=== PATIENT | female | born 1975 | race Caucasian/White ===

== ENCOUNTER 2020-01-15 08:08 | Outpatient (CLI) | payer BC, SELFPAY ==
--- NOTE | 2020-01-15 | US_ITS ---
WS: [id number] Gallbladder and right upper quadrant ultrasound, 01/15/2020 Clinical Data: ELEVATED LIVER ENZYMES Comparison: Gallbladder ultrasound, 08/10/2014. Findings: The gallbladder shows no sludge or stone. The wall measures 0.16 cm with no pericholecystic fluid. The common bile duct is 0.29 cm and there are no intrahepatic ductal abnormalities. Liver shows no cysts, masses or dilated intrahepatic ducts. The liver measures 17.1 cm in greatest AP diameter with fatty infiltration. The pancreas is not obscured by overlying bowel gas and no cyst, pseudocyst, or evidence of pancreati tis is noted. Right kidney measures 9.8 cm and no cyst, masses or hydronephrosis can be seen. The aorta and inferior vena cava show no vascular abnormalities. US/US liver [id number] Impression: 1. Negative gallbladder. 2. Hepatomegaly and fatty infiltration of the liver.
== END 2020-01-15 08:09 | disposition home or self-care (01) ==
LOC: RADOUTREAD 12:13
PROVIDERS: Family Provider Family Medicine; PCP Family Medicine; Visit Provider Family Medicine
DX: R94.5 Abnormal results of liver function studies (principal); R16.0 Hepatomegaly, not elsewhere classified; K76.0 Fatty (change of) liver, not elsewhere classified
CPT/HCPCS: 76705

== ENCOUNTER 2020-07-26 16:27 | Outpatient (CLI) | payer BC, SELFPAY ==
--- NOTE | 2020-07-26 | MR_ITS ---
WS: [id number] MRI RIGHT KNEE NONCONTRAST TECHNIQUE: Axial PD, coronal PD fat sat, coronal PD, sagittal PD, and sagittal PD fat-sat images obta ined. CLINICAL INFORMATION: RIGHT KNEE PAIN COMPARISON: None. FINDINGS: Distal quadriceps and patella tendons are intact. Normal anterior and posterior cruciate ligaments. H ypertrophic patella. Small suprapatellar effusion. Mild thinning of the medial and lateral meniscus. No acute appearing meniscal tears. Moderate to advanced chondromalacia patella. No subchondral edema. Normal medial and lateral patellar retinaculum. Normal medial and lateral collateral ligaments. Normal popliteal fossa. MR/MR knee RT wo con* [id number] IMPRESSION: 1. Normal anterior and posterior cruciate ligaments. 2. Mild chronic thinning of the medial and lateral meniscus. No acute appearin g meniscal tears. 3. Moderate to advanced chondromalacia patella. No subchondral edema. Normal m edial and lateral patellar retinaculum. 4. Hypertrophic patella. Small suprapatellar effusion. 5. Moderate chondromalacia medial and lateral joint compartments.
== END 2020-07-26 16:28 | disposition home or self-care (01) ==
LOC: RADSHAW 16:31
PROVIDERS: PCP Family Medicine; Visit Provider Family Medicine
DX: M22.41 Chondromalacia patellae, right knee (principal); M25.461 Effusion, right knee
CPT/HCPCS: 73721

== ENCOUNTER 2021-01-30 10:28 | Emergency (ER) | payer BC, SELFPAY ==
--- NOTE | 2021-01-30 10:32 | XRR_ITS ---
PROCEDURE INFORMATION: Exam: XR Left Foot Exam date and time: 01/30/2021 10:32 AM Age: 45 years old Clinical indication: Pain; Heel; Left; Additional info: Heel pain, 3 view including oblique TECHNIQUE: Imaging protocol: XR Left foot. Views: 3 or more views. COMPARISON: No relevant prior studies available. FINDINGS: Bones/joints: No acute fracture. Joint spaces are preserved. Tiny calcaneal spur. Small enthesophyte at the Achilles insertion. Soft tissues: Normal. XR/XR foot LT min 3V* [id number] IMPRESSION: No acute findings.
[2021-01-30 10:38] VITALS: BP 148/91; PULSE 85; RESP 18; TEMP 36.6; O2SAT 98; BMI 35.9
--- NOTE | 2021-01-30 10:44 | ED_ITS ---
HPI - General Adult General: Chief complaint: Extremity Problem,Nontraumatic Stated complaint: L HEEL PAIN/SWELLING Time Seen by Provider: 01/30/21 10:37 History of Present Illness: HPI narrative: Patient is a 45-year-old female who presents the emergency room with complaints of 1 week of left heel pain. Patient reports that every time she stands up or walk, she has heel pain that shoots up to her calf on the left side. Patient denies any fall, fever/chills, redness. Patient denies any trauma or fall recently. Patient presents for evaluation of pain despite [id number] medicine. Onset:5 days ago Duration:5 days Location:home Severity:mild Review of Systems Narrative: Constitutional: No fever, no chills. HEENT: No vision changes CV: No chest pain, no palpitations PULM: no cough, no dyspnea. GI: No abdominal pain, no N/V/D. : No dysuria MSKEL: No muscle pain, +L heel pain SKIN: No new rashes, no lesions. NEURO: No headache, no focal weakness. HEME: No visible bruises PSYCH: Normal mood [facility] ED Female Reproductive History: Date of last menstrual period: 08/26/20 Physical Exam Narrative: EXAM NARRATIVE: Head: Atraumatic Eyes: PERRL, conjunctiva without injection ENT: Mucous membrane moist NECK: Supple, ROM intact LUNGS: LCTAB, no crackles/rhonchi CV: RRR ABDOMEN: Soft, nontender in all quadrants EXTREMITY: Normal ROM, + mild tenderness palpation over the left heel, no palpable midfoot tenderness, no ankle tenderness to palpation, 2+ DP/PT pulses R foot, sensation, negative qiu sign, no focal calf tenderness to palpation SKIN: No rash or erythema, cap refill <3seconds L foot NEURO: Awake and alert, no focal motor deficits PSYCH: Normal mood and affect Course Vital Signs: Vital signs: Vital Signs Temperature 97.8 F 01/30/21 10:38 Pulse Rate 82 01/30/21 12:20 Respiratory Rate 18 01/30/21 12:20 Blood Pressure 125/86 01/30/21 12:20 Pulse Oximetry 98 01/30/21 12:20 MDM - General Adult MDM Narrative: Medical decision making narrative: Patient is a 45-year-old female who presents the emergency room for evaluation of left toe pain x5 days. On exam, patient has mild tenderness to palpation over the left heel. No signs of trauma or visible deformity. No ankle involvement or other foot involvement. XR showed left heel bone spur. She received Tylenol emergency room with symptom improvement. Rx heel foam, capsaicin, lidocaine cream, Tylenol as needed pain. Patient is given follow-up with podiatry. Position: Discharge. Patient is given strict return precautions for any worsening pain or any other issues. Patient has a follow-up with podiatry, sports medicine as well as PCP today. Instructed to follow-up with those pr ovider for further evaluation of her symptoms. Imaging Data^: Other Imaging: Radiologist's impression: [address] [address]ELio ReportSigned Patient: Julia Barrera #: [id number]: 1975Acct#:[id number]/Sex: 45 / FADM Date: 01/30/21Loc: ERRoom/Bed:Attending Dr: Ordering Provider/Ordering MD: Jl Todd MD Date of Service: 01/30/21 Procedure(s): XR foot LT min 3V* [id number] Accession Number(s): [id number] Report Number: [id number] PROCEDURE INFORMATION: Exam: XR Left Foot Exam date and time: 01/30/2021 10:32 AM Age: 45 years old Clinical indication: Pain; Heel; Left; Additional info: Heel pain, 3 view including oblique TECHNIQUE: Imaging protocol: XR Left foot. Views: 3 or more views. COMPARISON: No relevant prior studies available. FINDINGS: Bones/joints: No acute fracture. Joint spaces are preserved. Tiny calcaneal spur. Small enthesophyte at the Achilles insertion. Soft tissues: Normal. XR/XR foot LT min 3V* [id number] IMPRESSION: No acute findings. Dictated By:Jose Miller DOSigned By:Jose Miller DOSigned Date/Time: 01/30/21 1156DD/ 1154 Discharge Plan Discharge Patient Disposition: Home Clinical Impression: Heel pain, Bone spur Condition: Stable Prescriptions: New acetaminophen 500 mg capsule 500 mg PO TID PRN (Reason: pain) 7 Days RF: 0 lidocaine 3 % cream 1 applic topical BID PRN (Reason: pain) 7 Days Qty: 28.35 RF: 0 capsaicin 0.025 % cream 1 applic topical BID PRN (Reason: pain) 7 Days Qty: 25 RF: 0 (DME) foam heel dressing 4.7 X 7.5 bandage See Rx Instructions .ROUTE Qty: 10 RF: 0 Discharge Orders: Discharge ED (Routine); Ordered 01/30/21 Ordered By: Jl Todd Referrals: Chato Williamson MD [Primary Care Provider] - Discharge Diet: Advance as tolerated Discharge Activity: Resume usual activity Patient Instructions: Foot Care Activity Restrictions/Additional Instructions: Please follow up with our developmental education instructor and our sports medicine doctor for evaluation of your symptoms. Use medicine as needed for your pain. Coding Level of Care Code ED Coin Machine Servicer Repairer for Cole Patel
[2021-01-30 10:45] VITALS: BP 148/91; PULSE 89; RESP 18; O2SAT 98
[2021-01-30] MEDS: lidocaine 2% viscous 15 mL UDC TOPICAL (10:56)
[2021-01-30 12:20] VITALS: BP 125/86; PULSE 82; RESP 18; O2SAT 98
--- NOTE | 2021-01-31 10:10 | DCPLANNER ---
fire manager had message to schedule a follow up appointment for patient with ortho and physical therapy. fire manager called the ortho clinic, spoke with Violet, gave clinic patients information. fire manager was told that patients information would be printed and reviewed. Clinic will call patient with appointment information. fire manager also had message to refer patient to physical therapy, outpatient case manager was not left an out patient order for this. When outpatient case manager called ortho with referral, outpatient case manager asked if when patient was seen, if patient needed physical therapy that the ortho physician referred patient to physical therapy. fire manager called and explained this to patient, she was agreeable with the plan of seeing the ortho physician first.
--- NOTE | 2021-02-01 07:56 | DCPLANNER ---
Patient has a follow up appointment scheduled for Sunday, February 02, 2021 at 1:[address] Corbin at [facility]. Clinic will call patient with appointment information.
--- NOTE | 2021-02-25 09:15 | DCPLANNER ---
Patient had a follow up appointment scheduled for 02.02.21 with ortho - patient did attend appointment.
== END 2021-01-30 12:20 | disposition home or self-care (01) ==
PROVIDERS: Emergency Provider Emergency Medicine; PCP Family Medicine
DX: M77.32 Calcaneal spur, left foot (principal)
CPT/HCPCS: 73630; 99282

== ENCOUNTER 2021-12-10 11:38 | Emergency (ER) | payer BC, SELFPAY ==
[2021-12-10 11:45] VITALS: BP 129/86; PULSE 85; RESP 14; TEMP 36.2; O2SAT 98
--- NOTE | 2021-12-10 12:32 | W.ED.GENADLT ---
HPI - General Adult General: Chief complaint: Extremity Problem,Nontraumatic Stated complaint: right foot pain Time Seen by Provider: 12/10/21 12:29 History of Present Illness: Patient is a 46-year-old female with history of hypertension presenting to the emergency room for concerns of right foot pain. Patient tells me that since December 06, she has had right foot pain worse with walking. Patient says that the pain has not improved and decided come to the emergency for evaluation. Patient has any other injuries. Patient denies any recent fall or any trauma. No other complaints at this time Onset:12/06/2021 Duration:4 days Location:home Severity:mild/moderate Associated symptoms: Deny chest pain, dyspnea, nausea, rash, palpitations or vomiting Review of Systems Const: Denies: fever(s) or chills Eyes: Denies: change in vision ENMT: Denies: mouth pain Card: Denies: chest pain or palpitations Resp: Denies: dyspnea GI: Denies: nausea or vomiting : Denies: dysuria Musc: Reports: extremity pain (+R foot pain) Skin/Breast: Denies: rash Neuro: Denies: weakness in extremities Psych: Reports: other (Normal mood) Juan/Lymph: Denies: easy bruising PFSH ED PFSH: Medical History Hypertension Social History Smoking and tobacco status: current every day smoker (7 ciggerettes a day ) Alcohol intake: never Substance/Drug Use: never Female Reproductive History: Date of last menstrual period: 08/26/20 Physical Exam Const: COMMON NORMALS: alert HENMT: COMMON NORMALS: atraumatic HEAD & SCALP: atraumatic MOUTH: moist mucous membranes not abnormal Eye: COMMON NORMALS: EOMs intact bilaterally and conjunctivae normal CONJUNCTIVA: Yes conjunctivae normal Neck/C-Spine: COMMON NORMALS: full ROM and supple Resp: COMMON NORMALS: normal respiratory effort and clear to auscultation bilaterally AUSCULTATION: clear to auscultation bilaterally Cardio: COMMON NORMALS: regular rate RATE: regular rate GI: COMMON NORMALS: Soft to palpation and non-tender PALPATION: Yes Soft to palpation Extremity: COMMON NORMALS: full ROM Neuro: SENSORIUM/ORIENTATION: Yes alert MOTOR EXAM: No Abnormal motor strength present and Other motor observations present (no focal motor deficits) OTHER: + Cap refill in the right digits less than 3 seconds, mild right anterior foot tenderness to palpation at the base of the third digit, no midfoot tenderness to palpation, no Lisfranc area tenderness palpation, 2+ DP/PT pulses on the right foot Psych: COMMON NORMALS: speech normal SPEECH: Yes normal speech MOOD & AFFECT: Yes euthymic mood Course Vital Signs: Vital signs: Vital Signs Temperature 97.2 F L 12/10/21 11:45 Pulse Rate 85 12/10/21 11:45 Respiratory Rate 14 12/10/21 11:45 Blood Pressure 129/86 12/10/21 11:45 Pulse Oximetry 98 12/10/21 11:45 MDM - General Adult Medical Decision Making Patient is a 46-year-old female with history hypertension who presents emergency room with complaints of right foot pain. Patient has mild tenderness palpation over the right anterior foot at the base of the third digit. Neurovascular exam intact on the right foot. Do not suspect acute arterial occlusion. X-ray did not show any signs of acute fractures. Rx: Tylenol, lidocaine patch, and menthol PRN pain Disposition: Discharge. Patient counseled regarding diagnostic impression, treatment plan. Patient given ED strict return precautions to return for continuation, worsening, or development of new symptoms. Instructed to f/u w/ PCP regarding symptoms today. Patient verbalized understanding. Lab Data Radiology Impressions Foot X-Ray 12/10/21 12:30 IMPRESSION: 1. No acute findings. 2. Bone spur inferior calcaneus Imaging Data Other Imaging: Radiologist's impression: [address] [address] XRay Report Signed Patient: Julia Barrera Unit #: [id number] : 1975 Age/Sex: 46 / F ADM Date: 12/10/21 Loc: ER Room/Bed: Attending Dr: Ordering Provider/Ordering MD: Jl Todd MD Date of Service: 12/10/21 Procedure(s): XR foot RT min 3V* [id number] Accession Number(s): [id number] Report Number: [id number] PROCEDURE INFORMATION: Exam: XR Right Foot Exam date and time: 12/10/2021 12:47 PM Age: 46 years old Clinical indication: Pain; Foot; Right; Additional info: Foot pain TECHNIQUE: Imaging protocol: Radiologic exam of the Right foot. Views: 3 or more views. COMPARISON: No relevant prior studies available. FINDINGS: Bones/joints: Negative for acute bony abnormality. Bone spur inferior calcaneus Soft tissues: Normal. XR/XR foot RT min 3V* [id number] IMPRESSION: 1. No acute findings. 2. Bone spur inferior calcaneus ? Dictated By: Matt Pepe Signed By: Matt Pepe Signed Date/Time: 12/10/21 1343 DD/ 1247 Discharge Plan Discharge Patient Disposition: Home Clinical Impression: Foot pain Condition: Stable Prescriptions: New acetaminophen 500 mg tablet 500 mg PO Q6H PRN (Reason: pain) 5 Days Qty: 20 0RF lidocaine 5 % adhesive patch,medicated 1 patch topical DAILY PRN (Reason: pain) 30 Days Qty: 30 0RF Rx Instructions: leave on most painful area for up to 12 hrs Biofreeze (menthol) 5 % gel 1 ea topical BID PRN (Reason: pain) 10 Days Qty: 1 0RF No Action naproxen 500 mg tablet 500 mg PO BID Qty: 60 0RF prednisone 10 mg tablet 10 mg PO DAILY Qty: 42 0RF Rx Instructions: Instructions given in clinic (DME) foam heel dressing 4.7 X 7.5 bandage See Rx Instructions .Route Qty: 10 0RF Rx Instructions: As directed Discharge Orders: Discharge ED (Routine); Ordered 12/10/21 Ordered By: Jl Todd Referrals: Chato Williamson MD [Primary Care Provider] - Discharge Diet: Advance as tolerated Discharge Activity: Increase activity as tolerated Patient Instructions: Arthralgia (ED) Activity Restrictions/Additional Instructions: Come back if you have any new or concerning issues. Coding Level of Care Code ED Regulation Supervisor for Chg Fwd Exam Comprehensive
== END 2021-12-10 14:48 | disposition home or self-care (01) ==
PROVIDERS: Emergency Provider Emergency Medicine; PCP Family Medicine
DX: M79.671 Pain in right foot (principal); M77.31 Calcaneal spur, right foot
CPT/HCPCS: 73630; 99283

== ENCOUNTER → 2022-01-18 08:11 | Outpatient (BNVA) | payer BC, SELFPAY | PROVIDERS: PCP Family Medicine; Referring Provider Family Medicine; Visit Provider Podiatrist Foot & Ankle Surgery | DX: M79.671 Pain in right foot (principal) | CPT/HCPCS: 73630 ==

== ENCOUNTER 2023-10-19 07:41 | Emergency (ER) | payer OTHER, MEDICAID, SELFPAY ==
[2023-10-19 07:48] VITALS: BP 121/84; PULSE 79; RESP 18; TEMP 36.8; O2SAT 100; BMI 29.2
--- NOTE | 2023-10-19 07:59 | XR_ITS ---
WS: [id number] Right shoulder, 3 views, 10/19/2023 Clinical Data: pain Comparison: None. Findings: No fractures or dislocations are seen. The AC joint is normal. The adjacent right clavicle, right sca pula and ribs are normal. The soft tissues are unremarkable. XR/XR shoulder RT min 2V* [id number] Impression: Negative right shoulder.
--- NOTE | 2023-10-19 08:00 | W.ED.EXTPRO ---
HPI - Extremity Problem General: Chief complaint: Extremity Problem,Nontraumatic Stated complaint: right arm pain Time Seen by Provider: 10/19/23 07:44 Source: patient Mode of arrival: ambulatory History of Present Illness: 48-year-old female presents emergency room with complaint of shoulder pain has been going on for the last 2 weeks. She denies any specific trauma or precipitating incident. 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 She is right-hand dominant. No pain in the wrist or elbow she has pain in the shoulders difficult time moving the shoulder and almost any plane other than keeping it central in a new position neutral position at her side. Pain will radiate down to in the arm at times no pain in the neck. No previous surgery to the shoulder or known previous injuries. She had seen her primary care doctor and was briefly on a course of oral steroids which seem to help but when the steroid stopped the pain returned MD Complaint: joint pain Onset (ago): week(s) (2) Pain Consistency: constant Location: right (Shoulder) Quality: sharp Radiation: distal Relieving factors: immobilization Exacerbating factors: range of motion Associated symptoms: Deny chest pain, fever(s), myalgias, rash or short of breath Review of Systems Const: Denies: fever(s) Card: Denies: chest pain Skin/Breast: Denies: rash [facility] ED PFSH: Medical History Hypertension Social History Smoking and tobacco/nicotine status: current every day tobacco/nicotine user (7 ciggerettes a day ) Alcohol intake: never Substance/Drug Use: never Physical Exam Narrative: EXAM NARRATIVE: Neurovascularly right arm is completely intact no pain with range of motion at the wrist or the elbow no pain with pronation supination flexion extension at the elbow. Significant pain at the shoulder joint with attempts to AB duct or flex. Difficult to fully examine due to discomfort patient experiences with attempted ranges of motion. Course Vital Signs: Vital signs: Vital Signs Temperature 98.2 F 10/19/23 07:48 Pulse Rate 78 10/19/23 08:32 Respiratory Rate 18 10/19/23 07:48 Blood Pressure 132/89 10/19/23 08:32 Pulse Oximetry 98 10/19/23 08:32 Oxygen Delivery Me thod Room Air 10/19/23 07:48 MDM - Extremity (Nontraumatic) Medical Decision Making Patient has poor range of motion of the shoulder. 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 She has a hard time moving the shoulders difficulty into exam because the degree discomfort. We initially had placed her on diclofenac after she left her creatinine came back at 1.8 we will contact her and have her hold the diclofenac and instead use tramadol for now. I do not have a previous creatinine to compare to. She should follow-up with her primary care doctor regarding the elevated creatinine. Medical Records I reviewed the patient's medical records. Lab Data I reviewed the patient's lab results. 10/19/23 08:16 10/19/23 08:16 Radiology Impressions Shoulder X-Ray 10/19/23 07:59 Impression: Negative right shoulder. Laboratory Results WBC 10.04 10^3/uL (3.29-11.43) 10/19/23 08:16 RBC 3.92 10^6/uL (3.85-5.65) 10/19/23 08:16 Hgb 12.70 g/dL (11.27-16.99) 10/19/23 08:16 Hct 37.3 % (36-47) 10/19/23 08:16 MCV 95.2 fl (85-98) 10/19/23 08:16 MCH 32.4 pg (27-33) 10/19/23 08:16 MCHC 34.0 g/dL (30-55) 10/19/23 08:16 RDW 12.6 % (12.1-15.1) 10/19/23 08:16 Plt Count 253 10^3/cmm (157-399) 10/19/23 08:16 MPV 10.9 fL (7.4-10.4) H 10/19/23 08:16 Neut % (Auto) 61.5 % 10/19/23 08:16 Lymph % (Auto) 26.5 % 10/19/23 08:16 [place] % (Auto) 9.1 % 10/19/23 08:16 Eos % (Auto) 2.2 % 10/19/23 08:16 Baso % (Auto) 0.4 % 10/19/23 08:16 Neut # (Auto) 6.18 10^3/uL (1.8-7.7) 10/19/23 08:16 Lymph # (Auto) 2.7 10^3/uL (0.8-4.8) 10/19/23 08:16 [place] # (Auto) 0.9 10^3/uL (0.2-0.9) 10/19/23 08:16 Eos # (Auto) 0.2 10^3/uL (0.0-0.8) 10/19/23 08:16 Baso # (Auto) 0.0 10^3/uL (0.0-0.1) 10/19/23 08:16 Nucleated RBC % (auto) 0 % 10/19/23 08:16 Nucleated RBCs # 0.0 /100WBC 10/19/23 08:16 Sodium 139 mmol/L (136-145) 10/19/23 08:16 Potassium 4.6 mmol/L (3.5-5.1) 10/19/23 08:16 Chloride 106 mmol/L (98-107) 10/19/23 08:16 Carbon Dioxide 19 mmol/L (22-29) L 10/19/23 08:16 Anion Gap 18.6 (5-19) 10/19/23 08:16 BUN 43 mg/dL (6-20) H 10/19/23 08:16 Creatinine 1.8 mg/dL (0.5-0.9) H 10/19/23 08:16 GFR Calculation 30.0 mL/min (90-130) L 10/19/23 08:16 Glucose 110 mg/dL (65-115) 10/19/23 08:16 Calculated Osmolality 299 mOsm/kg (285-295) H 10/19/23 08:16 Calcium 9.9 mg/dL (8.5-10.5) 10/19/23 08:16 Total Bilirubin 0.4 mg/dL (0.15-1.2) 10/19/23 08:16 AST 13 U/L (0-32) 10/19/23 08:16 ALT 15 U/L (0-33) 10/19/23 08:16 Alkaline Phosphatase 80 U/L (35-105) 10/19/23 08:16 Total Protein 8.0 g/dL (6.6-8.7) 10/19/23 08:16 Albumin 4.2 g/dL (3.5-5.2) 10/19/23 08:16 Globulin 3.8 g/dL (1.3-4.6) 10/19/23 08:16 All radiology interpretation(s) finalized by discharge Discharge Plan Discharge Patient Disposition: Home Clinical Impression: Rotator cuff arthropathy of right shoulder Condition: Stable Prescriptions: New tramadol 50 mg tablet 50 mg PO Q6H PRN (Reason: pain) Qty: 10 0RF Discontinued ibuprofen 200 mg Tablet 800 mg PO Q6H PRN (Reason: Pain) No Action cetirizine 10 mg tablet 10 mg PO DAILY metoprolol succinate 50 mg tablet extended release 24 hr 50 mg PO DAILY losartan-hydrochlorothiazide 100-12.5 mg tablet 1 tab PO DAILY Discharge Orders: Discharge ED (Routine); Ordered 10/19/23 Ordered By: Dudley Loya Referrals: Chato Williamson MD [Primary Care Provider] - Patient Instructions: Opioid Safety, Pain Management Activity Restrictions/Additional Instructions: Thank you for choosing [facility] for your healthcare needs today. Please realize this is an emergency room and that we are providing you with a medical screening exam and this may not be complete and all inclusive of all the testing and or work up that you may need to determine your ailment or severity of your illness. It is very important that you follow up as instructed or that you return to the Emergency Department should you have concerns or if your condition changes or worsens in any way. You are seen today for right shoulder pain x-ray did not show any acute fractures. Will have you use diclofenac as needed. Case management will make arrangements for you to follow-up with an orthopedist. Coding Level of Care Code ED Gre Tutor for Cole Patel
[2023-10-19 08:32] VITALS: BP 132/89; PULSE 78; O2SAT 98
[2023-10-19 08:36] LABS: Basophils % 0.4 %; Eosinophils # 0.2 10^3/uL (0.0-0.8); Eosinophils % 2.2 %; Hematocrit 37.3 % (36-47); Lymphocytes # 2.7 10^3/uL (0.8-4.8); Lymphocytes % 26.5 %; Mean Corpuscular Hemoglobin 32.4 pg (27-33); Mean Corpuscular Volume 95.2 fl (85-98); Mean Platelet Volume 10.9 fL (7.4-10.4); Monocytes # 0.9 10^3/uL (0.2-0.9); Monocytes % 9.1 %; Neutrophils # 6.18 10^3/uL (1.8-7.7); Neutrophils % 61.5 %; Nucleated Red Blood Cells % 0 %; Platelet Count 253 10^3/cmm (157-399); Red Blood Count 3.92 10^6/uL (3.85-5.65); Red Cell Distribution Width 12.6 % (12.1-15.1); White Blood Count 10.04 10^3/uL (3.29-11.43)
[2023-10-19 09:03] LABS: Alanine Aminotransferase 15 U/L (0-33); Albumin Level 4.2 g/dL (3.5-5.2); Alkaline Phosphatase 80 U/L (35-105); Anion Gap 18.6 (5-19); Aspartate Amino Transferase 13 U/L (0-32); Blood Urea Nitrogen 43 mg/dL (6-20); Calcium 9.9 mg/dL (8.5-10.5); Carbon Dioxide 19 mmol/L (22-29); Chloride 106 mmol/L (98-107); Creatinine Clr Calc Pharmacy 32.8944; Globulin 3.8 g/dL (1.3-4.6); Glucose 110 mg/dL (65-115); Osmolality Calculated 299 mOsm/kg (285-295); Potassium 4.6 mmol/L (3.5-5.1); Sodium 139 mmol/L (136-145); Total Bilirubin 0.4 mg/dL (0.15-1.2)
--- NOTE | 2023-10-19 10:31 | PC.NURSE ---
called pt and informed her to discontinue ibuprofen and diclofinac and that tramadol had been resent to pharmacy. informed pt her creatnine level was elevated and she needed to follow up with PCP within 7 dyas for recheck or return to the ER with new or worsening symptoms, per DR. Loya. PT verbalized understanding of instructions
--- NOTE | 2023-10-22 05:59 | DCPLANNER ---
Message sent to ortho for follow up.
== END 2023-10-19 08:30 | disposition home or self-care (01) ==
PROVIDERS: Emergency Provider Family Medicine; PCP Family Medicine
DX: M12.811 Other specific arthropathies, not elsewhere classified, right shoulder (principal); I10 Essential (primary) hypertension; F17.210 Nicotine dependence, cigarettes, uncomplicated
CPT/HCPCS: 73030; 80053; 85025; 99284

== ENCOUNTER 2023-11-19 08:34 | Outpatient (CLI) | payer OTHER, MEDICAID, SELFPAY ==
--- NOTE | 2023-11-19 08:41 | MR_ITS ---
WS: [id number] MRI RIGHT SHOULDER NONCONTRAST TECHNIQUE: Sagittal T2, coronal T1, T2 and proton density imaging. Axial gradient PDE imaging. CLINICAL INFORMATION: R SHOULDER PAIN COMPARISON: None. FINDINGS: Advanced arthritis AC joint with edema. Subacromial and subdeltoid fluid. Slight impingement distal s upraspinatus. Chronic thinning of the supraspinatus with tendinopathy. Tiny intrasubstance tear dista l infraspinatus. Tendinopathy infraspinatus. Normal teres minor. Normal subscapularis. Normal biceps tendon in the bicipital groove. Normal bone marrow signal in the bony glenoid. Glenoid labrum appears grossly intact. Intra-articular biceps tendon appears intact. Normal biceps labral anchor. Normal bone marrow signal in the humeral head. MR/MR shoulder RT wo con* [id number] IMPRESSION: 1. Advanced degenerative arthritis AC joint with fluid and edema. 2. Slight impingement distal supraspinatus with tendinopathy and mild chronic thinning. 3. Tiny intrasubstance tear distal infraspinatus which appears intact. 4. Rotator cuff is otherwise intact. 5. Biceps tendon appears intact within the bicipital groove. 6. Intra-articular biceps tendon appears intact. 7. No other acute findings.
== END 2023-11-19 08:35 | disposition home or self-care (01) ==
PROVIDERS: PCP Family Medicine; Visit Provider Family Medicine
DX: M13.811 Other specified arthritis, right shoulder (principal); M75.41 Impingement syndrome of right shoulder; M75.81 Other shoulder lesions, right shoulder
CPT/HCPCS: 73221

== ENCOUNTER → 2023-11-26 16:13 | Outpatient (BNVA) | payer OTHER, MEDICAID, SELFPAY | PROVIDERS: PCP Family Medicine; Referring Provider Family Medicine; Visit Provider Nurse Practitioner | DX: M25.519 Pain in unspecified shoulder (principal) | CPT/HCPCS: 36415; 85025 ==

== ENCOUNTER 2023-11-29 05:32 | Day surgery (SDC) | payer OTHER, MEDICAID, SELFPAY ==
[2023-11-29] VITALS (11 sets, daily range): BP systolic 98–129; BP diastolic 66–92; PULSE 63–80; RESP 12–20; TEMP 36.2–36.6; O2SAT 97–100; BMI 29.2
[2023-11-29] MEDS: CELEcoxib 200 mg Capsule 400 MG PO (06:30)
[2023-11-29] MEDS: acetaminophen 1,000 MG/100 ML PIGGYBACK 400 MG IV (06:30)
[2023-11-29] MEDS: gabapentin 300 mg Capsule PO (06:30)
--- NOTE | 2023-11-29 06:56 | P.ANESASSM_ITS ---
Pre-Anesthetic Assessment Height/Weight: Height 1.52 m Weight 68.039 kg Temp Pulse Resp BP Pulse Ox O2 Del Method 97.2 F L 76 18 127/92 97 Room Air 11/29/23 06:06 11/29/23 06:06 11/29/23 06:06 11/29/23 06:06 11/29/23 06:06 11/29/23 06:06 Operation Date: 11/29/23 07:00 Proposed Procedures p open Distal Clavicle Resection(Right) - Whit Neely MD s Acromioplasty(Right) - Whit Neely MD s Debridement Upper Extremity shoulder(Right) - Whit Neely MD s Rotator Cuff Repair - Open(Right) - Whit Neely MD Familial anesthetic complications: None Was Beta Arun taken within 24 hours: N/A Was Clonidine taken within 24 hours: N/A Last intake: Intake Last Liquid Date 11/28/23 Last Liquid Time 21:00 Last Solid Date 11/28/23 Last Solid Time 21:00 Social Tobacco and No alcohol Exam alert, oriented x 3, clear to auscultation bilaterally and regular rate & rhythm Airway Mallampati: Class II Dentition: full CV/HEM Hypertension Anesthetic Plan ASA status: 2 Anesthesia: General and Regional (specify below) Risk of > 500 ml blood loss (7ml/kg in children): No Medications/Allergies Home Medications Medication Instructions Recorded Confirmed Last Taken Type cetirizine 10 mg tablet 10 mg PO DAILY 10/19/23 11/28/23 11/28/23 History losartan 100 1 tab PO DAILY 10/19/23 11/28/23 11/28/23 History mg-hydrochlorothiazide 12.5 mg tablet metoprolol succinate 50 mg 50 mg PO DAILY 10/19/23 11/29/23 11/29/23 History tablet,extended release 24 hr tramadol 50 mg tablet 50 mg PO Q6H PRN pain #10 tabs 10/19/23 11/28/23 11/28/23 Rx cyclobenzaprine 10 mg tablet 10 mg PO TID PRN muscle spasm #42 11/26/23 11/28/23 11/28/23 Rx tabs diclofenac potassium 50 mg tablet 50 mg PO TID PRN pain #60 tabs 11/26/23 11/28/23 Unknown Rx Allergies Allergy/AdvReac Type Severity Reaction Status Date / Time No Known Allergies Allergy Verified 11/26/23 15:25 [facility] Anesthesia Medical History Acromioclavicular joint arthritis Rotator cuff tear arthropathy of right shoulder Impingement syndrome of right shoulder Hypertension Social History Smoking and tobacco/nicotine status: current every day tobacco/nicotine user (7 ciggerettes a day ) Alcohol intake: never Substance/Drug Use: never Data Anesthesia Cardiac Studies: No Data to Display
--- NOTE | 2023-11-29 06:57 | ANES.PROC ---
Anesthesia Procedures Procedure/Date: 11/29/23 Nerve Block ^: Nerve Block 1: Main Anesthesia: general anesthesia Time Out Performed: Yes Consent: requested by attending/covering physician, from patient, from other, risks and benefits reviewed and patient agrees to proceed Nerve block location: interscalene (R) Anesthesia monitors applied: pulse oximetry, EKG and BP cuff Nerve block position: semi sitting Anesthetic Used: ropivicaine 0.5% (20 ml) and with decadron (4 mg) Ultrasound used to: recognize landmarks, visualize and ID brachial plexus, in supraclavicular region and visualize and ID interscalene groove Nerve Stimulator Used?: No Interscalene/Femoral BLK: 2 stimuplex 22 g needle used for position and inplane approach, visualize local anesthetic spread and no vascular puncture identified Injection: neg aspiration of heme Patient Tolerated Procedure: well Complications: none
--- NOTE | 2023-11-29 06:59 | P.HPUD_ITS ---
Surgery/Procedure H&P Update DATE OF PROCEDURE: November 29, 2023 DATE H&P PERFORMED: 11/26/23 H&P UPDATE INFORMATION: I have reviewed H&P completed within last 30 days, I have examined patient prior to procedure, No changes to prior documentation and H&P is in [facility] EMR on date indicated CHANGES TO PREVIOUS DOCUMENTATION: MRI IMPRESSION (11/19/23): 1. Advanced degenerative arthritis AC joint with fluid and edema. 2. Slight impingement distal supraspinatus with tendinopathy and mild chronic thinning. 3. Tiny intrasubstance tear distal infraspinatus which appears intact. 4. Rotator cuff is otherwise intact. 5. Biceps tendon appears intact within the bicipital groove. 6. Intra-articular biceps tendon appears intact. 7. No other acute findings. PLANNED PROCEDURE: Operation Date: 11/29/23 07:00 Proposed Procedures p open Distal Clavicle Resection(Right) - Whit Neely MD s Acromioplasty(Right) - MD asha Stevenson Debridement Upper Extremity shoulder(Right) - MD asha Stevenson Rotator Cuff Repair - Open(Right) - Whit Neely MD Related Problem List Diagnoses (1) Impingement syndrome of right shoulder: (2) Acromioclavicular joint arthritis: Qualifiers: Laterality: right Qualified Code(s): M19.011 - Primary osteoarthritis, right shoulder (3) Rotator cuff tear arthropathy of right shoulder:
[2023-11-29] MEDS: midazolam 1 mg/mL INJ 2 mL 2 MG IVP (07:03)
[2023-11-29] MEDS: ceFAZolin 2,000 MG in sodium chloride 0.9% (plus) 50 ML 100 MG IV (07:03)
[2023-11-29] MEDS: sodium chloride 0.9% 1,000 ML 30 ML IV (07:05)
[2023-11-29] MEDS: ceFAZolin 1,000 mg SDV 1000 MG IRRIGATION (07:47)
--- NOTE | 2023-11-29 08:26 | PM.OP ---
Operative Report Date of procedure: November 29, 2023 Pre-op diagnosis: Left shoulder impingement and acromioclavicular joint degenerative osteoarthritis with possible rotator cuff tear Post-op diagnosis: Left shoulder impingement and acromioclavicular joint degenerative osteoarthritis with bursitis Post-op findings: Thickened bursa with hematoma over the rotator cuff, but no carie tear. Significant degenerative osteoarthritis of the acromioclavicular joint and severe impingement. Procedure done: Left shoulder acromioplasty with bursectomy and distal clavicle resection. Debridement of rotator cuff hematoma Implants: None Pathology: None Surgeon: Whit Neely MD Fire Alarm Inspector: Soumya Barriga, nurse practitioner, who services were required for retraction, exposure, and completion of the surgical procedure. Anesthesia: General (Intubated, ASA 2) Estimated blood loss (mL): 10 IV fluids (mL): 800 Complications: None Findings: Significant aggravation of the rotator cuff with small hematoma over the most significant area of impingement. Very tight subacromial space and acromioclavicular joint. Condition: stable Disposition: PACU (Then return to same-day surgery for discharge to home) Brief History: This is a 48-year-old, female patient, who presents to surgery today for open acromioplasty, distal clavicle resection, and evaluation of the rotator cuff for possible rotator cuff tear. The patient notes that she has had significant right shoulder pain with worsening over the 2 months prior to this visit. Patient declines any known injury as to cause her pain. 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 Patient states that she has never had any surgeries on the shoulder in the past. Patient endorses symptoms of pain, weakness, instability, crepitation and stiffness. MRI and x-rays were obtained prior to the plans for surgical intervention. The studies demonstrated advanced degenerative change throughout the acromioclavicular joint with impingement over the distal supraspinatus and infraspinatus tendons. There was felt to possibly be intrasubstance tears of the distal infraspinatus as well as rotator cuff tendinopathy. Prior to surgical procedure, risks and complications were discussed with the patient, consents were signed and questions were answered. Procedure: The patient was brought to the operating theater and underwent general intubated anesthesia, ASA 2. The patient was placed in a beachchair position and subsequently the left upper extremity was prepped and draped in the usual fashion utilizing DuraPrep. The arm was draped free. A surgical pause was performed prior to commencement of the surgical procedure. At the time of the surgical pause, we confirmed the site and side of surgery as well as administration of appropriate preoperative antibiotics Ancef 2 g. MRI was also reviewed at that time. Following the surgical pause, an incision was made at approximately the level of the acromioclavicular joint extending across the anterolateral corner of the acromion and distally as necessary. Care was taken to avoid injury to the axillary nerve by limiting the distal extent of the incision. Dissection continued through skin and soft tissues using a scalpel. Hemostasis was obtained using electrocautery. Soft tissues were elevated off the acromion. An acromioplasty was then accomplished using a combination of a saw and a power rasp. With this, we were able to remove the significant compression caused by the acromion. The rotator cuff was then evaluated to look for tears. Although there was hematoma over the area of impingement, there did not appear to be a rotator cuff tear either by visual assessment or by palpation. The shoulder was placed through further range of motion to assure there was no further evidence of rotator cuff tear. The acromioclavicular joint was exposed. A saw was then used to resect the distal clavicle without difficulty. The undersurface of the clavicle was palpated and was slightly further debrided. A power rasp was used to further smooth the area. When this was felt to be adequately resected, the wound was irrigated. Attention was then directed to closure. The wound was irrigated and closure was accomplished with 0 Vicryl in the capsular tissues overlying the acromioclavicular joint area as well as over the acromion and down into the deltoid muscle. 3-0 Monocryl was used to close the subcutaneous tissues followed by 4-0 Monocryl subcuticular closure. This was followed by Dermabond, Steri-Strips, and OpSite. The patient was placed in a sling and was returned to the recovery room in satisfactory condition. The patient will be discharged to home to follow-up with me in the office. There were no complications and no specimens. Related Problem List Diagnoses (1) Acromioclavicular joint arthritis: (2) Impingement syndrome of right shoulder: (3) Rotator cuff tear arthropathy of right shoulder:
[2023-11-29] MEDS: HYDROcodone-acetaminophen 5-325 mg Tablet 1 TAB PO (09:23)
--- NOTE | 2023-11-29 09:50 | ANE.PACU2 ---
Inpatient post-anesthesia follow up: Airway intact: Yes Vital signs: Temperature 97.8 F Pulse Rate 63 Respiratory Rate 17 Blood Pressure 127/73 Pulse Oximetry 100 Oxygen Delivery Me thod Room Air Oxygen Flow Rate 6 Fraction of Inspir ed Oxygen Hydration adequate: Yes Nausea and vomiting: No Pain level: 1 Mental status: Baseline
== END 2023-11-29 09:50 | disposition home or self-care (01) ==
PROVIDERS: PCP Family Medicine; Visit Provider Specialist
PROC: (CPT 23120; principal; 2023-11-29 07:00)
PROC: (CPT 23130; 2023-11-29 07:00)
PROC: (CPT 29824; 2023-11-29 07:00)
DX: M19.012 Primary osteoarthritis, left shoulder (principal); M25.812 Other specified joint disorders, left shoulder; M75.52 Bursitis of left shoulder; I10 Essential (primary) hypertension; F17.210 Nicotine dependence, cigarettes, uncomplicated
CPT/HCPCS: 29824; 29826; J0131; J0690; J1100; J2250; J2405; J2704; J2710; J2795; J3010; J3490; J7030

== ENCOUNTER 2023-12-12 14:22 | Inpatient (IN) | payer OTHER, MEDICAID, SELFPAY ==
[2023-12-12] VITALS (14 sets, daily range): BP systolic 88–128; BP diastolic 67–85; PULSE 107–122; RESP 14–25; TEMP 36.4–37.1; O2SAT 94–100; BMI 29.2
[2023-12-12 15:06] LABS: Basophils # 0.1 10^3/uL (0.0-0.1); Basophils % 0.5 %; Eosinophils % 0.1 %; Hematocrit 39.4 % (36-47); Lymphocytes # 0.5 10^3/uL (0.8-4.8); Lymphocytes % 2.8 %; Mean Corpuscular HGB Conc 34.5 g/dL (30-55); Mean Corpuscular Hemoglobin 31.8 pg (27-33); Mean Corpuscular Volume 92.1 fl (85-98); Mean Platelet Volume 11.1 fL (7.4-10.4); Monocytes # 0.6 10^3/uL (0.2-0.9); Monocytes % 3.6 %; Neutrophils # 15.29 10^3/uL (1.8-7.7); Neutrophils % 90.7 %; Nucleated Red Blood Cells % 0 %; Platelet Count 159 10^3/cmm (157-399); Red Blood Count 4.28 10^6/uL (3.85-5.65); Red Cell Distribution Width 12.4 % (12.1-15.1); White Blood Count 16.86 10^3/uL (3.29-11.43)
[2023-12-12] MEDS: sodium chloride 0.9% 1,000 ML 999 ML IV ×2 (15:09→16:27)
--- NOTE | 2023-12-12 15:18 | W.ED.ABDPA2 ---
HPI - Abdominal Pain General: Chief Complaint: Abdominal Pain Stated Complaint: chills, right side pain, back pain, vomitting Time Seen by Provider: 12/12/23 14:48 Source: patient Mode of arrival: ambulatory History of Present Illness: 48-year-old female presents emergency room complaining of left flank pain and just generally not feeling well she recently had shoulder surgery she has been on diclofenac additionally she is on losartan hydrochlorothiazide. She has some mild dysuria. Nauseous. Denies any medic easy melena hematemesis calf cramps denies any shortness of breath or cough. MD elicited complaint: abdominal pain Associated Symptoms: Denies chills, dysuria and fever(s) Review of Systems Const: Denies: fever(s) or chills Card: Denies: chest pain Resp: Denies: dyspnea GI: Denies: abdominal pain : Denies: dysuria, urinary frequency or urinary urgency Musc: Denies: neck pain or back pain Skin/Breast: Denies: rash PFSH ED PFSH: Medical History (Updated 12/13/23 @ 07:04 by Dudley Loya DO) Acromioclavicular joint arthritis Rotator cuff tear arthropathy of right shoulder Impingement syndrome of right shoulder Hypertension Social History Smoking and tobacco/nicotine status: current every day tobacco/nicotine user (7 ciggerettes a day ) Alcohol intake: never Substance/Drug Use: never Physical Exam Const: COMMON NORMALS: no acute distress GENERAL APPEARANCE: cooperative and comfortable ORIENTATION/CONSCIOUSNESS: Yes awake, Yes oriented to person, Yes oriented to place and Yes oriented to time HENMT: COMMON NORMALS: normocephalic, atraumatic and hearing grossly normal bilaterally HEAD & SCALP: normocephalic and atraumatic Resp: COMMON NORMALS: normal respiratory effort, No retractions, No use of accessory muscles and clear to auscultation bilaterally AUSCULTATION: clear to auscultation bilaterally Cardio: COMMON NORMALS: regular rate, regular rhythm and No murmurs present (Cardio) RATE: regular rate RHYTHM: regular rhythm GI: COMMON NORMALS: Soft to palpation and No hepatosplenomegaly present AUSCULTATION: Yes normoactive bowel sounds PALPATION: Yes Soft to palpation, No Tenderness to palpation present (GI), No Guarding due to palpation present (GI) and Yes No hepatosplenomegaly present Extremity: COMMON NORMALS: normal to inspection, capillary refill normal, no clubbing, cyanosis or edema, no calf tenderness and no pedal edema Neuro: SENSORIUM/ORIENTATION: Yes oriented to person, Yes oriented to place and Yes oriented to time Skin: COMMON NORMALS: no rashes or lesions noted GENERAL SKIN EXAM: no rashes or lesions noted Course Vital Signs: Vital signs: Vital Signs Temperature 98.6 F 12/13/23 00:17 Pulse Rate 118 H 12/13/23 04:51 Respiratory Rate 16 12/13/23 04:51 Blood Pressure 109/75 12/13/23 04:51 Pulse Oximetry 93 12/13/23 04:51 Oxygen Delivery Me thod Room Air 12/13/23 00:17 MDM - Abdominal Pain Medical Decision Making Acute pyelonephritis with acute kidney injury. Blood cultures done antibiotics started. CT shows changes consistent with pyelonephritis no evidence of nephrolithiasis or obstruction at this time. Patient on diclofenac as well as losartan hydrochlorothiazide which I believe contributed to her acute kidney injury. Patient has metabolic acidosis and elevated anion gap as well. Discussed with hospitalist initial fluids ordered further fluids pending CT results. Do not want to fluid overload the patient eventually had a stone which increased pain. She did respond to the initial modified fluid bolus. Medical Records I reviewed the patient's medical records. Lab Data I reviewed the patient's lab results. 12/13/23 05:35 12/13/23 05:35 Labs/Radiology: Radiology Impressions Chest X-Ray 12/12/23 15:41 IMPRESSION: No acute findings. Abdomen/Pelvis CT 12/12/23 16:22 IMPRESSION: 1. Asymmetric enlargement of the right kidney with asymmetric increased perinephric and periureteral fat infiltration without calculus or obstruction ; differential diagnosis led by urinary tract infection with other pathology including recently passed calculus not excluded. 2. Hepatic steatosis. 3. Prior gastric sleeve resection with small hiatal hernia. Laboratory Results WBC 16.86 10^3/uL (3.29-11.43) H 12/12/23 14:58 RBC 4.28 10^6/uL (3.85-5.65) 12/12/23 14:58 Hgb 13.60 g/dL (11.27-16.99) 12/12/23 14:58 Hct 39.4 % (36-47) 12/12/23 14:58 MCV 92.1 fl (85-98) 12/12/23 14:58 MCH 31.8 pg (27-33) 12/12/23 14:58 MCHC 34.5 g/dL (30-55) 12/12/23 14:58 RDW 12.4 % (12.1-15.1) 12/12/23 14:58 Plt Count 159 10^3/cmm (157-399) 12/12/23 14:58 MPV 11.1 fL (7.4-10.4) H 12/12/23 14:58 Neut % (Auto) 90.7 % 12/12/23 14:58 Lymph % (Auto) 2.8 % 12/12/23 14:58 [place] % (Auto) 3.6 % 12/12/23 14:58 Eos % (Auto) 0.1 % 12/12/23 14:58 Baso % (Auto) 0.5 % 12/12/23 14:58 Neut # (Auto) 15.29 10^3/uL (1.8-7.7) H 12/12/23 14:58 Lymph # (Auto) 0.5 10^3/uL (0.8-4.8) L 12/12/23 14:58 [place] # (Auto) 0.6 10^3/uL (0.2-0.9) 12/12/23 14:58 Eos # (Auto) 0.0 10^3/uL (0.0-0.8) 12/12/23 14:58 Baso # (Auto) 0.1 10^3/uL (0.0-0.1) 12/12/23 14:58 Nucleated RBC % (auto) 0 % 12/12/23 14:58 Nucleated RBCs # 0.0 /100WBC 12/12/23 14:58 Sodium 134 mmol/L (136-145) L 12/12/23 14:58 Potassium 4.5 mmol/L (3.5-5.1) 12/12/23 14:58 Chloride 96 mmol/L (98-107) L 12/12/23 14:58 Carbon Dioxide 17 mmol/L (22-29) L 12/12/23 14:58 Anion Gap 25.5 (5-19) H 12/12/23 14:58 BUN 53 mg/dL (6-20) H 12/12/23 14:58 Creatinine 4.2 mg/dL (0.5-0.9) H 12/12/23 14:58 GFR Calculation 11.3 mL/min (90-130) L 12/12/23 14:58 Glucose 170 mg/dL (65-115) H 12/12/23 14:58 Calculated Osmolality 296 mOsm/kg (285-295) H 12/12/23 14:58 Lactic Acid 2.1 mmol/L (0.5-2.2) 12/12/23 15:58 Calcium 9.2 mg/dL (8.5-10.5) 12/12/23 14:58 Iron 12 ug/dL (37-145) L 12/12/23 14:58 TIBC 222 mcg/dl 12/12/23 14:58 % Saturation 5.4 % (20-50) L 12/12/23 14:58 Unsat Iron Binding 210 ug/dL (112-347) 12/12/23 14:58 Total Bilirubin 0.8 mg/dL (0.15-1.2) 12/12/23 14:58 AST 11 U/L (0-32) 12/12/23 14:58 ALT 11 U/L (0-33) 12/12/23 14:58 Alkaline Phosphatase 123 U/L (35-105) H 12/12/23 14:58 Total Protein 7.9 g/dL (6.6-8.7) 12/12/23 14:58 Albumin 3.9 g/dL (3.5-5.2) 12/12/23 14:58 Globulin 4.0 g/dL (1.3-4.6) 12/12/23 14:58 Lipase 14 U/L (13-60) 12/12/23 14:58 Vitamin B12 661 pg/mL (232-1245) 12/12/23 14:58 Procalcitonin 9.05 ng/mL (0-0.5) H 12/12/23 14:58 TSH 4.08 uIU/mL (0.27-4.20) 12/12/23 14:58 Urine Color Yellow (Yellow) 12/12/23 15:34 Urine Appearance Clear (CLEAR) 12/12/23 15:34 Urine pH 5 (5-7) 12/12/23 15:34 Ur Specific [place] 1.015 (1.005-1.030) 12/12/23 15:34 Urine Protein 3+ (Negative) H 12/12/23 15:34 Urine Glucose (UA) Norm (Normal) 12/12/23 15:34 Urine Ketones Negative (Negative) 12/12/23 15:34 Urine Blood 2+ (Negative) H 12/12/23 15:34 Urine Nitrate Negative (Negative) 12/12/23 15:34 Urine Bilirubin 1+ (Negative) H 12/12/23 15:34 Urine Urobilinogen 1 mg/dL (Negative) H 12/12/23 15:34 Ur Leukocyte Esterase Trace (Negative) H 12/12/23 15:34 Urine RBC 0-4 /hpf (0-2) H 12/12/23 15:34 Urine WBC 25-40 /hpf (0-5) H 12/12/23 15:34 Ur Eosinophil Smear 0 (0-0) 12/12/23 15:34 Ur Squamous Epith Cells 5-10 /hpf (0-5) H 12/12/23 15:34 Amorphous Sediment Not Reportable 12/12/23 15:34 Urine Bacteria 1+ /hpf (NONE) H 12/12/23 15:34 Urine Eosinophils No eosinophils seen 12/12/23 15:34 Ur Random Sodium 44 mmol/L 12/12/23 15:34 Ur Random Potassium 77 mmol/L 12/12/23 15:34 Ur Random Chloride 29 mmol/L 12/12/23 15:34 Urine Creatinine 145 mg/dL (28-217) 12/12/23 15:34 Urine Opiates Screen Positive ng/mL (Negative) H 12/12/23 15:34 Ur Barbiturates Screen Negative ng/mL (Negative) 12/12/23 15:34 Ur Phencyclidine Scrn Negative ng/mL (Negative) 12/12/23 15:34 Ur Amphetamines Screen Negative ng/mL (Negative) 12/12/23 15:34 U Benzodiazepines Scrn Negative ng/mL (Negative) 12/12/23 15:34 Urine Cocaine Screen Negative ng/mL (Negative) 12/12/23 15:34 U Marijuana (THC) Screen Negative ng/mL (Negative) 12/12/23 15:34 All radiology interpretation(s) finalized by discharge Discharge Plan Discharge Patient Disposition: Admitted As Inpatient Admit Provider: Ulysses Field Clinical Impression: Pyelonephritis, Metabolic acidosis, ZENY (acute kidney injury) Condition: Stable Coding Level of Care Code ED 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
[2023-12-12 15:30] LABS: Alanine Aminotransferase 11 U/L (0-33); Albumin Level 3.9 g/dL (3.5-5.2); Alkaline Phosphatase 123 U/L (35-105); Anion Gap 25.5 (5-19); Aspartate Amino Transferase 11 U/L (0-32); Blood Urea Nitrogen 53 mg/dL (6-20); Calcium 9.2 mg/dL (8.5-10.5); Carbon Dioxide 17 mmol/L (22-29); Chloride 96 mmol/L (98-107); Creatinine Clr Calc Pharmacy 14.0976; Glomerular Filtration Rate 11.3 mL/min (90-130); Glucose 170 mg/dL (65-115); Lipase 14 U/L (13-60); Osmolality Calculated 296 mOsm/kg (285-295); Potassium 4.5 mmol/L (3.5-5.1); Sodium 134 mmol/L (136-145); Total Bilirubin 0.8 mg/dL (0.15-1.2); Total Protein 7.9 g/dL (6.6-8.7)
--- NOTE | 2023-12-12 15:41 | ECG_ITS ---
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 Measurements Intervals [place] Rate: 106 P: 37 NM: 199 QRS: -17 QRSD: 74 T: 14 QT: 321 QTc: 427 Interpretive Statements SINUS TACHYCARDIA LOW QRS VOLTAGE IN PRECORDIAL LEADS [QRS DEFLECTION < 1.0 mV IN CHEST LEADS] POSSIBLE ANTERIOR MYOCARDIAL INFARCTION , PROBABLY OLD [30 ms Q WAVE IN V3/V4, OR R < 0.2 mV IN V4] Compared to ECG 08/10/2014 09:38:32 Low QRS voltage now present Myocardial infarct finding now present Electronically Signed On 12-12-2023 17:10:50 CDT by Bradly Pat M.D. [email or web address]
--- NOTE | 2023-12-12 15:41 | XRR_ITS ---
PROCEDURE INFORMATION: Exam: XR Chest Exam date and time: 12/12/2023 4:00 PM Age: 48 years old Clinical indication: Cough and dyspnea; Additional info: Dyspnea/cough TECHNIQUE: Imaging protocol: Radiologic exam of the chest. Views: 1 view. COMPARISON: No relevant prior studies available. FINDINGS: Lungs: Unremarkable. No consolidation. Pleural spaces: Unremarkable. No pleural effusion. No pneumothorax. Heart/Mediastinum: Unremarkable. No cardiomegaly. Diaphragm: There is mild elevation of the right hemidiaphragm. Bones/joints: Unremarkable. XR/XR chest 1V portable [id number] IMPRESSION: No acute findings.
[2023-12-12 15:47] LABS: Slide Review Slide Review Perform
[2023-12-12 16:12] LABS: Add Urine Microscopic? YES; Bilirubin Urine 1+ (Negative); Blood Urine 2+ (Negative); Glucose Urine UA Norm (Normal); Ketones Urine Negative (Negative); Leukocyte Esterase Urine Trace (Negative); Nitrate Urine Negative (Negative); Protein Urine 3+ (Negative); Specific Gravity, Urine 1.015 (1.005-1.030); Urine Appearance Clear (CLEAR); Urine Color Yellow (Yellow); Urobilinogen Urine 1 mg/dL (Negative); pH Urine 5 (5-7)
[2023-12-12 16:13] LABS: Bacteria Urine 1+ /hpf; RBC Urine 0-4 /hpf (0-2); WBC Urine 25-40 /hpf (0-5)
--- NOTE | 2023-12-12 16:22 | CTR_ITS ---
PROCEDURE INFORMATION: Exam: CT Abdomen And Pelvis Without Contrast Exam date and time: 12/12/2023 5:13 PM Age: 48 years old Clinical indication: Abdominal pain; Flank; Right; Additional info: Flank pain TECHNIQUE: Imaging protocol: Computed tomography of the abdomen and pelvis without contrast. Radiation optimization: All CT scans at this facility use at least one of these dose optimization techniques: automated exposure control; mA and/or kV adjustment per patient size (includes targeted exams where dose is matched to clinical indication); or iterative reconstruction. COMPARISON: [place] liver [id number] 01/15/2020 8:08 AM RADIATION DOSE METRICS: Total DLP (mGy-cm): 723 FINDINGS: Lungs: Mild basilar scar versus atelectasis. Pleural spaces: Minimal right pleural reaction. Coronary arteries: Coronary artery calcifications. Diaphragm: Small hiatal hernia. Liver: Hepatic steatosis. Gallbladder and biliary ducts: No significant gallbladder pathology. No biliary dilatation. Pancreas: No significant pancreatic pathology. Spleen: No significant pathology. Adrenal glands: No significant adrenal pathology. Kidneys and ureters: There is perinephric stranding, asymmetrically greater on the right. There is also asymmetric fat infiltration extending along the right ureter. No evidence of urinary obstruction. No calculus is seen. There is mild asymmetry of the kidneys, right larger than left. Stomach and bowel: Prior gastric sleeve resection. Appendix: Appendix within normal limits. Intraperitoneal space: No ascites. Vasculature: No abdominal aortic aneurysm. Lymph nodes: No evidence of lymphadenopathy. Urinary bladder: Urinary bladder is nondistended limiting assessment of the wall. Reproductive: Prior hysterectomy. No significant adnexal pathology. Bones/joints: Degenerative disc disease is present in the lumbar spine greatest at L4-L5. Soft tissues: Tiny fat containing umbilical hernia. Findings consistent with pelvic floor laxity. Other findings: Evaluation limited by motion artifacts. CT/CT kidney stone [id number] IMPRESSION: 1. Asymmetric enlargement of the right kidney with asymmetric increased perinephric and periureteral fat infiltration without calculus or obstruction ; differential diagnosis led by urinary tract infection with other pathology including recently passed calculus not excluded. 2. Hepatic steatosis. 3. Prior gastric sleeve resection with small hiatal hernia.
[2023-12-12 16:29] LABS: Lactic Sepsis W/Reflex 2.1 mmol/L (0.5-2.2)
--- NOTE | 2023-12-12 16:39 | P.HP_ITS ---
Providers/Chief Complaint 2 Primary Care Provider: Chato Williamson MD Chief Complaint: chills, right side pain, back pain, vomitting History of Present Illness Julia Barrera is a 48 year old female with past medical history of hypertension on losartan, hydrochlorothiazide, recent rotator cuff surgery, possible recent CKD as per the history. As per the patient she has been chronically on oral diclofenac and ibuprofen but has not taken the medication over the last 1 month as her primary care provider told her that her GFR is down to 20. Patient presented to the ER today because of generalized weakness, nausea and vomiting along with chills, right flank pain over last 3 days and decreased urine output more than usual over the last 1 week. In the ER she was found to have white count of 16,000, hyponatremia, mild acidosis, ZENY with creatinine of 4.2, glucose of 296 with UA concerning for UTI Review of Systems 2 General: Reports: 10 or more systems reviewed and unremarkable except in HPI and below Const: Denies: fever(s), chills, body aches, change in appetite, change in weight, malaise, night sweats, diaphoresis, change in sleep pattern, daytime sleepiness or snoring Eyes: Denies: change in vision, blurry vision, photophobia, eye discomfort or eye discharge ENMT: Denies: throat pain, enlarged tonsils, hoarseness, mouth pain, oral sores, dry mouth, tinnitus, nasal congestion or post nasal drip Card: Denies: chest pain, palpitations, irregular heart rhythm, edema, swelling of feet/ankles, lightheadedness, syncope, pre-syncope, dyspnea on exertion, orthopnea, leg pain with exertion or acrocyanosis Resp: Denies: dyspnea, productive cough, non-productive cough, wheezing, stridor, pain on inspiration, change in phlegm color, hemoptysis or chest congestion GI: Denies: abdominal pain, nausea, vomiting, hematemesis, coffee ground emesis, dysphagia, heartburn, diarrhea, constipation, bloating, GI cramping, change in bowel habits, pain on defecation, hematochezia or melena : Denies: flank pain, dysuria, urinary frequency, urinary urgency, urinary hesitancy, nocturia or hematuria Musc: Denies: neck pain, back pain, extremity pain, joint pain, joint swelling, joint redness, joint stiffness or limited range of motion Neuro: Denies: headache(s), numbness in extremities, weakness in extremities, sensory changes, lack of coordination, difficulty walking, frequent falls, dizziness, vertigo, confusion, Slurred speech present, difficulty communicating thoughts or seizure-like activity Psych: Denies: anxiety, depression, mood swings, panic attacks, hopelessness or irritability Endo: Denies: polyuria, polydipsia, tired all the time, cold intolerance, excessive sweating, flushing or heat intolerance Juan/Lymph: Denies: easy bruising or easy bleeding All/Imm: Denies: tongue swelling, facial swelling or acute wheezing Medications/Allergies Home Medications Medication Instructions Recorded Confirmed Last Taken Type cetirizine 10 mg tablet 10 mg PO DAILY 10/19/23 11/28/23 11/28/23 History losartan 100 1 tab PO DAILY 10/19/23 11/28/23 11/28/23 History mg-hydrochlorothiazide 12.5 mg tablet metoprolol succinate 50 mg 50 mg PO DAILY 10/19/23 11/29/23 11/29/23 History tablet,extended release 24 hr tramadol 50 mg tablet 50 mg PO Q6H PRN pain #10 tabs 10/19/23 11/28/23 11/28/23 Rx cyclobenzaprine 10 mg tablet 10 mg PO TID PRN muscle spasm #42 11/26/23 11/28/23 11/28/23 Rx tabs diclofenac potassium 50 mg tablet 50 mg PO TID PRN pain #60 tabs 11/26/23 11/28/23 Unknown Rx Allergies Allergy/AdvReac Type Severity Reaction Status Date / Time No Known Allergies Allergy Verified 12/12/23 14:29 PFSH Acute 2 PFSH: Medical History (Updated 12/12/23 @ 16:44 by Ulysses Field MD) Acromioclavicular joint arthritis Rotator cuff tear arthropathy of right shoulder Impingement syndrome of right shoulder Hypertension Social History Smoking and tobacco/nicotine status: current every day tobacco/nicotine user (7 ciggerettes a day ) Alcohol intake: never Substance/Drug Use: never Vitals/I&O/Wt Last Vital Signs Temp 98.5 F 12/12/23 14:25 Pulse 107 H 12/12/23 16:05 Resp 14 12/12/23 14:25 BP 128/85 12/12/23 16:37 Pulse Ox 98 12/12/23 16:37 O2 Del Method Room Air 12/12/23 16:05 12/12/23 12/12/23 12/12/23 06:59 14:59 22:59 Intake Total 1000 / 1000 Balance 1000 / 1000 Weight last 48 hrs Weight 68.039 kg Physical Exam 2 Narrative: General: In mild distress because of right flank pain, AO x 3, sick appearing HEENT: PERRLA, pupils bilaterally equal and reactive Chest: Normal vesicular breath sounds, no added sounds, equal good air entry bilaterally CVS: S1-S2 regular, no murmurs, no tachycardia, no gallops, no rubs Abdomen: Soft, nontender, no organomegaly, bowel sounds present, right renal angle tenderness present Neuro: No focal deficits, no facial deformity, AO x3, power 5/5 in all limbs Quick SOFA Score: Respiratory Rate: 14 Blood Pressure: 128/85 [place] Coma Scale: 15 qSOFA Score: 0 If qSOFA score 2 or greater, continue: PaO2/FiO2 Ratio (mmHg): 400 Blood Pressure Mean: 99 Bilirubin (mg/dl): 0.8 Platelets (x10?/ml): 159 C reatinine (mg/dl): 4.2 SOFA Score: 4 Evaluation: Current stage of sepsis: sepsis Sepsis stage criteria used: [facility] Sep-1 and Sepsis-3 Crystalloid fluids: less than 30 mL/kg crystalloid fluids ordered Blood cultures ordered: Yes Possible source: genitourinary Focused Exam: Vital signs: Temp Pulse Resp BP Pulse Ox O2 Del Method 12/12/23 16:37 128/85 98 12/12/23 16:05 107 H 108/85 100 Room Air 12/12/23 15:18 94/67 12/12/23 14:32 93/72 12/12/23 14:25 98.5 F 122 H 14 88/67 98 Room Air Date exam was performed: 12/12/23 Time exam was performed: 16:58 2 Sepsis Screen No Definite Risk 12/12/23 16:37 Respiratory Rate 14 breaths/min (12 - 18) 12/12/23 14:25 Blood Pressure 128/85 mmHg 12/12/23 16:37 Quick SOFA Score 0 12/12/23 16:49 SOFA Score: 2 Blood Pressure Mean 99 mmHg 12/12/23 16:37 Total Bilirubin 0.8 mg/dL (0.15-1.2) 12/12/23 14:58 Platelet Count 159 10^3/cmm (157-399) 12/12/23 14:58 Creatinine 4.2 mg/dL (0.5-0.9) H 12/12/23 14:58 SOFA Score 4 12/12/23 16:49 Data 12/12/23 14:58 12/12/23 14:58 Micro: Microbiology 12/12/23 15:49 Blood Culture - Preliminary Blood SPECIMEN COLLECTED A&P Assessment and plan (1) Sepsis: SIRS: Tachycardic, Leukocytosis Source: UTI/possible pyelonephritis End organ damage: Acute kidney injury Lactic acid within normal limits Patient did not receive full 30 mL/kg BW due to acute renal failure Start on normal saline at 75 cc/h. Monitor blood pressures. Keep mean artery pressure 65 mmHg. Blood culture, urine culture, MRSA swab, procalcitonin, urine Legionella, bacterial antigen. For now start patient on IV ceftriaxone 1 g daily (2) ZENY (acute kidney injury): Along with hyponatremia and high anion gap metabolic acidosis. Most likely in setting of home use of losartan, hydrochlorothiazide, remote use within the last 1 month of ibuprofen and diclofenac. Would be important to rule out obstructive nephropathy. Will request CT abdomen pelvis. Medical reconstruction done for nephrotoxic drugs. Hold off on losartan, hydrochlorothiazide. Check urine lites, urine creatinine, urine eosinophils. Stephenson catheter. Strict input and output charting. Normal saline at 75 cc/h. Monitor BMP daily. (3) Hyponatremia: (4) Metabolic acidosis: Most likely in setting of ZENY. Check ketones. Patient's blood sugar is mildly elevated though DKA is unlikely. (5) UTI (urinary tract infection): (6) Hypertension: Goal blood pressure less than 140/90 mmHg. Hold off on home dose of losartan hydrochlorothiazide. Switch to metoprolol tartrate 25 mg twice daily. Plan Renal nondialysis diet Full code Protonix for PUD prophylaxis Heparin 5000 every 12 hourly for DVT prophylaxis Attestations 2 Medical Necessity Statement*: Admission for more than 2 midnights on [facility] floor for management of acute renal failure, sepsis in setting of UTI with high concerns of pyelonephritis Diagnoses Sepsis A41.9 ZENY (acute kidney injury) N17.9 Hyponatremia E87.1 Metabolic acidosis E87.20 UTI (urinary tract infection) N39.0 Hypertension I10
--- NOTE | 2023-12-12 16:49 | PC.NURSE ---
Rocephin delayed d/t needing blood cultures drawn.
[2023-12-12] MEDS: ondansetron 2 mg/ML SDV 2 mL 4 MG IVP ×2 (17:02→23:58)
[2023-12-12] MEDS: morphine 4 mg/mL SDV 1 mL IVP (17:02)
[2023-12-12 17:17] LABS: Potassium, Radom Urine 77 mmol/L; Urine Creatinine 145 mg/dL (28-217); Urine Random Chloride 29 mmol/L; Urine Random Sodium 44 mmol/L
--- NOTE | 2023-12-12 17:28 | PC.NURSE ---
Gloria delayed d/t not having blood cultures, called lab, lab in room attempting at this time.
[2023-12-12] MEDS: cefTRIAXone 1,000 mg SDV 1000 MG IVP (17:42)
[2023-12-12 17:51] LABS: Reflex Lactate Order REFLEX LACTIC ORDERD
[2023-12-12] MEDS: sodium chloride 0.9% 1,000 ML 75 ML IV (18:24)
[2023-12-12] MEDS: heparin 5,000 unit/mL INJ 1 mL 5000 UNIT SUBCUT (18:24)
[2023-12-12 18:38] LABS: Procalcitonin 9.05 ng/mL (0-0.5)
[2023-12-12 19:00] LABS: Amphetamines Screen Urine Negative (Negative); Barbiturates Screen Urine Negative (Negative); Benzodiazepines Screen Urine Negative (Negative); Cocaine Screen Urine Negative (Negative); Opiate Screen Urine Positive (Negative); PCP Screen Urine Negative (Negative); THC Screen Urine Negative (Negative)
[2023-12-12 19:04] LABS: Add Urine Culture? Yes
[2023-12-12 19:33] LABS: Specific Gravity, Urine 1.015 (1.005-1.030); Urine Appearance Slightly Cloudy (CLEAR); Urine Color Yellow (Yellow); pH Urine 5 (5-7)
[2023-12-12 19:34] LABS: Add Urine Microscopic? YES; Bilirubin Urine Neg (Negative); Blood Urine 2+ (Negative); Glucose Urine UA Norm (Normal); Ketones Urine Negative (Negative); Leukocyte Esterase Urine Negative (Negative); Nitrate Urine Negative (Negative); Protein Urine 3+ (Negative); Urobilinogen Urine Norm (Negative)
[2023-12-12 19:43] LABS: Iron 12 ug/dL (37-145); Percent Saturation 5.4 % (20-50); Thyroid Stimulating Hormone 4.08 uIU/mL (0.27-4.20); Total Iron Binding Capacity 222 mcg/dl; Unsaturated Iron Binding 210 ug/dL (112-347); Vitamin B12 661 pg/mL (232-1245)
[2023-12-12 19:43] LABS: WBC Urine 40-55 /hpf (0-5)
[2023-12-12 19:44] LABS: Add Urine Culture? Yes; Bacteria Urine TRACE /hpf; Mucus Urine TRACE /hpf; Squamous Epithelial Cell Urine 0-4 /hpf (0-5); Transitional Epi Cells Urine 0-4 /hpf
[2023-12-12] MEDS: morphine 4 mg/mL SDV 1 mL 2 MG IVP (19:54)
[2023-12-12 20:58] LABS: Eosinophil Urine No Eosinophils Seen; Urine Eosinophil Count 0 (0-0)
[2023-12-12] MEDS: sodium bicarbonate 650 mg Tablet PO (21:04)
[2023-12-12] MEDS: metoprolol tartrate 25 mg Tablet PO (21:04)
[2023-12-12] MEDS: acetaminophen 325 mg Tablet 650 MG PO (21:09)
[2023-12-12 21:26] LABS: Lactic Acid level (Lactate) 2.1 mmol/L (0.5-2.2)
[2023-12-13] VITALS (13 sets, daily range): BP systolic 103–115; BP diastolic 70–78; PULSE 81–118; RESP 16–22; TEMP 36.7–39.1; O2SAT 92–99; BMI 31.2
[2023-12-13] MEDS: morphine 4 mg/mL SDV 1 mL 2 MG IVP ×4 (00:02→20:34)
[2023-12-13 05:53] LABS: Basophils % 0.3 %; Eosinophils % 0.2 %; Hematocrit 32.6 % (36-47); Lymphocytes # 0.5 10^3/uL (0.8-4.8); Lymphocytes % 5.3 %; Mean Corpuscular HGB Conc 33.7 g/dL (30-55); Mean Corpuscular Hemoglobin 31.9 pg (27-33); Mean Corpuscular Volume 94.5 fl (85-98); Monocytes # 0.9 10^3/uL (0.2-0.9); Monocytes % 9.1 %; Neutrophils # 7.78 10^3/uL (1.8-7.7); Neutrophils % 82.6 %; Nucleated Red Blood Cells % 0 %; Platelet Count 102 10^3/cmm (157-399); Red Blood Count 3.45 10^6/uL (3.85-5.65); Red Cell Distribution Width 12.8 % (12.1-15.1); White Blood Count 9.43 10^3/uL (3.29-11.43)
[2023-12-13] MEDS: sodium chloride 0.9% 1,000 ML 75 ML IV ×2 (05:55→17:30)
[2023-12-13] MEDS: ondansetron 2 mg/ML SDV 2 mL 4 MG IVP (05:55)
[2023-12-13] MEDS: heparin 5,000 unit/mL INJ 1 mL 5000 UNIT SUBCUT ×2 (05:56→17:29)
[2023-12-13 06:08] LABS: Estmated Average Glucose 108; Hemoglobin A1C 5.4 % (4.0-6.0)
[2023-12-13 06:09] LABS: Chol HDL Ratio 5.91 mg/dL (0.0-4.40); Cholesterol 130 mg/dL (0-200); HDL Cholesterol 22 mg/dL (60-100); LDL Cholesterol Calculated 62 mg/dL (50-129); LDL HDL Ratio 2.82 RATIO (0.00-3.22); Triglycerides 231 mg/dL (0-150)
[2023-12-13 06:10] LABS: Alanine Aminotransferase 9 U/L (0-33); Albumin Level 2.9 g/dL (3.5-5.2); Alkaline Phosphatase 89 U/L (35-105); Anion Gap 19.1 (5-19); Aspartate Amino Transferase 11 U/L (0-32); Blood Urea Nitrogen 50 mg/dL (6-20); Calcium 7.8 mg/dL (8.5-10.5); Carbon Dioxide 17 mmol/L (22-29); Chloride 104 mmol/L (98-107); Creatinine Clr Calc Pharmacy 16.5353; Globulin 3.5 g/dL (1.3-4.6); Glomerular Filtration Rate 13.1 mL/min (90-130); Glucose 135 mg/dL (65-115); Magnesium 1.1 mg/dL (1.7-2.3); Osmolality Calculated 297 mOsm/kg (285-295); Phosphorus 3.2 mg/dL (2.5-4.5); Potassium 4.1 mmol/L (3.5-5.1); Sodium 136 mmol/L (136-145); Total Bilirubin 0.6 mg/dL (0.15-1.2); Total Protein 6.4 g/dL (6.6-8.7)
[2023-12-13 06:16] LABS: Procalcitonin 8.72 ng/mL (0-0.5)
[2023-12-13 06:31] LABS: Slide Review Slide Review Perform
[2023-12-13] MEDS: metoprolol tartrate 25 mg Tablet PO ×2 (08:27→20:34)
[2023-12-13] MEDS: pantoprazole DR 40 mg Tablet PO (08:27)
[2023-12-13] MEDS: sodium bicarbonate 650 mg Tablet PO ×3 (08:27→20:33)
[2023-12-13] MEDS: acetaminophen 325 mg Tablet 650 MG PO ×2 (08:27→19:53)
[2023-12-13] MEDS: magnesium sulfate premix 2 GM/50 ML PIGGYBACK IV (08:28)
--- NOTE | 2023-12-13 09:03 | PC.CHAP ---
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 visit [] Patient/Family/Request visit [] Outpatient visit [] Follow-up visit [] Physician referral [] Code/Alert [x] Routine visit [] Staff referral [] Actively dying [] Patient sleeping [x] Family support [] [] Out of room [] Palliative care [] [] Receiving care in room [] Pre-surgical visit [] Trauma [] Long length of stay [] ICU visit [] Other: Relational/Emotional Strength [x] Patient feels connected with others/family/visitors/staff [] Distress [] Loneliness/isolation [] Abandonment Spirituality of Patient [x] Person of Gi [] Attends Religious of their Gi [x] Believes in Prayer [] Reads Bible or Lutheran materials [] There are Spiritual issues to be addressed Industrial Technology Teacher Interventions [x] Prayer [x] Active listening [] Non-anxious presence [x] Spiritual/emotional support [] Crisis/trauma care [] Spiritual counseling [] Bereavement support [] Provided bereavement packet [] Provided Bible/devotional materials [] Provided toy/stuffed animal, coloring book to patient or family member [] Provided Communion [] Anointing/[place] [] Salvation [x] Completed spiritual assessment [] Other: Impact on Illness or Injury [] Angry [] Fearful [] Anxious [] Often cries [] Exhaustion [] Unable to work [] Unable to attend jew [] Unable to walk/stand [] Unable to read [] Unable to drive [] Unable to eat/drink [] Unable to sleep [] Unable to be with family [] Patient intubated [] Other: Summary Time spent with patient 5 min
[2023-12-13] MEDS: meropenem 500 mg SDV IVP ×2 (09:46→20:37)
[2023-12-13] MEDS: water for injection-sterile 10 ML ×2 (09:47→20:37)
--- NOTE | 2023-12-13 11:41 | P.PN_ITS ---
Subjective 2 Subjective: No acute events overnight. Seen with at bedside. Patient states she is feeling slightly better but continues to have occasional pain in right flank. Tmax since admission 102.4 Fahrenheit earlier today morning. Blood pressure stable. Remains on room air. Vitals/I&O/Wt Last Vital Signs Temp 102.4 F H 12/13/23 07:57 Pulse 118 H 12/13/23 07:57 Resp 18 12/13/23 08:34 BP 115/78 12/13/23 07:57 Pulse Ox 94 12/13/23 07:57 O2 Del Method Room Air 12/13/23 00:17 12/12/23 12/13/23 12/13/23 22:59 06:59 14:59 Intake Total 2240 / 2240 1103.75 / 3343.75 300 / 300 Output Total 600 / 600 Balance 2240 / 2240 503.75 / 2743.75 300 / 300 Weight last 48 hrs Weight 72.575 kg Weight 72.575 kg Weight 68.039 kg Weight 68.039 kg Physical Exam 2 Narrative: General: In mild distress because of right flank pain, AO x 3, sick appearing HEENT: PERRLA, pupils bilaterally equal and reactive Chest: Normal vesicular breath sounds, no added sounds, equal good air entry bilaterally CVS: S1-S2 regular, no murmurs, no tachycardia, no gallops, no rubs Abdomen: Soft, nontender, no organomegaly, bowel sounds present, right renal angle tenderness present Neuro: No focal deficits, no facial deformity, AO x3, power 5/5 in all limbs Urinary Catheter Management: Stephenson: Cath Placed During This Visit: yes Reason for Continuing Indwelling Catheter: Acute Urinary Retention or Obstruction Urinary Catheter Date of Insertion: 12/12/23 Urinary Catheter Time of Insertion: 18:40 Quick SOFA Score: Respiratory Rate: 16 Blood Pressure: 106/75 [place] Coma Scale: 15 qSOFA Score: 0 If qSOFA score 2 or greater, continue: Blood Pressure Mean: 85 Bilirubin (mg/dl): 0.6 Platelets (x10?/ml): 102 Creatinine (mg/dl): 3.7 Evaluation: Current stage of sepsis: sepsis Sepsis stage criteria used: [facility] Sep-1 and Sepsis-3 Crystalloid fluids: less than 30 mL/kg crystalloid fluids ordered Blood cultures ordered: Yes Possible source: genitourinary Focused Exam: Vital signs: Temp Pulse Resp BP Pulse Ox O2 Del Method 12/13/23 08:34 18 12/13/23 07:57 102.4 F H 118 H 16 115/78 94 12/13/23 06:00 116 H 12/13/23 04:51 118 H 16 109/75 93 12/13/23 04:27 22 H 12/13/23 00:17 98.6 F 105 H 18 103/70 94 Room Air 12/13/23 00:02 20 H Date exam was performed: 12/13/23 Time exam was performed: 12:35 2 Sepsis Screen No Definite Risk 12/12/23 17:43 Respiratory Rate 16 breaths/min (12 - 18) 12/13/23 11:54 Blood Pressure 106/75 mmHg 12/13/23 11:54 [place] Coma Scale Score 15 12/12/23 23:28 Quick SOFA Score 0 12/13/23 11:45 SOFA Score: 2 [place] Coma Scale Score 15 12/12/23 23:28 Blood Pressure Mean 85 mmHg 12/13/23 11:54 Total Bilirubin 0.6 mg/dL (0.15-1.2) 12/13/23 05:35 Platelet Count 102 10^3/cmm (157-399) L 12/13/23 05:35 Creatinine 3.7 mg/dL (0.5-0.9) H 12/13/23 05:35 SOFA Score 5 12/13/23 11:45 Data 12/13/23 05:35 12/13/23 05:35 Micro: Microbiology 12/12/23 15:49 Blood Culture - Preliminary Blood Escherichia coli 12/12/23 17:33 Blood Culture - Preliminary Blood SPECIMEN COLLECTED A&P Assessment and plan (1) Sepsis: SIRS: Tachycardic, Leukocytosis Source: UTI/possible pyelonephritis End organ damage: Acute kidney injury Lactic acid within normal limits Patient did not receive full 30 mL/kg BW due to acute renal failure Continue with normal saline at 75 cc/h. Monitor blood pressures. Keep mean artery pressure 65 mmHg. Follow-up blood culture, urine culture. Appreciate procalcitonin. Check MRSA swab. Given the toxic appearance for now switch over to IV meropenem as per creatinine clearance. Will de-escalate as per culture sensitivities. (2) Bacteremia due to Escherichia coli: Blood culture from admission positive for E. coli. Repeat blood culture in AM. If patient remains persistently bacteremic we will have to possibly transfer patient for urological procedure including cystoscopy given CT changes of asymmetrical right renal enlargement with asymmetric perinephric and periureteral fat infiltration. (3) Pyelonephritis: (4) ZENY (acute kidney injury): Improvement in hyponatremia and high anion gap metabolic acidosis. Most likely in setting of home use of losartan, hydrochlorothiazide, remote use within the last 1 month of ibuprofen and diclofenac. CT negative for obstructive nephropathy but does show asymmetric enlargement of right kidney with asymmetric increased perinephric and periureteral fat infiltration. No calculus. Medical reconciliation done for nephrotoxic drugs. Hold off on losartan, hydrochlorothiazide. Appreciate urine lites, urine creatinine, urine eosinophils. Stephenson catheter. Strict input and output charting. Normal saline at 75 cc/h. Monitor BMP daily. (5) Metabolic acidosis: Plan Hypertension: Goal blood pressure less than 140/90 MAG with mean over 65. Holding off on losartan hydrochlorothiazide as above. Continue with metoprolol 25 mg twice daily. Renal nondialysis diet Full code Protonix for PUD prophylaxis Heparin 5000 every 12 hourly for DVT prophylaxis Attestations 2 Medical Necessity Statement*: Requires further hospitalization for management of E. coli bacteremia in setting of right-sided pyelonephritis, acute kidney injury Diagnoses Sepsis A41.9 Bacteremia due to Escherichia coli R78.81; B96.20 Pyelonephritis N12 ZENY (acute kidney injury) N17.9 Metabolic acidosis E87.20
[2023-12-13] MEDS: HYDROcodone-acetaminophen 5-325 mg Tablet 1 TAB PO (14:43)
[2023-12-14] VITALS (11 sets, daily range): BP systolic 98–128; BP diastolic 61–81; PULSE 83–123; RESP 16–20; TEMP 36.6–37.7; O2SAT 92–96
[2023-12-14] MEDS: HYDROcodone-acetaminophen 5-325 mg Tablet 1 TAB PO ×3 (02:19→17:05)
[2023-12-14 05:22] LABS: Basophils % 0.6 %; Eosinophils # 0.1 10^3/uL (0.0-0.8); Eosinophils % 1.5 %; Hematocrit 31.2 % (36-47); Lymphocytes # 0.5 10^3/uL (0.8-4.8); Lymphocytes % 8.1 %; Mean Corpuscular Hemoglobin 31.9 pg (27-33); Mean Platelet Volume 12.5 fL (7.4-10.4); Monocytes # 0.9 10^3/uL (0.2-0.9); Monocytes % 13.9 %; Neutrophils # 4.98 10^3/uL (1.8-7.7); Neutrophils % 75.1 %; Nucleated Red Blood Cells % 0 %; Platelet Count 106 10^3/cmm (157-399); Red Blood Count 3.32 10^6/uL (3.85-5.65); Red Cell Distribution Width 13.2 % (12.1-15.1); White Blood Count 6.63 10^3/uL (3.29-11.43)
[2023-12-14 05:42] LABS: Alanine Aminotransferase 10 U/L (0-33); Albumin Level 2.8 g/dL (3.5-5.2); Alkaline Phosphatase 118 U/L (35-105); Aspartate Amino Transferase 14 U/L (0-32); Blood Urea Nitrogen 45 mg/dL (6-20); Calcium 7.9 mg/dL (8.5-10.5); Carbon Dioxide 18 mmol/L (22-29); Chloride 103 mmol/L (98-107); Creatinine Clr Calc Pharmacy 19.5561; Globulin 3.3 g/dL (1.3-4.6); Glomerular Filtration Rate 15.5 mL/min (90-130); Glucose 114 mg/dL (65-115); Osmolality Calculated 292 mOsm/kg (285-295); Sodium 135 mmol/L (136-145); Total Bilirubin 0.8 mg/dL (0.15-1.2); Total Protein 6.1 g/dL (6.6-8.7)
[2023-12-14 05:54] LABS: Slide Review Slide Review Perform
[2023-12-14] MEDS: sodium bicarbonate 650 mg Tablet PO ×3 (08:41→20:25)
[2023-12-14] MEDS: metoprolol tartrate 25 mg Tablet PO (08:41)
[2023-12-14] MEDS: pantoprazole DR 40 mg Tablet PO (08:41)
[2023-12-14] MEDS: sodium chloride 0.9% 1,000 ML 75 ML IV ×2 (08:42→21:56)
[2023-12-14] MEDS: meropenem 500 mg SDV IVP ×2 (08:42→21:56)
[2023-12-14] MEDS: acetaminophen 325 mg Tablet 650 MG PO ×2 (08:51→20:25)
--- NOTE | 2023-12-14 10:36 | ECG_ITS ---
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 [id number]
[2023-12-14] MEDS: heparin 5,000 unit/mL INJ 1 mL 5000 UNIT SUBCUT ×2 (11:12→20:25)
--- NOTE | 2023-12-14 12:36 | P.PN_ITS ---
Subjective 2 Subjective: No concerns overnight. Patient states she is feeling better. Complaining of headache. Seen with family members at bedside. Remains on room air. Fever curve improving. Tmax in last 24 hours 99.8 Fahrenheit. Vitals/I&O/Wt Last Vital Signs Temp 97.9 F 12/14/23 12:00 Pulse 96 12/14/23 12:00 Resp 16 12/14/23 12:00 BP 128/81 12/14/23 12:00 Pulse Ox 96 12/14/23 12:00 O2 Del Method Room Air 12/14/23 00:00 12/13/23 12/14/23 12/14/23 22:59 06:59 14:59 Intake Total 1238.75 / 1778.75 1150 / 2928.75 360 / 360 Output Total 1500 / 1500 500 / 2000 Balance -261.25 / 278.75 650 / 928.75 360 / 360 Weight last 48 hrs Weight 75.795 kg Weight 72.575 kg Weight 72.575 kg Weight 68.039 kg Weight 68.039 kg Physical Exam 2 Narrative: General: In mild distress because of right flank pain, AO x 3, sick appearing HEENT: PERRLA, pupils bilaterally equal and reactive Chest: Normal vesicular breath sounds, no added sounds, equal good air entry bilaterally CVS: S1-S2 regular, no murmurs, no tachycardia, no gallops, no rubs Abdomen: Soft, nontender, no organomegaly, bowel sounds present, right renal angle tenderness present Neuro: No focal deficits, no facial deformity, AO x3, power 5/5 in all limbs Urinary Catheter Management: Stephenson: Cath Placed During This Visit: yes Reason for Continuing Indwelling Catheter: Acute Urinary Retention or Obstruction Urinary Catheter Date of Insertion: 12/12/23 Urinary Catheter Time of Insertion: 18:40 Data 12/14/23 04:27 12/14/23 04:27 Micro: Microbiology 12/12/23 18:20 Urine Culture - Preliminary Urine,Clean Catch 12/12/23 15:34 Urine Culture - Preliminary Urine,Clean Catch Gram Negative Rods 12/14/23 04:31 Blood Culture - Preliminary Blood SPECIMEN COLLECTED 12/14/23 04:27 Blood Culture - Preliminary Blood SPECIMEN COLLECTED 12/12/23 17:33 Blood Culture - Preliminary Blood NEGATIVE TO DATE 12/12/23 15:49 Blood Culture - Preliminary Blood Escherichia coli A&P Assessment and plan (1) Sepsis: SIRS: Tachycardic, Leukocytosis Source: UTI/possible pyelonephritis End organ damage: Acute kidney injury Lactic acid within normal limits Patient did not receive full 30 mL/kg BW due to acute renal failure Continue with normal saline at 75 cc/h. Monitor blood pressures. Keep mean artery pressure 65 mmHg. Follow-up blood culture, urine culture. Appreciate procalcitonin. Check MRSA swab. Given the toxic appearance for now switch over to IV meropenem as per creatinine clearance. Will de-escalate as per culture sensitivities. (2) Bacteremia due to Escherichia coli: Blood culture from admission positive for E. coli. Repeat blood culture in AM. If patient remains persistently bacteremic we will have to possibly transfer patient for urological procedure including cystoscopy given CT changes of asymmetrical right renal enlargement with asymmetric perinephric and periureteral fat infiltration. (3) Pyelonephritis: (4) ZENY (acute kidney injury): Improvement in hyponatremia and high anion gap metabolic acidosis. Most likely in setting of home use of losartan, hydrochlorothiazide, remote use within the last 1 month of ibuprofen and diclofenac. CT negative for obstructive nephropathy but does show asymmetric enlargement of right kidney with asymmetric increased perinephric and periureteral fat infiltration. No calculus. Medical reconciliation done for nephrotoxic drugs. Hold off on losartan, hydrochlorothiazide. Appreciate urine lites, urine creatinine, urine eosinophils. Stephenson catheter. Strict input and output charting. Normal saline at 75 cc/h. Monitor BMP daily. (5) Metabolic acidosis: Plan Hypertension: Goal blood pressure less than 140/90 MAG with mean over 65. Holding off on losartan hydrochlorothiazide as above. Continue with metoprolol 25 mg twice daily. Plan for the day: Fever curve improving. Follow-up blood culture for sensitivity. Repeat blood culture sent today. For now continue with IV meropenem. Will de-escalate antibiotics as per culture sensitivities. Patient would need antibiotics for at least 2 weeks after first negative blood cultures. Renal function stable. Good urine output up to 2 L in last 24 hours. Plan for renal ultrasound in AM. Continue with normal saline at current rate. Blood pressure stable. Heart rate elevated today today morning. Increase metoprolol dose to match home dose at 50 mg twice daily. Renal nondialysis diet Full code Protonix for PUD prophylaxis Heparin 5000 every 12 hourly for DVT prophylaxis Attestations 2 Medical Necessity Statement*: Requires further hospitalization for management of E. coli bacteremia in setting of pyelonephritis, ZENY on CKD Diagnoses Sepsis A41.9 Bacteremia due to Escherichia coli R78.81; B96.20 Pyelonephritis N12 ZENY (acute kidney injury) N17.9 Metabolic acidosis E87.20
[2023-12-14] MEDS: metoprolol tartrate 25 mg Tablet 50 MG PO (20:25)
[2023-12-14] MEDS: morphine 4 mg/mL SDV 1 mL 2 MG IVP (20:26)
[2023-12-14] MEDS: water for injection-sterile 10 ML (21:57)
[2023-12-15] VITALS (10 sets, daily range): BP systolic 102–134; BP diastolic 67–83; PULSE 78–111; RESP 16–20; TEMP 36.6–38.1; O2SAT 91–95
[2023-12-15] MEDS: HYDROcodone-acetaminophen 5-325 mg Tablet 1 TAB PO ×3 (01:34→19:56)
[2023-12-15] MEDS: acetaminophen 325 mg Tablet 650 MG PO ×3 (08:14→23:49)
[2023-12-15] MEDS: metoprolol tartrate 25 mg Tablet 50 MG PO ×2 (08:14→19:55)
[2023-12-15] MEDS: sodium bicarbonate 650 mg Tablet PO ×3 (08:15→19:56)
[2023-12-15] MEDS: heparin 5,000 unit/mL INJ 1 mL 5000 UNIT SUBCUT ×2 (08:15→19:55)
[2023-12-15] MEDS: pantoprazole DR 40 mg Tablet PO (08:15)
[2023-12-15] MEDS: morphine 4 mg/mL SDV 1 mL 2 MG IVP ×3 (08:16→23:48)
[2023-12-15 08:43] LABS: Basophils # 0.1 10^3/uL (0.0-0.1); Basophils % 0.6 %; Eosinophils # 0.1 10^3/uL (0.0-0.8); Eosinophils % 1.3 %; Hematocrit 30.1 % (36-47); Lymphocytes # 0.9 10^3/uL (0.8-4.8); Lymphocytes % 10.3 %; Mean Corpuscular HGB Conc 33.6 g/dL (30-55); Mean Corpuscular Hemoglobin 31.4 pg (27-33); Mean Corpuscular Volume 93.5 fl (85-98); Mean Platelet Volume 12.3 fL (7.4-10.4); Monocytes # 1.3 10^3/uL (0.2-0.9); Monocytes % 15.4 %; Neutrophils # 6.13 10^3/uL (1.8-7.7); Neutrophils % 71.8 %; Nucleated Red Blood Cells % 0 %; Platelet Count 124 10^3/cmm (157-399); Red Blood Count 3.22 10^6/uL (3.85-5.65); Red Cell Distribution Width 13.3 % (12.1-15.1); White Blood Count 8.53 10^3/uL (3.29-11.43)
[2023-12-15 08:55] LABS: Alanine Aminotransferase 13 U/L (0-33); Albumin Level 2.8 g/dL (3.5-5.2); Alkaline Phosphatase 172 U/L (35-105); Anion Gap 16.6 (5-19); Aspartate Amino Transferase 18 U/L (0-32); Blood Urea Nitrogen 38 mg/dL (6-20); Calcium 7.9 mg/dL (8.5-10.5); Carbon Dioxide 19 mmol/L (22-29); Chloride 102 mmol/L (98-107); Globulin 3.2 g/dL (1.3-4.6); Glomerular Filtration Rate 21.5 mL/min (90-130); Glucose 149 mg/dL (65-115); Osmolality Calculated 290 mOsm/kg (285-295); Potassium 3.6 mmol/L (3.5-5.1); Sodium 134 mmol/L (136-145); Total Bilirubin 1.1 mg/dL (0.15-1.2)
[2023-12-15 09:14] LABS: Creatinine Clr Calc Pharmacy 26.2884
[2023-12-15] MEDS: sodium chloride 0.9% 1,000 ML 75 ML IV (12:15)
--- NOTE | 2023-12-15 14:44 | P.PN_ITS ---
Subjective 2 Subjective: No acute events overnight. Has remained hemodynamically stable. States feeling better. Flank pain is improving. Seen with multiple family members at bedside. Document urine output of 2 L in last 24 hours. Tmax 100.6 Fahrenheit in last 24 hours earlier today morning. Vitals/I&O/Wt Last Vital Signs Temp 98 F 12/15/23 12:00 Pulse 111 H 12/15/23 12:00 Resp 16 12/15/23 12:00 BP 109/80 12/15/23 12:00 Pulse Ox 94 12/15/23 12:00 O2 Del Method Room Air 12/15/23 03:56 12/14/23 12/15/23 12/15/23 22:59 06:59 14:59 Intake Total 1232.5 / 1592.5 10 / 1602.5 1240 / 1240 Output Total 1300 / 1300 700 / 2000 Balance -67.5 / 292.5 -690 / -397.5 1240 / 1240 Weight last 48 hrs Weight 76.975 kg Weight 75.795 kg Physical Exam 2 Narrative: General: In mild distress because of right flank pain, AO x 3, sick appearing HEENT: PERRLA, pupils bilaterally equal and reactive Chest: Normal vesicular breath sounds, no added sounds, equal good air entry bilaterally CVS: S1-S2 regular, no murmurs, no tachycardia, no gallops, no rubs Abdomen: Soft, nontender, no organomegaly, bowel sounds present, right renal angle tenderness present Neuro: No focal deficits, no facial deformity, AO x3, power 5/5 in all limbs Urinary Catheter Management: Stephenson: Cath Placed During This Visit: yes Reason for Continuing Indwelling Catheter: Other Urinary Catheter Date of Insertion: 12/12/23 Urinary Catheter Time of Insertion: 18:40 Data 12/15/23 08:31 12/15/23 08:31 Micro: Microbiology 12/12/23 15:49 Blood Culture - Preliminary Blood Escherichia coli 12/12/23 18:20 Urine Culture - Final Urine,Clean Catch 12/12/23 15:34 Urine Culture - Final Urine,Clean Catch Escherichia coli 12/14/23 04:31 Blood Culture - Preliminary Blood NEGATIVE TO DATE 12/14/23 04:27 Blood Culture - Preliminary Blood NEGATIVE TO DATE A&P Assessment and plan (1) Sepsis: SIRS: Tachycardic, Leukocytosis Source: UTI/possible pyelonephritis End organ damage: Acute kidney injury Lactic acid within normal limits Patient did not receive full 30 mL/kg BW due to acute renal failure Continue with normal saline at 75 cc/h. Monitor blood pressures. Keep mean artery pressure 65 mmHg. Follow-up blood culture, urine culture. Appreciate procalcitonin. Check MRSA swab. Given the toxic appearance for now switch over to IV meropenem as per creatinine clearance. Will de-escalate as per culture sensitivities. (2) Bacteremia due to Escherichia coli: Blood culture from admission positive for E. coli. Repeat blood culture in AM. If patient remains persistently bacteremic we will have to possibly transfer patient for urological procedure including cystoscopy given CT changes of asymmetrical right renal enlargement with asymmetric perinephric and periureteral fat infiltration. (3) Pyelonephritis: (4) ZENY (acute kidney injury): Improvement in hyponatremia and high anion gap metabolic acidosis. Most likely in setting of home use of losartan, hydrochlorothiazide, remote use within the last 1 month of ibuprofen and diclofenac. CT negative for obstructive nephropathy but does show asymmetric enlargement of right kidney with asymmetric increased perinephric and periureteral fat infiltration. No calculus. Medical reconciliation done for nephrotoxic drugs. Hold off on losartan, hydrochlorothiazide. Appreciate urine lites, urine creatinine, urine eosinophils. Stephenson catheter. Strict input and output charting. Normal saline at 75 cc/h. Monitor BMP daily. (5) Metabolic acidosis: Plan Hypertension: Goal blood pressure less than 140/90 MAG with mean over 65. Holding off on losartan hydrochlorothiazide as above. Continue with metoprolol 25 mg twice daily. Plan for the day: Blood culture and urine culture growing E. coli. Sensitivities appreciated. Switch to IV ceftriaxone. Blood culture from 12/06 so far negative. Most likely patient can be transition over to oral Levaquin on discharge to finish an antibiotic course for overall 2 weeks from first negative blood culture. Will plan for renal ultrasound in a.m. tomorrow for further monitoring of right- sided asymmetric renal swelling. Renal functions improving. Creatinine down to 2.4. Continue with current IV hydration. Blood pressure stable. Discharge planning: Plan to discharge back home if repeat blood cultures remain negative and if patient remains fever free for at least 24 hours on oral antibiotics Renal nondialysis diet Full code Protonix for PUD prophylaxis Heparin 5000 every 12 hourly for DVT prophylaxis Attestations 2 Medical Necessity Statement*: Requires further hospitalization for management of E. coli bacteremia in setting of right-sided pyelonephritis, ZENY on CKD Diagnoses Sepsis A41.9 Bacteremia due to Escherichia coli R78.81; B96.20 Pyelonephritis N12 ZENY (acute kidney injury) N17.9 Metabolic acidosis E87.20
[2023-12-15] MEDS: cefTRIAXone 1,000 mg SDV 1000 MG IVP (15:11)
[2023-12-16] VITALS (10 sets, daily range): BP systolic 107–132; BP diastolic 73–84; PULSE 73–101; RESP 16–19; TEMP 36.9–38.2; O2SAT 92–96
[2023-12-16] MEDS: sodium chloride 0.9% 1,000 ML 75 ML IV (01:10)
[2023-12-16 04:38] LABS: Basophils # 0.1 10^3/uL (0.0-0.1); Basophils % 0.6 %; Eosinophils # 0.2 10^3/uL (0.0-0.8); Eosinophils % 1.4 %; Hematocrit 31.4 % (36-47); Lymphocytes # 1.5 10^3/uL (0.8-4.8); Lymphocytes % 12.8 %; Mean Corpuscular HGB Conc 33.1 g/dL (30-55); Mean Corpuscular Volume 93.7 fl (85-98); Mean Platelet Volume 12.1 fL (7.4-10.4); Monocytes # 1.6 10^3/uL (0.2-0.9); Monocytes % 13.7 %; Neutrophils # 8.06 10^3/uL (1.8-7.7); Neutrophils % 70.5 %; Nucleated Red Blood Cells % 0 %; Platelet Count 173 10^3/cmm (157-399); Red Blood Count 3.35 10^6/uL (3.85-5.65); Red Cell Distribution Width 13.7 % (12.1-15.1); White Blood Count 11.45 10^3/uL (3.29-11.43)
[2023-12-16 04:41] LABS: Alanine Aminotransferase 16 U/L (0-33); Albumin Level 2.6 g/dL (3.5-5.2); Alkaline Phosphatase 228 U/L (35-105); Anion Gap 17.8 (5-19); Aspartate Amino Transferase 22 U/L (0-32); Blood Urea Nitrogen 34 mg/dL (6-20); Calcium 8.2 mg/dL (8.5-10.5); Carbon Dioxide 18 mmol/L (22-29); Chloride 105 mmol/L (98-107); Creatinine Clr Calc Pharmacy 30.0439; Globulin 3.4 g/dL (1.3-4.6); Glomerular Filtration Rate 25.1 mL/min (90-130); Glucose 109 mg/dL (65-115); Osmolality Calculated 292 mOsm/kg (285-295); Potassium 3.8 mmol/L (3.5-5.1); Sodium 137 mmol/L (136-145)
[2023-12-16] MEDS: metoprolol tartrate 25 mg Tablet 50 MG PO ×2 (08:57→20:00)
[2023-12-16] MEDS: sodium bicarbonate 650 mg Tablet PO ×3 (08:58→20:00)
[2023-12-16] MEDS: HYDROcodone-acetaminophen 5-325 mg Tablet 1 TAB PO ×2 (08:58→17:55)
[2023-12-16] MEDS: heparin 5,000 unit/mL INJ 1 mL 5000 UNIT SUBCUT ×2 (08:58→20:00)
[2023-12-16] MEDS: pantoprazole DR 40 mg Tablet PO (08:58)
[2023-12-16] MEDS: ondansetron 2 mg/ML SDV 2 mL 4 MG IVP (09:03)
--- NOTE | 2023-12-16 11:59 | CTR_ITS ---
PROCEDURE INFORMATION: Exam: CT Abdomen And Pelvis Without Contrast Exam date and time: 12/16/2023 12:53 PM Age: 48 years old Clinical indication: Other: Right pyelo TECHNIQUE: Imaging protocol: Computed tomography of the abdomen and pelvis without contrast. Radiation optimization: All CT scans at this facility use at least one of these dose optimization techniques: automated exposure control; mA and/or kV adjustment per patient size (includes targeted exams where dose is matched to clinical indication); or iterative reconstruction. COMPARISON: CT kidney stone [id number] 12/12/2023 5:13 PM RADIATION DOSE METRICS: Total DLP (mGy-cm): 1233.01 FINDINGS: Pleural spaces: Small right pleural effusion with prominent adjacent consolidation which consistent with pneumonia and or atelectasis. Liver: Normal. No mass. Gallbladder and biliary ducts: Normal. No calcified stones. No ductal dilation. Pancreas: Normal. No ductal dilation. Spleen: Normal. No splenomegaly. Adrenal glands: Normal. No mass. Kidneys and ureters: There is mild right perinephric stranding, improved when compared to the prior CT scan. Right kidney is mildly enlarged in relation the left similar to the prior study. There is mild chronic left perinephric stranding similar to the prior study. Stomach and bowel: There are gastric sleeve changes with a small hiatal hernia. There are air-fluid levels in the distal colon suggesting mild nonspecific colitis versus other diarrheal illness. Appendix: No evidence of appendicitis. Intraperitoneal space: Unremarkable. No free air. No significant fluid collection. Vasculature: Unremarkable. No abdominal aortic aneurysm. Lymph nodes: Unremarkable. No enlarged lymph nodes. Urinary bladder: There is a Stephenson catheter and air in the bladder. Reproductive: The uterus is not visualized, consistent with hysterectomy. Bones/joints: There are degenerative changes in the visualized spine. Lower lumbar broad-based disc osteophyte complexes. Soft tissues: There are foci of edema in the subcutaneous soft tissues of the ventral abdomen. Mild diffuse edema is present in the subcutaneous soft tissues surrounding the abdomen/pelvis. CT/CT abdomen pelvis wo con [id number] IMPRESSION: 1. Right kidney is mildly enlarged in relation to the left similar to the prior study and there is mild right perinephric stranding which has improved when compared to the prior CT scan. Acute pyelonephritis not well evaluated without IV contrast. 2. Small right pleural effusion with prominent adjacent consolidation which consistent with pneumonia and or atelectasis. 3. There are air-fluid levels in the distal colon suggesting mild nonspecific colitis versus other diarrheal illness.
[2023-12-16] MEDS: morphine 4 mg/mL SDV 1 mL 2 MG IVP ×2 (13:12→20:00)
[2023-12-16] MEDS: acetaminophen 325 mg Tablet 650 MG PO ×2 (13:12→19:59)
--- NOTE | 2023-12-16 16:48 | P.PN_ITS ---
Subjective 2 Subjective: No acute events overnight. Patient states he continues to feel better. Denies any further back pain. Did have 1 episode of nausea today morning but no vomiting. Tolerating diet otherwise well. Tmax 1 episode of 100.8 4 fever today morning. Vitals/I&O/Wt Last Vital Signs Temp 99.1 F 12/16/23 15:25 Pulse 83 12/16/23 15:25 Resp 16 12/16/23 15:25 BP 117/79 12/16/23 15:25 Pulse Ox 94 12/16/23 15:25 O2 Del Method Room Air 12/16/23 15:25 12/16/23 12/16/23 12/16/23 06:59 14:59 22:59 Intake Total 968.75 / 2808.75 1260 / 1260 Output Total 600 / 2000 850 / 850 Balance 368.75 / 808.75 410 / 410 Weight last 48 hrs Weight 75.931 kg Weight 75.886 kg Weight 76.975 kg Physical Exam 2 Narrative: General: In mild distress because of right flank pain, AO x 3, HEENT: PERRLA, pupils bilaterally equal and reactive Chest: Normal vesicular breath sounds, no added sounds, equal good air entry bilaterally CVS: S1-S2 regular, no murmurs, no tachycardia, no gallops, no rubs Abdomen: Soft, nontender, no organomegaly, bowel sounds present, right renal angle tenderness present Neuro: No focal deficits, no facial deformity, AO x3, power 5/5 in all limbs Urinary Catheter Management: Stephenson: Cath Placed During This Visit: yes Reason for Continuing Indwelling Catheter: Other Urinary Catheter Date of Insertion: 12/12/23 Urinary Catheter Time of Insertion: 18:40 Data 12/16/23 03:38 12/16/23 03:38 Micro: Microbiology 12/12/23 15:49 Blood Culture - Preliminary Blood Escherichia coli 12/12/23 18:20 Urine Culture - Final Urine,Clean Catch A&P Assessment and plan (1) Sepsis: SIRS: Tachycardic, Leukocytosis Source: UTI/possible pyelonephritis End organ damage: Acute kidney injury Lactic acid within normal limits Patient did not receive full 30 mL/kg BW due to acute renal failure Continue with normal saline at 75 cc/h. Monitor blood pressures. Keep mean artery pressure 65 mmHg. Follow-up blood culture, urine culture. Appreciate procalcitonin. Check MRSA swab. Given the toxic appearance for now switch over to IV meropenem as per creatinine clearance. Will de-escalate as per culture sensitivities. (2) Bacteremia due to Escherichia coli: Blood culture from admission positive for E. coli. Repeat blood culture in AM. If patient remains persistently bacteremic we will have to possibly transfer patient for urological procedure including cystoscopy given CT changes of asymmetrical right renal enlargement with asymmetric perinephric and periureteral fat infiltration. (3) Pyelonephritis: (4) ZENY (acute kidney injury): Improvement in hyponatremia and high anion gap metabolic acidosis. Most likely in setting of home use of losartan, hydrochlorothiazide, remote use within the last 1 month of ibuprofen and diclofenac. CT negative for obstructive nephropathy but does show asymmetric enlargement of right kidney with asymmetric increased perinephric and periureteral fat infiltration. No calculus. Medical reconciliation done for nephrotoxic drugs. Hold off on losartan, hydrochlorothiazide. Appreciate urine lites, urine creatinine, urine eosinophils. Stephenson catheter. Strict input and output charting. Normal saline at 75 cc/h. Monitor BMP daily. (5) Metabolic acidosis: Plan Hypertension: Goal blood pressure less than 140/90 MAG with mean over 65. Holding off on losartan hydrochlorothiazide as above. Continue with metoprolol 25 mg twice daily. Plan for the day: Because patient continues to have 1 spike of fever daily with stable to no leukocytosis with plan for repeat CT abdomen pelvis to monitor for right-sided hydronephrosis. Follow-up blood culture from 12/13. Blood culture from 12/11 showing E. coli. Sensitivities appreciated. Continue with IV ceftriaxone. Can likely transition to oral Levaquin as per sensitivities from first negative blood culture. Creatinine continues to trend down. Down to 2.1. Stop IV fluids. Discharge planning: Plan to discharge back home if repeat blood cultures remain negative and if patient remains fever free for at least 24 hours on oral antibiotics Renal nondialysis diet Full code Protonix for PUD prophylaxis Heparin 5000 every 12 hourly for DVT prophylaxis Attestations 2 Medical Necessity Statement*: Requires further hospitalization for management of right-sided hydronephrosis, pyelonephritis in setting of E. coli bacteremia Diagnoses Sepsis A41.9 Bacteremia due to Escherichia coli R78.81; B96.20 Pyelonephritis N12 ZENY (acute kidney injury) N17.9 Metabolic acidosis E87.20
[2023-12-16] MEDS: cefTRIAXone 1,000 mg SDV 1000 MG IVP (17:54)
[2023-12-17] VITALS (10 sets, daily range): BP systolic 122–144; BP diastolic 79–88; PULSE 77–109; RESP 16–18; TEMP 36.7–37.6; O2SAT 93–95
[2023-12-17] MEDS: HYDROcodone-acetaminophen 5-325 mg Tablet 1 TAB PO ×3 (00:03→20:05)
[2023-12-17] MEDS: acetaminophen 325 mg Tablet 650 MG PO ×2 (04:13→17:04)
[2023-12-17 06:13] LABS: Basophils % 0.2 %; Eosinophils # 0.2 10^3/uL (0.0-0.8); Eosinophils % 1.1 %; Hematocrit 28.5 % (36-47); Lymphocytes # 1.4 10^3/uL (0.8-4.8); Lymphocytes % 10.3 %; Mean Corpuscular HGB Conc 33.7 g/dL (30-55); Mean Corpuscular Hemoglobin 30.9 pg (27-33); Mean Corpuscular Volume 91.6 fl (85-98); Mean Platelet Volume 11.5 fL (7.4-10.4); Monocytes # 1.5 10^3/uL (0.2-0.9); Neutrophils # 10.23 10^3/uL (1.8-7.7); Neutrophils % 76.4 %; Nucleated Red Blood Cells % 0 %; Platelet Count 222 10^3/cmm (157-399); Red Blood Count 3.11 10^6/uL (3.85-5.65); Red Cell Distribution Width 13.6 % (12.1-15.1); White Blood Count 13.41 10^3/uL (3.29-11.43)
[2023-12-17 06:38] LABS: Alanine Aminotransferase 14 U/L (0-33); Albumin Level 2.6 g/dL (3.5-5.2); Alkaline Phosphatase 230 U/L (35-105); Anion Gap 16.8 (5-19); Aspartate Amino Transferase 15 U/L (0-32); Blood Urea Nitrogen 31 mg/dL (6-20); Calcium 8.1 mg/dL (8.5-10.5); Carbon Dioxide 20 mmol/L (22-29); Chloride 103 mmol/L (98-107); Creatinine Clr Calc Pharmacy 16.1836; Globulin 3.2 g/dL (1.3-4.6); Glomerular Filtration Rate 26.6 mL/min (90-130); Glucose 135 mg/dL (65-115); Osmolality Calculated 291 mOsm/kg (285-295); Potassium 3.8 mmol/L (3.5-5.1); Sodium 136 mmol/L (136-145); Total Bilirubin 0.8 mg/dL (0.15-1.2); Total Protein 5.8 g/dL (6.6-8.7)
[2023-12-17] MEDS: metoprolol tartrate 25 mg Tablet 50 MG PO ×2 (07:59→20:06)
[2023-12-17] MEDS: pantoprazole DR 40 mg Tablet PO (08:00)
[2023-12-17] MEDS: sodium bicarbonate 650 mg Tablet PO ×3 (08:00→20:06)
[2023-12-17] MEDS: heparin 5,000 unit/mL INJ 1 mL 5000 UNIT SUBCUT ×2 (08:00→20:07)
[2023-12-17] MEDS: ondansetron 2 mg/ML SDV 2 mL 4 MG IVP (14:29)
[2023-12-17] MEDS: cefTRIAXone 1,000 mg SDV 1000 MG IVP (16:39)
[2023-12-17] MEDS: morphine 4 mg/mL SDV 1 mL 2 MG IVP ×2 (16:57→21:52)
[2023-12-17] MEDS: prochlorperazine 25 mg Supp PR (17:44)
[2023-12-17] MEDS: linezolid premix 600 MG/300 ML PREMIX 300 MG IV (17:44)
--- NOTE | 2023-12-17 18:55 | USR_ITS ---
PROCEDURE INFORMATION: Exam: US Abdomen; Limited Exam date and time: 12/17/2023 8:23 PM Age: 48 years old Clinical indication: Abnormal findings; Abnormal lab test; Elevated wbc; Additional info: Ap elev, rll, R perinephric stranding, fever, rising wbc TECHNIQUE: Imaging protocol: Real time ultrasound of the abdomen with image documentation. Limited exam focused on the region of clinical interest. COMPARISON: CT abdomen pelvis con [id number] 12/16/2023 12:53 PM FINDINGS: Liver: Fatty infiltration in the mildly enlarged liver, with a length measurement of 18.5 cm. No focal hepatic mass. Gallbladder: Nondistended gallbladder. No cholelithiasis, wall edema, or pericholecystic fluid. Technologist reported negative sonographic Becerra sign. Biliary ducts: Normal caliber of the visualized common bile duct measuring 5 mm in diameter. Pancreas: No acute sonographic abnormality in the visualized pancreas, which is partially obscured by bowel gas. Right kidney: Normal right renal morphology. No hydronephrosis. Aorta: Normal caliber of the visualized abdominal aorta. Inferior vena cava: Unremarkable IVC is visualized. US/US gall bladder [id number] IMPRESSION: Fatty infiltration in the mildly enlarged liver.
[2023-12-17] MEDS: meropenem 500 mg SDV IVP (20:07)
[2023-12-17] MEDS: water for injection-sterile 10 ML 300 ML (20:08)
--- NOTE | 2023-12-17 21:45 | PM.TDS ---
Transfer Summary Providers Date of Admission: 12/12/23 17:48 Date of Discharge/Transfer: 12/17/23 Attending Provider at Admission: Ulysses Field MD Attending Provider at Transfer: Maverick Hidalgo Primary Care Provider: Chato Williamson MD Transfer Plans: Anticipated date of transfer: 12/17/23. Diagnoses at Discharge Discharge Diagnosis (1) Sepsis: Status: Acute (2) Bacteremia due to Escherichia coli: Status: Acute (3) Pyelonephritis: Status: Acute (4) ZENY (acute kidney injury): Status: Acute (5) Metabolic acidosis: Status: Acute Reason for Visit Reason for Visit chills, right side pain, back pain, vomitting Hospital Course Hospital Course Pleasant 48-year-old lady with history of HTN, CKD, has not been on any and since in the last 11 months, was admitted on the after presenting with right flank pain, malaise, dysuria, on presentation with leukocytosis, fever, tachycardia, sepsis, UA suggestive of UTI, CT abdomen pelvis with a symmetrical enlargement of the right kidney with surrounding perinephric and periarterial stranding, suspected pyelonephritis, without noted stone, was started on meropenem, urine cultures eventually pansensitive E. coli, also with bacteremia, blood cultures also growing the same organism. Repeat cultures were obtained and are so far negative from the . With obtaining culture results she was switched over to ceftriaxone. Acute kidney injury on presentation, creatinine up to 4.2, has been gradually improving, creatinine did decrease down to 2. Subsequently with worsening leukocytosis today up to 13.41, still recurrent fevers, today up to 102.4. Repeat CT abdomen pelvis obtained yesterday showed slight improvement of perinephric stranding but still persistent asymmetric enlargement without stone, pyelonephritis not adequately assessed without IV contrast, but also right lower lobe small effusion, consolidation, although has not had any respiratory symptoms to suggest pneumonia, saturating well on room air, no cough, shortness of breath. As per discussion with her unclear whether developing pneumonia or local inflammatory reaction to another process. Additionally with noted rising alk phos. Today up to 230. As per prior discussion arrangements are being undertaken for transfer to higher level care given lack of urology or infectious disease backup currently. Discussed with hospitalist team over at [facility] including additional noted findings today including lung findings, alk phos elevation, repeat blood cultures, and we broadened her antibiotic back to meropenem with addition of linezolid, as well as requested gallbladder ultrasound. She is tentatively accepted pending bed opening. Discussed with her. Physical Exam Const: COMMON NORMALS: patient oriented x3 and alert GENERAL APPEARANCE: cooperative ORIENTATION/CONSCIOUSNESS: Yes awake HENMT: COMMON NORMALS: oropharynx normal Neck/C-Spine: COMMON NORMALS: no JVD Resp: COMMON NORMALS: normal respiratory effort and clear to auscultation bilaterally AUSCULTATION: clear to auscultation bilaterally Cardio: COMMON NORMALS: no JVD, regular rhythm, S1 normal heart sound present, S2 normal heart sound present and No murmurs present (Cardio) RHYTHM: regular rhythm HEART SOUNDS: S1 normal heart sound present and S2 normal heart sound present GI: COMMON NORMALS: Normal to inspection, nondistended, normoactive bowel sounds present, Soft to palpation and non-tender PALPATION: Yes Soft to palpation Extremity: COMMON NORMALS: no joint enlargement and no pedal edema Neuro: COMMON NORMALS: patient oriented x3 and moves all extremities SENSORIUM/ORIENTATION: Yes alert Skin: COMMON NORMALS: no rashes or lesions noted GENERAL SKIN EXAM: no rashes or lesions noted Urinary Catheter Management: Stephenson: Cath Placed During This Visit: yes Reason for Continuing Indwelling Catheter: Acute Urinary Retention or Obstruction Urinary Catheter Date of Insertion: 12/12/23 Urinary Catheter Time of Insertion: 18:40 TS Data Studies Completed and Pending Pending at discharge Category Date Time Status Blood Culture AM LABS Lab 12/14/23 04:31 Results Blood Culture Stat Lab 12/17/23 19:36 Results Complete Blood Count w/Auto AM LABS Lab 12/18/23 04:00 Ordered Complete Blood Count w/Auto AM LABS Lab 12/19/23 04:00 Ordered Complete Blood Count w/Auto AM LABS Lab 12/20/23 04:00 Ordered Comprehensive Metabolic Panel AM LABS Lab 12/18/23 04:00 Ordered Comprehensive Metabolic Panel AM LABS Lab 12/19/23 04:00 Ordered Comprehensive Metabolic Panel AM LABS Lab 12/20/23 04:00 Ordered US gall bladder [id number] Routine Ultrasound 12/17/23 18:55 Taken Completed Studies During Hospitalization Category Date Time Status CT abdomen pelvis wo con [id number] Routine Cat Scan 12/16/23 11:[address] kidney stone [id number] Stat Cat Scan 12/12/23 16:22 Completed XR chest 1V portable [id number] Stat Exams 12/12/23 15:41 Completed Laboratory Last Values WBC 13.41 10^3/uL (3.29-11.43) H 12/17/23 05:58 RBC 3.11 10^6/uL (3.85-5.65) L 12/17/23 05:58 Hgb 9.60 g/dL (11.27-16.99) L 12/17/23 05:58 Hct 28.5 % (36-47) L 12/17/23 05:58 MCV 91.6 fl (85-98) 12/17/23 05:58 MCH 30.9 pg (27-33) 12/17/23 05:58 MCHC 33.7 g/dL (30-55) 12/17/23 05:58 RDW 13.6 % (12.1-15.1) 12/17/23 05:58 Plt Count 222 10^3/cmm (157-399) 12/17/23 05:58 MPV 11.5 fL (7.4-10.4) H 12/17/23 05:58 Neut % (Auto) 76.4 % 12/17/23 05:58 Lymph % (Auto) 10.3 % 12/17/23 05:58 Hockley % (Auto) 11.0 % 12/17/23 05:58 Eos % (Auto) 1.1 % 12/17/23 05:58 Baso % (Auto) 0.2 % 12/17/23 05:58 Neut # (Auto) 10.23 10^3/uL (1.8-7.7) H 12/17/23 05:58 Lymph # (Auto) 1.4 10^3/uL (0.8-4.8) 12/17/23 05:58 Hockley # (Auto) 1.5 10^3/uL (0.2-0.9) H 12/17/23 05:58 Eos # (Auto) 0.2 10^3/uL (0.0-0.8) 12/17/23 05:58 Baso # (Auto) 0.0 10^3/uL (0.0-0.1) 12/17/23 05:58 Nucleated RBC % (auto) 0 % 12/17/23 05:58 Nucleated RBCs # 0.0 /100WBC 12/17/23 05:58 Sodium 136 mmol/L (136-145) 12/17/23 05:58 Potassium 3.8 mmol/L (3.5-5.1) 12/17/23 05:58 Chloride 103 mmol/L (98-107) 12/17/23 05:58 Carbon Dioxide 20 mmol/L (22-29) L 12/17/23 05:58 Anion Gap 16.8 (5-19) 12/17/23 05:58 BUN 31 mg/dL (6-20) H 12/17/23 05:58 Creatinine 2.0 mg/dL (0.5-0.9) H 12/17/23 05:58 GFR Calculation 26.6 mL/min (90-130) L 12/17/23 05:58 Glucose 135 mg/dL (65-115) H 12/17/23 05:58 Estimat Average Glucose 108 12/13/23 05:35 Hemoglobin A1c 5.4 % (4.0-6.0) 12/13/23 05:35 Calculated Osmolality 291 mOsm/kg (285-295) 12/17/23 05:58 Lactic Acid 2.1 mmol/L (0.5-2.2) 12/12/23 15:58 Lactic Acid (Sepsis) 2.1 mmol/L (0.5-2.2) 12/12/23 20:16 Calcium 8.1 mg/dL (8.5-10.5) L 12/17/23 05:58 Phosphorus 3.2 mg/dL (2.5-4.5) 12/13/23 05:35 Magnesium 1.1 mg/dL (1.7-2.3) L 12/13/23 05:35 Iron 12 ug/dL (37-145) L 12/12/23 14:58 TIBC 222 mcg/dl 12/12/23 14:58 % Saturation 5.4 % (20-50) L 12/12/23 14:58 Unsat Iron Binding 210 ug/dL (112-347) 12/12/23 14:58 Total Bilirubin 0.8 mg/dL (0.15-1.2) 12/17/23 05:58 AST 15 U/L (0-32) 12/17/23 05:58 ALT 14 U/L (0-33) 12/17/23 05:58 Alkaline Phosphatase 230 U/L (35-105) H 12/17/23 05:58 Total Protein 5.8 g/dL (6.6-8.7) L 12/17/23 05:58 Albumin 2.6 g/dL (3.5-5.2) L 12/17/23 05:58 Globulin 3.2 g/dL (1.3-4.6) 12/17/23 05:58 Triglycerides 231 mg/dL (0-150) H 12/13/23 05:35 Cholesterol 130 mg/dL (0-200) 12/13/23 05:35 LDL Cholesterol, Calc 62 mg/dL (50-129) 12/13/23 05:35 HDL Cholesterol 22 mg/dL (60-100) L 12/13/23 05:35 LDL/HDL Ratio 2.82 RATIO (0.00-3.22) 12/13/23 05:35 Cholesterol/HDL Ratio 5.91 mg/dL (0.0-4.40) H 12/13/23 05:35 Lipase 14 U/L (13-60) 12/12/23 14:58 Vitamin B12 661 pg/mL (232-1245) 12/12/23 14:58 Folate 7.0 ng/mL (4.8-37.3) 12/13/23 05:35 Procalcitonin 8.72 ng/mL (0-0.5) H 12/13/23 05:35 TSH 4.08 uIU/mL (0.27-4.20) 12/12/23 14:58 Urine Color Yellow (Yellow) 12/12/23 18:20 Urine Appearance Slightly cloudy (CLEAR) 12/12/23 18:20 Urine pH 5 (5-7) 12/12/23 18:20 Ur Specific Venus 1.015 (1.005-1.030) 12/12/23 18:20 Urine Protein 3+ (Negative) H 12/12/23 18:20 Urine Glucose (UA) Norm (Normal) 12/12/23 18:20 Urine Ketones Negative (Negative) 12/12/23 18:20 Urine Blood 2+ (Negative) H 12/12/23 18:20 Urine Nitrate Negative (Negative) 12/12/23 18:20 Urine Bilirubin Neg (Negative) 12/12/23 18:20 Urine Urobilinogen Norm mg/dL (Negative) 12/12/23 18:20 Ur Leukocyte Esterase Negative (Negative) 12/12/23 18:20 Urine RBC 10-15 /hpf (0-2) H 12/12/23 18:20 Urine WBC 40-55 /hpf (0-5) H 12/12/23 18:20 Ur Eosinophil Smear 0 (0-0) 12/12/23 15:34 Ur Squamous Epith Cells 0-4 /hpf (0-5) H 12/12/23 18:20 Ur Transition Epith Cell 0-4 /hpf 12/12/23 18:20 Amorphous Sediment Not Reportable 12/12/23 18:20 Urine Bacteria Trace /hpf (NONE) 12/12/23 18:20 Urine Mucus Trace /hpf 12/12/23 18:20 Urine Eosinophils No eosinophils seen 12/12/23 15:34 Ur Random Sodium 44 mmol/L 12/12/23 15:34 Ur Random Potassium 77 mmol/L 12/12/23 15:34 Ur Random Chloride 29 mmol/L 12/12/23 15:34 Urine Creatinine 145 mg/dL (28-217) 12/12/23 15:34 Urine Opiates Screen Positive ng/mL (Negative) H 12/12/23 15:34 Ur Barbiturates Screen Negative ng/mL (Negative) 12/12/23 15:34 Ur Phencyclidine Scrn Negative ng/mL (Negative) 12/12/23 15:34 Ur Amphetamines Screen Negative ng/mL (Negative) 12/12/23 15:34 U Benzodiazepines Scrn Negative ng/mL (Negative) 12/12/23 15:34 Urine Cocaine Screen Negative ng/mL (Negative) 12/12/23 15:34 U Marijuana (THC) Screen Negative ng/mL (Negative) 12/12/23 15:34 Radiology Impressions Chest X-Ray 12/12/23 15:41 IMPRESSION: No acute findings. Abdomen/Pelvis CT 12/16/23 11:59 IMPRESSION: 1. Right kidney is mildly enlarged in relation to the left similar to the prior study and there is mild right perinephric stranding which has improved when compared to the prior CT scan. Acute pyelonephritis not well evaluated without IV contrast. 2. Small right pleural effusion with prominent adjacent consolidation which consistent with pneumonia and or atelectasis. 3. There are air-fluid levels in the distal colon suggesting mild nonspecific colitis versus other diarrheal illness. Recent Clincial Data Last Vital Signs Temp 98.5 F 12/17/23 19:44 Pulse 81 12/17/23 19:44 Resp 17 12/17/23 19:44 BP 122/82 12/17/23 19:44 Pulse Ox 95 12/17/23 19:44 O2 Del Method Room Air 12/17/23 18:30 O2 Flow Rate 93 12/17/23 04:00 Vital Signs Temp Pulse Resp BP Pulse Ox O2 Del Method 12/17/23 19:44 98.5 F 81 17 122/82 95 12/17/23 18:30 109 H 18 95 Room Air 12/17/23 16:57 18 12/17/23 16:00 98.1 F 77 16 135/88 95 12/17/23 14:00 91 12/17/23 12:00 98.1 F 77 16 135/88 95 Intake & Output/Weight 12/15/23 12/16/23 12/17/23 12/18/23 06:59 06:59 06:59 06:59 Intake Total 1602.5 / 1602.5 2808.75 / 2808.75 1380 / 1380 670 / 670 Output Total 1999 / 1999 1999 / 1999 2450 / 2450 700 / 700 Balance -397.5 / -397.5 808.75 / 808.75 -1070 / -1070 -30 / -30 Weight 76.975 kg 75.931 kg 29.801 kg Vitals Last Vital Signs Temp 98.5 F 12/17/23 19:44 Pulse 81 12/17/23 19:44 Resp 17 12/17/23 19:44 BP 122/82 12/17/23 19:44 Pulse Ox 95 12/17/23 19:44 O2 Del Method Room Air 12/17/23 18:30 O2 Flow Rate 93 12/17/23 04:00 TS Medications Medications Acetaminophen (Acetaminophen 325 Mg Tablet) 650 mg PO Q6H PRN PRN Reason: Mild/Mod Pain Or Temp >/= 101 Last Admin: 12/17/23 17:04 Dose: 650 mg Hydrocodone Bitart/Acetaminophen (Hydrocodone-Acetaminophen 5-325 Mg Tablet) 1 tab PO Q6H PRN PRN Reason: MODERATE PAIN Last Admin: 12/17/23 20:05 Dose: 1 tab Bisacodyl (Bisacodyl 5 Mg Tablet) 10 mg PO DAILY PRN; Protocol PRN Reason: Constipation (see protocol) Heparin Sodium (Porcine) (Heparin 5,000 Unit/Ml Inj 1 Ml) 5,000 unit SUBCUT Q12H [facility] Last Admin: 12/17/23 20:07 Dose: 5,000 unit Linezolid (Zyvox Premix) 600 mg in 300 mls @ 300 mls/hr IV Q12H [facility]; Protocol Last Infusion: 12/17/23 19:42 Dose: Infused Lactulose (Lactulose Oral Liq 20 Gm/30 Ml Udc) 10 gm PO DAILY PRN; Protocol PRN Reason: Constipation (see protocol) Magnesium Hydroxide (Magnesium Hydroxide 30 Ml Udc) 30 ml PO DAILY PRN; Protocol PRN Reason: Constipation (see protocol) Meropenem (Meropenem 500 Mg Sdv) 500 mg IVP Q12H [facility] Last Admin: 12/17/23 20:07 Dose: 500 mg Metoprolol Tartrate (Metoprolol Tartrate 25 Mg Tablet) 50 mg PO BID@0900,2100 [facility] Last Admin: 12/17/23 20:06 Dose: 50 mg Morphine Sulfate (Morphine 4 Mg/Ml Sdv 1 Ml) 2 mg IVP Q4H PRN PRN Reason: SEVERE PAIN Last Admin: 12/17/23 16:57 Dose: 2 mg Ondansetron HCl (Ondansetron 2 Mg/Ml Sdv 2 Ml) 4 mg IVP Q6H PRN PRN Reason: NAUSEA AND VOMITING Last Admin: 12/17/23 14:29 Dose: 4 mg Pantoprazole Sodium (Pantoprazole Dr 40 Mg Tablet) 40 mg PO DAILY [facility] Last Admin: 12/17/23 08:00 Dose: 40 mg Sodium Bicarbonate (Sodium Bicarbonate 650 Mg Tablet) 650 mg PO TID [facility] Last Admin: 12/17/23 20:06 Dose: 650 mg Discontinued Medications Ceftriaxone Sodium (Ceftriaxone 1,000 Mg Sdv) 1,000 mg IVP ONCE ONE; Protocol Stop: 12/12/23 16:20 Last Admin: 12/12/23 17:42 Dose: 1,000 mg Ceftriaxone Sodium (Ceftriaxone 1,000 Mg Sdv) 1,000 mg IVP Q24H [facility]; Protocol Last Admin: 12/17/23 16:39 Dose: 1,000 mg Heparin Sodium (Porcine) (Heparin 5,000 Unit/Ml Inj 1 Ml) 5,000 unit SUBCUT Q12H [facility] Last Admin: 12/14/23 09:48 Dose: Not Given Sodium Chloride (Sodium Chloride 0.9%) 1,000 mls @ 999 mls/hr IV .Q1H1M ONE Stop: 12/12/23 15:49 Last Infusion: 12/12/23 16:28 Dose: Infused Sodium Chloride (Sodium Chloride 0.9%) 1,000 mls @ 999 mls/hr IV .Q1H1M ONE Stop: 12/12/23 16:41 Last Infusion: 12/12/23 19:44 Dose: Infused Sodium Chloride (Sodium Chloride 0.9%) 1,000 mls @ 75 mls/hr IV .[id number] [facility] Last Infusion: 12/16/23 13:10 Dose: Infused Magnesium Sulfate (Magnesium Sulfate Premix) 2 gm in 50 mls @ 50 mls/hr IV ONCE ONE Stop: 12/13/23 08:32 Last Infusion: 12/13/23 09:35 Dose: Infused Sterile Water (Water) Confirm Administered Dose 10 mls @ as directed .ROUTE .STK-MED ONE Stop: 12/13/23 09:25 Last Infusion: 12/13/23 11:31 Dose: Infused Sterile Water (Water) Confirm Administered Dose 10 mls @ as directed .ROUTE .STK-MED ONE Stop: 12/13/23 20:33 Last Infusion: 12/13/23 21:38 Dose: Infused Sterile Water (Water) Confirm Administered Dose 10 mls @ as directed .ROUTE .STK-MED ONE Stop: 12/14/23 20:15 Last Infusion: 12/14/23 23:10 Dose: Infused Meropenem 500 mg/ Sodium (Chloride) 50 mls @ 100 mls/hr IV Q12H [facility]; Protocol Sterile Water (Water) Confirm Administered Dose 10 mls @ as directed .ROUTE .STK-MED ONE Stop: 12/17/23 19:53 Last Infusion: 12/17/23 20:21 Dose: Infused Meropenem (Meropenem 500 Mg Sdv) 500 mg IVP Q12H [facility]; Protocol Last Admin: 12/15/23 12:17 Dose: Not Given Metoprolol Tartrate (Metoprolol Tartrate 25 Mg Tablet) 25 mg PO BID@0900,2100 [facility] Last Admin: 12/14/23 08:41 Dose: 25 mg Morphine Sulfate (Morphine 4 Mg/Ml Sdv 1 Ml) 4 mg IVP ONCE ONE Stop: 12/12/23 16:40 Last Admin: 12/12/23 17:02 Dose: 4 mg Ondansetron HCl (Ondansetron 2 Mg/Ml Sdv 2 Ml) 4 mg IVP ONCE ONE Stop: 12/12/23 16:40 Last Admin: 12/12/23 17:02 Dose: 4 mg Prochlorperazine (Prochlorperazine 25 Mg Supp) 25 mg NM ONCE ONE Stop: 12/17/23 17:00 Last Admin: 12/17/23 17:44 Dose: 25 mg Allergies No Known Allergies Allergy (Verified 12/12/23 14:29) Home Medications cetirizine 10 mg tablet 10 mg PO DAILY 10/19/23 [History Confirmed 12/13/23] losartan 100 mg-hydrochlorothiazide 12.5 mg tablet 1 tab PO DAILY 10/19/23 [History Confirmed 12/13/23] metoprolol succinate 50 mg tablet,extended release 24 hr 50 mg PO DAILY 10/19/23 [History Confirmed 12/13/23] tramadol 50 mg tablet 50 mg PO Q6H PRN pain #10 tabs 10/19/23 [Rx Confirmed 12/13/23] cyclobenzaprine 10 mg tablet 10 mg PO TID PRN muscle spasm #42 tabs 11/26/23 [Rx Confirmed 12/13/23] hydrocodone 5 mg-acetaminophen 325 mg tablet 1 tab PO Q4H PRN Pain 12/13/23 [History Confirmed 12/13/23] Discharge Plan Discharge Patient Disposition: Xfer Short-Term Hosp Condition: Stable Prescriptions: No Action cyclobenzaprine 10 mg tablet 10 mg PO TID PRN (Reason: muscle spasm) Qty: 42 0RF cetirizine 10 mg tablet 10 mg PO DAILY metoprolol succinate 50 mg tablet extended release 24 hr 50 mg PO DAILY losartan-hydrochlorothiazide 100-12.5 mg tablet 1 tab PO DAILY tramadol 50 mg tablet 50 mg PO Q6H PRN (Reason: pain) Qty: 10 0RF hydrocodone-acetaminophen 5-325 mg tablet 1 tab PO Q4H PRN (Reason: Pain) Referrals: José Miguel Hamilton [Referring] - 1 week (Hydronephrosis) Chato Williamson MD [Primary Care Provider] - Patient Instructions: Opioid Safety Transfer Attestations Time Spent in Transfer Care: greater than 30 min Quality Metrics Clinical Quality Measures [ No reported AMI, CVA or VTE this stay] Coding Level of Care Code 90010 Total time (in minutes) for Discharge: 65 Diagnoses Sepsis A41.9 Bacteremia due to Escherichia coli R78.81; B96.20 Pyelonephritis N12 ZENY (acute kidney injury) N17.9 Metabolic acidosis E87.20
[2023-12-18 00:22] VITALS: BP 114/75; PULSE 83; RESP 16; TEMP 36.7; O2SAT 96
[2023-12-18 00:38] VITALS: BP 136/86; PULSE 104; RESP 20; TEMP 36.8; O2SAT 94
[2023-12-18 00:40] VITALS: BP 136/86; PULSE 104; RESP 20; TEMP 36.8; O2SAT 94
== END 2023-12-18 00:40 | disposition short-term general hospital (02) | DRG 872 ==
LOC: ER 15:19 → MEDSURG 17:48
PROVIDERS: Admitting Provider Student in an Organized Health Care Education/Training Program; Emergency Provider Family Medicine; PCP Family Medicine; Visit Provider Internal Medicine
DX: A41.51 Sepsis due to Escherichia coli [E. coli] (principal); N17.9 Acute kidney failure, unspecified; N10 Acute pyelonephritis; E87.20 Acidosis, unspecified; E87.1 Hypo-osmolality and hyponatremia; R65.20 Severe sepsis without septic shock; F17.210 Nicotine dependence, cigarettes, uncomplicated; I12.9 Hypertensive chronic kidney disease with stage 1 through stage 4 chronic kidney disease, or unspecified chronic kidney disease; N18.9 Chronic kidney disease, unspecified
CPT/HCPCS: 36415; 51702; 51798; 71045; 74176; 76705; 80053; 80061; 80306; 81001; 82436; 82570; 82607; 82746; 83036; 83540; 83550; 83605; 83690; 83735; 84100; 84133; 84145; 84300; 84443; 85025; 85999; 87040; 87077; 87086; 87150; 87186; 87205; 93005; 94664; 96361; 96372; 96374; 99285; J0696; J1644; J2020; J2185; J2270; J2405; J3475; J7030; J8498

== ENCOUNTER 2024-01-08 08:34 | Outpatient (RCR) | payer OTHER, MEDICAID, SELFPAY | END 2024-02-02 23:59 | disposition home or self-care (01) | LOC: SPT 08:34 | PROVIDERS: PCP Family Medicine; Visit Provider Nurse Practitioner | DX: M75.41 Impingement syndrome of right shoulder (principal) | CPT/HCPCS: 97110; 97140; 97161 ==

== ENCOUNTER → 2024-02-25 10:15 | Outpatient (BNVA) | payer MEDICAID, SELFPAY | PROVIDERS: PCP Family Medicine; Visit Provider Nurse Practitioner | DX: Z98.890 Other specified postprocedural states (principal); M75.41 Impingement syndrome of right shoulder; M75.101 Unspecified rotator cuff tear or rupture of right shoulder, not specified as traumatic; M19.011 Primary osteoarthritis, right shoulder | CPT/HCPCS: 99213 ==

== ENCOUNTER → 2024-03-12 09:08 | Outpatient (BNVA) | payer MEDICAID, SELFPAY | PROVIDERS: PCP Family Medicine; Visit Provider Nurse Practitioner | DX: M25.512 Pain in left shoulder (principal); R29.898 Other symptoms and signs involving the musculoskeletal system; M19.012 Primary osteoarthritis, left shoulder; S49.92XA Unspecified injury of left shoulder and upper arm, initial encounter; X58.XXXA Exposure to other specified factors, initial encounter | CPT/HCPCS: 73030; 99214 ==

== ENCOUNTER 2024-04-01 08:37 | Outpatient (CLI) | payer MEDICAID, SELFPAY ==
--- NOTE | 2024-04-01 08:45 | MR_ITS ---
WS: [id number] MRI LEFT SHOULDER NONCONTRAST TECHNIQUE: Sagittal T2, coronal T1, T2 and proton density imaging. Axial gradient PDE imaging. CLINICAL INFORMATION: left shoulder weakness and pain FINDINGS: Moderate to advanced degenerative arthritis AC joint. Fluid and edema at the AC joint with synovial t hickening. Subchondral subdeltoid fluid. Impingement on the underlying supraspinatus. Edema within th e distal clavicle and acromion likely reactive/degenerative. Recommend correlation for AC joint synov itis. No evidence of acute AC joint separation. Findings appear chronic and degenerative/inflammatory . Moderate degenerative narrowing of the glenohumeral articulation. Rotator cuff is intact. Chronic thi nning of the supraspinatus with mild tendinopathy. Infraspinatus appears intact. Tiny undersurface te ar distal supraspinatus. Slight tendinopathy infraspinatus. Normal teres minor. Subscapularis tendon appears intact. Normal biceps tendon the bicipital groove. Biceps labral anchor appears intact. Intra-articular biceps tendon appears intact. Tendinopathy intra -articular biceps tendon. Degenerative fraying of the glenoid labrum. Normal coracoid. MR/MR shoulder LT wo con* [id number] IMPRESSION: 1. Moderate to advanced arthritis at the AC joint with fluid and edema likely degenerative or inflammatory. Recommend correlation with AC joint synovitis. 2. Small amount of subacromial subdeltoid fluid. 3. Mild chronic thinning of the distal supraspinatus with a tiny undersurface tear distally. 4. Tendinopathy infraspinatus. 5. Normal biceps in the bicipital groove. 6. Intra-articular biceps tendon appears intact with tendinopathy. 7. Moderate to advanced degenerative narrowing of the glenohumeral articulatio n.
== END 2024-04-01 08:38 | disposition home or self-care (01) ==
LOC: RAD 08:37
PROVIDERS: PCP Family Medicine; Visit Provider Nurse Practitioner
DX: M19.012 Primary osteoarthritis, left shoulder (principal); R29.898 Other symptoms and signs involving the musculoskeletal system; M75.92 Shoulder lesion, unspecified, left shoulder; M75.22 Bicipital tendinitis, left shoulder
CPT/HCPCS: 73221

== ENCOUNTER → 2024-04-14 14:58 | Outpatient (BNVA) | payer MEDICAID, SELFPAY | PROVIDERS: PCP Family Medicine; Visit Provider Nurse Practitioner | DX: M19.012 Primary osteoarthritis, left shoulder (principal); R29.898 Other symptoms and signs involving the musculoskeletal system | CPT/HCPCS: 36415; 80053; 85025 ==

== ENCOUNTER 2024-04-29 09:41 | Outpatient (CLI) | payer MEDICAID, SELFPAY ==
--- NOTE | 2024-04-29 09:42 | CTR_ITS ---
PROCEDURE INFORMATION: Exam: CT Abdomen And Pelvis Without And With Contrast Exam date and time: 04/29/2024 9:53 AM Age: 49 years old Clinical indication: Pain; Other: Right flank; Prior surgery; Surgery date: 6+ months; Surgery type: Hyst; Patient HX: Recurrent uti's x 4 months, RT flank discomfort; Additional info: Recurrent uti/r flank discomfort TECHNIQUE: Imaging protocol: Computed tomography of the abdomen and pelvis without and with contrast. 3D rendering (Not supervised by radiologist): MIP and/or 3D reconstructed images were created by the technologist. Radiation optimization: All CT scans at this facility use at least one of these dose optimization techniques: automated exposure control; mA and/or kV adjustment per patient size (includes targeted exams where dose is matched to clinical indication); or iterative reconstruction. Contrast material: OMNI 350; Contrast volume: 100 ml; Contrast route: INTRAVENOUS (IV); COMPARISON: CT abdomen pelvis wo con [id number] 12/16/2023 12:53 PM RADIATION DOSE METRICS: Total DLP (mGy-cm): 1343.68 FINDINGS: Liver: Normal. No mass. Gallbladder and biliary ducts: Normal. No calcified stones. No ductal dilation. Pancreas: Normal. No ductal dilation. Spleen: Normal. No splenomegaly. Adrenal glands: Normal. No mass. Kidneys and ureters: Normal. No hydronephrosis. Stomach and bowel: Prior gastric surgery. Appendix: No evidence of appendicitis. Intraperitoneal space: Unremarkable. No free air. No significant fluid collection. Vasculature: Unremarkable. No abdominal aortic aneurysm. Lymph nodes: Unremarkable. No enlarged lymph nodes. Urinary bladder: Unremarkable as visualized. Reproductive: Hysterectomy. Bones/joints: Unremarkable. No acute fracture. Soft tissues: Unremarkable. CT/CT abdomen pelvis wo/w [id number] IMPRESSION: The findings are normal.
[2024-04-29] MEDS: iohexol 350 mg/mL 500 mL Btl (per mL) IV (10:01)
[2024-04-29 10:14] LABS: Anion Gap 15.7 (5-19); Blood Urea Nitrogen 26 mg/dL (6-20); Calcium 9.5 mg/dL (8.5-10.5); Carbon Dioxide 25 mmol/L (22-29); Chloride 99 mmol/L (98-107); Glomerular Filtration Rate 31.9 mL/min (90-130); Glucose 128 mg/dL (65-115); Osmolality Calculated 288 mOsm/kg (285-295); Potassium 3.7 mmol/L (3.5-5.1); Sodium 136 mmol/L (136-145)
== END 2024-04-29 09:42 | disposition home or self-care (01) ==
PROVIDERS: PCP Family Medicine; Visit Provider Nurse Practitioner Family
DX: N39.0 Urinary tract infection, site not specified (principal)
CPT/HCPCS: 36415; 74178; 80048

== ENCOUNTER 2024-05-13 07:50 | Day surgery (SDC) | payer MEDICAID, SELFPAY ==
[2024-05-13] VITALS (10 sets, daily range): BP systolic 105–122; BP diastolic 72–91; PULSE 69–81; RESP 15–21; TEMP 36.1–36.6; O2SAT 96–98; BMI 28.5
[2024-05-13] MEDS: sodium chloride 0.9% 1,000 ML 30 ML IV (08:14)
[2024-05-13] MEDS: acetaminophen 1,000 MG/100 ML PIGGYBACK 400 MG IV (08:15)
[2024-05-13] MEDS: CELEcoxib 200 mg Capsule 400 MG PO (08:17)
[2024-05-13] MEDS: gabapentin 300 mg Capsule PO (08:17)
--- NOTE | 2024-05-13 08:33 | ANES.PREANE2 ---
Pre-Anesthetic Assessment Height/Weight: Height 5 ft Weight 146 lb Temp Pulse Resp BP Pulse Ox O2 Del Method 97.9 F 81 17 122/91 97 Room Air 05/13/24 08:08 05/13/24 08:08 05/13/24 08:08 05/13/24 08:08 05/13/24 08:08 05/13/24 08:08 Preop Diagnosis: Tendinopathy of left rotator cuff Operation Date: 05/13/24 09:35 Proposed Procedures p Acromioplasty(Left) - Whit Neely MD s Distal Clavicle Resection(Left) - Whit Neely MD Was Beta Arun taken within 24 hours: N/A Was Clonidine taken within 24 hours: N/A Last intake: Intake Last Liquid Date 05/12/24 Last Liquid Time 22:30 Last Solid Date 05/12/24 Last Solid Time 22:30 Social Tobacco and No alcohol Exam alert, oriented x 3, clear to auscultation bilaterally and regular rate & rhythm Airway Submandibular: within normal limits Cervical ROM: within normal limits Mallampati: Class II Dentition: full Anesthetic Plan ASA status: 3 Anesthesia: General and Regional (specify below) Other: No prior issues with anesthesia, patient had the other shoulder done earlier this year under [facility] without issues NPO since yesterday Current smoker Hypertension on HCTZ and metoprolol. Preop BP 122/91 CKD, creatinine 1.7 EKG sinus rhythm METs greater than 4 Plan for general anesthesia with preop nerve block Medications/Allergies Home Medications Medication Instructions Recorded Confirmed Last Taken Type cetirizine 10 mg tablet 10 mg PO DAILY 10/19/23 05/12/24 05/12/24 History cyclobenzaprine 10 mg tablet 10 mg PO TID PRN muscle spasm #42 11/26/23 05/12/24 05/12/24 Rx tabs diclofenac sodium 1 % topical gel 2 g topical QID #100 grams 01/21/24 05/12/24 Unknown Rx meloxicam 7.5 mg tablet 7.5 mg PO DAILY #60 tabs 01/21/24 05/12/24 Unknown Rx hydrocodone 5 mg-acetaminophen 300 2 tab PO Q6H PRN Pain 03/12/24 05/12/24 05/12/24 History mg tablet metoprolol succinate 50 mg 50 mg PO DAILY 1005/13/24 05/13/24 History tablet,extended release 24 hr hydrochlorothiazide 25 mg tablet 25 mg PO DAILY 04/14/24 05/13/24 05/13/24 History Allergies Allergy/AdvReac Type Severity Reaction Status Date / Time No Known Allergies Allergy Verified 03/12/24 09:09 Current Medications Generic Name Dose Route Start Last Admin Trade Name Gregory PRN Reason Stop Dose Admin Sodium Chloride 1,000 mls @ 30 mls/hr 05/13/24 08:00 05/13/24 08:14 Sodium Chloride 0.9% IV 05/14/24 07:59 30 mls/hr .Q24H [facility] Administration PFSH Anesthesia Medical History (Updated 04/21/24 @ 17:36 by MARY Bui) Osteoarthritis of left shoulder Weakness of left shoulder Acromioclavicular joint arthritis Rotator cuff tear arthropathy of right shoulder Impingement syndrome of right shoulder Hypertension Surgical History (Updated 05/12/24 @ 11:52 by Brea Leon RN) S/P shoulder surgery Date of Surgery: 11/29/23 Surgery: Right shoulder acromioplasty with bursectomy and distal clavicle resection. Debridement of rotator cuff hematoma. Surgeon: Dr. Florinda MD Social History Smoking and tobacco/nicotine status: current every day tobacco/nicotine user Alcohol intake: never Substance/Drug Use: never Data Anesthesia Cardiac Studies: No Data to Display
--- NOTE | 2024-05-13 08:46 | P.HPUD_ITS ---
Surgery/Procedure H&P Update DATE OF PROCEDURE: May 13, 2024 DATE H&P PERFORMED: 04/14/24 H&P UPDATE INFORMATION: I have reviewed H&P completed within last 30 days, I have examined patient prior to procedure, No changes to prior documentation and H&P is in [facility] on date indicated PREOP DIAGNOSIS: Impingement left shoulder PLANNED PROCEDURE: Operation Date: 05/13/24 09:35 Proposed Procedures p Acromioplasty(Left) - Whit Neely MD s Distal Clavicle Resection(Left) - Whit Neely MD Related Problem List Diagnoses (1) Impingement of left shoulder: (2) Arthritis of left acromioclavicular joint: (3) Tendinopathy of left rotator cuff: (4) Osteoarthritis of left shoulder: Qualifiers: Osteoarthritis type: primary Qualified Code(s): M19.012 - Primary osteoarthritis, left shoulder
[2024-05-13] MEDS: ceFAZolin 2,000 mg SDV 2000 MG IVP (08:57)
--- NOTE | 2024-05-13 08:58 | ANES.PROC ---
Anesthesia Procedures Procedure/Date: 05/13/24 Nerve Block ^: Nerve Block 1: Main Anesthesia: other (100mcg fentanyl, 2mg versed) Time Out Performed: Yes Consent: requested by attending/covering physician Nerve block location: interscalene Anesthesia monitors applied: pulse oximetry, EKG, BP cuff and oxygen Nerve block position: supine Anesthetic Used: ropivicaine 0.5% Amount of anesthesia used (mL): 30 Ultrasound used to: recognize landmarks Nerve Stimulator Used?: Yes Interscalene/Femoral BLK: other needle (pjunk 4inch) Injection: neg aspiration of heme Patient Tolerated Procedure: well Complications: none Additional Comments: decadron 4mg added to block
[2024-05-13] MEDS: ceFAZolin 1,000 mg SDV 1000 MG IRRIGATION (09:49)
--- NOTE | 2024-05-13 11:15 | PM.OP ---
Operative Report Date of procedure: May 13, 2024 Pre-op diagnosis: Left shoulder impingement and acromioclavicular and glenohumeral joint degenerative osteoarthritis with possible rotator cuff tear Post-op diagnosis: Left shoulder impingement with acromioclavicular and glenohumeral joint degenerative osteoarthritis Procedure done: Significant degenerative osteoarthritis of the left acromioclavicular joint and severe impingement. Implants: None Specimens removed/disposition: None Pathology: None Surgeon: Whit Neely MD Shredded Filler Machine Wrapper Layer: Soumya Barriga, nurse practitioner, who services were required for retraction, exposure, and completion of the surgical procedure Anesthesia: General (ET tube, ASA 3 with regional block) Estimated blood loss (mL): 10 IV fluids (mL): 600 Urine output (mL): 0 (No Stephenson) Complications: None Findings: Severe degenerative osteoarthritis of the acromioclavicular joint and significant impingement Condition: stable Disposition: PACU (Then return to same-day surgery for discharge to home) Brief History: This is a 48-year-old, female patient, who presents to surgery today for open acromioplasty, distal clavicle resection, and evaluation of the rotator cuff for possible rotator cuff tear. Previously, on November 29, 2023, she underwent a similar surgery to the right shoulder. She has recovered nicely from this and is very pleased. MRI and x-rays were obtained prior to surgical intervention. She wishes to proceed similarly with left shoulder surgery. Risks and complications are discussed with her. Consents are signed and questions were answered in the office. Procedure: The patient was brought to the operating theater and underwent general intubated anesthesia, ASA 3. The patient was placed in a beachchair position and subsequently the right upper extremity was prepped and draped in the usual fashion utilizing DuraPrep. The arm was draped free. A surgical pause was performed prior to commencement of the surgical procedure. At the time of the surgical pause, we confirmed the site and side of surgery as well as administration of appropriate preoperative antibiotics Ancef 2 g. MRI was also reviewed at that time. Following the surgical pause, an incision was made at approximately the level of the acromioclavicular joint extending across the anterolateral corner of the acromion and distally as necessary. Care was taken to avoid injury to the axillary nerve by limiting the distal extent of the incision. Dissection continued through skin and soft tissues using a scalpel. Hemostasis was obtained using electrocautery. Soft tissues were elevated off the acromion. An acromioplasty was then accomplished using a combination of a saw and a power rasp. With this, we were able to remove the significant compression caused by the acromion. The rotator cuff was then evaluated to look for tears. The shoulder was placed through further range of motion to assure there was no evidence of rotator cuff tear. The acromioclavicular joint was exposed. A saw was then used to resect the distal clavicle without difficulty. The undersurface of the clavicle was palpated and was slightly further debrided. A power rasp was used to further smooth the area. When this was felt to be adequately resected, the wound was irrigated. Attention was then directed to closure. The wound was irrigated and closure was accomplished with 0 Vicryl in the capsular tissues overlying the acromioclavicular joint area as well as over the acromion and down into the deltoid muscle. 3-0 Monocryl was used to close the subcutaneous tissues followed by 4-0 Monocryl subcuticular closure. This was followed by Dermabond, Steri-Strips, and OpSite. The patient was placed in a sling and was returned to the recovery room in satisfactory condition. The patient will be discharged to home to follow-up with me in the office. There were no complications and no specimens. Related Problem List Diagnoses (1) Impingement of left shoulder: (2) Arthritis of left acromioclavicular joint: (3) Tendinopathy of left rotator cuff: (4) Osteoarthritis of left shoulder:
--- NOTE | 2024-05-13 12:00 | ANE.PACU2 ---
Inpatient post-anesthesia follow up: Airway intact: Yes Vital signs: Temperature 97.4 F Pulse Rate 69 Respiratory Rate 18 Blood Pressure 122/72 Pulse Oximetry 96 Oxygen Delivery Me thod Room Air Oxygen Flow Rate Fraction of Inspir ed Oxygen Hydration adequate: Yes Nausea and vomiting: No Pain level: 1 Mental status: Baseline
== END 2024-05-13 12:00 | disposition home or self-care (01) ==
PROVIDERS: PCP Family Medicine; Visit Provider Specialist
PROC: (CPT 23130; principal; 2024-05-13 09:25)
PROC: (CPT 23120; 2024-05-13 09:25)
DX: M19.012 Primary osteoarthritis, left shoulder (principal); M25.812 Other specified joint disorders, left shoulder; I12.9 Hypertensive chronic kidney disease with stage 1 through stage 4 chronic kidney disease, or unspecified chronic kidney disease; N18.9 Chronic kidney disease, unspecified; F17.200 Nicotine dependence, unspecified, uncomplicated
CPT/HCPCS: 23120; 23130; J0131; J0690; J1100; J2250; J2371; J2405; J2704; J3010; J3490; J3535; J7030

== ENCOUNTER → 2024-05-26 08:48 | Outpatient (BNVA) | payer MEDICAID, SELFPAY | PROVIDERS: PCP Family Medicine; Visit Provider Nurse Practitioner | DX: Z98.890 Other specified postprocedural states (principal) | CPT/HCPCS: 99024 ==

== ENCOUNTER → 2024-06-18 13:46 | Outpatient (BNVA) | payer BC, MEDICAID, SELFPAY | PROVIDERS: PCP Family Medicine; Visit Provider Nurse Practitioner | DX: M25.512 Pain in left shoulder (principal); Z98.890 Other specified postprocedural states; T81.31XA Disruption of external operation (surgical) wound, not elsewhere classified, initial encounter; X58.XXXA Exposure to other specified factors, initial encounter | CPT/HCPCS: 73030 ==

== ENCOUNTER 2024-09-15 10:57 | Emergency (ER) | payer BC, MEDICAID, SELFPAY ==
[2024-09-15 11:06] VITALS: BP 120/90; PULSE 108; TEMP 36.9; O2SAT 99; BMI 29.2
--- NOTE | 2024-09-15 11:54 | ED_ITS ---
HPI - Extremity Problem 2 General: Chief complaint: Extremity Problem,Nontraumatic Stated complaint: L leg and foot pain, swelling, redness Time Seen by Provider: 09/15/24 11:21 Source: patient Mode of arrival: wheelchair Limitations: no limitations History of Present Illness: Patient is a 49-year-old female who presents today with complaint of pain to her left lower extremity. Patient tells me yesterday she began noticing pain in the left leg and began noticing some redness and swelling to the lateral aspect of the left ankle joint. No known injury or trauma. Patient states she was walking on the extremity normally yesterday. She states she has some minor discomforts to the left side of her back but chronically has some issues with her sciatica. She has had multiple back surgeries in the past due to herniated discs. She has not noticed any swelling to the extremity apart from the lateral aspect of her left ankle. She has not noticed any color changes to the extremity, again apart from some redness to the lateral ankle. She denies numbness, tingling, loss of sensation. She does feel like symptoms came on fairly abruptly. No fevers. No recent surgeries. Patient states she cannot bear weight due to the pain in her ankle. MD Complaint: extremity pain Onset (ago): day(s) Pain Consistency: constant Location: left and lower extremity Quality: aching Relieving factors: nothing Exacerbating factors: weight bearing Associated symptoms: Reports myalgias; Deny chest pain, fever(s) or rash Related Data Home Medications ?Medication ?Instructions ?Recorded ?Confirmed cetirizine 10 mg tablet 10 mg PO DAILY 10/19/2309/02 hydrochlorothiazide 25 mg tablet 25 mg PO DAILY 09/15/24 acetaminophen 325 mg tablet 650 mg PO QID PRN Fever Or Pain 09/15/24 09/15/24 (Tylenol) estradiol 0.01% (0.1 mg/gram) See Rx Instructions .Rou te .COMPLEX 09/15/24 09/15/24 vaginal cream metoprolol succinate 100 mg 100 mg PO DAILY 09/15/24 0 09/15/24 tablet,extended release 24 hr Previous Rx's ?Medication ?Instructions ?Recorded cyclobenzaprine 10 mg tablet 10 mg PO TID PRN muscle s pasm #42 11/26/23 tabs hydrocodone 5 mg-acetaminophen 325 1 tab PO Q6H PRN pa in #14 tabs 09/15/24 mg tablet indomethacin 50 mg capsule 50 mg PO TID #20 caps 09/15 prednisone 10 mg tablet 10 mg PO DAILY 7 days #27 ta bs 09/15/24 Allergies Allergy/AdvReac Type Severity Reaction Status Date / Time No Known Allergies Allergy Verified 09/15/24 11:11 Review of Systems 2 Const: Denies: fever(s), chills or body aches Card: Denies: chest pain, palpitations, irregular heart rhythm, edema, swelling of feet/ankles, lightheadedness, syncope or pre-syncope Resp: Denies: dyspnea GI: Denies: abdominal pain, nausea, vomiting, fecal incontinence or change in bowel habits : Reports: pelvic pain; Denies: flank pain, difficulty voiding or urinary incontinence Musc: Reports: joint pain (L ankle), joint swelling (L ankle), joint redness (lateral L ankle), joint warmth (L ankle) and limited range of motion (L ankle); Denies: neck pain, back pain (Low back/left buttock), extremity pain (Left lower extremity) or extremity swelling Skin/Breast: Denies: rash Neuro: Reports: difficulty walking (due to L ankle pain); Denies: headache(s), numbness in extremities or weakness in extremities (Left lower extremity) PFSH ED 2 PFSH: Medical History Osteoarthritis of left shoulder Weakness of left shoulder Acromioclavicular joint arthritis Rotator cuff tear arthropathy of right shoulder Impingement syndrome of right shoulder Hypertension Surgical History S/P shoulder surgery Date of procedure: May 13, 2024 Pre-op diagnosis: Left shoulder impingement and acromioclavicular and glenohumeral joint degenerative osteoarthritis with possible rotator cuff tear Procedure done: Left shoulder acromioplasty with bursectomy and distal clavicle resection. Surgeon: Whit Neely MD S/P shoulder surgery Date of Surgery: 11/29/23 Surgery: Right shoulder acromioplasty with bursectomy and distal clavicle resection. Debridement of rotator cuff hematoma. Surgeon: Dr. Florinda MD Social History Smoking and tobacco/nicotine status: current every day tobacco/nicotine user Alcohol intake: never Substance/Drug Use: never Physical Exam 2 Const: COMMON NORMALS: no acute distress, average body habitus, patient oriented x3, no limitations, healthy appearing, alert and well nourished G ENERAL APPEARANCE: cooperative ORIENTATION/CONSCIOUSNESS: Yes awake, Yes oriented to person, Yes oriented to place and Yes oriented to time HENMT: COMMON NORMALS: normocephalic and atraumatic HEAD & SCALP: normal to inspection, normocephalic and atraumatic FACE & SINUS: normal facial exam and face symmetric Eye: COMMON NORMALS: no scleral icterus GENERAL EYE: appearance normal, both eyes and all related structures Neck/C-Spine: COMMON NORMALS: no lymphadenopathy GENERAL: Yes normal visual inspection Chest: COMMONS NORMALS: normal inspection of the chest CHEST: Yes Symmetrical chest wall rise Resp: COMMON NORMALS: normal respiratory effort, No retractions, No use of accessory muscles and clear to auscultation bilaterally EFFORT & INSPECTION: Yes able to speak in complete sentences AUSCULTATION: clear to auscultation bilaterally Cardio: COMMON NORMALS: regular rhythm and Peripheral pulses 2+ throughout RATE: tachycardic RHYTHM: regular rhythm PERIPHERAL PULSES: Peripheral pulses 2+ throughout, posterior tibial pulses present and dorsalis pedis present GI: COMMON NORMALS: Normal to inspection, nondistended, normoactive bowel sounds present, Soft to palpation and no masses PALPATION: Yes Soft to palpation Back/Pelvis: COMMON NORMALS: thoracic and lumbar spine normal to inspection, no thoracic nor lumbar tenderness and thoraco-lumbar ROM normal SACROILIAC JOINTS: Yes SI joint(s) abnormal (mild tenderness L) SACRUM: no tenderness COCCYX: no tenderness Extremity: COMMON NORMALS: capillary refill normal, no clubbing, cyanosis or edema, no calf tenderness and no pedal edema GENERAL: Yes normal exam except as noted LEFT LOWER EXTREMITY: Yes ankle joint (pt exquisitely tender to ankle joint; reproducible by palpation/ROM) Left ankle: Yes inspection (edema/erythema involving lateral L ankle), Yes ROM (limited due to pain) and Yes neurovascular exam (normal) Neuro: COMMON NORMALS: patient oriented x3, moves all extremities, no focal motor deficits and no sensory deficits noted SENSORIUM/ORIENTATION: Yes alert, Yes oriented to person, Yes oriented to place and Yes oriented to time Course 2 Vital Signs: Vital signs: Vital Signs Temperature 98.5 F 09/15/24 11:06 Pulse Rate 108 H 09/15/24 11:06 Blood Pressure 120/90 09/15/24 11:06 Pulse Oximetry 99 09/15/24 11:06 Oxygen Delivery Me thod Room Air 09/15/24 11:06 MDM - Extremity (Nontraumatic) Medical Decision Making Patient here with mainly findings involving her left ankle. Symptoms came on fairly abruptly. Blood work today showing a white count of 14.5. She does have a significantly elevated CRP at 92.9. Uric acid it was elevated at 11.9. I suspect this most likely is a gout flare. Less likely septic arthritis involving the left ankle joint as symptoms came on rapidly and she has no risk factors for septic arthritis. It does look like she has some baseline kidney disease. Will hold off on colchicine. Will place her on indomethacin and a steroid taper. Recommend she follow-up with primary care later this week. Return ED precautions discussed. XR of the left ankle is unremarkable. US of the left lower extremity normal. Differential Diagnosis Likely gout Medical Records I reviewed the patient's medical records. Lab Data I reviewed the patient's lab results. 09/15/24 12:55 09/15/24 12:55 Radiology Impressions Ankle X-Ray 09/15/24 12:43 IMPRESSION: No acute findings. Laboratory Results WBC 14.50 10^3/uL (3.29-11.43) H 09/15/24 12:55 RBC 4.11 10^6/uL (3.85-5.65) 09/15/24 12:55 Hgb 13.50 g/dL (11.27-16.99) 09/15/24 12:55 Hct 39.6 % (36-47) 09/15/24 12:55 MCV 96.4 fl (85-98) 09/15/24 12:55 MCH 32.8 pg (27-33) 09/15/24 12:55 MCHC 34.1 g/dL (30-55) 09/15/24 12:55 RDW 13.7 % (12.1-15.1) 09/15/24 12:55 Plt Count 235 10^3/cmm (157-399) 09/15/24 12:55 MPV 11.4 fL (7.4-10.4) H 09/15/24 12:55 Neut % (Auto) 70.0 % 09/15/24 12:55 Lymph % (Auto) 19.0 % 09/15/24 12:55 Duval % (Auto) 9.3 % 09/15/24 12:55 Eos % (Auto) 0.6 % 09/15/24 12:55 Baso % (Auto) 0.4 % 09/15/24 12:55 Neut # (Auto) 10.15 10^3/uL (1.8-7.7) H 09/15/24 12:55 Lymph # (Auto) 2.8 10^3/uL (0.8-4.8) 09/15/24 12:55 Duval # (Auto) 1.4 10^3/uL (0.2-0.9) H 09/15/24 12:55 Eos # (Auto) 0.1 10^3/uL (0.0-0.8) 09/15/24 12:55 Baso # (Auto) 0.1 10^3/uL (0.0-0.1) 09/15/24 12:55 Nucleated RBC % (auto) 0 % 09/15/24 12:55 Nucleated RBCs # 0.0 /100WBC 09/15/24 12:55 Sodium 140 mmol/L (136-145) 09/15/24 12:55 Potassium 3.5 mmol/L (3.5-5.1) 09/15/24 12:55 Chloride 99 mmol/L (98-107) 09/15/24 12:55 Carbon Dioxide 22 mmol/L (22-29) 09/15/24 12:55 Anion Gap 22.5 (5-19) H 09/15/24 12:55 BUN 14 mg/dL (6-20) 09/15/24 12:55 Creatinine 1.3 mg/dL (0.5-0.9) H 09/15/24 12:55 GFR Calculation 43.5 mL/min (90-130) L 09/15/24 12:55 Glucose 111 mg/dL (65-115) 09/15/24 12:55 Calculated Osmolality 291 mOsm/kg (285-295) 09/15/24 12:55 Uric Acid 11.9 mg/dL (2.4-5.7) H 09/15/24 12:55 Calcium 8.5 mg/dL (8.5-10.5) 09/15/24 12:55 Total Bilirubin 1.2 mg/dL (0.15-1.2) 09/15/24 12:55 AST 13 U/L (0-32) 09/15/24 12:55 ALT 14 U/L (0-33) 09/15/24 12:55 Alkaline Phosphatase 104 U/L (35-105) 09/15/24 12:55 C-Reactive Protein 92.9 mg/L (0.0-4.9) H 09/15/24 12:55 Total Protein 7.5 g/dL (6.6-8.7) 09/15/24 12:55 Albumin 4.2 g/dL (3.5-5.2) 09/15/24 12:55 Globulin 3.3 g/dL (1.3-4.6) 09/15/24 12:55 All radiology interpretation(s) finalized by discharge Discharge Plan Discharge Patient Disposition: Home Clinical Impression: Acute gout of left ankle Qualifiers: Encounter type: initial encounter Condition: Stable Prescriptions: New indomethacin 50 mg capsule 50 mg PO TID Qty: 20 0RF Rx Instructions: administer with food or milk prednisone 10 mg tablet 10 mg PO DAILY 7 Days Qty: 27 0RF Rx Instructions: 6 tabs on days 1-2, 5 tabs on days 3, 4 tabs on day 4, 3 tabs on day 5, 2 tabs on day 6, 1 tab on day 7 hydrocodone-acetaminophen 5-325 mg tablet 1 tab PO Q6H PRN (Reason: pain) Qty: 14 0RF No Action cyclobenzaprine 10 mg tablet 10 mg PO TID PRN (Reason: muscle spasm) Qty: 42 0RF hydrochlorothiazide 25 mg tablet 25 mg PO DAILY cetirizine 10 mg tablet 10 mg PO DAILY estradiol 0.01 % (0.1 mg/gram) cream See Rx Instructions .ROUTE .COMPLEX Rx Instructions: INSERT 1 GRAM VAGINALLY TWICE A WEEK FOR RECURRENT UTI acetaminophen [Tylenol] 325 mg Tablet 650 mg PO QID PRN (Reason: Fever Or Pain) metoprolol succinate 100 mg tablet extended release 24 hr 100 mg PO DAILY Discharge Orders: Discharge ED (Routine); Ordered 09/15/24 Ordered By: Mayela Del Rio Referrals: Chato Williamson MD [Primary Care Provider] - Patient Instructions: Low Purine Diet (ED), Gout (ED) Activity Restrictions/Additional Instructions: As we discussed, please follow-up with your primary care provider later this week for reevaluation. You need to return the emergency department for worsening pain, redness, fevers, worsening joint pain, or any other concerns you may have. Print Language: Salvadorean Coding Level of Care Code ED Puzzle Assembler for Cole Patel
--- NOTE | 2024-09-15 12:43 | XRR_ITS ---
PROCEDURE INFORMATION: Exam: XR Left Ankle Exam date and time: 09/15/2024 12:45 PM Age: 49 years old Clinical indication: Pain; Swelling or effusion of joint; Left; Lt ankle swelling no trauma; Additional info: Lateral ankle pain TECHNIQUE: Imaging protocol: Radiologic exam of the left ankle. Views: 3 or more views. COMPARISON: CR XR foot LT min 3V* [id number] 01/30/2021 11:10 AM FINDINGS: Bones/joints: Normal. No fracture or dislocation. Soft tissues: Normal. XR/XR ankle LT min 3V* [id number] IMPRESSION: No acute findings.
--- NOTE | 2024-09-15 12:43 | USCV_ITS ---
Julia Barrera Age: 49 Gender: F : 1975 Exam Date: 09/15/2024 13:42 Ordering Phys: Mayela Del Rio Technologist: MADDIE Exam Location: [facility] [place] Indication: Ankle pain HISTORY: Ankle pain PROCEDURES: Venous duplex imaging was performed in only the left lower extremity. The following venous structures were evaluated: common femoral vein, profunda vein, proximal portion of the greater saphenous vein, superficial femoral vein, and the popliteal vein. In addition, the posterior tibial and peroneal trunk were evaluated. Serial compression, augmentation maneuvers, and spectral Doppler flow evaluation were performed. FINDINGS: Normal 2-D Doppler and augmentation and compressibility throughout the lower extremity venous structures. Additional imaging through the proximal calf veins also reveals no thrombus. Limited evaluation of the greater saphenous vein is patent with no thrombus. CONCLUSIONS No DVT left lower extremity. Dr. Lora Nugent DO (Electronically Signed) Final Date: 15 September 2024 15:36 S
[2024-09-15 13:10] LABS: Basophils # 0.1 10^3/uL (0.0-0.1); Basophils % 0.4 %; Eosinophils # 0.1 10^3/uL (0.0-0.8); Eosinophils % 0.6 %; Hematocrit 39.6 % (36-47); Lymphocytes # 2.8 10^3/uL (0.8-4.8); Mean Corpuscular HGB Conc 34.1 g/dL (30-55); Mean Corpuscular Hemoglobin 32.8 pg (27-33); Mean Corpuscular Volume 96.4 fl (85-98); Mean Platelet Volume 11.4 fL (7.4-10.4); Monocytes # 1.4 10^3/uL (0.2-0.9); Monocytes % 9.3 %; Neutrophils # 10.15 10^3/uL (1.8-7.7); Nucleated Red Blood Cells % 0 %; Platelet Count 235 10^3/cmm (157-399); Red Blood Count 4.11 10^6/uL (3.85-5.65); Red Cell Distribution Width 13.7 % (12.1-15.1)
[2024-09-15 13:29] LABS: Alanine Aminotransferase 14 U/L (0-33); Albumin Level 4.2 g/dL (3.5-5.2); Alkaline Phosphatase 104 U/L (35-105); Anion Gap 22.5 (5-19); Aspartate Amino Transferase 13 U/L (0-32); Blood Urea Nitrogen 14 mg/dL (6-20); C Reactive Protein 92.9 mg/L (0.0-4.9); Calcium 8.5 mg/dL (8.5-10.5); Carbon Dioxide 22 mmol/L (22-29); Chloride 99 mmol/L (98-107); Creatinine Clr Calc Pharmacy 46.9412; Globulin 3.3 g/dL (1.3-4.6); Glomerular Filtration Rate 43.5 mL/min (90-130); Glucose 111 mg/dL (65-115); Osmolality Calculated 291 mOsm/kg (285-295); Potassium 3.5 mmol/L (3.5-5.1); Sodium 140 mmol/L (136-145); Total Bilirubin 1.2 mg/dL (0.15-1.2); Total Protein 7.5 g/dL (6.6-8.7); Uric Acid 11.9 mg/dL (2.4-5.7)
[2024-09-15] MEDS: dexamethasone 10 mg/mL INJ 8 MG IM (14:05)
[2024-09-15] MEDS: ketorolac 30 mg/mL INJ IM (14:05)
[2024-09-15 14:23] VITALS: BP 132/101; PULSE 103; RESP 16; O2SAT 98
== END 2024-09-15 14:18 | disposition home or self-care (01) ==
PROVIDERS: Emergency Provider Physician Assistant; PCP Family Medicine
DX: M10.9 Gout, unspecified (principal); Z72.0 Tobacco use; I10 Essential (primary) hypertension; M79.605 Pain in left leg
CPT/HCPCS: 36415; 73610; 80053; 84550; 85025; 86140; 93971; 96372; 99284; J1100; J1885

== ENCOUNTER 2025-01-14 12:58 | Emergency (ER) | payer BC, MEDICAID, SELFPAY ==
--- OUTSIDE RECORDS SUMMARY | 2024-05-26 04:10 | XMS_ITS ---
Author Organization [facility], [employer] [employer] Address [address] [place] [address] Care Team Providers Care Restaurant Delivery Driver Name Role Phone Chato Williamson Primary Care Provider ROSALEE Hernandez [phone] REASON FOR VISIT w/ ua Encounters Encounter Location Date Provider Diagnosis [facility] [address] [place] [address] 05/26/2024 ROSALEE YUSUF Recurrent UTI N39.0 ; [...] Information Progress Notes * Julia MORALES BDOB:1975 (49 yo F)Acc No.[id number]:05/26/2024 Patient: Julia REYES Provider: Carina YUSUF MD :1975 A ge:49 Y S ex:Female Date:05/26/2024 Address:[address] [place], [place] [phone] Pcp:Chato Williamson Subjective: * Chief Complaints: * 1 . W/ ua. * HPI: M igrated HPI: Ms. Morales is a 49 year old female patient referred by her PCP, Dr. Davis, for recurrent UTI and history of pyelonephritits. She was admitted to [facility] on 12/12/23-12/17/23 for right pyelonephritis, E Coli bacteremia, and acute renal failure with creatinine of 4.2 at admission. She was transferred to [facility] from 12/18/23-12/20/23. She ID consult. Was DC [facility]vic [...] signature of AUST IN MD MADELIN on 01/14/2025 at 09:27 PM CDT Sign off status: Pending * Provider: Carina YUSUF MD Date: 1 07/27/2023 Generated for Molly serrano/Renae/Aricitting on: 0 01/14/2025 09:27 PM CDT
--- OUTSIDE RECORDS SUMMARY | 2024-06-10 04:00 | XMS_ITS ---
Author Organization [facility] Address [address] [place] [address], [place] [address] Care Team Providers Care Menswear Salesperson Name Role Phone Chato Williamson Primary Care Provider Riri Canales Unavailable [phone] Shavon Webb Unavailable [phone] REASON FOR VISIT elevated creatinine/decreased GFR Encounters Encounter Location Date Provider Diagnosis [facility] [address] [place] [address] Dr [address] [place] [address] 06/10/2024 Riri Mix Plan Of Treatment No Information Progress Notes * COLETTE MORALES BDOB:1975 (49 yo F)Acc No.[id number]:06/10/2024 Progress Notes Patient: COLETTE REYES Provider: Joycelyn Mix CNP :1975 A ge:49 Y S ex:Female Date:06/10/2024 Address:[address] [place], [place] [phone] Pcp:Chato Williamson Subjective: * Chief Complaints: * e levated creatinine/decreased GFR Billing Information: * Procedure Codes: * Electronic signature of Carmenza Mix CNP on 01/14/2025 at 09:27 PM CDT Sign off status: Pending * Provider: Joycelyn Mix CNP Date: 0 06/10/2024 Generated for Sharmilai ng/Faxing/eTransmitting on: 0 01/14/2025 09:27 PM CDT
--- OUTSIDE RECORDS SUMMARY | 2024-07-03 04:20 | XMS_ITS ---
Author Organization [facility] Address [address] [place] [address] Care Team Providers Care Loom Fixer Name Role Phone Chato Williamson Primary Care Provider Riri Canales Unavailable [phone] Shavon Webb Unavailable [phone] REASON FOR VISIT Elevated Creatinine/Decreased Medications Medication SIG (Take, Route, Frequency, Duration) Notes Start Date End Date Status HYDROcodone-Acetaminophen 5-325 MG Tablet 1 tablet as needed Orally every 6 hrs 06/10/2024 Active Metoprolol Succinate 100 MG Capsule ER 24 Hour Sprinkle 1 capsule Orally Once a day; Duration: 30 days 06/10/2024 Active Encounters Encounter Location Date Provider Diagnosis [facility] [address] [place] [address] Dr Ochoa [address] [place] [address] 07/03/2024 Riri Mix Plan Of Treatment No [...] negative Progress Notes * COLETTE MORALES BDOB:1975 (49 yo F)Acc No.[id number]:07/03/2024 Progress Notes Patient: COLETTE REYES Provider: Jyocelyn Mix CNP :1975 A ge:49 Y S ex:Female Date:07/03/2024 Address:[address] [place], [place] [phone] Pcp:Chato Williamson Subjective: * Chief Complaints: * [...] of Carmenza Mix CNP on 01/14/2025 at 09:26 PM CDT Sign off status: Pending * Provider: Joycelyn Mix CNP Date: 0 07/03/2024 Generated for Molly serrano/Renae/eTransmitting on: 0 01/14/2025 09:26 PM CDT
[2025-01-14 13:00] VITALS: BP 128/92; PULSE 121; TEMP 36.8; O2SAT 98
--- NOTE | 2025-01-14 13:43 | ED_ITS ---
HPI - Female Genitourinary 2 General: Chief complaint: Urogenital-Female Stated complaint: Lower L ABD pain into back N/Dizzy SOB Time Seen by Provider: 01/14/25 13:09 Related Data Home Medications ?Medication ?Instructions ?Recorded ?Confirmed cetirizine 10 mg tablet 10 mg PO DAILY 10/19/2310/02 hydrochlorothiazide 25 mg tablet 25 mg PO DAILY 10/17/24 acetaminophen 325 mg tablet 650 mg PO QID PRN Fever Or Pain 09/15/24 10/17/24 (Tylenol) estradiol 0.01% (0.1 mg/gram) See Rx Instructions .Rou te .COMPLEX 09/15/24 10/17/24 vaginal cream metoprolol succinate 100 mg 100 mg PO DAILY 09/15/24 0 10/17/24 tablet,extended release 24 hr Previous Rx's ?Medication ?Instructions ?Recorded cyclobenzaprine 10 mg tablet 10 mg PO TID PRN muscle s pasm #42 11/26/23 tabs hydrocodone 5 mg-acetaminophen 325 1 tab PO Q6H PRN pa in #14 tabs 09/15/24 mg tablet indomethacin 50 mg capsule 50 mg PO TID #20 caps 09/15 Allergies Allergy/AdvReac Type Severity Reaction Status Date / Time No Known Allergies Allergy Verified 01/14/25 13:06 PFS ED 2 PFSH: Medical History Osteoarthritis of left shoulder Weakness of left shoulder Acromioclavicular joint arthritis Rotator cuff tear arthropathy of right shoulder Impingement syndrome of right shoulder Hypertension Surgical History S/P shoulder surgery Date of procedure: May 13, 2024 Pre-op diagnosis: Left shoulder impingement and acromioclavicular and glenohumeral joint degenerative osteoarthritis with possible rotator cuff tear Procedure done: Left shoulder acromioplasty with bursectomy and distal clavicle resection. Surgeon: Whit Neely MD S/P shoulder surgery Date of Surgery: 11/29/23 Surgery: Right shoulder acromioplasty with bursectomy and distal clavicle resection. Debridement of rotator cuff hematoma. Surgeon: Dr. Florinda MD Social History Smoking and tobacco/nicotine status: current every day tobacco/nicotine user Alcohol intake: never Substance/Drug Use: never Course 2 Vital Signs: Vital signs: Vital Signs Temperature 98.2 F 01/14/25 13:00 Pulse Rate 121 H 01/14/25 13:00 Blood Pressure 128/92 01/14/25 13:00 Pulse Oximetry 98 01/14/25 13:00 Oxygen Delivery Me thod Room Air 01/14/25 13:00 MDM - Female Lab Data 01/14/25 13:37 01/14/25 13:37 Discharge Plan Discharge Condition: Stable Prescriptions: No Action cyclobenzaprine 10 mg tablet 10 mg PO TID PRN (Reason: muscle spasm) Qty: 42 0RF hydrochlorothiazide 25 mg tablet 25 mg PO DAILY cetirizine 10 mg tablet 10 mg PO DAILY estradiol 0.01 % (0.1 mg/gram) cream See Rx Instructions .ROUTE .COMPLEX Rx Instructions: INSERT 1 GRAM VAGINALLY TWICE A WEEK FOR RECURRENT UTI acetaminophen [Tylenol] 325 mg Tablet 650 mg PO QID PRN (Reason: Fever Or Pain) metoprolol succinate 100 mg tablet extended release 24 hr 100 mg PO DAILY indomethacin 50 mg capsule 50 mg PO TID Qty: 20 0RF Rx Instructions: administer with food or milk hydrocodone-acetaminophen 5-325 mg tablet 1 tab PO Q6H PRN (Reason: pain) Qty: 14 0RF Referrals: Chato Williamson MD [Primary Care Provider, Family Practice] Print Language: Georgian Coding Level of Care Code ED Beam Racker for Chg Jorge
--- NOTE | 2025-01-14 13:46 | ED_ITS ---
HPI - Abdominal Pain 2 General: Chief Complaint: Urogenital-Female Stated Complaint: Lower L ABD pain into back N/Dizzy SOB Time Seen by Provider: 01/14/25 13:09 Source: patient Mode of arrival: ambulatory Limitations: no limitations History of Present Illness: Patient is a 49-year-old female who presents to the ED today with complaint of feeling ill over the past. She states she initially nauseous about a week ago. She states she then later progressed to developing some lower abdominal pain and lower back pain. Has some muscle weakness/cramps. She feels like her urine is dark in color and she is not going as much as normal. She states she has had a decreased appetite due to the nausea. She has not noted any changes to her bowel movements. She is not complaining of dysuria. She does have a history of pyelo/bacteremia and was transferred from [facility] last year due to this. Denies reported fevers but has had some sweats and chills. Patient reports a hysterectomy/oophorectomy at the age of 23. MD elicited complaint: abdominal pain Onset (ago): day(s) Pain Consistency: constant Location: Suprapubic and Pelvis Severity: mild Radiation: none Migration to: no migration Exacerbating factors: nothing Relieving factors: nothing Associated Symptoms: Reports chills, nausea and vomiting; Denies change in bowel habits, constipation, diarrhea, dysuria, fever(s), hematuria and hematemesis Related Data Home Medications ?Medication ?Instructions ?Recorded ?Confirmed cetirizine 10 mg tablet 10 mg PO DAILY 10/19/2301/02 hydrochlorothiazide 25 mg tablet 25 mg PO DAILY 01/14/25 acetaminophen 325 mg tablet 650 mg PO QID PRN Fever Or Pain 09/15/24 01/14/25 (Tylenol) estradiol 0.01% (0.1 mg/gram) See Rx Instructions .Rou te .COMPLEX 09/15/24 01/14/25 vaginal cream metoprolol succinate 100 mg 100 mg PO DAILY 09/15/24 0 01/14/25 tablet,extended release 24 hr nystatin 100,000 unit/mL oral 5 ml PO QID 01/14/25 suspension sertraline 50 mg tablet 50 mg PO DAILY 01/14/2501/02 Allergies Allergy/AdvReac Type Severity Reaction Status Date / Time No Known Allergies Allergy Verified 01/14/25 13:06 Review of Systems 2 Const: Reports: chills, change in appetite (due to nausea) and malaise; Denies: fever(s), body aches or fatigue Card: Denies: chest pain Resp: Denies: dyspnea GI: Reports: abdominal pain, nausea and vomiting; Denies: hematemesis, diarrhea, constipation or change in bowel habits : Reports: other (dark urine, feels like she is going less often); Denies: flank pain, difficulty voiding, dysuria or hematuria Musc: Reports: back pain, muscle cramps and muscle weakness; Denies: neck pain, extremity pain, extremity swelling, joint pain, joint swelling, joint redness, joint warmth, joint stiffness or limited range of motion Skin/Breast: Denies: rash Neuro: Denies: headache(s), numbness in extremities, weakness in extremities, sensory changes, difficulty walking or dizziness PFSH ED 2 PFSH: Medical History Osteoarthritis of left shoulder Weakness of left shoulder Acromioclavicular joint arthritis Rotator cuff tear arthropathy of right shoulder Impingement syndrome of right shoulder Hypertension Surgical History S/P shoulder surgery Date of procedure: May 13, 2024 Pre-op diagnosis: Left shoulder impingement and acromioclavicular and glenohumeral joint degenerative osteoarthritis with possible rotator cuff tear Procedure done: Left shoulder acromioplasty with bursectomy and distal clavicle resection. Surgeon: Whit Neely MD S/P shoulder surgery Date of Surgery: 11/29/23 Surgery: Right shoulder acromioplasty with bursectomy and distal clavicle resection. Debridement of rotator cuff hematoma. Surgeon: Dr. Florinda MD Social History Smoking and tobacco/nicotine status: current every day tobacco/nicotine user Alcohol intake: never Substance/Drug Use: never Physical Exam 2 Const: COMMON NORMALS: no acute distress, patient oriented x3, no limitations, healthy appearing, alert and well nourished GENERAL APPEARANCE: cooperative Eye: COMMON NORMALS: no scleral icterus Resp: COMMON NORMALS: normal respiratory effort and clear to auscultation bilaterally AUSCULTATION: clear to auscultation bilaterally Cardio: COMMON NORMALS: regular rate and regular rhythm RATE: regular rate RHYTHM: regular rhythm GI: COMMON NORMALS: Normal to inspection, nondistended, normoactive bowel sounds present, Soft to palpation, No hepatosplenomegaly present and no masses INSPECTION: Yes normal to inspection PALPATION: Yes Soft to palpation, Yes Tenderness to palpation present (GI) (mild pain across lower abdomen), No Guarding due to palpation present (GI), No Rigid due to palpation and Yes No hepatosplenomegaly present : BLADDER/KIDNEY EXAM: Yes CVA tenderness on the right Back/Pelvis: COMMON NORMALS: thoracic and lumbar spine normal to inspection, thoraco-lumbar ROM normal and straight leg raise negative bilaterally GENERAL BACK: Yes CVA tenderness LUMBAR SPINE/LOWER BACK: Yes lumbar ROM normal, No lumbar spinal tenderness, Yes paraspinal muscle tenderness (across lower back) and No paraspinal muscle spasm PELVIS: Yes buttocks normal and No sciatic notch tenderness SACRUM: no tenderness COCCYX: no tenderness Extremity: GENERAL: Yes normal exam except as noted Neuro: COMMON NORMALS: patient oriented x3, moves all extremities, no focal motor deficits, no sensory deficits noted and gait normal S ENSORIUM/ORIENTATION: Yes alert Skin: COMMON NORMALS: no rashes or lesions noted GENERAL SKIN EXAM: no rashes or lesions noted Course 2 Vital Signs: Vital signs: Vital Signs Temperature 98.2 F 01/14/25 13:00 Pulse Rate 97 01/14/25 18:25 Blood Pressure 140/90 01/14/25 15:21 Pulse Oximetry 99 01/14/25 18:25 Oxygen Delivery Me thod Room Air 01/14/25 15:05 MDM - Abdominal Pain Medical Decision Making Patient clinically appears in no acute distress. Vital signs are stable. CBC, CMP, UA, CPK ordered based on history. CPK significantly elevated at roughly 2100. She has not had any recent trauma. States she is out in the heat often and doesn't drink much water. BUN/Cr at baseline. LFTs mildly elevated-suspected these will be transient elevations in the setting of rhabdomyolysis. Of note, patient did have a test ordered prior to her giving me a history of a previous hysterectomy. This ended up coming back positive. Serum quant ordered which was 14. This is most likely normal with a postmenopausal female. I do not suspect any type of tumor. Her initial UA was grossly contaminated with 25- 40 squamous cells. This was repeated with a clean-catch and is clear. CT abdomen/pelvis ordered and unremarkable. She was given 2 L of fluids for treatment of rhabdomyolysis. Repeat CPK trending down. Case discussed with Dr. Gill who agrees with care plan here in the emergency department feel she can be safely discharged. Discussed treatment over the several days with increased fluid intake. Return to ED precautions discussed. Otherwise I would like her to follow-up with primary care later this week/early next week for reevaluation. Medical Records I reviewed the patient's medical records. Lab Data I reviewed the patient's lab results. 01/14/25 13:37 01/14/25 13:37 Labs/Radiology: Radiology Impressions Chest X-Ray 01/14/25 14:04 Impression: Negative chest. Abdomen/Pelvis CT 01/14/25 16:03 IMPRESSION: 1. No acute abnormality in the abdomen or pelvis. 2. Hepatic steatosis. 3. Moderately atrophic kidneys. Laboratory Results WBC 12.05 10^3/uL (3.29-11.43) H 01/14/25 13:37 RBC 4.61 10^6/uL (3.85-5.65) 01/14/25 13:37 Hgb 14.80 g/dL (11.27-16.99) 01/14/25 13:37 Hct 42.7 % (36-47) 01/14/25 13:37 MCV 92.6 fl (85-98) 01/14/25 13:37 MCH 32.1 pg (27-33) 01/14/25 13:37 MCHC 34.7 g/dL (30-55) 01/14/25 13:37 RDW 14.2 % (12.1-15.1) 01/14/25 13:37 Plt Count 241 10^3/cmm (157-399) 01/14/25 13:37 MPV 12.0 fL (7.4-10.4) H 01/14/25 13:37 Neut % (Auto) 70.5 % 01/14/25 13:37 Lymph % (Auto) 21.2 % 01/14/25 13:37 Perry % (Auto) 7.0 % 01/14/25 13:37 Eos % (Auto) 0.0 % 01/14/25 13:37 Baso % (Auto) 0.1 % 01/14/25 13:37 Neut # (Auto) 8.49 10^3/uL (1.8-7.7) H 01/14/25 13:37 Lymph # (Auto) 2.6 10^3/uL (0.8-4.8) 01/14/25 13:37 Perry # (Auto) 0.8 10^3/uL (0.2-0.9) 01/14/25 13:37 Eos # (Auto) 0.0 10^3/uL (0.0-0.8) 01/14/25 13:37 Baso # (Auto) 0.0 10^3/uL (0.0-0.1) 01/14/25 13:37 Nucleated RBC % (auto) 0.2 % 01/14/25 13:37 Nucleated RBCs # 0.0 /100WBC 01/14/25 13:37 Sodium 136 mmol/L (136-145) 01/14/25 13:37 Potassium 3.4 mmol/L (3.5-5.1) L 01/14/25 13:37 Chloride 98 mmol/L (98-107) 01/14/25 13:37 Carbon Dioxide 21 mmol/L (22-29) L 01/14/25 13:37 Anion Gap 20.4 (5-19) H 01/14/25 13:37 BUN 17 mg/dL (6-20) 01/14/25 13:37 Creatinine 1.2 mg/dL (0.5-0.9) H 01/14/25 13:37 GFR Calculation 47.7 mL/min (90-130) L 01/14/25 13:37 Glucose 160 mg/dL (65-115) H 01/14/25 13:37 Calculated Osmolality 287 mOsm/kg (285-295) 01/14/25 13:37 Calcium 9.9 mg/dL (8.5-10.5) 01/14/25 13:37 Total Bilirubin 0.8 mg/dL (0.15-1.2) 01/14/25 13:37 AST 46 U/L (0-32) H 01/14/25 13:37 ALT 37 U/L (0-33) H 01/14/25 13:37 Alkaline Phosphatase 107 U/L (35-105) H 01/14/25 13:37 Creatine Kinase 1352 U/L (26-192) H* 01/14/25 17:46 Total Protein 7.4 g/dL (6.6-8.7) 01/14/25 13:37 Albumin 4.2 g/dL (3.5-5.2) 01/14/25 13:37 Globulin 3.2 g/dL (1.3-4.6) 01/14/25 13:37 Lipase 47 U/L (13-60) 01/14/25 13:37 HCG, Qual Positive (Negative) H 01/14/25 13:37 Ser , Semi-Qnt 14.89 mIU/mL 01/14/25 13:37 Urine Color Yellow (Yellow) 01/14/25 16:28 Urine Appearance Clear (CLEAR) 01/14/25 16:28 Urine pH 7.0 (5-7) 01/14/25 16:28 Ur Specific Lincoln 1.013 (1.005-1.030) 01/14/25 16:28 Urine Protein 1+ (Negative) A 01/14/25 16:28 Urine Glucose (UA) Negative (Normal) 01/14/25 16:28 Urine Ketones Negative (Negative) 01/14/25 16:28 Urine Blood Negative (Negative) 01/14/25 16:28 Urine Nitrate Negative (Negative) 01/14/25 16:28 Urine Bilirubin Negative (Negative) 01/14/25 16:28 Urine Urobilinogen 1.0 mg/dL (Negative) 01/14/25 16:28 Ur Leukocyte Esterase Negative (Negative) 01/14/25 16:28 Urine RBC 0-2 /hpf (0-2) 01/14/25 16:28 Urine WBC 0-5 /hpf (0-5) 01/14/25 16:28 Ur Squamous Epith Cells 0-5 /hpf (0-5) 01/14/25 16:28 Amorphous Sediment Not Reportable 01/14/25 16:28 Urine Bacteria None seen /hpf (NONE) 01/14/25 16:28 Hyaline Casts 1.65 /lpf 01/14/25 16:28 All radiology interpretation(s) finalized by discharge Discharge Plan Discharge Patient Disposition: Home Clinical Impression: Rhabdomyolysis Qualifiers: Rhabdomyolysis type: non-traumatic Qualified Code(s): M62.82 - Rhabdomyolysis Condition: Stable Prescriptions: No Action hydrochlorothiazide 25 mg tablet 25 mg PO DAILY cetirizine 10 mg tablet 10 mg PO DAILY estradiol 0.01 % (0.1 mg/gram) cream See Rx Instructions .ROUTE .COMPLEX Rx Instructions: INSERT 1 GRAM VAGINALLY TWICE A WEEK FOR RECURRENT UTI acetaminophen [Tylenol] 325 mg Tablet 650 mg PO QID PRN (Reason: Fever Or Pain) metoprolol succinate 100 mg tablet extended release 24 hr 100 mg PO DAILY nystatin 100,000 unit/mL suspension 5 ml PO QID sertraline 50 mg tablet 50 mg PO DAILY Discharge Orders: Discharge ED (Routine); Ordered 01/14/25 Ordered By: Mayela Del Rio Referrals: Chato Williamson MD [Primary Care Provider, Family Practice] Patient Instructions: Rhabdomyolysis (ED), Patient Portal & Manisha Instructions Activity Restrictions/Additional Instructions: As we discussed, you need to push fluids (WATER) extensively over the next 48 hours. You need to be drinking water until your urine looks like water every time you urinate and you need to be urinating several times a day. As we discussed, I would like you to follow-up with primary care later this week/early next week for re-evaluation and for them to recheck blood work. You need to return to the emergency department for onset of severe muscle pain, weakness, muscle cramps, continued dark urine or decreased urine output, severe abdominal pain, or any other concerns you may have. Stand Alone Forms: Work/School Release Print Language: Andorran Coding Level of Care Code ED Repairer Recreational Vehicle for Cole Patel
[2025-01-14 13:49] LABS: Hematocrit 42.7 % (36-47); Hemoglobin 14.80 g/dL (11.27-16.99); Mean Corpuscular HGB Conc 34.7 g/dL (30-55); Mean Corpuscular Hemoglobin 32.1 pg (27-33); Mean Corpuscular Volume 92.6 fl (85-98); Nucleated Red Blood Cells % 0.2 %; Platelet Count 241 10^3/cmm (157-399); Red Blood Count 4.61 10^6/uL (3.85-5.65); White Blood Count 12.05 10^3/uL (3.29-11.43)
--- NOTE | 2025-01-14 14:04 | XR_ITS ---
WS: [id number] Portable AP upright chest, 01/14/2025 Clinical Data: sob Comparison: Portable chest, 12/12/2023 Findings: No nodules, masses or effusions are seen. The heart is normal. The pulmonary vascularity is not increased. No pneumonia or pneumothorax is seen. XR/XR chest 1V portable [id number] Impression: Negative chest.
[2025-01-14 14:07] LABS: Alanine Aminotransferase 37 U/L (0-33); Albumin Level 4.2 g/dL (3.5-5.2); Alkaline Phosphatase 107 U/L (35-105); Anion Gap 20.4 (5-19); Aspartate Amino Transferase 46 U/L (0-32); Blood Urea Nitrogen 17 mg/dL (6-20); Calcium 9.9 mg/dL (8.5-10.5); Carbon Dioxide 21 mmol/L (22-29); Chloride 98 mmol/L (98-107); Creatinine Clr Calc Pharmacy 53.2895; Globulin 3.2 g/dL (1.3-4.6); Glucose 160 mg/dL (65-115); Lipase 47 U/L (13-60); Osmolality Calculated 287 mOsm/kg (285-295); Potassium 3.4 mmol/L (3.5-5.1); Sodium 136 mmol/L (136-145); Total Protein 7.4 g/dL (6.6-8.7)
[2025-01-14 14:16] LABS: HCG, Serum Qual Positive (Negative)
[2025-01-14] MEDS: ondansetron 2 mg/ML SDV 2 mL 4 MG IVP (14:31)
--- NOTE | 2025-01-14 14:33 | PC.PHAR ---
Pt states she thinks she is taking Fluoxetine instead of Sertraline 50mg. [facility] states they do not have an rx for Fluoxetine. They are currently refilling Sertraline 50mg last fill 12/13/24.
[2025-01-14 14:49] LABS: Glucose Urine UA Negative (Normal); Nitrate Urine Negative (Negative); Specific Gravity, Urine 1.024 (1.005-1.030)
[2025-01-14 15:05] VITALS: PULSE 108; O2SAT 95
[2025-01-14 15:09] LABS: UA Manual Slide Review YES; UA Slide Review UA Slide Review Perf
[2025-01-14 15:10] LABS: Add Urine Microscopic? YES
[2025-01-14 15:21] VITALS: BP 140/90
--- NOTE | 2025-01-14 16:03 | CTR_ITS ---
PROCEDURE INFORMATION: Exam: CT Abdomen And Pelvis With Contrast Exam date and time: 01/14/2025 4:35 PM Age: 49 years old Clinical indication: Abdominal pain; Localized; Lower; Prior surgery; Surgery date: 6+ months; Surgery type: Hysterectomy; Additional info: Abdominal pain, nausea, elevated cpk TECHNIQUE: Imaging protocol: Computed tomography of the abdomen and pelvis with contrast. Radiation optimization: All CT scans at this facility use at least one of these dose optimization techniques: automated exposure control; mA and/or kV adjustment per patient size (includes targeted exams where dose is matched to clinical indication); or iterative reconstruction. Contrast material: OMNIPAQUE 350; Contrast volume: 100 ml; Contrast route: INTRAVENOUS (IV); COMPARISON: CT abdomen pelvis wo/w [id number] 04/29/2024 9:53 AM RADIATION DOSE METRICS: Total DLP (mGy-cm): 792.43 FINDINGS: Diaphragm: Small hiatal hernia. Liver: Diffuse hepatic steatosis with focal heterogeneous regions of sparing centrally. No discrete liver mass. Gallbladder and biliary ducts: Normal. No calcified stones. No ductal dilation. Pancreas: Normal. No ductal dilation. Spleen: Normal. No splenomegaly. Adrenal glands: Normal. No mass. Kidneys and ureters: Symmetrically enhancing kidneys. Moderately atrophic kidneys, measuring 9.2 cm in length on the right and 9.3 cm on the left. Mild cortical scarring of the right kidney. No hydronephrosis. No urolithiasis. Stomach and bowel: Postsurgical changes of sleeve gastrectomy. No bowel obstruction or inflammation. Unremarkable colon. Appendix: No evidence of appendicitis. Intraperitoneal space: Unremarkable. No free air. No significant fluid collection. Vasculature: Moderate atherosclerotic calcifications of the normal-caliber abdominal aorta. Lymph nodes: Unremarkable. No enlarged lymph nodes. Urinary bladder: Unremarkable as visualized. Reproductive: Surgically absent uterus. Unremarkable vaginal cuff. No adnexal mass. Bones/joints: No acute osseous abnormality. Multilevel chronic degenerative changes of the spine. Soft tissues: Unremarkable. CT/CT abdomen pelvis w con* [id number] IMPRESSION: 1. No acute abnormality in the abdomen or pelvis. 2. Hepatic steatosis. 3. Moderately atrophic kidneys.
[2025-01-14] MEDS: iohexol 350 mg/mL 500 mL Btl (per mL) IV (16:39)
[2025-01-14 16:45] LABS: Glucose Urine UA Negative (Normal); Nitrate Urine Negative (Negative); Specific Gravity, Urine 1.013 (1.005-1.030)
[2025-01-14 16:49] LABS: Add Urine Microscopic? YES
[2025-01-14] MEDS: morphine 4 mg/mL SDV 1 mL IVP (16:58)
[2025-01-14 17:02] LABS: UA Slide Review UA Slide Review Perf
[2025-01-14 18:25] VITALS: PULSE 97; O2SAT 99
--- OUTSIDE RECORDS SUMMARY | 2025-01-14 21:26 | XMS_ITS | Patient Health Record ---
Author Organization [facility] Address [address] [place], [place] [id number] Care Team Providers Care Pit Shoveler Name Role Phone Ananda DAVIS, Rd Unavailable [phone] Viktoria Stokes MD Unavailable Unavailable Allergies Allergen (clinical drug ingredient) Drug/Non Drug Allergy documented on EMR Reaction Allergy Type Onset Date Status None (uncoded) or not verifiable Allergy Active Reason For Referral No Information Medications Medication SIG (Take, Route, Fr equency, Duration) Notes Start Date End Date Status None or not verifiable Active Plan Of Treatment No Information Insurance Providers Payer Name Payer Address Payer Phone Subscriber Number Group Number Insured Name Patient Relationship to Insured Coverage Start Date Coverage End Date [facility] [address] [place] [address] [id number] Julia Barrera Self - patient is the insured
--- OUTSIDE RECORDS SUMMARY | 2025-01-14 21:27 | XMS_ITS | Encounter Summary ---
Author Organization [facility] Address [address] [place] [address] Care Team Providers Care Web Sizer Name Role Phone Unavailable Primary Care Provider Unavailabl e Encounter Details Date Type Department Care Team (Late st Contact Info) Description 05/12/2002 Inpatient Historical HIS IN BED Valentin Ortez MD [address] [facility] [address] [place] [address] LUMBAR DISC DISPLACEMENT (Primary Dx) Social History Tobacco Use Types Packs/Day Years Used Date Smoking Tobacco: Never Assessed Comments Unknown Sex and Gender Information Value Date Recorded Sex Assigned at Not on file 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
--- OUTSIDE RECORDS SUMMARY | 2025-01-14 21:27 | XMS_ITS | Encounter Summary ---
Author Organization [facility] Address [address] [place] [address] Care Team Providers Care Android Developer Name Role Phone Unavailable Primary Care Provider Unavailabl e Encounter Details Date Type Department Care Team (Latest Contact Info) Description 11/30/1999 Outpatient Historical HIS [facility] Mervin Escobedo NO ADDRESS ON FILE Unspecified symptom associated with female genital organs (Primary Dx); Abdominal pain, right lower quadrant Social History Tobacco Use Types Packs/Day Years Used Date Smoking Tobacco: Never Assessed Comments Unknown Sex and Gender Information Value Date Recorded Sex Assigned at Not on file 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
--- OUTSIDE RECORDS SUMMARY | 2025-01-14 21:27 | XMS_ITS | Clinical Summary ---
Author Organization [facility] Address [address] [place] [address] Phone Care Team Providers Care Concrete Block Molder Name Role Phone Unavailable Primary Care Provider Unavailabl e Allergies No known active allergies Medications metoprolol succinate (TOPROL XL) 50 mg Extended Release 24 hour tablet Take 1 Tablet by mouth daily. Active cetirizine (ZyrTEC) 10 mg tablet Take 1 Tablet by mouth daily. Active albuterol sulfate HFA 90 mcg/actuation aerosol inhaler Take 2 Puffs by inhalation every 6 hours as needed for Shortness of Breath. Active traMADoL (ULTRAM) 50 mg tablet Take 50 mg by mouth every 6 hours as needed for Pain. Active Active Problems Problem Noted Date Diagnosed Date ZENY (acute kidney injury) 12/18/2023 Bacteremia due to Escherichia coli 12/18/2023 Pyelonephritis 12/18/2023 Bloodstream infection 12/18/2023 Sepsis 12/18/2023 Depressive disorder 12/16/2021 Overview (12/18/2023): DEPRESSIVE DISORDER; Recorded 12/16/2021 3:45PM by Margaret Lovett, Office Visit; Promoted; acuity set as *; Gastroesophageal reflux disease 12/16/2021 Overview (12/18/2023): GASTRIC REFLUX; Recorded 12/16/2021 3:45PM by Margaret Lovett, Office Visit; Promoted; acuity set as *; Generalized anxiety disorder 12/16/2021 Overview (12/18/2023): ANXIETY STATE; Recorded 12/16/2021 3:45PM by Margaret Lovett, Office Visit; Promoted; acuity set as *; Hypertension 12/16/2021 Overview (12/18/2023): ESSENTIAL HYPERTENSION; Recorded 12/16/2021 3:45PM by Margaret Lovett, Office Visit; Promoted; acuity set as *; Encounters Date Type Department Care Team Description 01/06/2025 External Device Data [facility] ABSTRACTION Provider, Abstract 12/17/2024 External Device Data [facility] ABSTRACTION Provider, Abstract 12/16/2024 External Device Data [facility] ABSTRACTION Provider, Abstract 12/02/2024 Abstract [facility] Rheumatology- [facility] [address] [address] Keyla Haque MD 11/25/2024 External Device Data [facility] ABSTRACTION Provider, Abstract 11/04/2024 External Device Data [facility] ABSTRACTION Provider, Abstract 10/23/2024 External Device Data [facility] ABSTRACTION Provider, Abstract 10/22/2024 External Device Data [facility] ABSTRACTION Provider, Abstract from Last 3 Months Social History Tobacco Use Types Packs/Day Years Used Date Smoking Tobacco: Never Smokeless Tobacco: Never Tobacco Cessation:Counseling Given: No Alcohol Use Standard Drinks/Week Comments Not Currently 0 (1 standard drink = 0.6 oz pur e alcohol) Comments Unknown Sex and Gender Information Value Date Recorded Sex Assigned at Not on file Legal Sex Female 1:21 AM RESEARCH STATISTICIAN Gender Identity Not on file Sexual Orientation Not on file Last Filed Vital Signs Vital Sign Reading Time Taken Comments Blood Pressure 140/91 12/20/2023 11:00 AM CDT Pulse 85 12/20/2023 11:00 AM CDT Temperature 36.6 C (97.9 F) 12/20/2023 11:00 AM CDT Respiratory Rate 16 12/20/2023 11:00 AM CDT Oxygen Saturation 99% 12/20/2023 11:00 AM CDT Inhaled Oxygen Concentration - - Weight 72.7 kg (160 lb 4.8 oz) 12/18/2023 2:50 A M CDT Height 152.4 cm (5') 12/18/2023 2:50 AM CDT Body Mass Index 31.31 12/18/2023 2:50 AM CDT Plan of Treatment Health Maintenance Due Date Last Done Comments HEPATITIS B VACCINES (1 of 3 - 19+ 3-dose series) 1994 HPV/Cotest (21-29) 1996 CERVICAL CANCER SCREENING 2005 HPV/Cotest (30-65) 2005 PAP SMEAR 2005 BREAST CANCER SCREENING 2015 COLORECTAL SCREENING 2020 Colorectal Cancer Screening 2020 FIT-DNA Q 3 years 2020 FIT/FOBT Q 1 year 2020 Flex Sig/CT Colonography Q 5 years 2020 COVID-19 Vaccine (2 - 2023-2 5 season) 2024 04/05/2021 INFLUENZA VACCINE (#1) 2025 , 03/17/2019, 02/21/2018, Additional history exists DTAP/TDAP/TD VACCINES (2 - T d or Tdap) 09/25/2027 09/24/2017 Insurance MEDICAID Advance Directives For more information, please contact: [phone] * Full Code (Latest Code Status on File) Date Activated Date Inactivated Comments 12/18/2023 4:23 AM 12/20/2023 5:44 PM
--- OUTSIDE RECORDS SUMMARY | 2025-01-14 21:27 | XMS_ITS | Encounter Summary ---
Author Organization [facility] Address [address] [place] [address] Care Team Providers Care Security System Administrator Name Role Phone Unavailable Primary Care Provider Unavailabl e Encounter Details Date Type Department Care Team (Latest Contact Info) Description 06/08/1997 Outpatient Historical HIS [facility] Guille Goddard MD NO ADDRESS ON FILE Other specified aftercare following surgery (Primary Dx) Social History Tobacco Use Types Packs/Day Years Used Date Smoking Tobacco: Never Assessed Comments Unknown Sex and Gender Information Value Date Recorded Sex Assigned at Not on file 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
--- OUTSIDE RECORDS SUMMARY | 2025-01-14 21:27 | XMS_ITS | Encounter Summary ---
Author Organization [facility] Address [address] [place] [address] Care Team Providers Care Insurance Defense Paralegal Name Role Phone Unavailable Primary Care Provider Unavailabl e Encounter Details Date Type Department Care Team (Latest Contact Info) Description 12/02/1999 Outpatient Historical HIS [facility] Mervin Escobedo NO ADDRESS ON FILE Abdominal pain, left upper quadrant (Primary Dx) Social History Tobacco Use Types Packs/Day Years Used Date Smoking Tobacco: Never Assessed Comments Unknown Sex and Gender Information Value Date Recorded Sex Assigned at Not on file 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
--- OUTSIDE RECORDS SUMMARY | 2025-01-14 21:27 | XMS_ITS | Patient Health Record ---
Author Organization [facility] Address [address] [place] [address] Care Team Providers Care Plastic Joint Maker Name Role Phone Chato Williamson Primary Care Provider Riri Canales Unavailable [phone] Shavon Webb Unavailable [phone] Laura Andrews Unavailable [phone] Allergies No Known Allergies Reason For Referral No Information Medications Medication SIG (Take, Route, Frequency, Duration) Notes Start Date End Date Status HYDROcodone-Acetaminophen 5-325 MG Tablet 1 tablet as needed Orally every 6 hrs 06/10/2024 Active Metoprolol Succinate 100 MG Capsule ER 24 Hour Sprinkle 1 capsule Orally Once a day; Duration: 30 days 06/10/2024 Active Problems Problem Type SNOMED Code ICD Code Onset Dates Problem Status W/U Status Risk Notes Problem Essential hypertension (32110369) Essential hypertension (I10) Active confirmed Problem Arthritis (9344017) Arthritis (M19.90) Active confirmed Problem serum creatinine raised (949677551) Elevated serum creatinine (R79.89) Active confirmed Problem Difficulty passing urine (633050039) Difficulty urinating (R39.198) Active confirmed Problem Recurrent urinary tract infection (521607275) Recurrent UTI (N39.0) Active confirmed Problem Renal function tests abnormal (656523837) Decreased GFR (R94.4) Active confirmed Problem Pyelonephritis (99686342) Pyelonephritis of right kidney (N12) Active confirmed Problem History of acute renal failure (811572515184023) Hx of acute renal failure (Z87.448) Active confirmed Encounters Encounter Location Date Provider Diagnosis [facility] [address] [place] [address] 06/05/2024 Riri [facility] [address] [place] [address] [address] [place] [address] 06/10/2024 Riri [facility] [address] [place] [address] Dr [address] [place] [address] 06/10/2024 Laurajm Solomonarpan Recurrent UTI N39.0 Assessments Encounter Date Diagnosis (ICD Code) Assessment Notes Treatment Notes Treatment Clinical Notes Section Notes 06/10/2024 Recurrent UTI (ICD-10 - N39.0) Plan Of Treatment Pending Test Test Name Order Date UA Reflex Micro, Reflex Cult 37209, 8101 5, 14640 06/10/2024 Insurance Providers Payer Name Payer Address Payer Phone Subscriber Number Group Number Insured Name Patient Relationship to Insured Coverage Start Date Coverage End Date [place] Medicaid [address] [place] [address] [id number] ANDREW, COLETTE Self - patient is the insured Medical (General) History Surgical History Surgery Date(Month/Year) Right shoulder Back surgery X4 carpal tunnel hysterectomy gastric bypass
--- OUTSIDE RECORDS SUMMARY | 2025-01-14 21:27 | XMS_ITS | Encounter Summary ---
Author Organization [facility] Address [address] [place] [address] Care Team Providers Care Veterans Service Officer Name Role Phone Unavailable Primary Care Provider Unavailabl e Encounter Details Date Type Department Care Team (Latest Contact Info) Description 2003 Outpatient Historical [facility] Oral and Maxillo Surgery- [address] [place] [address] Jim Chilel, DDS [address] [place] [phone] TOOTH POSITION ANOMALY (Primary Dx) Social History Tobacco Use Types Packs/Day Years Used Date Smoking Tobacco: Never Assessed Comments Unknown Sex and Gender Information Value Date Recorded Sex Assigned at Not on file Legal Sex Female 5:[address]W MEMBER Gender Identity Not on file Sexual Orientation Not on file documented as of this encounter Plan of Treatment Not on file documented as of this encounter Visit Diagnoses Diagnosis 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
--- OUTSIDE RECORDS SUMMARY | 2025-01-14 21:27 | XMS_ITS | Encounter Summary ---
Author Organization [facility] Address [address] [place] [address] Care Team Providers Care Machine Coil Assembler Name Role Phone Unavailable Primary Care Provider Unavailabl e Encounter Details Date Type Department Care Team (Late st Contact Info) Description 01/06/2025 External Device Data [facility] ABSTRACTION Provider, Abstract NO ADDRESS ON FILE Social History Tobacco Use Types Packs/Day Years Used Date Smoking Tobacco: Never Smokeless Tobacco: Never Alcohol Use Standard Drinks/Week Comments Not Currently 0 (1 standard drink = 0.6 oz pur e alcohol) Comments Unknown Sex and Gender Information Value Date Recorded Sex Assigned at Not on file Legal Sex Female 1:21 AM ACUTE CARE OCCUPATIONAL THERAPIST Gender Identity Not on file Sexual Orientation Not on file documented as of this encounter Plan of Treatment Not on file documented as of this encounter Visit Diagnoses Not on filedocumented in this encounter
--- OUTSIDE RECORDS SUMMARY | 2025-01-14 21:27 | XMS_ITS | Clinical Summary ---
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
--- OUTSIDE RECORDS SUMMARY | 2025-01-14 21:27 | XMS_ITS | Encounter Summary ---
Author Organization [facility] Address [address] [place] [address] Care Team Providers Care Sterile Processing Technician Name Role Phone Unavailable Primary Care Provider Unavailabl e Encounter Details Date Type Department Care Team (Latest Contact Info) Description 10/02/1997 Outpatient Historical HIS [facility] PLASTIC [facility]GERY Guille Goddard MD NO ADDRESS ON FILE Other specified aftercare following surgery (Primary Dx) Social History Tobacco Use Types Packs/Day Years Used Date Smoking Tobacco: Never Assessed Comments Unknown Sex and Gender Information Value Date Recorded Sex Assigned at Not on file Legal Sex Female 5:31 AM 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
--- OUTSIDE RECORDS SUMMARY | 2025-01-14 21:28 | XMS_ITS | Patient Health Record ---
Author Organization [facility] Address [address] [place] [address] Care Team Providers Care Salon Supervisor Name Role Phone Chato Williamson Primary Care Provider Babak YUSUF ROSALEE Unavailable [phone] JAE CAMARILLO Unavailable [phone] Allergies No Known Allergies Results Component Value Reference Range Notes Urinalysis, Routine Reviewed date:04/30/2024 08:39:10 AM Interpretation: Performing Lab: Notes/Report: Urine-Color yellow Appearance clear Glucose - Bilirubin - Ketones - Specific [place] 1.010 Occult Blood - pH 6.0 Urine Protein trace Urobilinogen,Semi-Qn - Nitrite, Urine - WBC Esterase - CT Abd & Pelvis W & WO IV co ntrast [id number] Reviewed date:04/29/2024 01:17:47 PM Interpretation: Performing Lab: Notes/Report: Urinalysis, Routine Reviewed date:04/16/2024 10:22:41 AM Interpretation: Performing Lab: Notes/Report: Urine-Color yellow Appearance cloudy Glucose - Bilirubin - Ketones - Specific [place] 1.020 Occult Blood +- pH 6.0 Urine Protein +- Urobilinogen,Semi-Qn - Nitrite, Urine - WBC Esterase 2+ Gx - Recurrent Persistent Co mplicated UTI Reviewed date:04/28/2024 01:56:18 PM Interpretation: Performing Lab:, [id number] Notes/Report: PatientName: : Gender: PatientRelation: PatientAddress: , , , InsuranceName: InsuranceCode: Test Result: Guidance 7.0, Voided Urine, UTI Surgical, Test Result: PATHOGENIC DNA DETECTED#A*F UTIAbnormalFlag: Guidance 7.0, Voided Urine, UTI Surgical, UTIAbnormalFlag: A Reason For Referral Reason refer to Dr. Jose barry or RED Diagnosis 1 Right flank discomfo rt (R10.9) Diagnosis 2 Elevated serum creat inine (R74.8) Diagnosis 3 History of acute trent al failure (Z87.448) Diagnosis 4 Decreased GFR (R94.4 ) Diagnosis 5 Dark urine (R82.998) Referral Organization [facility] Referring Provider First Name JAE Referring Provider Last Name ZACARIASJOLIE Referring Provider Special[facility] sarah Referred Provider Specialty Nephrology Referral Priority Routine Medications Medication SIG (Take, Route, Frequency, Duration) Notes Start Date End Date Status HYDROcodone-Acetaminophen 5-325 MG 1 tablet as needed Orally every 6 hrs Active Metoprolol Succinate 100 MG 1 capsule Orally Once a day Active Vital Signs Heart Rate 79 /min 04/30/2024 Blood pressure diastolic 89 mm Hg 04/30/2024 Height-cm 152.4 cm 04/30/2024 Weight-kg 65.77 kg 04/30/2024 Height 60 in 04/30/2024 Blood pressure systolic 142 mm Hg 04/30/2024 Weight 145 lbs 04/30/2024 BMI 28.32 kg/m2 04/30/2024 Procedures Procedure Date Ordered Date Performed Result Body Sit e Bladder Scan 04/16/2024 04/16/2024 N/A Bladder Scan 04/30/2024 04/30/2024 PVR 38ml Encounters Encounter Location Date Provider Diagnosis [facility] [address] [address] 04/16/2024 JAE CAMARILLO Recurrent UTI N39.0 ; Abnormal urinalysis R82.90 ; Right flank discomfort R10.9 ; History of pyelonephritis Z87.448 and History of acute renal failure Z87.448 [facility] [address] [address] 04/30/2024 JAE CAMARILLO Recurrent UTI N39.0 ; Right flank discomfort R10.9 ; Elevated serum creatinine R74.8 ; Decreased GFR R94.4 ; Dark urine R82.998 and History of pyelonephritis Z87.448 [facility] [address] [place] [address] 03/21/2024 ROSALEE YUSUF [facility] [address] [place] [address] 04/21/2024 JAE CAMARILLO [facility] [address] [place] [address] 04/24/2024 ROSALEE YUSUF [facility] [address] [place] [address] 06/23/[facility] [address] [place] [address] 06/23/2024 ROSALEE BARRERAER Assessments Encounter Date Diagnosis (ICD Code) Assessment Notes Treatment Notes Treatment Clinical Notes Section Notes 04/16/2024 Recurrent UTI (ICD-10 - N39.0) 04/16/2024 Abnormal urinalysis (ICD-10 - R82.90) 04/30/2024 Recurrent UTI (ICD-10 - N39.0) 04/30/2024 Right flank discomfort (ICD-10 - R10.9) 04/16/2024 Right flank discomfort (ICD-10 - R10.9) 04/30/2024 Elevated serum creatinine (ICD-10 - R74.8) 04/16/2024 History of pyelonephritis (ICD-10 - Z87.448) 04/30/2024 Decreased GFR (ICD-10 - R94.4) 04/16/2024 History of acute renal failure (ICD-10 - Z87.448) 04/30/2024 Dark urine (ICD-10 - R82.998) 04/30/2024 History of pyelonephritis (ICD-10 - Z87.448) 04/16/2024 Other UA appears infected today, PVR 18ml. Send for PCR, call with results and treat as indicated. We have discussed behavioral modifications for recurrent UTI including timed and double voiding, increased water intake, supplementation with Cranberry extract and probiotics, preventing/treatin g constipation, and vaginal estrogen as indicated. Handout given to patient. We have also discussed the indications for a CT Abd/Pelv w/ and w/o contrast, as well as, cystoscopy for further evaluation of causes that can contribute to recurrent infections. Patient agreeable to imaging and scope. Patient will RTC for next available cystoscopy. I will see her back in 2-[address] review. All questions that were asked were answered. Patient is satisfied with plan of care. 04/30/[address] Abd/Pelvis o n 04/29/24 normal. I have independently reviewed imaging, along with radiologic report. I reviewed images and discussed findings with patient in the exam room. BMP shows creatinine of 1.7, GFR 31.9. She continues to have intermittent right flank discomfort. Recommend referral to nephrology for decreased kidney functions and dark colored urine. She is also scheduled for an elective shoulder surgery on 05/13/24, recommended that she call and let them know about referral to nephrology and that she may consider holding on surgery due to increased risk of anesthesia with poor renal function. She is scheduled for cystoscopy next month due to recurrent UTI, keep this follow up as scheduled. 05/26/2024 49 y/o F with Karthik Plan Of Treatment Pending Test Test Name Order Date BASIC METABOLIC PANEL (09273) 04/16/2024 Insurance Providers Payer Name Payer Address Payer Phone Subscriber Number Group Number Insured Name Patient Relationship to Insured Coverage Start Date Coverage End Date [place] [address] [place], [place] [id number] Julia Morales Self - patient is the insured Medical (General) History Medical History History ICD Code arthritis HTN back pain difficulty urinating kidney disease waking 2x a night to urinate Surgical History Surgery Date(Month/Year) right shoulder 4 back surgeries carpal tunnel hysterectomy gastrol by pass Hospitalization History Reason Date(Month/Year) see surgeries kidney failure /blood infection
== END 2025-01-14 18:34 | disposition home or self-care (01) ==
PROVIDERS: Emergency Medicine; Emergency Provider Physician Assistant; PCP Family Medicine
DX: M62.82 Rhabdomyolysis (principal); Z72.0 Tobacco use; I10 Essential (primary) hypertension
CPT/HCPCS: 36415; 71045; 74177; 80053; 81001; 82550; 83690; 84702; 84703; 85025; 96361; 96374; 96375; 99285; J2270; J2405; J7030

== ENCOUNTER 2025-03-18 07:56 | Outpatient (CLI) | payer BC, MEDICAID, SELFPAY ==
--- NOTE | 2025-03-18 08:01 | NM_ITS ---
WS: [id number] NUCLEAR MEDICINE HIDA SCAN WITH GALLBLADDER EJECTION FRACTION HISTORY: RUQ PAIN COMPARISON: 01/15/2015, 01/14/2025 CT TECHNIQUE: The patient was intravenously injected with 8.1 mCi of TC99m Mebrofenin. Immediate imaging over the right upper quadrant was followed by 5 minute image and additional images for a total of 60 minutes. Liver appears enlarged. Normal excretion from the liver. Activity identified in the gallbladder at 15 minutes and well distended by 60 minutes. Activity in the proximal small bowel was seen by 15 minutes. Good washout of the radiotracer from the liver by 60 minutes. The patient then drank 8 ounces of Ensure Plus. Ejection fraction at 60 minutes was 30%. Normal GB ejection fraction is 35-75%. Post fatty meal symptoms: None. NM/NM hepatobiliary w phar* [id number] IMPRESSION: 1. Abnormal gallbladder ejection fraction. Consider chronic cholecystitis. 2. No common bile duct or cystic duct obstruction. 3. Liver is enlarged.
== END 2025-03-18 07:57 | disposition home or self-care (01) ==
LOC: RAD 07:57
PROVIDERS: PCP Family Medicine; Visit Provider Family Medicine
DX: R10.11 Right upper quadrant pain (principal); K81.1 Chronic cholecystitis; R16.0 Hepatomegaly, not elsewhere classified
CPT/HCPCS: 78227; A9537

== ENCOUNTER 2025-04-29 16:54 | Emergency (ER) | payer OTHER, SELFPAY ==
--- OUTSIDE RECORDS SUMMARY | 2025-04-29 17:03 | XMS_ITS | Clinical Summary ---
Author Organization [employer] Address [address] [facility] [address] 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
--- OUTSIDE RECORDS SUMMARY | 2025-04-29 17:03 | XMS_ITS | Encounter Summary ---
Author Organization [employer] [facility] Address [address] [place] [address] Care Team Providers Care Almond Sorter Name Role Phone Unavailable Primary Care Provider Unavailabl e Encounter Details Date Type Department Care Team (Latest Contact Info) Description 12/02/1999 Outpatient Historical HIS 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
--- OUTSIDE RECORDS SUMMARY | 2025-04-29 17:03 | XMS_ITS | Encounter Summary ---
Author Organization [employer] [facility] Address [address] [place] [address] Care Team Providers Care Housekeeper/Laundry Assistant Name Role Phone Unavailable Primary Care Provider Unavailabl e Encounter Details Date Type Department Care Team (Late st Contact Info) Description 05/12/2002 Inpatient Historical HIS IN [facility] Valentin Ortez MD [address] [facility] [address] [place] [address] LUMBAR DISC DISPLACEMENT (Primary Dx) Social History Tobacco Use Types Packs/Day Years Used Date Smoking Tobacco: Never Assessed Comments Unknown Sex and Gender Information Value Date Recorded Sex Assigned at Not on file 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
--- OUTSIDE RECORDS SUMMARY | 2025-04-29 17:03 | XMS_ITS | Encounter Summary ---
Author Organization [employer] [facility] Address [address] [place] [address] Care Team Providers Care Street Car Mechanic Name Role Phone Unavailable Primary Care Provider Unavailabl e Encounter Details Date Type Department Care Team (Latest Contact Info) Description 11/30/1999 Outpatient Historical HIS [facility] Mervin Escobedo NO ADDRESS ON FILE Unspecified symptom associated with female genital organs (Primary Dx); Abdominal pain, right lower quadrant Social History Tobacco Use Types Packs/Day Years Used Date Smoking Tobacco: Never Assessed Comments Unknown Sex and Gender Information Value Date Recorded Sex Assigned at Not on file Legal Sex Female 5:31 AM 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
--- OUTSIDE RECORDS SUMMARY | 2025-04-29 17:03 | XMS_ITS | Encounter Summary ---
Author Organization [facility] Address [address] [place] [address] Care Team Providers Care Supervisor Food Checkers And Cashiers Name Role Phone Unavailable Primary Care Provider Unavailabl e Encounter Details Date Type Department Care Team (Latest Contact Info) Description 10/02/1997 Outpatient Historical HIS [facility] Guille Goddard MD NO ADDRESS ON FILE Other specified aftercare following surgery (Primary Dx) Social History Tobacco Use Types Packs/Day Years Used Date Smoking Tobacco: Never Assessed Comments Unknown Sex and Gender Information Value Date Recorded Sex Assigned at Not on file Legal Sex Female 5:31 AM 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
--- OUTSIDE RECORDS SUMMARY | 2025-04-29 17:03 | XMS_ITS | Encounter Summary ---
Author Organization [facility] Address [address] [place] [address] Care Team Providers Care Manager Coding Name Role Phone Unavailable Primary Care Provider Unavailabl e Encounter Details Date Type Department Care Team (Latest Contact Info) Description 2003 Outpatient Historical [facility] Oral and Maxillo Surgery- [address] [place] [address] Jim Chilel, DDS [address] [place] [phone] TOOTH POSITION ANOMALY (Primary Dx) Social History Tobacco Use Types Packs/Day Years Used Date Smoking Tobacco: Never Assessed Comments Unknown Sex and Gender Information Value Date Recorded Sex Assigned at Not on file 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
--- OUTSIDE RECORDS SUMMARY | 2025-04-29 17:03 | XMS_ITS | Continuity of Care Document ---
Author Organization MAKENNA [facility] Adela Jensen, [facility] ([facility]) Address [address] [place] [address] Care Team Providers Care Wool Hat Hydraulicker Name Role Phone JENNIFER NICHOLS Primary Care Provider Assessment No assessment recorded. Plan of Treatment Reminders Order Date Submit Date Provider Last Modified By Organization Details Last Modified Time Details Appointments None recorded. Lab CBC 2024 025 [facility], [address] [facility], [facility], [place], [address], 17:11:35 CMP, serum or plasma 2024 025 [facility], [address] [facility], [facility], [place], [address], 10:50:08 Referral None recorded. Procedures None recorded. Surgeries None recorded. Imaging [place], hepatobilia ry scan 2024 025 [facility], [address] [place], [address], 09:01:41 Medication Orders Ambien 5 mg tablet 2024 025 [facility], [address], [place], [address], 16:36:21 pantoprazol e 40 mg tablet,tiffany yed release 2024 025 [facility], [address], [place], [address], 16:36:21 venlafaxine ER 150 mg capsule,ext ended release 24 hr 2024 025 [facility], [address], [place], [address], 16:36:22 ondansetron HCl 4 mg tablet 2024 025 [facility], [address], [place], [address], 16:36:18 Patient TargetsNo targets recorded. Patient InstructionsNo instructions recorded. Reason for Referral None Reported. Results Created Date Observation Date Name Description Value Unit Range Abnormal Flag Note LastModifiedBy Organization Detail LastModifiedTime 02/14/2002/13/2025 CBC WBC 12.8 x10 4.0-10 .5 high Not Available [facility] [address] [facility] [address], [place], [address], 02/13/2025 17:11:34 02/14/2002/13/2025 CBC RBC 4.78 x10 3.50-5 .50 Not Available [facility] [address] [facility] [address], [place], [address], 02/13/2025 17:11:34 02/14/2002/13/2025 CBC HGB 15.9 g/dL 12.0-1 6.0 Not Available [facility] [address] [facility] [address], [place], [address], 02/13/2025 17:11:34 02/14/2002/13/2025 CBC HCT 48.7 % 37.0-4 7.0 high Not Available [facility] [address], [place], [address], 02/13/2025 17:11:34 02/14/2002/13/2025 CBC MCV 101.8 fL 80.0-9 9.9 high Not Available [facility] [address], [place], [address], 02/13/2025 17:11:34 02/14/2002/13/2025 CBC MCH 33.3 pg 27.0-3 2.0 high Not Available [facility] [address], [place], [address], 02/13/2025 17:11:34 02/14/2002/13/2025 CBC MCHC 32.7 g/dL 32.0-3 6.0 Not Available [facility] [address] [facility] 1, [place], [address], 02/13/2025 17:11:34 02/14/2002/13/2025 CBC RDW 14.4 % 11.5-1 4.5 Not Available [facility] [address], [place], [address], 02/13/2025 17:11:34 02/14/2002/13/2025 CBC plt 322.9 x10 140.0- 451.0 Not Available [facility] [address], [place], [address], 02/13/2025 17:11:34 02/14/2002/13/2025 CBC lymphocytes % 26.3 % 20.0-5 0.0 Not Available [facility] [address], [place], [address], 02/13/2025 17:11:34 02/14/2002/13/2025 CBC granulcytes % 64.2 % 30.0-7 0.0 Not Available [facility] [address] [facility] 1, [place], [address], 02/13/2025 17:11:34 02/14/2002/13/2025 CBC monocytes % 8.7 % 2.0-16 .0 Not Available [facility] [address] [facility] 1, [place], [address], 02/13/2025 17:11:34 02/14/2002/13/2025 CBC granulcytes# 8.2 x10 Not Mya ilable [facility] [address] [facility], [place], [address], 02/13/2025 17:11:34 02/14/2002/13/2025 CBC lymphocytes # 3.4 x10 Not Available [facility] [address] [facility], [place], [address], 02/13/2025 17:11:34 02/14/2002/13/2025 CBC monocytes # 1.1 x10 Not Avai lable [facility] [address] [facility], [place], [address], 02/13/2025 17:11:34 02/14/2002/16/2025 CMP (FEMA LE) glucose 142.0 mg/dL 60.0-9 9.0 high Not Available [facility] [address] [facility], [place], [address], 02/16/2025 10:50:08 02/14/2002/16/2025 CMP (FEMA LE) BUN (blood urea nitrogen) 11.0 mg/dL 10.0-2 6.0 Not Available [facility] [address] [facility], [place], [address], 02/16/2025 10:50:08 02/14/20 25 02/16/2025 CMP (FEMA LE) creatinine (serum) 1.0 mg/dL 0.4-1. 5 Not Available [facility] [address] [facility], [place], [address], 02/16/2025 10:50:08 02/14/20 25 02/16/2025 CMP (FEMA LE) BUN/creatini ne ratio 11.00 ratio Not Available [facility] [address] [facility] [address], [place], [address], 02/16/2025 10:50:08 02/14/20 25 02/16/2025 CMP (FEMA LE) eGFR calculated 62.6 Not Available [facility] [address] [facility] [address], [place], [address], 02/16/2025 10:50:08 02/14/20 25 02/16/2025 CMP (FEMA LE) total protein 7.3 g/dL 6.0-8. 5 Not Available [facility] [address] [facility] [address], [place], [address], 02/16/2025 10:50:08 02/14/20 25 02/16/2025 CMP (FEMA LE) total bilirubin 0.7 mg/dL 0.2-1. 3 Not Available [facility] [address] [facility] [address], [place], [address], 02/16/2025 10:50:08 02/14/20 25 02/16/2025 CMP (FEMA LE) albumin 4.2 g/dL 3.5-5. 5 Not Available [facility] [address] [facility] [address], [place], [address], 02/16/2025 10:50:08 02/14/20 25 02/16/2025 CMP (FEMA LE) globulin 3.1 calc Not Available [facility] [address] [facility] 1, [place], [address], 02/16/2025 10:50:08 02/14/20 25 02/16/2025 CMP (FEMA LE) AST (SGOT) 77.0 U/L 0.0-46 .0 high Not Available [facility] [address] [facility] 1, [place], [address], 02/16/2025 10:50:08 02/14/20 25 02/16/2025 CMP (FEMA LE) altv (SGPT) 50.0 U/L 13.0-6 9.0 normal Not Available [facility] [address] [facility] 1, [place], [address], 02/16/2025 10:50:08 02/14/20 25 02/16/2025 CMP (FEMA LE) A/G ratio 1.4 ratio Not Available [facility] [address] [facility] 1, [place], [address], 02/16/2025 10:50:08 02/14/20 25 02/16/2025 CMP (FEMA LE) ALP phos 142.0 U/L 30.0-1 40.0 abnormal Not Available [facility] [address] [facility], [place], [address], 02/16/2025 10:50:08 02/14/20 25 02/16/2025 CMP (FEMA LE) calcium 9.3 mg/dL 8.4-10 .5 Not Available [facility] [address] [facility] 1, [place], [address], 02/16/2025 10:50:08 02/14/20 25 02/16/2025 CMP (FEMA LE) sodium 139.0 mmol/ L 136.0- 145.0 Not Available [facility] [address] [facility] [address], [place], [address], 02/16/2025 10:50:08 02/14/2002/16/2025 CMP (FEMA LE) potassium 3.4 mmol/ L 3.5-5. 1 low Not Available [facility] [address] [facility] [address], [place], [address], 02/16/2025 10:50:08 02/14/20 25 02/16/2025 CMP (FEMA LE) chloride 104.0 mmol/ L 98.0-1 10.0 normal Not Available [facility] [address] [facility] 1, [place], [address], 02/16/2025 10:50:08 02/14/20 25 02/16/2025 CMP (FEMA LE) C02 24.0 mmol/ L 22.0-3 1.0 Not Available [facility] [address] [facility] [address], [place], [address], 02/16/2025 10:50:08 02/14/2002/16/2025 CMP (FEMA LE) anion gap 11.0 calc Not Available [facility] [address] [facility] [address], [place], [address], 02/16/2025 10:50:08 02/14/2002/16/2025 CMP (FEMA LE) osmolality 288.8 calc Not Available [facility] [address] [facility] [address], [place], [address], 02/16/2025 10:50:08 03/18/2003/18/2025 NM, hepat obili la scan No observ ation record ed. [facility] [address] [facility], [place], [address], 03/18/2025 17:30:00 Result Notes None recorded. Problems Name Problem SNOMED Code Status Onset Date Resolution Date Notes Provider Name and Address Organization Details Recorded Time Irritable bowel syndrome 19736814 Active 2021 JAE COOPERABNERWINNIE dye, [facility] 5 14:55:22 Obesity 422615768 Active 2021 [facility] 14:55:22 Depressiv e disorder 15251976 Active 2021 JAE COOPERAYALA hardik, [facility] 5 14:55:22 Hypothyro idism 59494386 Active 2021 [facility] 5 14:55:22 Insomnia 184685530 Active 2021 [facility] 14:55:22 Generaliz ed anxiety disorder 83126175 Active 2021 JAE BROOKLYNWINNIE dye, [facility] 5 14:55:22 Smoker 86507403 Active 2021 [facility] 5 14:55:23 Migraine 82883827 Active 2021 [facility] 5 14:55:22 Hypertens marquita disorder 17715141 Active 2021 JAE NOLEN null, [facility] 5 14:55:22 Gastroeso phageal reflux disease 487409810 Active 2021 [facility] 5 14:55:22 Supravent ricular tachycard ia 7247106 Active 2023 JAE dye [facility] 14:55:23 Allergic rhinitis 64505743 Active 2023 JAE dye, [facility] 14:55:23 Renal impairmen t 108124841 Active 2023 Jennifer Nichols MD [address] [place] [address], [phone], [facility] 16:26:26 Acute pyeloneph ritis 11772592 Completed 202310/07/2024 JAE dye [facility] 14:55:43 Chronic kidney disease 039884283 Active 2023 JAE dye [facility] 14:55:23 Pain of multiple joints 12065056 Active 2023 JAE dye, [facility] 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 15:28:07 Acute bacterial sinusitis 95160517 Active 2024 Jennifer Nichols MD [address] [place] [address], [phone], [facility] 5 16:52:01 Moderate major depressio n 152081 Active 2024 Jennifer Nichols MD [address] [place] [address], [address], [facility] 5 16:52:11 Candidias is of mouth 03708326 Active 2024 Jennifer Nichols MD [address] [place], [address], [facility], AgustínLIsela 5 18:04:30 Right upper quadrant pain 447947681 Active 2024 Jennifer Nichols MD [address] [place], [address], [facility], Adela 5 16:23:49 Primary insomnia 0775369 Active 2024 Jennifer Nichols MD [address] [place], [address], [facility], Adela 5 16:24:15 Problem Notes None recorded. Procedures Surgical History Date Name Laterality Status Provider Name and Address Organization Details Recorded Time Carpal tunnel surgery completed [facility], Adela 10/01/2023 13:35:43 Total Hysterectomy completed [facility], AgustínLKevinCKevin 10/01/2023 13:35:47 Back Surgery completed [facility], Adela 10/01/2023 13:35:52 Imaging Results None recorded. Procedure Notes None recorded. Medical Equipment None Reported. Allergies Allergen ID Allergen Name Allergen Category Reaction Reaction Severity Criticality Documentation Date Start Date Code Code System Note Provider Name and Address Organization Details Recorded Time 00735 acetamino phen / oxycodone medicatio n rash mild low 12/30/2022 21967 3 RxNorm Maritza De La Garza [facility], LKevinLKevinCKevin 5 15:51:31 52322 rofecoxib medicatio n Not available Not available Not available 12/30/2022 23751 8 RxNorm Shaista Brittny [facility], AgustínLIsela 4 13:34:37 Medications Name Sig Start Date Stop Date Status Note LastModified by Organization Details LastModified Time cyclobenz aprine 10 mg tablet TAKE 1 TABLET BY MOUTH THREE TIMES DAILY NEEDED FOR MUSCLE SPASM 02/24 completed Not Available Not Available Not Available promethaz ine-DM 6.25 mg-15 mg/5 mL oral syrup TAKE 10 ML BY MOUTH EVERY 4 HOURS NEEDED 02/13 completed Not Available Not Available Not Available nystatin 100,000 unit/mL oral suspensio n TAKE 10 ML BY MOUTH 4 TIMES DAILY FOR 10 DAYS, FOR THRUSH, SWISH AND SWALLOW 2024 active Not Available Not Available Not Avai lable prednison e 10 mg tablet TAKE 6 TABLETS BY MOUTH ON DAYS 1-2, 5 TABLETS ON DAY 3, 4 TABLETS ON DAY 4, 3 TABLETS ON DAY 5, 2 TABLETS ON DAY 6, 1 TABLET ON DAY 7 10/07 completed Not Available Not Available Not Available venlafaxi ne ER 75 mg capsule,e xtended release 24 hr TAKE 1 CAPSULE BY MOUTH ONCE DAILY active Not Available Not Available No t Available cetirizin e 10 mg tablet TAKE 1 TABLET BY MOUTH ONCE DAILY active Not Available Not Available No t Available metoprolo l succinate ER 50 mg tablet,ex tended release 24 hr TAKE 1 TABLET BY MOUTH ONCE DAILY 03/17 completed Not Available Not Available Not Available hydrocodo ne 5 mg-acetam inophen 325 mg tablet TAKE 1 TABLET BY MOUTH EVERY 6 HOURS NEEDED FOR PAIN active Not Available Not Available No t Available ondansetr on HCl 4 mg tablet TAKE 1 TABLET BY MOUTH TWICE DAILY NEEDED active Not Available Not Available No t Available prednison e 20 mg tablet TAKE 1 TABLET BY MOUTH ONCE DAILY DIRECTED FOR GOUT 02/13 completed Not Available Not Available Not Available metoprolo l succinate ER 100 mg tablet,ex tended release 24 hr Take 1 tablet by mouth once daily 2024 active Not Available Not Available Not Avai lable venlafaxi ne ER 150 mg capsule,e xtended release 24 hr TAKE 1 CAPSULE BY MOUTH ONCE DAILY active Not Available Not Available No t Available amlodipin e 5 mg tablet TAKE 1 TABLET BY MOUTH ONCE DAILY active Not Available Not Available No t Available ciproflox acin 500 mg tablet TAKE 1 TABLET BY MOUTH EVERY 12 HOURS FOR 10 DAYS 02/24 completed Not Available Not Available Not Available tramadol 50 mg tablet TAKE 2 TABLETS BY MOUTH EVERY 6 HOURS NEEDED FOR PAIN 02/24 completed Not Available Not Available Not Available meloxicam 7.5 mg tablet Take 1 tablet every day by oral route. 10/07 completed Not Available Not Available Not Available amoxicill in 875 mg tablet TAKE 1 TABLET BY MOUTH TWICE DAILY 07/25 completed Not Available Not Available Not Available pantopraz ole 40 mg tablet,de layed release TAKE 1 TABLET BY MOUTH ONCE DAILY active Not Available Not Available No t Available nitrofura ntoin macrocrys edison 100 mg capsule TAKE 1 CAPSULE BY MOUTH ONCE DAILY FOR 30 DAYS 02/24 completed Not Available Not Available Not Available indometha kristal 50 mg capsule TAKE 1 CAPSULE BY MOUTH THREE TIMES DAILY WITH FOOD OR MILK 10/07 completed Not Available Not Available Not Available diclofena c potassium 50 mg tablet TAKE 1 TABLET BY MOUTH THREE TIMES DAILY NEEDED FOR PAIN 12/24 completed Not Available Not Available Not Available diclofena c sodium 75 mg tablet,de layed release TAKE 1 TABLET BY MOUTH EVERY 12 HOURS NEEDED FOR PAIN 10/21 completed Not Available Not Available Not Available allopurin ol 300 mg tablet TAKE 1 TABLET BY MOUTH ONCE DAILY active Not Available Not Available No t Available hydrochlo rothiazid e 25 mg tablet Take 1 tablet by mouth once daily 2024 active Not Available Not Available Not Avai lable mupirocin 2 % topical ointment APPLY OINTMENT TOPICALL Y TO AFFECTED AREA TWICE DAILY active Not Available Not Available No t Available zolpidem 5 mg tablet TAKE 1 TABLET BY MOUTH ONCE DAILY DIRECTED active Not Available Not Available No t Available metoprolo l succinate ER 25 mg tablet,ex tended release 24 hr TAKE 1 TABLET BY MOUTH ONCE DAILY 09/30 completed Not Available Not Available Not Available estradiol 0.01% (0.1 mg/gram) vaginal cream INSERT 1 GRAM VAGINALL Y TWICE A WEEK FOR RECURREN T UTI active Not Available Not Available No t Available sertralin e 50 mg tablet TAKE 1 TABLET BY MOUTH ONCE DAILY 02/13 completed Not Available Not Available Not Available amoxicill in 875 mg-potass ium clavulana te 125 mg tablet TAKE 1 TABLET BY MOUTH EVERY 12 HOURS DIRECTED FOR 7 DAYS 12/17 completed Not Available Not Available Not Available losartan 100 mg-hydroc hlorothia zide 12.5 mg tablet TAKE 1 TABLET BY MOUTH ONCE DAILY 12/24 completed Not Available Not Available Not Available diclofena c sodium two times daily 07/27 completed Recorded 12/17/19 4:21PM by Jennifer Nichols MD, Office Visit; Refill Quantity : 120; Gram; Not Available Not Available Not Available ProAir HFA 90 mcg/actua tion aerosol inhaler every four hours, as needed 01/13 completed Not Available Not Available Not Available Vitals Date Recorded Body height Body mass index (BMI) Body weight Heart rate Systolic And Diastolic Provider Name and Address Organization Details Last Updated DateTime 02/13/2025 154.94 cm 32.3 kg/m2 62985.3 g 120 /min 155/95 mm[Hg] JAE NOLEN [facility] 15:46:44 Social History Question Answer Notes LastModified by Subtext Details LastModified Time Tobacco Smoking Status Current Every Day Smoker Shaista dye [facility] 10/01/2023 13:35:30 What Was The Date Of Your Most Recent Tobacco Screening? 02/13/2025 Information not available 02/13/2025 Sex: Unknown Functional Status Question Answer Note LastModified by Subtext Details LastModified Time Do you use any illicit or recreational drugs? No [email or web address] Information not available 07/27/2023 What is your level of alcohol consumption? Occasional Information not available 02/13/2025 Mental Status None recorded. Family History Relationship Description Onset Age of this Age Resolved Age Notes LastModified by Organization Details LastModified Time Mother Hypertensive disorder [email or web address] Not available 10/07 15:05:05 Mother Diabetes mellitus [email or web address] Not available 10/07 15:05:11 Medical History Condition Response Coronary Artery Disease N Other N Gout N Kidney Stones N Blood Diseases N Hyperthyroidism N Breast Cancer N Blood Transfusion N Depression N COPD N Lung Disease N Hypothyroidism N Developmental or Behavioral Disorders N Defects or Inherited Disease N Breast Problem N Difficulty Swallowing N Anesthesia Complications N Meniere's disease N Anxiety Disorder N Muscle, Joint, or Bone Problems N Vision or Eye Problems N Arthritis N Polyps N Infertility N Cancer N Varicosities N Stroke N Endometriosis N Bladder or Kidney Problems N High Cholesterol N Liver Disease N Headaches N Fibromyalgia N Kidney Disease N Allergies/Hayfever Y Heart Problems N Ear or Hearing Problems N Hospitalizations N Thyroid Problems N GI Problems N ADD/ADHD N Skin Problems N Eating Disorder N Anemia N Constipation N Mental Illness N Ovarian Cancer N Diabetes N Bedwetting N Seizures/Epilepsy N Tuberculosis N Eczema N Diverticulitis N Abuse/Domestic Violence N Asthma N Reflux/GERD N Hepatitis N Heart Disease N Pulmonary Embolism N Pre-Eclampsia N Hypertension Y Chronic Ear Infections N Osteoporosis N Chicken Pox N Autism Spectrum Disorder (ASD) N Thrombophilias N Gynecological HistoryNo gynecological history recorded. Obstetrics History GPAL:G 0 P 0 0 0 0 Immunizations Vaccine Type Date Status Note Provider Nam e and Address Organization Details Recorded Time Influenza, split virus, trivalent, preservative 4 completed CARLOS BARBA PA-C [address] [place], [address], [facility] 03/25/2023 14:12:15 COVID-19 vaccine, vector-nr, rS-Ad26, PF, 0.5 mL 1 completed CARLOS BARBA PA-C [address] [place] [address], [phone], [facility] 03/25/2023 14:12:15 Tdap 8 completed CARLOS BARBA PA-C [address] [place], [address], [facility] 03/25/2023 14:12:15 Influenza, split virus, trivalent, PF 6 completed CARLOS ABRBA PA-C [address] [place], [address], [facility] 03/25/2023 14:12:15 tetanus toxoid, adsorbed 4 completed CARLOS BARBA PA-C [address] [place], [address], [facility] 03/25/2023 14:12:15 Influenza, split virus, quadrivalent, PF 8 completed CARLOS BARBA PA-C [address] [place], [address], [facility] 03/25/2023 14:12:15 Influenza, split virus, quadrivalent, preservative 3 [facility] 13:41:02 Past Encounters Encounter ID Performer Location Encounter Start Date Encounter Closed Date Diagnosis/Indication Diagnosis SNOMED-CT Code Diagnosis ICD10 Code Diagnosis IMO Codes Diagnosis Note [id number] Jennifer Nichols MD [facility] ([facility]) [address] [place] [address] 02/13/2025 15:37:33 02/16/2025 11:18:46 Generalized anxiety disorder 12256216 F41.1 Depressive disorder 3548 9007 F32.A with anxiety. Gastroesop hageal reflux disease 554523979 K21.9 Right uppe r quadrant pain 421367786 R10.11 763450 Primary insomnia 0995676 F51.01 76127 Renal impairment 1871243 03 N28.9 [id number] she had elevated CK at ED, will recheck today. Health Concerns Section Related Observation LastModified by Organization Detai ls LastModified Time None Recorded Concern Status LastModified by Organization Details LastModified Time None Recorded Payers Encounter Date Sequence Insurance Name Policy Number Policy Crawford Covered Member ID Crawford Member ID Guarantor Name 02/13/2025 1 [employer] [place] (MEDICA[place] REPLACEMENT - HMO) [id number] Julia B Brege [id number] Julia B Brege Notes Date Note Type Note Provider Name and Address Organization Details Recorded Time 02/13/2025 text/html Reflux/GERDRepor juan carlos by PatientHPIFor severity, patient reportsworsening.stil having some significant problems with this. Anxiety/DepressionRepo rted by PatientHPIFor severity, patient reportsmood worse,increased anxiety, andinterference with workbut reportsdenies suicidal ideationsandable to maintain relationships. For context, patient reportsno major life stressors. For associated symptoms, patient reportsdenies homicidal ideations. Jennifer Nichols MD [address] [place] [address], [phone], [facility], Adela 02/13/2025 16:36:18 OBGyn Episode No OBEpisode recorded.
[2025-04-29 17:04] VITALS: BP 125/80; PULSE 96; TEMP 36.6; O2SAT 99; BMI 32.1
--- OUTSIDE RECORDS SUMMARY | 2025-04-29 17:04 | XMS_ITS | Data Portability ---
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 Plan of Treatment Reminders Order Date Submit Date Provider Last Modified By Organization Details Last Modified Time Details Appointments None recorded. Lab CBC 2024 025 [facility], [address] [facility], [place], [address], 17:11:35 CMP, serum or plasma 2024 025 [facility], [address] [facility] [address], [place], [address], 10:50:08 Referral None recorded. Procedures None recorded. Surgeries None recorded. Imaging [place], hepatobil iary scan [address] [facility], [address] [place], [address], 09:01:41 Medication Orders Ambien 5 mg tablet 2024 025 [facility], [address], [place], [address], 16:36:21 pantopraz ole 40 mg tablet,de layed release 2024 025 [facility], [address], [place], [address], 5 16:36:21 venlafaxi ne ER 150 mg capsule,e xtended release 24 hr 2024 025 [facility] 15, [address], [place], [address], 5 16:36:22 ondansetr on HCl 4 mg tablet 2024 [facility] 15, [address], [place], [address], 5 16:36:18 nystatin 100,000 unit/mL oral suspensio n 2024 [facility] 15, [address], [place], [address], 5 05:01:08 amlodipin e 5 mg tablet 2024 025 [facility] 15, [address], [place], [address], 5 17:47:42 venlafaxi ne ER 75 mg capsule,e xtended release 24 hr 2024 025 [facility] 15, [address], [place], [address], 5 17:47:40 amoxicill in 875 mg-potass ium clavulana te 125 mg tablet 2024 025 [facility] 15, [address] [address], [address], 17:32:02 promethaz ine-DM 6.25 mg-15 mg/5 mL oral syrup 2024 025 [facility] 15, [address], [place], [address], 15:54:21 sertralin e 50 mg tablet 2024 025 [facility] 15, [address], [place], [address], 15:48:08 prednison e 20 mg tablet 2024 025 [facility] 15, [address], [place], [address], 15:47:37 allopurin ol 300 mg tablet 2024 025 [facility] 15, [address], [place], [address], 15:33:16 Patient TargetsNo targets recorded. Patient InstructionsNo instructions recorded. Reason for Referral None Reported. Results Created Date Observation Date Name Description Value Unit Range Abnormal Flag Note LastModifiedBy Organization Detail LastModifiedTime 02/14/2002/13/2025 CBC WBC 12.8 x10 4.0-10 .5 high Not Available [facility] [address], [place], [address], 02/13/2025 17:11:34 02/14/2002/13/2025 CBC RBC 4.78 x10 3.50-5 .50 Not Available [facility] [address], [place], [address], 02/13/2025 17:11:34 02/14/2002/13/2025 CBC HGB 15.9 g/dL 12.0-1 6.0 Not Available [facility] [address] [facility], [place], [address], 02/13/2025 17:11:34 02/14/2002/13/2025 CBC HCT 48.7 % 37.0-4 7.0 high Not Available [facility] [address] [facility] [facility] [address], [place], [address], 02/13/2025 17:11:34 02/14/2002/13/2025 CBC MCV 101.8 fL 80.0-9 9.9 high Not Available [facility] [address] [facility] [address], [place], [address], 02/13/2025 17:11:34 02/14/2002/13/2025 CBC MCH 33.3 pg 27.0-3 2.0 high Not Available [facility] [address] [facility] [address], [place], [address], 02/13/2025 17:11:34 02/14/2002/13/2025 CBC MCHC 32.7 g/dL 32.0-3 6.0 Not Available [facility] [address] [facility] [address], [place], [address], 02/13/2025 17:11:34 02/14/2002/13/2025 CBC RDW 14.4 % 11.5-1 4.5 Not Available [facility] [address] [facility] [address], [place], [address], 02/13/2025 17:11:34 02/14/2002/13/2025 CBC plt 322.9 x10 140.0- 451.0 Not Available [facility] [address] [facility] [facility] [address], [place], [address], 02/13/2025 17:11:34 02/14/20 02/13/2025 CBC lymphocytes % 26.3 % 20.0-5 0.0 Not Available [facility] [address] [facility], [place], [address], 02/13/2025 17:11:34 02/14/20 25 02/13/2025 CBC granulcytes % 64.2 % 30.0-7 0.0 Not Available [facility] [address] [facility], [place], [address], 02/13/2025 17:11:34 02/14/20 25 02/13/2025 CBC monocytes % 8.7 % 2.0-16 .0 Not Available [facility] [address] [facility], [place], [address], 02/13/2025 17:11:34 02/14/20 25 02/13/2025 CBC granulcytes# 8.2 x10 Not Mya ilable [facility] [address] [facility], [place], [address], 02/13/2025 17:11:34 02/14/20 25 02/13/2025 CBC lymphocytes # 3.4 x10 Not Available [facility] [address] [facility], [place], [address], 02/13/2025 17:11:34 02/14/20 25 02/13/2025 CBC monocytes # 1.1 x10 Not Avai lable [facility] [address] [facility], [place], [address], 02/13/2025 17:11:34 02/14/20 25 02/16/2025 CMP (FEMA LE) glucose 142.0 mg/dL 60.0-9 9.0 high Not Available [facility] [address] [facility], [place], [address], 02/16/2025 10:50:08 02/14/20 25 02/16/2025 CMP (FEMA LE) BUN (blood urea nitrogen) 11.0 mg/dL 10.0-2 6.0 Not Available [facility] [address] [facility], [place], [address], 02/16/2025 10:50:08 02/14/20 25 02/16/2025 CMP (FEMA LE) creatinine (serum) 1.0 mg/dL 0.4-1. 5 Not Available [facility] [address] [facility] [address], [place], [address], 02/16/2025 10:50:08 02/14/2002/16/2025 CMP (FEMA LE) BUN/creatini ne ratio 11.00 ratio Not Available [facility] [address] [facility] [address], [place], [address], 02/16/2025 10:50:08 02/14/20 25 02/16/2025 CMP (FEMA LE) eGFR calculated 62.6 Not Available [facility] [address] [facility] [address], [place], [address], 02/16/2025 10:50:08 02/14/20 25 02/16/2025 CMP (FEMA LE) total protein 7.3 g/dL 6.0-8. 5 Not Available [facility] [address] [address], [place], [address], 02/16/2025 10:50:08 02/14/2002/16/2025 CMP (FEMA LE) total bilirubin 0.7 mg/dL 0.2-1. 3 Not Available [facility] [address] [address], [place], [address], 02/16/2025 10:50:08 02/14/20 25 02/16/2025 CMP (FEMA LE) albumin 4.2 g/dL 3.5-5. 5 Not Available [facility] [address] [facility], [place], [address], 02/16/2025 10:50:08 02/14/20 25 02/16/2025 CMP (FEMA LE) globulin 3.1 calc Not Available [facility] [address] [facility], [place], [address], 02/16/2025 10:50:08 02/14/20 25 02/16/2025 CMP (FEMA LE) AST (SGOT) 77.0 U/L 0.0-46 .0 high Not Available [facility] [address] [facility], [place], [address], 02/16/2025 10:50:08 02/14/20 25 02/16/2025 CMP (FEMA LE) altv (SGPT) 50.0 U/L 13.0-6 9.0 normal Not Available [facility] [address] [facility], [place], [address], 02/16/2025 10:50:08 02/14/20 25 02/16/2025 CMP (FEMA LE) A/G ratio 1.4 ratio Not Available [facility] [address] [facility] [address], [place], [address], 02/16/2025 10:50:08 02/14/20 25 02/16/2025 CMP (FEMA LE) ALP phos 142.0 U/L 30.0-1 40.0 abnormal Not Available [facility] [address] [facility] 1, [place], [address], 02/16/2025 10:50:08 02/14/20 25 02/16/2025 CMP (FEMA LE) calcium 9.3 mg/dL 8.4-10 .5 Not Available [facility] [address] [facility] [address], [place], [address], 02/16/2025 10:50:08 02/14/2002/16/2025 CMP (FEMA LE) sodium 139.0 mmol/ L 136.0- 145.0 Not Available [facility] [address] [facility] [address], [place], [address], 02/16/2025 10:50:08 02/14/20 25 02/16/2025 CMP (FEMA LE) potassium 3.4 mmol/ L 3.5-5. 1 low Not Available [facility] [address] [facility] [address], [place], [address], 02/16/2025 10:50:08 02/14/20 25 02/16/2025 CMP (FEMA LE) chloride 104.0 mmol/ L 98.0-1 10.0 normal Not Available [facility] [address] [facility] [address], [place], [address], 02/16/2025 10:50:08 02/14/2002/16/2025 CMP (FEMA LE) C02 24.0 mmol/ L 22.0-3 1.0 Not Available [facility] [address] [facility] [address], [place], [address], 02/16/2025 10:50:08 02/14/20 25 02/16/2025 CMP (FEMA LE) anion gap 11.0 calc Not Available [facility] [address] [facility] [address], [place], [address], 02/16/2025 10:50:08 02/14/2002/16/2025 CMP (FEMA LE) osmolality 288.8 calc Not Available [facility] [address] [facility] [address], [place], [address], 02/16/2025 10:50:08 10/15/20 25 03/18/2025 NM, hepat obili la scan No observ ation record ed. [facility] [address] [place], [address], 03/18/2025 17:30:00 Result Notes None recorded. Problems Name Problem SNOMED Code Status Onset Date Resolution Date Notes Provider Name and Address Organization Details Recorded Time Irritable bowel syndrome 14391352 Active 2021 JAE dye, [facility] 14:55:22 Obesity 303614377 Active 2021 JAE dye, [facility] 14:55:22 Depressiv e disorder 23370239 Active 2021 JAE dye [facility] 5 14:55:22 Hypothyro idism 25404594 Active 2021 JAE NOLEN null, [facility] 5 14:55:22 Insomnia 167560002 Active 2021 JAE BARAHONAMEN null, [facility] 5 14:55:22 Generaliz ed anxiety disorder 06155612 Active 2021 JAE NOLEN null, [facility] 5 14:55:22 Smoker 08110176 Active 2021 JAE BARAHONAMEN null, [facility] 5 14:55:23 Migraine 47446762 Active 2021 JAE NOLEN null, [facility] 5 14:55:22 Hypertens marquita disorder 54356774 Active 2021 JAE NOLEN null, [facility] 5 14:55:22 Gastroeso phageal reflux disease 723219001 Active 2021 JAE dye, [facility] 5 14:55:22 Supravent ricular tachycard ia 3811893 Active 2023 JAE dye, [facility] 5 14:55:23 Allergic rhinitis 28433100 Active 2023 JAE dye, [facility] 5 14:55:23 Renal impairmen t 807427112 Active 2023 Jennifer Nichols MD [address] [place] [address], [address], [facility] 5 16:26:26 Acute pyeloneph ritis 31772240 Completed 202310/07/2024 JAE dye, [facility] 5 14:55:43 Chronic kidney disease 358090670 Active 2023 JAE dye, [facility] 5 14:55:23 Pain of multiple joints 17202914 Active 2023 JAE dye, [facility] 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 5 15:28:07 Acute bacterial sinusitis 96713336 Active 2024 Jennifer Nichols MD [address] [place] [address], [address], [facility] 5 16:52:01 Moderate major depressio n 262765 Active 2024 Jennifer Nichols MD [address] [place] [address], [address], [facility] 16:52:11 Candidias is of mouth 42470724 Active 2024 Jennifer Nichols MD [address] [place] [address], [address], [facility] 18:04:30 Right upper quadrant pain 744767498 Active 2024 Jennifer Nichols MD [address] [place] [address], [address], [facility] 16:23:49 Primary insomnia 3804614 Active 2024 Jennifer Nichols MD [address] [place] [address], [address], [facility] 16:24:15 Problem Notes None recorded. Procedures Surgical History Date Name Laterality Status Provider Name and Address Organization Details Recorded Time Carpal tunnel surgery completed [facility] 10/01/2023 13:35:43 Total Hysterectomy completed [facility] 10/01/2023 13:35:47 Back Surgery completed [facility] 10/01/2023 13:35:52 Imaging Results None recorded. Procedure Notes None recorded. Medical Equipment None Reported. Allergies Allergen ID Allergen Name Allergen Category Reaction Reaction Severity Criticality Documentation Date Start Date Code Code System Note Provider Name and Address Organization Details Recorded Time 12525 acetamino phen / oxycodone medicatio n rash mild low 12/30/2022 19215 3 RxNorm [facility] 15:51:31 91275 rofecoxib medicatio n Not available Not available Not available 12/30/2022 24507 8 RxNorm Shaista Brittny [facility] 13:34:37 Medications Name Sig Start Date Stop [...] and Address Organization Details Last Updated DateTime 10/07/2024 152.4 cm 32.2 kg/m2 48162.74 g 100 /min 134/100 mm[Hg] JAE NOLEN [facility] 5 15:03:06 Date Recorded Body height Body mass index (BMI) Body weight Oxygen saturation Heart rate Body temperature Systolic And Diastolic Provider Name and Address Organization Details Last Updated DateTime 5 152.4 cm 32.8 kg/m2 38175.5 2 g 98 % 119 /min 99 [degF] 132/100 mm[Hg] , [facility] 5 16:06:08 Date Recorded Body height Body mass index (BMI) Body weight Oxygen saturation Heart rate Systolic And Diastolic Provider Name and Address Organization Details Last Updated DateTime 5 152.4 cm 33.2 kg/m2 40561.7 g 97 % 78 /min 152/100 mm[Hg] [facility] 5 17:04:16 Date Recorded Body height Body mass index (BMI) Body weight Oxygen saturation Heart rate Body temperature Systolic And Diastolic Provider Name and Address Organization Details Last Updated DateTime 5 152.4 cm 34.4 kg/m2 94737.3 6 g 98 % 113 /min 98.3 [degF] 150/74 mm[Hg] Maritza De La Garza [facility] 15:54:57 Date Recorded Body height Body mass index (BMI) Body weight Heart rate Systolic And Diastolic Provider Name and Address Organization Details Last Updated DateTime 02/13/2025 154.94 cm 32.3 kg/m2 23778.3 g 120 /min 155/95 mm[Hg] JAE NOLEN [facility] 15:46:44 Social History Question Answer Notes LastModified by [employer] Details LastModified Time Tobacco Smoking Status Current Every Day Smoker Shaista Brittny dye [facility] 10/01/2023 13:35:30 What Was The Date Of Your Most Recent Tobacco Screening? 02/13/2025 Information not available 02/13/2025 Sex: Unknown Functional Status Question Answer Note LastModified by [employer] Details LastModified Time Do you use any illicit or recreational drugs? No [email or web address] Information not available 07/27/2023 What is your [...] N Breast Cancer N Blood Transfusion N Hypothyroidism N Depression N COPD N Lung Disease N Defects or Inherited Disease N Developmental or Behavioral Disorders N Breast Problem N Difficulty Swallowing N Anesthesia Complications N Anxiety Disorder N Meniere's disease N Muscle, Joint, or Bone Problems N [...] N Heart Disease N Pulmonary Embolism N Chronic Ear Infections N Pre-Eclampsia N Hypertension Y Chicken Pox N Autism Spectrum Disorder (ASD) N Osteoporosis N Thrombophilias N Gynecological HistoryNo gynecological history recorded. Obstetrics History GPAL:G 0 P 0 0 0 0 Immunizations Vaccine Type Date Status Note Provider Nam e and Address Organization Details Recorded Time Influenza, split virus, trivalent, preservative 4 completed CARLOS BARBA PA-C [address] [place], [address], [facility] 03/25/2023 14:12:15 COVID-19 vaccine, vector-nr, rS-Ad26, PF, 0.5 mL 1 completed CARLOS BARBA PA-C [address] [place] [address], [address], [facility] 03/25/2023 14:12:15 Tdap 8 completed CARLOS BARBA PA-C [address] [place], [address], [facility] 03/25/2023 14:12:15 Influenza, split virus, trivalent, PF 6 completed CARLOS BARBA PA-C [address] [place], [address], [facility] 03/25/2023 14:12:15 tetanus toxoid, adsorbed 4 completed CARLOS BARBA PA-C [address] [place], [address], [facility] 03/25/2023 14:12:15 Influenza, split virus, quadrivalent, PF 8 completed CARLOS BARBA PA-C [address] [place] [address], [address], [facility] 03/25/2023 14:12:15 Influenza, split virus, quadrivalent, preservative 3 completed Shaista dye [facility] 10/01/2023 13:41:02 Past Encounters Encounter ID Performer Location Encounter Start Date Encounter Closed Date Diagnosis/Indication Diagnosis SNOMED-CT Code Diagnosis ICD10 Code Diagnosis IMO Codes Diagnosis Note [id number] CARLOS BARBA PA-C [facility] ([facility]) [address] [place] [id number] 03/25/2023 14:02:40 03/25/2023 14:58:43 Abrasion of skin of left upper arm 6396908736 2482833 S40.812D reassuranc e that her abrasion was not infected.W radha bid. Pat dry. apply thin layer of mupirocin, then cover until healed. [id number] Jennifer Nichols MD [facility] ([facility]) [address] [place] [id number] 07/27/2023 15:37:21 07/27/2023 17:04:09 Hypertensive disorder 94836709 I10 Supraventr icular tachycardia 2221942 I47.10 Allergic rhinitis 864485 04 J30.9 [id number] ERON SALGADO [facility] ([facility]) [address] [place] [id number] 10/01/2023 13:30:06 10/01/2023 15:11:05 Pain of multiple joints 51049502 M25.50 No systemic s/s today. Discussed use of prednisone .F/u if PCP if symptoms worsen or do not improve [id number] Jennifer Nichols MD [facility] ([facility]) [address] [place] [id number] 10/22/2023 14:58:20 10/22/2023 17:33:38 Pain of right shoulder joint 9176238914 6109864 M25.511 Due to this severe pain and greatly decreased range of motion I believe that we need to get an MRI of the shoulder and I believe that she should take a couple of weeks off work. Pain of le ft shoulder joint 7426761111 3468806 M25.512 Pain of ri ght hip joint 1070995984 58542 M25.551 Renal impairment 3407573 03 N28.9 [id number] Jennifer Nichols MD [facility] ([facility]) [address] [place] [id number] 11/06/2023 15:37:42 11/06/2023 17:15:55 Pain of left shoulder joint 8585016298 0299038 M25.512 Pain of ri ght shoulder joint 8652510361 5495157 M25.511 MRI is scheduled for 11/19/23. Appt. with Dr. Neely the following week. Pain of bi lateral hip joints 9283285482 6698065 M25.551 M25.552 stable to worsening. [id number] Jennifer Nichols MD [facility] ([facility]) [address] [place] [id number] 12/25/2023 15:28:47 12/25/2023 16:35:01 Acute pyelonephritis 71391675 N10 slow improvemen t History of operative procedure on shoulder 456533797 Z98.890 right Chronic ki dney disease 921457771 N18.9 Pain of le ft shoulder joint 6426593885 2643342 M25.512 followed by orthopedic surgery. [id number] Bertrand Davis DO [facility] ([facility]) [address] [place] [id number] 01/14/2024 16:36:32 01/16/2024 12:02:41 Dysuria 22545088 R30.0 Acute urin la tract infection 145564398 N39.0 Acute pyelonephritis 366 21785 N10 I reviewed UA results and discussed with pt. We will start antibiotic s. Pt will increase oral fluids and can use cranberry. Return to office with no improvemen t or any problems. Go to ER with severe worsening or severe problems.W e will obtain urine culture [id number] Jennifer Nichols MD [facility] ([facility]) [address] [place] [id number] 01/22/2024 15:42:54 01/22/2024 17:21:55 Recurrent urinary tract infection 524758733 N39.0 Pain of mu ltiple joints 45248190 M25.50 Pain of le ft shoulder joint 0462519564 1805942 M25.512 followed by orthopedic surgery. [id number] Jennifer Nichols MD [facility] ([facility]) [address] [place] [id number] 02/25/2024 16:04:02 02/25/2024 17:16:25 Pain of left shoulder joint 4533188248 3604726 M25.512 followed by orthopedic surgery. Pain of mu ltiple joints 81626497 M25.50 [id number] Jennifer Nichols MD [facility] ([facility]) [address] [place] [id number] 5 03/12/2024 15:12:24 03/12/2024 21:34:41 Hypertensive disorder 78235342 I10 Supraventr icular tachycardia 1147047 I47.10 Generalize d anxiety disorder 98500961 F41.1 Pain of le ft shoulder joint 7783196438 2201032 M25.512 followed by orthopedic surgery. [id number] Bertrand Davis DO [facility] ([facility]) [address] [place] [id number] 5 03/17/2024 15:09:03 03/17/2024 16:00:59 Dysuria 48527144 R30.0 Acute urin la tract infection 565780913 N39.0 I reviewed UA results and discussed with pt.She had recent pyelonephr itis and recurrent UTIs refractory to treatment. We will start antibiotic and send urologist due to recurring issue and upcoming orthopedic surgeries. . Pt will increase oral fluids and can use cranberry. Return to office with no improvemen t or any problems. Go to ER with severe worsening or severe problems.W e will obtain urine culture Acute pyelonephritis 366 65597 N10 recent with refractory treatment. will send to urology due to continues issues. [id number] Jennifer Nichols MD [facility] ([facility]) [address] [place] [id number] 05/12/2024 09:58:44 05/12/2024 14:17:27 Pre-surgery evaluation 436131246 Z01.818 cleared for surgery from a medical standpoint . Chronic ki dney disease 795952594 N18.9 stable to improved. Recurrent urinary tract infection 863240338 N39.0 stable at present. Will add estrogen cream. Pain of le ft shoulder joint 3644425776 9579835 M25.512 followed by orthopedic surgery. Plan for surgery on left rotator cuff soon. 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 Acute bact erial sinusitis [id number] J01.90 B96.89 90989 Moderate m ajor depression 768800 F32.1 95300 [id number] Jennifer Nichols MD [facility] ([facility]) [address] [place] [phone] 5 12/17/2024 16:42:00 12/17/2024 17:49:04 Depressive disorder [id number] F32.A Generalize d anxiety disorder [id number] F41.1 Hypertensive disorder 38 [id number] I10 [id number] ERON SALGADO [facility] ([facility]) [address] [place] [phone] 5 01/08/2025 15:46:13 01/13/2025 14:58:57 Candidiasis of mouth [id number] B37.0 55924 nystatin started. She is to do this at least 2 days after symptoms resolve. Return with problems or no improvemen t. [id number] Jennifer Nichols MD [facility] ([facility]) [address] [place] [address] 02/13/2025 15:37:33 02/16/2025 11:18:46 Generalized anxiety disorder 37765652 F41.1 Depressive disorder 3548 9007 F32.A with anxiety. Gastroesop hageal reflux disease [id number] K21.9 Right uppe r quadrant pain [id number] R10.11 470487 Primary insomnia 1738924 F51.01 13742 Renal impairment 2937362 03 N28.9 12662 she had elevated CK at ED, will recheck today. Health Concerns Section Related Observation LastModified by Organization Detai ls LastModified Time None Recorded Concern Status LastModified by Organization Details LastModified Time None Recorded Advance Directives Directive None Recorded Payers Insurance Date Sequence Insurance Name Policy Number Policy Crawford Covered Member ID Crawford Member ID Guarantor Name 03/17/2024 [place] Julia B Brege [id number] Julia B Brege 03/17/2024 [place] [facility] (INSTITUTION[facility] L) Julia B Brege [id number] Julia B Brege 03/12/2024 1 [facility] - [facility]ULTIP[facility] (PPO) [id number] Julia B Brege [id number] Julia B Brege 03/14/2024 1 [place] Julia B Brege [id number] Julia B Brege 02/16/2025 1 [employer] [place] [id number] Julia B Brege [id number] Julia B Brege 05/09/2024 [place] [facility] (INSTITUTIONA L) Julia B Brege [id number] Julia B Brege 05/09/2024 1 [place] Julia B Brege [id number] Julia B Brege 04/08/2023 1 *SELF PAY* Mi sty B Brege 11/14/2023 1 [place] Julia B Brege [id number] Julia B Brege Notes Date Note Type Note Provider Name and Address Organization Details Recorded Time 11/19/19 25 text/htm l CoughReported by PatientHPIFor associated symptoms, patient reportssputum production,nasal discharge, andhoarsenessbut reportsno fever. For quality, patient reportsproductive. For severity, patient reportsmild. For duration, patient reportsintermittent. Jennifer Nichols MD [address] [place], [address], [facility] 11/18/2024 16:57:23 12/18/19 25 text/htm l Anxiety/DepressionReported by PatientHPIFor severity, patient reportsinterference with activities of daily livingbut reportsdenies suicidal ideationsandable to maintain relationships. For associated symptoms, patient reportshigh irritability,anxiety,depressio n, andfatigue. For onset/timing, patient reportsgradual. For modifying factors, patient reportsmedications as directed (sertraline.). Sore ThroatReported by PatientHPIFor quality, patient reportsdifficulty swallowing. For associated symptoms, patient reportscoughandheadachebut reportsno fever(diarrhea as well.). For location, patient reportsbilateral. For duration, patient reportsstarted 4 day(s) ago. Jennifer Nichols MD [address] [place], [address], [facility] 12/17/2024 17:48:48 01/09/20 25 text/htm l ROS as noted in the HPI walk inx4 days white film on tongue and notices her throat is sore. Feels well otherwise. Denies sinus/nasal symptoms, fever. Eating/drinking normally. ERON SALGADO [address] [place], [address], [facility] 01/09/2025 11:25:22 02/14/20 25 text/htm l Reflux/GERDReported by PatientHPIFor severity, patient reportsworsening.stil having some significant problems with this. Anxiety/DepressionReported by PatientHPIFor severity, patient reportsmood worse,increased anxiety, andinterference with workbut reportsdenies suicidal ideationsandable to maintain relationships. For context, patient reportsno major life stressors. For associated symptoms, patient reportsdenies homicidal ideations. Jennifer Nichols MD [address] [place] [address], [phone], [facility], Adela 02/13/2025 16:36:18 OBGyn Episode No OBEpisode recorded.
--- OUTSIDE RECORDS SUMMARY | 2025-04-29 17:04 | XMS_ITS | Encounter Summary ---
Author Organization [facility] Address [address] [place] [address] Care Team Providers Care Mental Health Practitioner Name Role Phone Unavailable Primary Care Provider Unavailabl e Encounter Details Date Type Department Care Team (Latest Contact Info) Description 06/08/1997 Outpatient Historical [facility] Guille Goddard MD NO ADDRESS ON FILE Other specified aftercare following surgery (Primary Dx) Social History Tobacco Use Types Packs/Day Years Used Date Smoking Tobacco: Never Assessed Comments Unknown Sex and Gender Information Value Date Recorded Sex Assigned at Not on file 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
--- NOTE | 2025-04-29 17:12 | W.ED.ANIMALB ---
HPI - Animal Bite General: Chief Complaint: Animal Bite Stated Complaint: R leg Dog bite Time Seen by Provider: 04/29/25 17:11 Source: patient Mode of arrival: ambulatory Limitations: no limitations History of Present Illness: Patient is a 50-year-old female presents to ED today for evaluation of a dog bite to her right lower leg that she sustained just prior to arrival. 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 She states the dog bit her because it was guarding puppies. She did asked the owners of the dog was up-to-date on immunizations and they did not know. Patient states she is not sure if the animal can be quarantined. Patient states her tetanus is up-to-date. MD complaint: animal bite Onset (ago): hour(s) Animal: dog Description of animal: household pet and immunizations unknown Mechanism: bite Location - Extremities: Right: lower leg Context: provoked Associated symptoms: Reports no associated symptoms; Deny chills or fever(s) Related Data Home Medications ?Medication ?Instructions ?Recorded ?Confirmed cetirizine 10 mg tablet 10 mg PO DAILY 10/19/23 04/02/25 hydrochlorothiazide 25 mg tablet 25 mg PO DAILY 04/14/24 04/02/25 acetaminophen 325 mg tablet 650 mg PO QID PRN Fever Or Pain 09/15/24 04/02/25 (Tylenol) estradiol 0.01% (0.1 mg/gram) See Rx Instructions .Route .COMPLEX 09/15/24 04/02/25 vaginal cream metoprolol succinate 100 mg 100 mg PO DAILY 09/15/24 04/02/25 tablet,extended release 24 hr nystatin 100,000 unit/mL oral 5 ml PO QID 01/14/25 04/02/25 suspension allopurinol 300 mg tablet 300 mg PO DAILY 03/25/25 04/02/25 amlodipine 5 mg tablet 5 mg PO DAILY 03/25/25 04/02/25 ondansetron HCl 4 mg tablet 4 mg PO Q8H 03/25/25 04/02/25 pantoprazole 40 mg tablet,delayed 40 mg PO DAILY 03/25/25 04/02/25 release Previous Rx's ?Medication ?Instructions ?Recorded trazodone 100 mg tablet 300 mg (3 x 100 mg) PO .HS PRN 04/02/25 insomnia #90 tabs venlafaxine 150 mg 150 mg PO DAILY #30 caps 04/02/25 capsule,extended release 24 hr amoxicillin 875 mg-potassium 1 tab PO BID #14 tabs 04/29/25 clavulanate 125 mg tablet Allergies Allergy/AdvReac Type Severity Reaction Status Date / Time peanut Allergy Intermediate difficult Verified 04/29/25 17:08 to swallow nut - unspecified Allergy Mild Difficult Verified 04/29/25 17:08 to swallow Review of Systems Const: Denies: fever(s), chills, body aches, fatigue or malaise Musc: Reports: extremity pain; Denies: extremity swelling, joint pain, joint swelling or joint redness Skin/Breast: Reports: other (dog bite right lower leg) PFSH ED PFSH: Medical History Psychiatric care Osteoarthritis of left shoulder Weakness of left shoulder Acromioclavicular joint arthritis Rotator cuff tear arthropathy of right shoulder Impingement syndrome of right shoulder Hypertension Surgical History S/P shoulder surgery Date of procedure: May 13, 2024 Pre-op diagnosis: Left shoulder impingement and acromioclavicular and glenohumeral joint degenerative osteoarthritis with possible rotator cuff tear Procedure done: Left shoulder acromioplasty with bursectomy and distal clavicle resection. Surgeon: Whit Neely MD S/P shoulder surgery Date of Surgery: 11/29/23 Surgery: Right shoulder acromioplasty with bursectomy and distal clavicle resection. Debridement of rotator cuff hematoma. Surgeon: Dr. Florinda MD Social History Smoking and tobacco/nicotine status: current every day tobacco/nicotine user Alcohol intake: never Substance/Drug Use: never Physical Exam Const: COMMON NORMALS: no acute distress, average body habitus, patient oriented x3, no limitations, healthy appearing, alert and well nourished Extremity: COMMON NORMALS: full ROM, capillary refill normal, no clubbing, cyanosis or edema, no calf tenderness and no pedal edema GENERAL: Yes normal exam except as noted RIGHT LOWER EXTREMITY: Yes lower leg EXTREMITY IMAGE (FRONT):  1. small dog bite lateral R lower leg; no erythema, streaking, discharge Neuro: COMMON NORMALS: patient oriented x3, moves all extremities, no focal motor deficits and no sensory deficits noted SENSORIUM/ORIENTATION: Yes alert Skin: NARRATIVE SKIN EXAM: dog bite R lower leg Course Vital Signs: Vital signs: Vital Signs Temperature 97.8 F 04/29/25 17:04 Pulse Rate 96 04/29/25 17:04 Blood Pressure 125/80 04/29/25 17:04 Pulse Oximetry 99 04/29/25 17:04 Oxygen Delivery Me thod Room Air 04/29/25 17:04 MDM - Animal Bite Medical Decision Making Patient here for a dog bite to her right lower leg. Dog is not up-to-date on immunizations. Patient does not feel the dog can reliably be quarantined. She will be started on rabies PEP. Will place her on prophylactic antibiotics. Her tetanus is up-to-date. Wound care/infection precautions discussed. She will be given a schedule upon discharge for the remainder of her rabies series. Differential Diagnosis Likely bite by animal and dog bite Medical Records I reviewed the patient's medical records. No radiology studies performed this visit Discharge Plan Discharge Patient Disposition: Home Clinical Impression: Dog bite of right lower leg Qualifiers: Encounter type: initial encounter Qualified Code(s): S81.851A - Open bite, right lower leg, initial encounter Condition: Stable Prescriptions: New amoxicillin-pot clavulanate 875-125 mg tablet 1 tab PO BID Qty: 14 0RF No Action trazodone 100 mg tablet 300 mg PO .HS PRN (Reason: insomnia) Qty: 90 2RF venlafaxine 150 mg capsule,extended release 24hr 150 mg PO DAILY Qty: 30 2RF hydrochlorothiazide 25 mg tablet 25 mg PO DAILY ondansetron HCl 4 mg tablet 4 mg PO Q8H amlodipine 5 mg tablet 5 mg PO DAILY pantoprazole 40 mg tablet,delayed release (DR/EC) 40 mg PO DAILY allopurinol 300 mg tablet 300 mg PO DAILY cetirizine 10 mg tablet 10 mg PO DAILY estradiol 0.01 % (0.1 mg/gram) cream See Rx Instructions .ROUTE .COMPLEX Rx Instructions: INSERT 1 GRAM VAGINALLY TWICE A WEEK FOR RECURRENT UTI acetaminophen [Tylenol] 325 mg Tablet 650 mg PO QID PRN (Reason: Fever Or Pain) metoprolol succinate 100 mg tablet extended release 24 hr 100 mg PO DAILY nystatin 100,000 unit/mL suspension 5 ml PO QID Discharge Orders: Discharge ED (Routine); Ordered 04/29/25 Ordered By: Mayela Del Rio Referrals: Chato Williamson MD [Primary Care Provider, [facility]] Patient Instructions: Rabies Vaccine (By injection), Rabies Immune Globulin (By injection), Animal Bite (ED), Patient Portal & Manisha Instructions Activity Restrictions/Additional Instructions: Keep wound clean with warm soap and water twice daily. Monitor for signs of infection such as redness, swelling, increased pain, or drainage. Please seek medical re-evaluation if these occur. Fill antibiotics and begin them immediately. You should have been provided a schedule for the remainder of your rabies shot series to be completed through our infusion center. 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
[2025-04-29] MEDS: rabies IG 300 unit/mL SDV 1 mL 1530 UNIT IM (17:37)
[2025-04-29] MEDS: rabies vaccine 2.5 unit SDV IM (17:38)
[2025-04-29 17:49] VITALS: BP 128/95; PULSE 98; RESP 16; O2SAT 100
== END 2025-04-29 17:56 | disposition home or self-care (01) ==
PROVIDERS: Emergency Provider Physician Assistant; PCP Family Medicine
DX: S81.851A Open bite, right lower leg, initial encounter (principal); W54.0XXA Bitten by dog, initial encounter; I10 Essential (primary) hypertension; Z20.3 Contact with and (suspected) exposure to rabies; Z29.14 Encounter for prophylactic rabies immune globulin
CPT/HCPCS: 90375; 90471; 90675; 96372; 99283; J9999

== ENCOUNTER 2025-05-02 11:32 | Emergency (ER) | payer OTHER, BC, MEDICAID, SELFPAY ==
--- OUTSIDE RECORDS SUMMARY | 2024-05-26 03:10 | XMS_ITS ---
Author Organization [facility], [facility] [employer] Address [address] [place] [address] Care Team Providers Care Talent Acquisition Administrator Name Role Phone Chato Williamson Primary Care Provider ROSALEE Hernandez [phone] REASON FOR VISIT w/ ua Encounters Encounter Location Date Provider Diagnosis [facility] [address] [place] [address] 05/26/2024 ROSALEE YUSUF Recurrent UTI N39.0 ; [...] * Julia MORALES BDOB:1975 (50 yo F)Acc No.[id number]:05/26/2024 Patient: Julia REYES Provider: Carina YUSUF MD :1975 A ge:49 Y S ex:Female Date:05/26/2024 Address:[address] [place], [place] [phone] Pcp:Chato Williamson Subjective: * Chief Complaints: * 1 . W/ ua. * HPI: M igrated HPI: Ms. Morales is a 49 year old female patient referred by her PCP, Dr. Davis, for recurrent UTI and history of pyelonephritits. She was admitted to [facility] on 12/12/23-12/17/23 for right pyelonephritis, E Coli bacteremia, and acute renal failure with creatinine of 4.2 at admission. She was transferred to [facility] from 12/18/23-12/20/23. She ID consult. Was DC home [facility]/pelvic pain [...] signature of AUST IN MD MADELIN on 05/02/2025 at 11:40 AM REGULATOR TESTER Sign off status: Pending * Provider: Carina YUSUF MD Date: 07/27/2023 Generated for Molly serrano/Renae/Aricitting on: 07/02/2024 11:40 AM REGULATOR TESTER
--- OUTSIDE RECORDS SUMMARY | 2024-06-10 03:00 | XMS_ITS ---
Author Organization [facility] Address [address] [place] [address], [place] [address] Care Team Providers Care Veterinary Attendant Name Role Phone Chato Williamson Primary Care Provider Riri Canales Unavailable [phone] Shavon Webb Unavailable [phone] REASON FOR VISIT elevated creatinine/decreased GFR Encounters Encounter Location Date Provider Diagnosis [facility] [address] [place] [address] Dr [address] [place] [address] 06/10/2024 Riri Mix Plan Of Treatment No Information Progress Notes * COLETTE MORALES BDOB:1975 (50 yo F)Acc No.[id number]:06/10/2024 Progress Notes Patient: COLETTE REYES Provider: Joycelyn Mix CNP :1975 A ge:49 Y S ex:Female Date:06/10/2024 Address:[address] [place], [place] [phone] Pcp:Chato Williamson Subjective: * Chief Complaints: * e levated creatinine/decreased GFR Billing Information: * Procedure Codes: * Electronic signature of Carmenza Mix CNP on 05/02/2025 at 11:40 AM FLUID POWER MECHANIC Sign off status: Pending * Provider: Joycelyn Mix CNP Date: 0 06/10/2024 Generated for Sharmilai ng/Faxing/eTransmitting on: 07/02/2024 11:40 AM FLUID POWER MECHANIC
--- OUTSIDE RECORDS SUMMARY | 2024-07-03 03:20 | XMS_ITS ---
Author Organization [facility] Address [address] [facility] [place] [address] Care Team Providers Care Highway Painter Name Role Phone Chato Williamson Primary Care Provider Riri Canales Unavailable [phone] Shavon Webb Unavailable [phone] REASON FOR VISIT Elevated Creatinine/Decreased Medications Medication SIG (Take, Route, Frequency, Duration) Notes Start Date End Date Status HYDROcodone-Acetaminophen 5-325 MG Tablet 1 tablet as needed Orally every 6 hrs 06/10/2024 Active Metoprolol Succinate 100 MG Capsule ER 24 Hour Sprinkle 1 capsule Orally Once a day; Duration: 30 days 06/10/2024 Active Encounters Encounter Location Date Provider Diagnosis [facility], [facility] [address] [place] [address] Dr Ochoa [address] [place] [address] 07/03/2024 Riri Mix Plan Of Treatment No [...] * COLETTE MORALES BDOB:1975 (50 yo F)Acc No.[id number]:07/03/2024 Progress Notes Patient: COLETTE REYES Provider: Joycelyn Mix CNP :1975 A ge:49 Y S ex:Female Date:07/03/2024 Address:[address] [place], [place] [id number] Pcp:Chato Williamson Subjective: * Chief Complaints: * [...] of Carmenza Mix CNP on 05/02/2025 at 11:39 AM TENNIS DESK TEAM MEMBER Sign off status: Pending * Provider: Joycelyn Mix CNP Date: 0 07/03/2024 Generated for Molly serrano/Renae/eTransmitting on: 07/02/2024 11:39 AM TENNIS DESK TEAM MEMBER
[2025-05-02 11:40] VITALS: BP 123/95; PULSE 102; RESP 15; TEMP 36.5; O2SAT 97; BMI 32.1
--- NOTE | 2025-05-02 11:40 | W.ED.GENADLT ---
HPI - General Adult General: Chief complaint: General Medical Stated complaint: Needs Rabies Shot Time Seen by Provider: 05/02/25 11:35 Source: patient Mode of arrival: ambulatory Limitations: no limitations History of Present Illness: 50-year-old female who states she is bit by dog last week she is here for second rabies vaccine. States wounds healing well has no other complaints at this time. Related Data Home Medications ?Medication ?Instructions ?Recorded ?Confirmed cetirizine 10 mg tablet 10 mg PO DAILY 10/19/23 04/02/25 hydrochlorothiazide 25 mg tablet 25 mg PO DAILY 04/14/24 04/02/25 acetaminophen 325 mg tablet 650 mg PO QID PRN Fever Or Pain 09/15/24 04/02/25 (Tylenol) estradiol 0.01% (0.1 mg/gram) See Rx Instructions .Route .COMPLEX 09/15/24 04/02/25 vaginal cream metoprolol succinate 100 mg 100 mg PO DAILY 09/15/24 04/02/25 tablet,extended release 24 hr nystatin 100,000 unit/mL oral 5 ml PO QID 01/14/25 04/02/25 suspension allopurinol 300 mg tablet 300 mg PO DAILY 03/25/25 04/02/25 amlodipine 5 mg tablet 5 mg PO DAILY 03/25/25 04/02/25 ondansetron HCl 4 mg tablet 4 mg PO Q8H 03/25/25 04/02/25 pantoprazole 40 mg tablet,delayed 40 mg PO DAILY 03/25/25 04/02/25 release Previous Rx's ?Medication ?Instructions ?Recorded trazodone 100 mg tablet 300 mg (3 x 100 mg) PO .HS PRN 04/02/25 insomnia #90 tabs venlafaxine 150 mg 150 mg PO DAILY #30 caps 04/02/25 capsule,extended release 24 hr amoxicillin 875 mg-potassium 1 tab PO BID #14 tabs 04/29/25 clavulanate 125 mg tablet Allergies Allergy/AdvReac Type Severity Reaction Status Date / Time peanut Allergy Intermediate difficult Verified 04/29/25 17:08 to swallow nut - unspecified Allergy Mild Difficult Verified 04/29/25 17:08 to swallow PFSH ED PFSH: Medical History (Updated 05/02/25 @ 11:41 by Rubén Gill MD) Psychiatric care Osteoarthritis of left shoulder Weakness of left shoulder Acromioclavicular joint arthritis Rotator cuff tear arthropathy of right shoulder Impingement syndrome of right shoulder Hypertension Surgical History S/P shoulder surgery Date of procedure: May 13, 2024 Pre-op diagnosis: Left shoulder impingement and acromioclavicular and glenohumeral joint degenerative osteoarthritis with possible rotator cuff tear Procedure done: Left shoulder acromioplasty with bursectomy and distal clavicle resection. Surgeon: Whit Neely MD S/P shoulder surgery Date of Surgery: 11/29/23 Surgery: Right shoulder acromioplasty with bursectomy and distal clavicle resection. Debridement of rotator cuff hematoma. Surgeon: Dr. Florinda MD Social History Smoking and tobacco/nicotine status: current every day tobacco/nicotine user Alcohol intake: never Substance/Drug Use: never Physical Exam Const: COMMON NORMALS: patient oriented x3 HENMT: COMMON NORMALS: normocephalic and atraumatic HEAD & SCALP: normocephalic and atraumatic Eye: COMMON NORMALS: Equal, round and reactive pupils present and EOMs intact bilaterally PUPIL: Yes Equal, round and reactive pupils present Neck/C-Spine: COMMON NORMALS: full ROM and supple Chest: COMMONS NORMALS: normal inspection of the chest Resp: COMMON NORMALS: normal respiratory effort Neuro: COMMON NORMALS: patient oriented x3, moves all extremities and no focal motor deficits Psych: COMMON NORMALS: mental status grossly normal, Normal thought process present and cooperative THOUGHT PROCESS: Normal thought process present Skin: NARRATIVE SKIN EXAM: Dog bite to right lower leg wounds healing well Course Vital Signs: Vital signs: Vital Signs Temperature 97.7 F 05/02/25 11:40 Pulse Rate 102 H 05/02/25 11:40 Respiratory Rate 15 05/02/25 11:40 Blood Pressure 123/95 05/02/25 11:40 Pulse Oximetry 97 05/02/25 11:40 Oxygen Delivery Me thod Room Air 05/02/25 11:40 MDM - General Adult Medical Decision Making Patient presents here for second rabies vaccine. She has no other complaints her wound on the right lower leg is well-appearing no signs of cellulitis she is stable for discharge did give her the rabies dose here No radiology studies performed this visit Discharge Plan Discharge Patient Disposition: Home Clinical Impression: Rabies exposure Condition: Stable Prescriptions: No Action trazodone 100 mg tablet 300 mg PO .HS PRN (Reason: insomnia) Qty: 90 2RF venlafaxine 150 mg capsule,extended release 24hr 150 mg PO DAILY Qty: 30 2RF hydrochlorothiazide 25 mg tablet 25 mg PO DAILY ondansetron HCl 4 mg tablet 4 mg PO Q8H amlodipine 5 mg tablet 5 mg PO DAILY pantoprazole 40 mg tablet,delayed release (DR/EC) 40 mg PO DAILY allopurinol 300 mg tablet 300 mg PO DAILY cetirizine 10 mg tablet 10 mg PO DAILY amoxicillin-pot clavulanate 875-125 mg tablet 1 tab PO BID Qty: 14 0RF estradiol 0.01 % (0.1 mg/gram) cream See Rx Instructions .ROUTE .COMPLEX Rx Instructions: INSERT 1 GRAM VAGINALLY TWICE A WEEK FOR RECURRENT UTI acetaminophen [Tylenol] 325 mg Tablet 650 mg PO QID PRN (Reason: Fever Or Pain) metoprolol succinate 100 mg tablet extended release 24 hr 100 mg PO DAILY nystatin 100,000 unit/mL suspension 5 ml PO QID Discharge Orders: Discharge ED (Routine); Ordered 05/02/25 Ordered By: Rubén Gill Referrals: Chato Williamson MD [Primary Care Provider, Family Practice] - 4-7 days Discharge Diet: Advance as tolerated Discharge Activity: Resume usual activity Patient Instructions: Rabies Vaccine (By injection) Print Language: Slovenian Coding Level of Care Code ED Histotechnician for Cole Patel
--- OUTSIDE RECORDS SUMMARY | 2025-05-02 11:40 | XMS_ITS | Encounter Summary ---
Author Organization [facility] Address [address] [place] [address] Care Team Providers Care Employment Consultant Name Role Phone Unavailable Primary Care Provider Unavailabl e Encounter Details Date Type Department Care Team (Latest Contact Info) Description 10/02/1997 Outpatient Historical [facility] Guille Goddard MD NO ADDRESS ON FILE Other specified aftercare following surgery (Primary Dx) Social History Tobacco Use Types Packs/Day Years Used Date Smoking Tobacco: Never Assessed Comments Unknown Sex and Gender Information Value Date Recorded Sex Assigned at Not on file 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
--- OUTSIDE RECORDS SUMMARY | 2025-05-02 11:40 | XMS_ITS | Data Portability ---
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 Plan of Treatment Reminders Order Date Submit Date Provider Last Modified By Organization Details Last Modified Time Details Appointments None recorded. Lab CBC 2024 025 [facility], [address] [facility], [facility], [place], [address], 17:11:35 CMP, serum or plasma 2024 025 [facility], [address] [facility] [address], [place], [address], 10:50:08 Referral None recorded. Procedures None recorded. Surgeries None recorded. Imaging NM, hepatobil iary scan 2024 025 [facility], [address] [place], [address], 09:01:41 Medication Orders Ambien 5 mg tablet 2024 025 [facility], [address], [place], [address], 16:36:21 pantopraz ole 40 mg tablet,de layed release 2024 025 [facility], [address] [address], [place], [address], 5 16:36:21 venlafaxi ne ER 150 mg capsule,e xtended release 24 hr 2024 025 [facility] 15, [address] [address], [place], [address], 5 16:36:22 ondansetr on HCl 4 mg tablet 2024 [facility] 15, [address] [address], [place], [address], 5 16:36:18 nystatin 100,000 unit/mL oral suspensio n 2024 [facility] 15, [address] [address], [place], [address], 5 05:01:08 amlodipin e 5 mg tablet 2024 025 [facility] 15, [address], [place], [address], 5 17:47:42 venlafaxi ne ER 75 mg capsule,e xtended release 24 hr 2024 025 [facility] 15, [address] [address], [place], [address], 5 17:47:40 amoxicill in 875 mg-potass ium clavulana te 125 mg tablet 2024 025 [facility] 15, [address] [address], [address], 17:32:02 promethaz ine-DM 6.25 mg-15 mg/5 mL oral syrup 2024 025 [facility] 15, [address], [place], [address], 15:54:21 sertralin e 50 mg tablet 2024 025 [facility] 15, [address], [place], [address], 15:48:08 prednison e 20 mg tablet 2024 025 [facility] 15, [address], [place], [address], 15:47:37 allopurin ol 300 mg tablet 2024 025 [facility] 15, [address], [place], [address], 15:33:16 Patient TargetsNo targets recorded. Patient InstructionsNo instructions recorded. Reason for Referral None Reported. Results Created Date Observation Date Name Description Value Unit Range Abnormal Flag Note LastModifiedBy Organization Detail LastModifiedTime 02/14/2002/13/2025 CBC WBC 12.8 x10 4.0-10 .5 high Not Available [facility] [address] [facility] [address], [place], [address], 02/13/2025 17:11:34 02/14/2002/13/2025 CBC RBC 4.78 x10 3.50-5 .50 Not Available [facility] [address], [place], [address], 02/13/2025 17:11:34 02/14/2002/13/2025 CBC HGB 15.9 g/dL 12.0-1 6.0 Not Available [facility] [address] [facility] 1, [place], [address], 02/13/2025 17:11:34 02/14/2002/13/2025 CBC HCT 48.7 % 37.0-4 7.0 high Not Available [facility] [address] [facility] [address], [place], [address], 02/13/2025 17:11:34 02/14/2002/13/2025 CBC MCV 101.8 fL 80.0-9 9.9 high Not Available [facility] [address] [facility] [address], [place], [address], 02/13/2025 17:11:34 02/14/2002/13/2025 CBC MCH 33.3 pg 27.0-3 2.0 high Not Available [facility] [address] [facility] 1, [place], [address], 02/13/2025 17:11:34 02/14/2002/13/2025 CBC MCHC 32.7 g/dL 32.0-3 6.0 Not Available [facility] [address] [facility] 1, [place], [address], 02/13/2025 17:11:34 02/14/2002/13/2025 CBC RDW 14.4 % 11.5-1 4.5 Not Available [facility] [address] [facility] 1, [place], [address], 02/13/2025 17:11:34 02/14/2002/13/2025 CBC plt 322.9 x10 140.0- 451.0 Not Available [facility] [address] [facility] 1, [place], [address], 02/13/2025 17:11:34 02/14/20 02/13/2025 CBC lymphocytes % 26.3 % 20.0-5 0.0 Not Available [facility] [address] [facility], [place], [address], 02/13/2025 17:11:34 02/14/20 25 02/13/2025 CBC granulcytes % 64.2 % 30.0-7 0.0 Not Available [facility] [address] [facility], [place], [address], 02/13/2025 17:11:34 02/14/20 25 02/13/2025 CBC monocytes % 8.7 % 2.0-16 .0 Not Available [facility] [address] [facility], [place], [address], 02/13/2025 17:11:34 02/14/20 25 02/13/2025 CBC granulcytes# 8.2 x10 Not Mya ilable [facility] [address] [facility], [place], [address], 02/13/2025 17:11:34 02/14/20 25 02/13/2025 CBC lymphocytes # 3.4 x10 Not Available [facility] [address] [facility], [place], [address], 02/13/2025 17:11:34 02/14/20 25 02/13/2025 CBC monocytes # 1.1 x10 Not Avai lable [facility] [address] [facility], [place], [address], 02/13/2025 17:11:34 02/14/20 25 02/16/2025 CMP (FEMA LE) glucose 142.0 mg/dL 60.0-9 9.0 high Not Available [facility] [address] [facility], [place], [address], 02/16/2025 10:50:08 02/14/20 25 02/16/2025 CMP (FEMA LE) BUN (blood urea nitrogen) 11.0 mg/dL 10.0-2 6.0 Not Available [facility] [address] [facility], [place], [address], 02/16/2025 10:50:08 02/14/20 25 02/16/2025 CMP (FEMA LE) creatinine (serum) 1.0 mg/dL 0.4-1. 5 Not Available [facility] [address] [facility] [address], [place], [address], 02/16/2025 10:50:08 02/14/2002/16/2025 CMP (FEMA LE) BUN/creatini ne ratio 11.00 ratio Not Available [facility] [address] [facility] [address], [place], [address], 02/16/2025 10:50:08 02/14/20 25 02/16/2025 CMP (FEMA LE) eGFR calculated 62.6 Not Available [facility] [address] [facility] [address], [place], [address], 02/16/2025 10:50:08 02/14/20 25 02/16/2025 CMP (FEMA LE) total protein 7.3 g/dL 6.0-8. 5 Not Available [facility] [address] [address], [place], [address], 02/16/2025 10:50:08 02/14/2002/16/2025 CMP (FEMA LE) total bilirubin 0.7 mg/dL 0.2-1. 3 Not Available [facility] [address] [address], [place], [address], 02/16/2025 10:50:08 02/14/20 25 02/16/2025 CMP (FEMA LE) albumin 4.2 g/dL 3.5-5. 5 Not Available [facility] [address] [facility], [place], [address], 02/16/2025 10:50:08 02/14/20 25 02/16/2025 CMP (FEMA LE) globulin 3.1 calc Not Available [facility] [address] [facility], [place], [address], 02/16/2025 10:50:08 02/14/20 25 02/16/2025 CMP (FEMA LE) AST (SGOT) 77.0 U/L 0.0-46 .0 high Not Available [facility] [address] [facility] [address] [facility], [place], [address], 02/16/2025 10:50:08 02/14/20 25 02/16/2025 CMP (FEMA LE) altv (SGPT) 50.0 U/L 13.0-6 9.0 normal Not Available [facility] [address] [facility], [place], [address], 02/16/2025 10:50:08 02/14/20 25 02/16/2025 CMP (FEMA LE) A/G ratio 1.4 ratio Not Available [facility] [address] [facility] [address], [place], [address], 02/16/2025 10:50:08 02/14/20 25 02/16/2025 CMP (FEMA LE) ALP phos 142.0 U/L 30.0-1 40.0 abnormal Not Available [facility] [address] [facility] [address] [facility], [place], [address], 02/16/2025 10:50:08 02/14/20 25 02/16/2025 CMP (FEMA LE) calcium 9.3 mg/dL 8.4-10 .5 Not Available [facility] [address] [facility] [address], [place], [address], 02/16/2025 10:50:08 02/14/2002/16/2025 CMP (FEMA LE) sodium 139.0 mmol/ L 136.0- 145.0 Not Available [facility] [address] [facility] [address], [place], [address], 02/16/2025 10:50:08 02/14/20 25 02/16/2025 CMP (FEMA LE) potassium 3.4 mmol/ L 3.5-5. 1 low Not Available [facility] [address] [facility] [address], [place], [address], 02/16/2025 10:50:08 02/14/20 25 02/16/2025 CMP (FEMA LE) chloride 104.0 mmol/ L 98.0-1 10.0 normal Not Available [facility] [address] [facility] [address], [place], [address], 02/16/2025 10:50:08 02/14/2002/16/2025 CMP (FEMA LE) C02 24.0 mmol/ L 22.0-3 1.0 Not Available [facility] [address] [facility] [address], [place], [address], 02/16/2025 10:50:08 02/14/20 25 02/16/2025 CMP (FEMA LE) anion gap 11.0 calc Not Available [facility] [address] [facility] [address], [place], [address], 02/16/2025 10:50:08 02/14/2002/16/2025 CMP (FEMA LE) osmolality 288.8 calc Not Available [facility] [address] [facility] [address], [place], [address], 02/16/2025 10:50:08 10/15/20 25 03/18/2025 NM, hepat obili la scan No observ ation record ed. [facility] [address] [place], [address], 03/18/2025 17:30:00 Result Notes None recorded. Problems Name Problem SNOMED Code Status Onset Date Resolution Date Notes Provider Name and Address Organization Details Recorded Time Irritable bowel syndrome 79810447 Active 2021 JAE dye, [facility] 14:55:22 Obesity 137089448 Active 2021 JAE dye, [facility] 14:55:22 Depressiv e disorder 40212697 Active 2021 JAE dye [facility] 5 14:55:22 Hypothyro idism 70424937 Active 2021 JAE NOLEN null, [facility] 5 14:55:22 Insomnia 191048814 Active 2021 JAE BARAHONAMEN null, [facility] 5 14:55:22 Generaliz ed anxiety disorder 51752753 Active 2021 JAE NOLEN null, [facility] 5 14:55:22 Smoker 79700219 Active 2021 JEA BARAHONAMEN null, [facility] 5 14:55:23 Migraine 56341524 Active 2021 JAE NOLEN null, [facility] 5 14:55:22 Hypertens marquita disorder 47453318 Active 2021 JAE NOLEN null, [facility] 5 14:55:22 Gastroeso phageal reflux disease 218585555 Active 2021 JAE dye, [facility] 5 14:55:22 Supravent ricular tachycard ia 6690596 Active 2023 JAE dye, [facility] 5 14:55:23 Allergic rhinitis 25709764 Active 2023 JAE dye, [facility] 5 14:55:23 Renal impairmen t 217400268 Active 2023 Jennifer Nichols MD [address] [place] [address], [address], [facility] 5 16:26:26 Acute pyeloneph ritis 46990410 Completed 202310/07/2024 JAE dye, [facility] 5 14:55:43 Chronic kidney disease 726141681 Active 2023 JAE dye, [facility] 5 14:55:23 Pain of multiple joints 09615006 Active 2023 JAE dye, [facility] 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 5 15:28:07 Acute bacterial sinusitis 12078631 Active 2024 Jennifer Nichols MD [address] [place] [address], [address], [facility] 5 16:52:01 Moderate major depressio n 551004 Active 2024 Jennifer Nichols MD [address] [place] [address], [address], [facility] 16:52:11 Candidias is of mouth 85195811 Active 2024 Jennifer Nichols MD [address] [place] [address], [address], [facility] 18:04:30 Right upper quadrant pain 984273297 Active 2024 Jennifer Nichols MD [address] [place] [address], [address], [facility] 16:23:49 Primary insomnia 5657291 Active 2024 Jennifer Nichols MD [address] [place] [address], [address], [facility] 16:24:15 Problem Notes None recorded. Procedures Surgical History Date Name Laterality Status Provider Name and Address Organization Details Recorded Time Carpal tunnel surgery completed [facility] 10/01/2023 13:35:43 Total Hysterectomy completed [facility] 10/01/2023 13:35:47 Back Surgery completed [facility] 10/01/2023 13:35:52 Imaging Results None recorded. Procedure Notes None recorded. Medical Equipment None Reported. Allergies Allergen ID Allergen Name Allergen Category Reaction Reaction Severity Criticality Documentation Date Start Date Code Code System Note Provider Name and Address Organization Details Recorded Time 22520 acetamino phen / oxycodone medicatio n rash mild low 12/30/2022 61500 3 RxNorm [facility] 15:51:31 03161 rofecoxib medicatio n Not available Not available Not available 12/30/2022 85966 8 RxNorm Shaista Brittny [facility], [facility] 13:34:37 Medications Name Sig Start Date Stop [...] Updated DateTime 10/07/2024 152.4 cm 32.2 kg/m2 38582.74 g 100 /min 134/100 mm[Hg] JAE NOLEN [facility] 5 15:03:06 Date Recorded Body height Body mass index (BMI) Body weight Oxygen saturation Heart rate Body temperature Systolic And Diastolic Provider Name and Address Organization Details Last Updated DateTime 5 152.4 cm 32.8 kg/m2 52776.5 2 g 98 % 119 /min 99 [degF] 132/100 mm[Hg] [facility] 5 16:06:08 Date Recorded Body height Body mass index (BMI) Body weight Oxygen saturation Heart rate Systolic And Diastolic Provider Name and Address Organization Details Last Updated DateTime 5 152.4 cm 33.2 kg/m2 54177.7 g 97 % 78 /min 152/100 mm[Hg] [facility] 5 17:04:16 Date Recorded Body height Body mass index (BMI) Body weight Oxygen saturation Heart rate Body temperature Systolic And Diastolic Provider Name and Address Organization Details Last Updated DateTime 5 152.4 cm 34.4 kg/m2 64861.3 6 g 98 % 113 /min 98.3 [degF] 150/74 mm[Hg] Maritza De La Garza [facility] 15:54:57 Date Recorded Body height Body mass index (BMI) Body weight Heart rate Systolic And Diastolic Provider Name and Address Organization Details Last Updated DateTime 02/13/2025 154.94 cm 32.3 kg/m2 08585.3 g 120 /min 155/95 mm[Hg] JAE NOLEN [facility] 15:46:44 Social History Question Answer Notes LastModified by Clzby Details LastModified Time Tobacco Smoking Status Current Every Day Smoker Shaista Brittny dye [facility] 10/01/2023 13:35:30 What Was The Date Of Your Most Recent Tobacco Screening? 02/13/2025 Information not available 02/13/2025 Sex: Unknown Functional Status Question Answer Note LastModified by Clzby Details LastModified Time Do you use any illicit or recreational drugs? No [email or web address] Information not available 07/27/2023 What is your [...] Cancer N Blood Transfusion N Depression N Hypothyroidism N Lung Disease N COPD N Developmental or Behavioral Disorders N Defects or Inherited Disease N Breast Problem N Difficulty Swallowing N Anesthesia Complications N Anxiety Disorder N Meniere's disease N Muscle, Joint, or Bone Problems N Vision or Eye Problems N Arthritis N Infertility N Polyps N Cancer N Stroke N Varicosities N Endometriosis N Bladder or Kidney Problems N High Cholesterol N Liver Disease N Fibromyalgia N Headaches N Kidney Disease N Allergies/Hayfever Y Heart [...] preservative 4 completed CARLOS BARBA PA-C [address] [place], [address], [facility] 03/25/2023 14:12:15 COVID-19 vaccine, vector-nr, rS-Ad26, PF, 0.5 mL 1 completed CARLOS BARBA PA-C [address] [place] [address], [address], [facility] 03/25/2023 14:12:15 Tdap 8 completed CARLOS BARBA PA-C [address] [place], [address], [facility] 03/25/2023 14:12:15 Influenza, split virus, trivalent, PF 6 completed CARLOS BARBA PA-C [address] [place], [address], [facility] 03/25/2023 14:12:15 tetanus toxoid, adsorbed 4 completed CARLOS BARBA PA-C [address] [place], [address], [facility] 03/25/2023 14:12:15 Influenza, split virus, quadrivalent, PF 8 completed CARLOS BARBA PA-C [address] [place] [address], [address], [facility] 03/25/2023 14:12:15 Influenza, split virus, quadrivalent, preservative 3 completed Shaista dye [facility] 10/01/2023 13:41:02 Past Encounters Encounter ID Performer Location Encounter Start Date Encounter Closed Date Diagnosis/Indication Diagnosis SNOMED-CT Code Diagnosis ICD10 Code Diagnosis IMO Codes Diagnosis Note [id number] CARLOS BARBA PA-C [facility] ([facility]) [address] [place] [id number] 03/25/2023 14:02:40 03/25/2023 14:58:43 Abrasion of skin of left upper arm 4162197133 7565698 S40.812D reassuranc e that her abrasion was not infected.W radha bid. Pat dry. apply thin layer of mupirocin, then cover until healed. [id number] Jennifer Nichols MD [facility] ([facility]) [address] [place] [id number] 5 07/27/2023 15:37:21 07/27/2023 17:04:09 Hypertensive disorder 44891503 I10 Supraventr icular tachycardia 8060744 I47.10 Allergic rhinitis 681083 04 J30.9 [id number] ERON SALGADO [facility] ([facility]) [address] [place] [id number] 10/01/2023 13:30:06 10/01/2023 15:11:05 Pain of multiple joints 75993988 M25.50 No systemic s/s today. Discussed use of prednisone .F/u if PCP if symptoms worsen or do not improve [id number] Jennifer Nichols MD [facility] ([facility]) [address] [place] [id number] 5 10/22/2023 14:58:20 10/22/2023 17:33:38 Pain of right shoulder joint 8454205975 8930104 M25.511 Due to this severe pain and greatly decreased range of motion I believe that we need to get an MRI of the shoulder and I believe that she should take a couple of weeks off work. Pain of le ft shoulder joint 7148616801 6503861 M25.512 Pain of ri ght hip joint 5101056736 96992 M25.551 Renal impairment 8848309 03 N28.9 [id number] Jennifer Nichols MD [facility] ([facility]) [address] [place] [id number] 5 11/06/2023 15:37:42 11/06/2023 17:15:55 Pain of left shoulder joint 6229868696 5620508 M25.512 Pain of ri ght shoulder joint 4124512556 3456765 M25.511 MRI is scheduled for 11/19/23. Appt. with Dr. Neely the following week. Pain of bi lateral hip joints 1273905216 5776903 M25.551 M25.552 stable to worsening. [id number] Jennifer Nichols MD [facility] ([facility]) [address] [place] [id number] 5 12/25/2023 15:28:47 12/25/2023 16:35:01 Acute pyelonephritis 34487906 N10 slow improvemen t History of operative procedure on shoulder 600251734 Z98.890 right Chronic ki dney disease 651739338 N18.9 Pain of le ft shoulder joint 1884290909 5060569 M25.512 followed by orthopedic surgery. [id number] Bertrand Davis DO [facility] ([facility]) [address] [place] [id number] 5 01/14/2024 16:36:32 01/16/2024 12:02:41 Dysuria 71498753 R30.0 Acute urin la tract infection 268659640 N39.0 Acute pyelonephritis 366 77792 N10 I reviewed UA results and discussed with pt. We will start antibiotic s. Pt will increase oral fluids and can use cranberry. Return to office with no improvemen t or any problems. Go to ER with severe worsening or severe problems.W e will obtain urine culture [id number] Jennifer Nichols MD [facility] ([facility]) [address] [place] [id number] 5 01/22/2024 15:42:54 01/22/2024 17:21:55 Recurrent urinary tract infection 650274230 N39.0 Pain of mu ltiple joints 84393058 M25.50 Pain of le ft shoulder joint 8044476394 8298583 M25.512 followed by orthopedic surgery. [id number] Jennifer Nichols MD [facility] ([facility]) [address] [place] [id number] 5 02/25/2024 16:04:02 02/25/2024 17:16:25 Pain of left shoulder joint 9119957858 1380742 M25.512 followed by orthopedic surgery. Pain of mu ltiple joints 63477550 M25.50 [id number] Jennifer Nichols MD [facility] ([facility]) [address] [place] [id number] 5 03/12/2024 15:12:24 03/12/2024 21:34:41 Hypertensive disorder 88310641 I10 Supraventr icular tachycardia 1215897 I47.10 Generalize d anxiety disorder 68332562 F41.1 Pain of le ft shoulder joint 0743994647 9506163 M25.512 followed by orthopedic surgery. [id number] Bertrand Davis DO [facility] ([facility]) [address] [place] [id number] 5 03/17/2024 15:09:03 03/17/2024 16:00:59 Dysuria 62560771 R30.0 Acute urin la tract infection 196944026 N39.0 I reviewed UA results and discussed [...] will obtain urine culture Acute pyelonephritis 366 54709 N10 recent with refractory treatment. will send to urology due to continues issues. [id number] Jennifer Nichols MD [facility] ([facility]) [address] [place] [id number] 5 05/12/2024 09:58:44 05/12/2024 14:17:27 Pre-surgery evaluation 899204731 Z01.818 cleared for surgery from a medical standpoint . Chronic ki dney disease 617578233 N18.9 stable to improved. Recurrent urinary tract infection 197889964 N39.0 stable at present. Will add estrogen cream. Pain of le ft shoulder joint 4651126862 1019534 M25.512 followed by orthopedic surgery. Plan for surgery on left rotator cuff soon. 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 Acute bact erial sinusitis 52405892 J01.90 B96.89 44203 Moderate m ajor depression 632560 F32.1 68060 [id number] Jennifer Nichols MD [facility] ([facility]) [address] [place] [id number] 5 12/17/2024 16:42:00 12/17/2024 17:49:04 Depressive disorder 55844711 F32.A Generalize d anxiety disorder 44062267 F41.1 Hypertensive disorder 38 141887 I10 [id number] ERON SALGADO [facility] ([facility]) [address] [place] [address] 01/08/2025 15:46:13 01/13/2025 14:58:57 Candidiasis of mouth 01010834 B37.0 43813 nystatin started. She is to do this at least 2 days after symptoms resolve. Return with problems or no improvemen t. [id number] Jennifer Nichlos MD [facility] ([facility]) [address] [place] [address] 02/13/2025 15:37:33 02/16/2025 11:18:46 Generalized anxiety disorder 98339386 F41.1 Depressive disorder 3548 9007 F32.A with anxiety. Gastroesop hageal reflux disease 703508347 K21.9 Right uppe r quadrant pain 759953557 R10.11 266915 Primary insomnia 8152241 F51.01 57449 Renal impairment 8117001 03 N28.9 72682 she had elevated CK at ED, will recheck today. Health Concerns Section Related Observation LastModified by Organization Detai ls LastModified Time None Recorded Concern Status LastModified by Organization Details LastModified Time None Recorded Advance Directives Directive None Recorded Payers Insurance Date Sequence Insurance Name Policy Number Policy Crawford Covered Member ID Crawford Member ID Guarantor Name 03/17/2024 [place] Julia B Brege [id number] Julia B Brege 03/17/2024 [place] [facility]IT[facility] L) Julia B Brege [id number] Julia B Brege 03/12/2024 1 [facility] (PPO) [id number] Julia B Brege [id number] Julia B Brege 03/14/2024 1 [place] Julia B Brege [id number] Julia B Brege 02/16/2025 1 [employer]MEDICA[place]AC[place] - HMO) [id number] Julia B Brege [id number] Julia B Brege 05/09/2024 [place] [facility] [place]) Julia B Brege [id number] Julia B Brege 05/09/2024 1 [place] Julia B Brege [id number] Julia B Brege 04/08/2023 1 *SELF PAY* Mi sty B Brege 11/14/2023 1 [place] Julia B Brege [id number] Julia B Brege Notes Date Note Type Note Provider Name and Address Organization Details Recorded Time 11/19/19 25 text/htm l CoughReported by PatientHPIFor associated symptoms, patient reportssputum production,nasal discharge, andhoarsenessbut reportsno fever. For quality, patient reportsproductive. For severity, patient reportsmild. For duration, patient reportsintermittent. Jennifer Nichols MD [address] [place], [address], [facility] 11/18/2024 16:57:23 12/18/19 25 text/htm l [...] 4 day(s) ago. Jennifer Nichols MD [address] [place], [address], [facility] 12/17/2024 17:48:48 01/09/20 25 text/htm l ROS as noted in the HPI walk inx4 days white film on tongue and notices her throat is sore. Feels well otherwise. Denies sinus/nasal symptoms, fever. Eating/drinking normally. ERON SALGADO [address] [place], [address], [facility] 01/09/2025 11:25:22 02/14/20 25 text/htm l Reflux/GERDReported by PatientHPIFor severity, patient reportsworsening.stil having some significant problems with this. Anxiety/DepressionReported by PatientHPIFor severity, patient reportsmood worse,increased anxiety, andinterference with workbut reportsdenies suicidal ideationsandable to maintain relationships. For context, patient reportsno major life stressors. For associated symptoms, patient reportsdenies homicidal ideations. Jennifer Nichols MD [address] [place] [address], [address], [facility], Adela 02/13/2025 16:36:18 OBGyn Episode No OBEpisode recorded.
--- OUTSIDE RECORDS SUMMARY | 2025-05-02 11:40 | XMS_ITS | Continuity of Care Document ---
Author Organization MAKENNA [facility] Adela Jensen, [facility] ([facility]) Address [address] [place] [address] Care Team Providers Care Chief Sustainability Officer Name Role Phone JENNIFER NICHOLS Primary Care Provider Assessment No assessment recorded. Plan of Treatment Reminders Order Date Submit Date Provider Last Modified By Organization Details Last Modified Time Details Appointments None recorded. Lab CBC 2024 025 [place] [facility], [address] [facility], [place], [address], 17:11:35 CMP, serum or plasma 2024 025 [facility], [address] [facility], [facility], [place], [address], 10:50:08 Referral None recorded. Procedures None recorded. Surgeries None recorded. Imaging [place], hepatobilia ry [facility] [address] [place], [address], 09:01:41 Medication Orders Ambien 5 mg tablet 2024 025 [facility], [address], [place], [address], 16:36:21 pantoprazol e 40 mg tablet,tiffany yed release 2024 025 [facility], [address], [place], [address], 16:36:21 venlafaxine ER 150 mg capsule,ext ended release 24 hr 2024 025 [facility], [address], [place], [address], 16:36:22 ondansetron HCl 4 mg tablet 2024 025 [facility], [address], [place], [address], 16:36:18 Patient TargetsNo targets recorded. Patient InstructionsNo instructions recorded. Reason for Referral None Reported. Results Created Date Observation Date Name Description Value Unit Range Abnormal Flag Note LastModifiedBy Organization Detail LastModifiedTime 02/14/2002/13/2025 CBC WBC 12.8 x10 4.0-10 .5 high Not Available [facility] [address], [place], [address], 02/13/2025 17:11:34 02/14/2002/13/2025 CBC RBC 4.78 x10 3.50-5 .50 Not Available [facility] [address], [place], [address], 02/13/2025 17:11:34 02/14/2002/13/2025 CBC HGB 15.9 g/dL 12.0-1 6.0 Not Available [facility] [address], [place], [address], 02/13/2025 17:11:34 02/14/2002/13/2025 CBC HCT 48.7 % 37.0-4 7.0 high Not Available [facility] [address], [place], [address], 02/13/2025 17:11:34 02/14/2002/13/2025 CBC MCV 101.8 fL 80.0-9 9.9 high Not Available [facility] [address], [place], [address], 02/13/2025 17:11:34 02/14/2002/13/2025 CBC MCH 33.3 pg 27.0-3 2.0 high Not Available [facility] [address], [place], [address], 02/13/2025 17:11:34 02/14/2002/13/2025 CBC MCHC 32.7 g/dL 32.0-3 6.0 Not Available [facility] [address] [facility], [place], [address], 02/13/2025 17:11:34 02/14/2002/13/2025 CBC RDW 14.4 % 11.5-1 4.5 Not Available [facility] [address], [place], [address], 02/13/2025 17:11:34 02/14/2002/13/2025 CBC plt 322.9 x10 140.0- 451.0 Not Available [facility] [address], [place], [address], 02/13/2025 17:11:34 02/14/2002/13/2025 CBC lymphocytes % 26.3 % 20.0-5 0.0 Not Available [facility] [address], [place], [address], 02/13/2025 17:11:34 02/14/2002/13/2025 CBC granulcytes % 64.2 % 30.0-7 0.0 Not Available [facility] [address] [facility], [place], [address], 02/13/2025 17:11:34 02/14/2002/13/2025 CBC monocytes % 8.7 % 2.0-16 .0 Not Available [facility] [address] [facility], [place], [address], 02/13/2025 17:11:34 02/14/2002/13/2025 CBC granulcytes# 8.2 x10 Not Mya ilable [facility] [address] [facility], [place], [address], 02/13/2025 17:11:34 02/14/2002/13/2025 CBC lymphocytes # 3.4 x10 Not Available [facility] [address] [facility], [place], [address], 02/13/2025 17:11:34 02/14/2002/13/2025 CBC monocytes # 1.1 x10 Not Avai lable [facility] [address] [facility], [place], [address], 02/13/2025 17:11:34 02/14/2002/16/2025 CMP (FEMA LE) glucose 142.0 mg/dL 60.0-9 9.0 high Not Available [facility] [address] [facility], [place], [address], 02/16/2025 10:50:08 02/14/2002/16/2025 CMP (FEMA LE) BUN (blood urea nitrogen) 11.0 mg/dL 10.0-2 6.0 Not Available [facility] [address] [facility], [place], [address], 02/16/2025 10:50:08 02/14/20 25 02/16/2025 CMP (FEMA LE) creatinine (serum) 1.0 mg/dL 0.4-1. 5 Not Available [facility] [address] [facility], [place], [address], 02/16/2025 10:50:08 02/14/20 25 02/16/2025 CMP (FEMA LE) BUN/creatini ne ratio 11.00 ratio Not Available [facility] [address] [facility], [place], [address], 02/16/2025 10:50:08 02/14/20 25 02/16/2025 CMP (FEMA LE) eGFR calculated 62.[address] [facility] [address] [facility], [place], [address], 02/16/2025 10:50:08 02/14/20 25 02/16/2025 CMP (FEMA LE) total protein 7.3 g/dL 6.0-8. 5 Not Available [facility] [address] [facility], [place], [address], 02/16/2025 10:50:08 02/14/20 25 02/16/2025 CMP (FEMA LE) total bilirubin 0.7 mg/dL 0.2-1. 3 Not Available [facility] [address] [facility], [place], [address], 02/16/2025 10:50:08 02/14/20 25 02/16/2025 CMP (FEMA LE) albumin 4.2 g/dL 3.5-5. 5 Not Available [facility] [address] [facility], [place], [address], 02/16/2025 10:50:08 02/14/20 25 02/16/2025 CMP (FEMA LE) globulin 3.1 calc Not Available [facility] [address] [facility], [place], [address], 02/16/2025 10:50:08 02/14/20 25 02/16/2025 CMP (FEMA LE) AST (SGOT) 77.0 U/L 0.0-46 .0 high Not Available [facility] [address] [facility], [place], [address], 02/16/2025 10:50:08 02/14/20 25 02/16/2025 CMP (FEMA LE) altv (SGPT) 50.0 U/L 13.0-6 9.0 normal Not Available [facility] [address] [facility], [place], [address], 02/16/2025 10:50:08 02/14/20 25 02/16/2025 CMP (FEMA LE) A/G ratio 1.4 ratio Not Available [facility] [address] [facility], [place], [address], 02/16/2025 10:50:08 02/14/20 25 02/16/2025 CMP (FEMA LE) ALP phos 142.0 U/L 30.0-1 40.0 abnormal Not Available [facility] [address] [facility], [place], [address], 02/16/2025 10:50:08 02/14/20 25 02/16/2025 CMP (FEMA LE) calcium 9.3 mg/dL 8.4-10 .5 Not Available [facility] [address] [facility], [place], [address], 02/16/2025 10:50:08 02/14/20 25 02/16/2025 CMP (FEMA LE) sodium 139.0 mmol/ L 136.0- 145.0 Not Available [facility] [address] [facility] [address], [place], [address], 02/16/2025 10:50:08 02/14/2002/16/2025 CMP (FEMA LE) potassium 3.4 mmol/ L 3.5-5. 1 low Not Available [facility] [address], [place], [address], 02/16/2025 10:50:08 02/14/20 25 02/16/2025 CMP (FEMA LE) chloride 104.0 mmol/ L 98.0-1 10.0 normal Not Available [facility] [address], [place], [address], 02/16/2025 10:50:08 02/14/20 25 02/16/2025 CMP (FEMA LE) C02 24.0 mmol/ L 22.0-3 1.0 Not Available [facility] [address], [place], [address], 02/16/2025 10:50:08 02/14/2002/16/2025 CMP (FEMA LE) anion gap 11.0 calc Not Available [facility] [address], [place], [address], 02/16/2025 10:50:08 02/14/2002/16/2025 CMP (FEMA LE) osmolality 288.8 calc Not Available [facility] [address], [place], [address], 02/16/2025 10:50:08 03/18/2003/18/2025 NM, hepat obili la scan No observ ation record ed. [facility] [address] [facility], [place], [address], 03/18/2025 17:30:00 Result Notes None recorded. Problems Name Problem SNOMED Code Status Onset Date Resolution Date Notes Provider Name and Address Organization Details Recorded Time Irritable bowel syndrome 21099687 Active 2021 JAE COOPERABNERWINNIE dye, [facility] 5 14:55:22 Obesity 059545152 Active 2021 [facility]ALA [facility] 14:55:22 Depressiv e disorder 46923824 Active 2021 JAE COOPERAYALA hardik, [facility] 5 14:55:22 Hypothyro idism 66501858 Active 2021 JAE [facility]OPERAYALA [facility] 5 14:55:22 Insomnia 769372737 Active 2021 [facility] 5 14:55:22 Generaliz ed anxiety disorder 41654210 Active 2021 JAE BROOKLYNWINNIE dye, [facility] 5 14:55:22 Smoker 60666532 Active 2021 JAE [facility]OPERAYALA [facility] 5 14:55:23 Migraine 77837616 Active 2021 JAE COOPERAYALA [facility] 5 14:55:22 Hypertens marquita disorder 55361792 Active 2021 JAE NOLEN null, [facility] 5 14:55:22 Gastroeso phageal reflux disease 196592573 Active 2021 JAE NOLEN [facility] 5 14:55:22 Supravent ricular tachycard ia 5467971 Active 2023 JAE dye [facility] 14:55:23 Allergic rhinitis 20304039 Active 2023 JAE dye, [facility] 14:55:23 Renal impairmen t 377876679 Active 2023 Jennifer Nichols MD [address] [place] [address], [address], [facility] 16:26:26 Acute pyeloneph ritis 39542887 Completed 202310/07/2024 JAE dye [facility] 14:55:43 Chronic kidney disease 899748874 Active 2023 JAE dye [facility] 14:55:23 Pain of multiple joints 74907910 Active 2023 JAE dye, [facility] 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 15:28:07 Acute bacterial sinusitis 27352129 Active 2024 Jennifer Nichols MD [address] [place] [address], [address], [facility] 5 16:52:01 Moderate major depressio n 660169 Active 2024 Jennifer Nichols MD [address] [place] [address], [address], [facility] 5 16:52:11 Candidias is of mouth 33883846 Active 2024 Jennifer Nichols MD [address] [place], [address], [facility], AgustínLIsela 5 18:04:30 Right upper quadrant pain 408968781 Active 2024 Jennifer Nichols MD [address] [place], [address], [facility], Adela 5 16:23:49 Primary insomnia 8186168 Active 2024 Jennifer Nichols MD [address] [place], [address], [facility], Adela 5 16:24:15 Problem Notes None recorded. Procedures Surgical History Date Name Laterality Status Provider Name and Address Organization Details Recorded Time Carpal tunnel surgery completed [facility], Adela 10/01/2023 13:35:43 Total Hysterectomy completed [facility], AgustínLKevinCKevin 10/01/2023 13:35:47 Back Surgery completed [facility], Adela 10/01/2023 13:35:52 Imaging Results None recorded. Procedure Notes None recorded. Medical Equipment None Reported. Allergies Allergen ID Allergen Name Allergen Category Reaction Reaction Severity Criticality Documentation Date Start Date Code Code System Note Provider Name and Address Organization Details Recorded Time 40744 acetamino phen / oxycodone medicatio n rash mild low 12/30/2022 66450 [address] Rx[address] La Gar[address] [facility], LKevinLKevinCKevin 5 15:51:31 11148 rofecoxib medicatio n Not available Not available Not available 12/30/2022 [address] [facility], AgustínLIsela 4 13:34:37 Medications Name [...] Updated DateTime 02/13/2025 154.94 cm 32.3 kg/m2 14334.3 g 120 /min 155/95 mm[Hg] JAE NOLEN [facility] 15:46:44 Social History Question Answer Notes LastModified by [employer] Details LastModified Time Tobacco Smoking Status Current Every Day Smoker Shaista dye [facility] 10/01/2023 13:35:30 What Was The Date Of Your Most Recent Tobacco Screening? 02/13/2025 Information not available 02/13/2025 Sex: Unknown Functional Status Question Answer Note LastModified by [employer] Details LastModified Time Do you use any illicit or recreational drugs? No Information not available 07/27/2023 What is your [...] Cancer N Blood Transfusion N Hypothyroidism N Lung Disease N COPD N Depression N Defects or Inherited Disease N Developmental [...] Influenza, split virus, trivalent, preservative 4 completed CAROLS BARBA PA-C [address] [place], [address], [facility] 03/25/2023 14:12:15 COVID-19 vaccine, vector-nr, rS-Ad26, PF, 0.5 mL 1 completed CARLOS BARBA PA-C [address] [place] [address], [address], [facility] 03/25/2023 14:12:15 Tdap 8 completed CARLOS BARBA PA-C [address] [place], [address], [facility] 03/25/2023 14:12:15 Influenza, split virus, trivalent, PF 6 completed CARLOS BARBA PA-C [address] [place], [address], [facility] 03/25/2023 14:12:15 tetanus toxoid, adsorbed 4 completed CARLOS BARBA PA-C [address] [place], [address], [facility] 03/25/2023 14:12:15 Influenza, split virus, quadrivalent, PF 8 completed CARLOS BARBA PA-C [address] [place], [address], [facility] 03/25/2023 14:12:15 Influenza, split virus, quadrivalent, preservative 3 completed [facility] 10/01/2023 13:41:02 Past Encounters Encounter ID Performer Location Encounter Start Date Encounter Closed Date Diagnosis/Indication Diagnosis SNOMED-CT Code Diagnosis ICD10 Code Diagnosis IMO Codes Diagnosis Note [id number] Jennifer Nichols MD [facility] ([facility]) [address] [place] [address] 02/13/2025 15:37:33 02/16/2025 11:18:46 Generalized anxiety disorder 30684752 F41.1 Depressive disorder 3548 9007 F32.A with anxiety. Gastroesop hageal reflux disease 606241842 K21.9 Right uppe r quadrant pain 745465454 R10.11 162117 Primary insomnia 7534803 F51.01 82142 Renal impairment 1415319 03 N28.9 97759 she had elevated CK at ED, will recheck today. Health Concerns Section Related Observation LastModified by Organization Detai ls LastModified Time None Recorded Concern Status LastModified by Organization Details LastModified Time None Recorded Payers Encounter Date Sequence Insurance Name Policy Number Policy Crawford Covered Member ID Crawford Member ID Guarantor Name 02/13/2025 1 [place]AC[place] [id number] Julia B Brege [id number] Julia B Brege Notes Date Note [...] reportsdenies homicidal ideations. Jennifer Nichols MD [address] [place] [address], [address], [facility], Adela 02/13/2025 16:36:18 OBGyn Episode No OBEpisode recorded.
--- OUTSIDE RECORDS SUMMARY | 2025-05-02 11:40 | XMS_ITS | Encounter Summary ---
Author Organization [facility] Address [address] [place] [address] Care Team Providers Care Adjunct Psychology Instructor Name Role Phone Unavailable Primary Care Provider Unavailabl e Encounter Details Date Type Department Care Team (Latest Contact Info) Description 2003 Outpatient Historical [facility] Oral and Maxillo Surgery- [address] [place] [address] Jim Chilel, DDS [address] [place] [phone] TOOTH POSITION ANOMALY (Primary Dx) Social History Tobacco Use Types Packs/Day Years Used Date Smoking Tobacco: Never Assessed Comments Unknown Sex and Gender Information Value Date Recorded Sex Assigned at Not on file Legal Sex 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
--- OUTSIDE RECORDS SUMMARY | 2025-05-02 11:40 | XMS_ITS | Encounter Summary ---
Author Organization [facility] Address [address] [place] [address] Care Team Providers Care Configuration Consultant Name Role Phone Unavailable Primary Care Provider Unavailabl e Encounter Details Date Type Department Care Team (Late st Contact Info) Description 05/12/2002 Inpatient Historical [facility] IN BED Valentin Ortez MD [address] [facility] [address] [place] [address] LUMBAR DISC DISPLACEMENT (Primary Dx) Social History Tobacco Use Types Packs/Day Years Used Date Smoking Tobacco: Never Assessed Comments Unknown Sex and Gender Information Value Date Recorded Sex Assigned at Not on file Legal Sex Female 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
--- OUTSIDE RECORDS SUMMARY | 2025-05-02 11:40 | XMS_ITS | Clinical Summary ---
Author Organization [facility] Address [address] 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
--- OUTSIDE RECORDS SUMMARY | 2025-05-02 11:40 | XMS_ITS | Encounter Summary ---
Author Organization [facility] Address [address] [place] [address] Care Team Providers Care Chief Recordist Name Role Phone Unavailable Primary Care Provider Unavailabl e Encounter Details Date Type Department Care Team (Latest Contact Info) Description 11/30/1999 Outpatient Historical HIS [facility] Mervin Escobedo NO ADDRESS ON FILE Unspecified symptom associated with female genital organs (Primary Dx); Abdominal pain, right lower quadrant Social History Tobacco Use Types Packs/Day Years Used Date Smoking Tobacco: Never Assessed Comments Unknown Sex and Gender Information Value Date Recorded Sex Assigned at Not on file 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
--- OUTSIDE RECORDS SUMMARY | 2025-05-02 11:40 | XMS_ITS | Patient Health Record ---
Author Organization [facility] Address [address] [place] [address] Care Team Providers Care Career Services Manager Name Role Phone Chato Williamson Primary Care Provider Riri Canales Unavailable [phone] Shavon Webb Unavailable [phone] Laura Andrews Unavailable [phone] Allergies No Known Allergies Reason For Referral [...] Problem Status W/U Status Risk Notes Problem Information temporarily unavailable Essential hypertension (I10) Active confirmed Problem Information temporarily unavailable Arthritis (M19.90) Active confirmed Problem Information temporarily unavailable Elevated serum creatinine (R79.89) Active confirmed Problem Information temporarily unavailable Difficulty urinating (R39.198) Active confirmed Problem Information temporarily unavailable Recurrent UTI (N39.0) Active confirmed Problem Information temporarily unavailable Decreased GFR (R94.4) Active confirmed Problem Information temporarily unavailable Pyelonephritis of right kidney (N12) Active confirmed Problem Information temporarily unavailable Hx of acute renal failure (Z87.448) Active confirmed Encounters Encounter Location Date Provider Diagnosis [facility] Nephrology [address] [place] [address] 06/05/2024 Riri Mix [facility] [address] [place] [address] [place] [address] 06/10/2024 Riri Mix [facility] [address] [place] [address] [address] [place] [address] 06/10/2024 Laura Andrews Recurrent UTI N39.0 Assessments Encounter Date Diagnosis (ICD Code) Assessment Notes Treatment Notes Treatment Clinical Notes Section Notes 06/10/2024 Recurrent UTI (ICD-10 - N39.0) Plan Of Treatment Pending Test Test Name Order Date UA Reflex Micro, Reflex Cult 46847, 8101 5, [id number] 06/10/2024 Insurance Providers Payer Name Payer Address Payer Phone Subscriber Number Group Number Insured Name Patient Relationship to Insured Coverage Start Date Coverage End Date [place] Medicaid [address] [place] [address] [phone] [id number] COLETTE MORALES Self - patient is the insured Medical (General) History Surgical History Surgery Date(Month/Year) Right shoulder Back surgery X4 carpal tunnel hysterectomy gastric bypass
--- OUTSIDE RECORDS SUMMARY | 2025-05-02 11:40 | XMS_ITS | Clinical Summary ---
Author Organization [facility] Address [address] [place] [address] Phone Care Team Providers Care Publicity Expert Name Role Phone Unavailable Primary Care Provider [...] Encounters Date Type Department Care Team Description 04/07/2025 External Device Data [facility] Provider, Abstract 03/25/2025 External Device Data [facility] Provider, Abstract 02/17/2025 External Device Data [facility] Provider, Abstract from Last 3 Months Social History Tobacco Use Types Packs/Day Years Used Date Smoking Tobacco: Never Smokeless Tobacco: Never Tobacco Cessation:Counseling Given: No Alcohol Use Standard Drinks/Week Comments Not Currently 0 (1 standard drink = 0.6 oz pur e alcohol) Feeling Safe Answer Date Recorded Are you in a relationship wi th someone who hurts you emotionally and/or physically? 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
--- OUTSIDE RECORDS SUMMARY | 2025-05-02 11:40 | XMS_ITS | Encounter Summary ---
Author Organization [facility] [employer] [facility] Address [address] [place] [address] Care Team Providers Care Insurance Loss Assessor Name Role Phone Unavailable Primary Care Provider Unavailabl e Encounter Details Date Type Department Care Team (Latest Contact Info) Description 06/08/1997 Outpatient Historical HIS 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
--- OUTSIDE RECORDS SUMMARY | 2025-05-02 11:40 | XMS_ITS | Patient Health Record ---
Author Organization [facility] Address [address] [place] [address] Care Team Providers Care Cellar Supervisor Name Role Phone Chato Williamson Primary Care Provider ROSALEE [facility] [phone] Allergies No Known Allergies Reason For Referral No Information Medications Medication SIG (Take, Route, Frequency, Duration) Notes Start Date End Date Status HYDROcodone-Acetaminophen 5-325 MG 1 tablet as needed Orally every 6 hrs Active Metoprolol Succinate 100 MG 1 capsule Orally Once a day Active Encounters Encounter Location Date Provider Diagnosis [facility] [address] [place] [address] 06/23/2024 ROSALEE YUSUF [facility], [facility] [address] [place] [facility] [place] [address] 06/23/2024 ROSALEE YUSUF Assessments Encounter Date Diagnosis (ICD Code) Assessment Notes Treatment Notes Treatment Clinical Notes Section Notes 05/26/2024 49 y/o F with Karthik Plan Of Treatment Pending Test Test Name Order Date BASIC METABOLIC PANEL ([id number]) 04/16/2024 Insurance Providers Payer Name Payer Address Payer Phone Subscriber Number Group Number Insured Name Patient Relationship to Insured Coverage Start Date Coverage End Date [place] [address] [place], [place] [id number] Julia Barrera Self - patient is the insured Medical (General) History Medical History History ICD Code arthritis HTN back pain difficulty urinating kidney disease waking 2x a night to urinate Surgical History Surgery Date(Month/Year) right shoulder 4 back surgeries carpal tunnel hysterectomy gastrol by pass Hospitalization History Reason Date(Month/Year) see surgeries kidney failure /blood infection
--- OUTSIDE RECORDS SUMMARY | 2025-05-02 11:40 | XMS_ITS | Encounter Summary ---
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
[2025-05-02] MEDS: rabies vaccine 2.5 unit SDV IM (11:48)
[2025-05-02 11:52] VITALS: BP 122/81; PULSE 98; O2SAT 98
== END 2025-05-02 11:50 | disposition home or self-care (01) ==
PROVIDERS: Emergency Provider Emergency Medicine; PCP Family Medicine
DX: Z20.3 Contact with and (suspected) exposure to rabies (principal); Z29.14 Encounter for prophylactic rabies immune globulin; Z72.0 Tobacco use; I10 Essential (primary) hypertension
CPT/HCPCS: 90471; 90675; 99283

== ENCOUNTER 2025-05-12 15:10 | Emergency (ER) | payer BC, MEDICAID, SELFPAY ==
--- OUTSIDE RECORDS SUMMARY | 2024-05-26 03:10 | XMS_ITS ---
Author Organization [facility], [facility] Address [address] [place] [address] Care Team Providers Care Staff Training And Development Manager Name Role Phone Chato Williamson Primary Care Provider ROSALEE Hernandez [phone] REASON FOR VISIT w/ ua Encounters Encounter Location Date Provider Diagnosis [facility] [address] [place] [address] 05/26/2024 ROSALEE YUSUF Recurrent UTI N39.0 ; [...] * Julia MORALES BDOB:1975 (50 yo F)Acc No.[id number]:05/26/2024 Patient: Julia REYES Provider: Carina YUSUF MD :1975 A ge:49 Y S ex:Female Date:05/26/2024 Address:[address] [place], [place] [phone] Pcp:Chato Williamson Subjective: * Chief Complaints: * 1 . W/ ua. * HPI: M igrated HPI: Ms. Morales is a 49 year old female patient referred by her PCP, Dr. Davis, for recurrent UTI and history of pyelonephritits. She was admitted to [facility] on 12/12/23-12/17/23 for right pyelonephritis, E Coli bacteremia, and acute renal failure with creatinine of 4.2 at admission. She was transferred to [facility] from 12/18/23-12/20/23. She ID consult. Was DC [facility]vic [facility] and [...] pyelonephritis - Z87.448 49 y/o F with Karthik Plan: * Treatment: * Billing Information: * Visit Code: * Procedure Codes: * Electronic signature of AUST IN MD MADELIN on 05/12/2025 at 05:56 PM MANAGER MOLECULAR Sign off status: Pending * Provider: Carina YUSUF MD Date: 07/27/2023 Generated for Molly serrano/Renae/Aricitting on: 07/13/2024 05:56 PM MANAGER MOLECULAR
--- OUTSIDE RECORDS SUMMARY | 2024-06-10 03:00 | XMS_ITS ---
Author Organization [facility] Address [address] [place] [address], [place] [address] Care Team Providers Care Pharmacy Resource Tech Name Role Phone Chato Williamson Primary Care Provider Riri Canales Unavailable [phone] Shavon Webb Unavailable [phone] REASON FOR VISIT elevated creatinine/decreased GFR Encounters Encounter Location Date Provider Diagnosis [facility] [address] [place] [address] Dr [address] [place] [address] 06/10/2024 Riri Mix Plan Of Treatment No Information Progress Notes * EASTONMAX COLETTE BDOB:1975 (50 yo F)Acc No.[id number]:06/10/2024 Progress Notes Patient: COLETTE REYES Provider: Joycelyn Mix CNP :1975 A ge:49 Y S ex:Female Date:06/10/2024 Address:[address] [place], [place] [phone] Pcp:Chato Williamson Subjective: * Chief Complaints: * e levated creatinine/decreased GFR Billing Information: * Procedure Codes: * Electronic signature of Carmenza Mix CNP on 05/12/2025 at 05:56 PM CORPORATE REAL ESTATE MANAGER Sign off status: Pending * Provider: Joycelyn Mix CNP Date: 0 06/10/2024 Generated for Sharmilai ng/Faeyalg/eTransmitting on: 1 07/13/2024 05:56 PM CORPORATE REAL ESTATE MANAGER
--- OUTSIDE RECORDS SUMMARY | 2024-07-03 03:20 | XMS_ITS ---
Author Organization [facility] Address [address] [place] [address] Care Team Providers Care Supervisor [place]robing Name Role Phone Chato Williamson Primary Care Provider Riri Canales Unavailable [phone] Shavon Webb Unavailable [phone] REASON FOR VISIT Elevated Creatinine/Decreased Medications Medication SIG (Take, Route, Frequency, Duration) Notes Start Date End Date Status HYDROcodone-Acetaminophen 5-325 MG Tablet 1 tablet as needed Orally every 6 hrs 06/10/2024 Active Metoprolol Succinate 100 MG Capsule ER 24 Hour Sprinkle 1 capsule Orally Once a day; Duration: 30 days 06/10/2024 Active Encounters Encounter Location Date Provider Diagnosis [facility] [address] [place] [address] Dr Ochoa [address] [place] [address] 07/03/2024 Riri Mix Plan Of Treatment No [...] * COLETTE MORALES BDOB:1975 (50 yo F)Acc No.[id number]:07/03/2024 Progress Notes Patient: COLETTE REYES Provider: Joycelyn Mix CNP :1975 A ge:49 Y S ex:Female Date:07/03/2024 Address:[address] [place], [place] [phone] Pcp:Chato Williamson Subjective: * Chief Complaints: * [...] of Carmenza Mix CNP on 05/12/2025 at 05:54 PM SURVEILLANCE DUAL RATE OFFICER Sign off status: Pending * Provider: Joycelyn Mix CNP Date: 0 07/03/2024 Generated for Molly serrano/Renae/eTransmitting on: 1 07/13/2024 05:54 PM SURVEILLANCE DUAL RATE OFFICER
--- NOTE | 2025-05-12 15:11 | W.ED.GENADLT ---
HPI - General Adult General: Chief complaint: Recheck/Abnormal Lab/Rx Stated complaint: rabies shot Time Seen by Provider: 05/12/25 15:11 Source: patient Mode of arrival: ambulatory Limitations: no limitations History of Present Illness: 50-year-old female presenting for repeat rabies vaccination. This is her third shot, was bit in the right leg, this has been healing well. She has no other concerns at this time. MD complaint: Encounter for rabies vaccination. Associated symptoms: Deny chest pain, dyspnea, headache(s), nausea, rash, palpitations or vomiting Related Data Home Medications ?Medication ?Instructions ?Recorded ?Confirmed cetirizine 10 mg tablet 10 mg PO DAILY 10/19/23 04/02/25 hydrochlorothiazide 25 mg tablet 25 mg PO DAILY 04/14/24 04/02/25 acetaminophen 325 mg tablet 650 mg PO QID PRN Fever Or Pain 09/15/24 04/02/25 (Tylenol) estradiol 0.01% (0.1 mg/gram) See Rx Instructions .Route .COMPLEX 09/15/24 04/02/25 vaginal cream metoprolol succinate 100 mg 100 mg PO DAILY 09/15/24 04/02/25 tablet,extended release 24 hr nystatin 100,000 unit/mL oral 5 ml PO QID 01/14/25 04/02/25 suspension allopurinol 300 mg tablet 300 mg PO DAILY 03/25/25 04/02/25 amlodipine 5 mg tablet 5 mg PO DAILY 03/25/25 04/02/25 ondansetron HCl 4 mg tablet 4 mg PO Q8H 03/25/25 04/02/25 pantoprazole 40 mg tablet,delayed 40 mg PO DAILY 03/25/25 04/02/25 release Previous Rx's ?Medication ?Instructions ?Recorded trazodone 100 mg tablet 300 mg (3 x 100 mg) PO .HS PRN 04/02/25 insomnia #90 tabs venlafaxine 150 mg 150 mg PO DAILY #30 caps 04/02/25 capsule,extended release 24 hr amoxicillin 875 mg-potassium 1 tab PO BID #14 tabs 04/29/25 clavulanate 125 mg tablet Allergies Allergy/AdvReac Type Severity Reaction Status Date / Time peanut Allergy Intermediate difficult Verified 04/29/25 17:08 to swallow nut - unspecified Allergy Mild Difficult Verified 04/29/25 17:08 to swallow Review of Systems General: Reports: 10 or more systems reviewed and unremarkable except in HPI and below Const: Reports: other (Encounter for rabies vaccination); Denies: fever(s), chills or fatigue Eyes: Denies: change in vision ENMT: Denies: throat pain, ear or mastoid pain or nasal discharge Card: Denies: chest pain, palpitations, swelling of feet/ankles or lightheadedness Resp: Denies: dyspnea, productive cough or wheezing GI: Denies: abdominal pain, nausea, vomiting, diarrhea or constipation : Denies: flank pain, difficulty voiding, dysuria or urinary frequency Musc: Denies: neck pain, back pain or joint pain Skin/Breast: Denies: rash Neuro: Denies: headache(s), numbness in extremities or weakness in extremities PFSH ED PFSH: Medical History Psychiatric care Osteoarthritis of left shoulder Weakness of left shoulder Acromioclavicular joint arthritis Rotator cuff tear arthropathy of right shoulder Impingement syndrome of right shoulder Hypertension Surgical History S/P shoulder surgery Date of procedure: May 13, 2024 Pre-op diagnosis: Left shoulder impingement and acromioclavicular and glenohumeral joint degenerative osteoarthritis with possible rotator cuff tear Procedure done: Left shoulder acromioplasty with bursectomy and distal clavicle resection. Surgeon: Whit Neely MD S/P shoulder surgery Date of Surgery: 11/29/23 Surgery: Right shoulder acromioplasty with bursectomy and distal clavicle resection. Debridement of rotator cuff hematoma. Surgeon: Dr. Florinda MD Social History Smoking and tobacco/nicotine status: current every day tobacco/nicotine user Alcohol intake: never Substance/Drug Use: never Physical Exam Const: COMMON NORMALS: no acute distress, patient oriented x3 and no limitations GENERAL APPEARANCE: cooperative, comfortable and well developed ORIENTATION/CONSCIOUSNESS: Yes awake, Yes oriented to person, Yes oriented to place and Yes oriented to time HENMT: COMMON NORMALS: normocephalic, atraumatic and hearing grossly normal bilaterally HEAD & SCALP: normocephalic and atraumatic Eye: COMMON NORMALS: Equal, round and reactive pupils present, EOMs intact bilaterally and conjunctivae normal CONJUNCTIVA: Yes conjunctivae normal PUPIL: Yes Equal, round and reactive pupils present Resp: COMMON NORMALS: normal respiratory effort, No retractions and No use of accessory muscles Extremity: COMMON NORMALS: full ROM and capillary refill normal NARRATIVE EXTREMITY EXAM: Scabbed over abrasion to right leg, well-healed, no signs of cellulitis Neuro: COMMON NORMALS: patient oriented x3, moves all extremities, no focal motor deficits and no sensory deficits noted SENSORIUM/ORIENTATION: Yes oriented to person, Yes oriented to place and Yes oriented to time Course Vital Signs: Vital signs: Vital Signs Temperature 97.6 F 05/12/25 15:16 Pulse Rate 110 H 05/12/25 15:16 Respiratory Rate 16 05/12/25 15:16 Blood Pressure 143/103 05/12/25 15:21 Pulse Oximetry 97 05/12/25 15:21 Oxygen Delivery Me thod Room Air 05/12/25 15:16 MDM - General Adult Medical Decision Making Patient presented for third shot in rabies vaccination series. No complaints at this point, administer vaccination and will return in a week for fourth shot. No radiology studies performed this visit Discharge Plan Discharge Patient Disposition: Home Clinical Impression: Encounter for repeat administration of rabies vaccination Condition: Stable Prescriptions: No Action trazodone 100 mg tablet 300 mg PO .HS PRN (Reason: insomnia) Qty: 90 2RF venlafaxine 150 mg capsule,extended release 24hr 150 mg PO DAILY Qty: 30 2RF hydrochlorothiazide 25 mg tablet 25 mg PO DAILY ondansetron HCl 4 mg tablet 4 mg PO Q8H amlodipine 5 mg tablet 5 mg PO DAILY pantoprazole 40 mg tablet,delayed release (DR/EC) 40 mg PO DAILY allopurinol 300 mg tablet 300 mg PO DAILY cetirizine 10 mg tablet 10 mg PO DAILY amoxicillin-pot clavulanate 875-125 mg tablet 1 tab PO BID Qty: 14 0RF estradiol 0.01 % (0.1 mg/gram) cream See Rx Instructions .ROUTE .COMPLEX Rx Instructions: INSERT 1 GRAM VAGINALLY TWICE A WEEK FOR RECURRENT UTI acetaminophen [Tylenol] 325 mg Tablet 650 mg PO QID PRN (Reason: Fever Or Pain) metoprolol succinate 100 mg tablet extended release 24 hr 100 mg PO DAILY nystatin 100,000 unit/mL suspension 5 ml PO QID Discharge Orders: Discharge ED (Routine); Ordered 05/12/25 Ordered By: Ismael Garcia Referrals: Chato Williamson MD [Primary Care Provider, [facility]] Patient Instructions: Patient Portal & Manisha Instructions Activity Restrictions/Additional Instructions: Return in a week for fourth rabies vaccination shot. Print Language: Angolan Coding Level of Care Code ED Public Address Announcer for Cole Patel
[2025-05-12 15:16] VITALS: BP 143/103; PULSE 110; RESP 16; TEMP 36.4; O2SAT 98
[2025-05-12] MEDS: rabies vaccine 2.5 unit SDV IM (15:19)
[2025-05-12 15:21] VITALS: BP 143/103; O2SAT 97
--- OUTSIDE RECORDS SUMMARY | 2025-05-12 17:54 | XMS_ITS | Encounter Summary ---
Author Organization [employer] [facility] Address [address] [place] [address] Care Team Providers Care Commercial Banker Name Role Phone Unavailable Primary Care Provider Unavailabl e Encounter Details Date Type Department Care Team (Late st Contact Info) Description 05/12/2002 Inpatient Historical HIS IN BED Valentin Ortez MD [address] [place] [address] [address] [place] [address] LUMBAR DISC DISPLACEMENT (Primary Dx) Social History Tobacco Use Types Packs/Day Years Used Date Smoking Tobacco: Never Assessed Comments Unknown Sex and Gender Information Value Date Recorded Sex Assigned at Not on file 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
--- OUTSIDE RECORDS SUMMARY | 2025-05-12 17:54 | XMS_ITS | Encounter Summary ---
Author Organization [employer] [facility] Address [address] [place] [address] Care Team Providers Care Cabin Equipment Supervisor Name Role Phone Unavailable Primary Care Provider Unavailabl e Encounter Details Date Type Department Care Team (Latest Contact Info) Description 12/02/1999 Outpatient Historical HIS [facility] Mervin Escobedo NO ADDRESS ON FILE Abdominal pain, left upper quadrant (Primary Dx) Social History Tobacco Use Types Packs/Day Years Used Date Smoking Tobacco: Never Assessed Comments Unknown Sex and Gender Information Value Date Recorded Sex Assigned at Not on file 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
--- OUTSIDE RECORDS SUMMARY | 2025-05-12 17:55 | XMS_ITS | Encounter Summary ---
Author Organization [employer] [facility] Address [address] [place] [address] Care Team Providers Care Verifier Name Role Phone Unavailable Primary Care Provider Unavailabl e Encounter Details Date Type Department Care Team (Latest Contact Info) Description 11/30/1999 Outpatient Historical HIS [facility] Mervin Escobedo NO ADDRESS ON FILE Unspecified symptom associated with female genital organs (Primary Dx); Abdominal pain, right lower quadrant Social History Tobacco Use Types Packs/Day Years Used Date Smoking Tobacco: Never Assessed Comments Unknown Sex and Gender Information Value Date Recorded Sex Assigned at Not on file 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
--- OUTSIDE RECORDS SUMMARY | 2025-05-12 17:55 | XMS_ITS | Encounter Summary ---
Author Organization [facility] Address [address] [place] [address] Care Team Providers Care Power Shovel Mechanic Name Role Phone Unavailable Primary Care Provider Unavailabl e Encounter Details Date Type Department Care Team (Latest Contact Info) Description 10/02/1997 Outpatient Historical HIS [facility] [place] [facility] Guille Goddard MD NO ADDRESS ON FILE Other specified aftercare following surgery (Primary Dx) Social History Tobacco Use Types Packs/Day Years Used Date Smoking Tobacco: Never Assessed Comments Unknown Sex and Gender Information Value Date Recorded Sex Assigned at Not on file 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
--- OUTSIDE RECORDS SUMMARY | 2025-05-12 17:55 | XMS_ITS | Encounter Summary ---
Author Organization [facility] Address [address] [place] [address] Care Team Providers Care Oil Pumper Name Role Phone Unavailable Primary Care Provider Unavailabl e Encounter Details Date Type Department Care Team (Latest Contact Info) Description 2003 Outpatient Historical [facility] Max[facility] Surgery- [address] [place] [address] Jim Chilel, DDS [address] [place] [phone] TOOTH POSITION ANOMALY (Primary Dx) Social History Tobacco Use Types Packs/Day Years Used Date Smoking Tobacco: Never Assessed Comments Unknown Sex and Gender Information Value Date Recorded Sex Assigned at Not on file 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
--- OUTSIDE RECORDS SUMMARY | 2025-05-12 17:55 | XMS_ITS | Patient Health Record ---
Author Organization [facility] Address [address] [place] [address] Care Team Providers Care Adjunct Professor Name Role Phone Chato Williamson Primary Care Provider Riri Canales Unavailable [phone] Shavon Webb Unavailable [phone] Laura Andrews Unavailable [phone] Allergies No Known Allergies Reason For Referral [...] W/U Status Risk Notes Problem Essential hypertension (34284218) Essential hypertension (I10) Active confirmed Problem Arthritis (0694778) Arthritis (M19.90) Active confirmed Problem serum creatinine raised (164048649) Elevated serum creatinine (R79.89) Active confirmed Problem Difficulty passing urine (458141684) Difficulty urinating (R39.198) Active confirmed Problem Recurrent urinary tract infection (488215531) Recurrent UTI (N39.0) Active confirmed Problem Renal function tests abnormal (556471794) Decreased GFR (R94.4) Active confirmed Problem Pyelonephritis (58517566) Pyelonephritis of right kidney (N12) Active confirmed Problem History of acute renal failure (859968915251933) Hx of acute renal failure (Z87.448) Active confirmed Encounters Encounter Location Date Provider Diagnosis [facility] [address] [place] [address] 06/10/2024 Riri Mix [facility] [address] [place] [address] [address] [place] [address] 06/05/2024 Riri Mix [facility] [address] [place] [address] [address] [place] [address] 06/10/2024 Laurajm Solomonarpan Recurrent UTI N39.0 Assessments Encounter Date Diagnosis (ICD Code) Assessment Notes Treatment Notes Treatment Clinical Notes Section Notes 06/10/2024 Recurrent UTI (ICD-10 - N39.0) Plan Of Treatment Pending Test Test Name Order Date UA Reflex Micro, Reflex Cult 85358, 8101 5, 53947 06/10/2024 Insurance Providers Payer Name Payer Address Payer Phone Subscriber Number Group Number Insured Name Patient Relationship to Insured Coverage Start Date Coverage End Date [place] Medicaid [address] [place] [address] [id number] ANDREW, COLETTE Self - patient is the insured Medical (General) History Surgical History Surgery Date(Month/Year) Right shoulder Back surgery X4 carpal tunnel hysterectomy gastric bypass
--- OUTSIDE RECORDS SUMMARY | 2025-05-12 17:56 | XMS_ITS | Encounter Summary ---
Author Organization [facility] Address [address] [place] [address] Care Team Providers Care Promotional Model Name Role Phone Unavailable Primary Care Provider Unavailabl e Encounter Details Date Type Department Care Team (Late st Contact Info) Description 05/05/2025 External Device Data STL ABSTRACTION Provider, Abstract [...] on file Legal Sex Female 1:21 AM WEATHERIZATION OPERATIONS MANAGER Gender Identity Not on file Sexual Orientation Not on file documented as of this encounter Plan of Treatment Not on file documented as of this encounter Visit Diagnoses Not on filedocumented in this encounter
--- OUTSIDE RECORDS SUMMARY | 2025-05-12 17:56 | XMS_ITS | Clinical Summary ---
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
--- OUTSIDE RECORDS SUMMARY | 2025-05-12 17:56 | XMS_ITS | Clinical Summary ---
Author Organization [employer] Address [address] 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
--- OUTSIDE RECORDS SUMMARY | 2025-05-12 17:56 | XMS_ITS | Encounter Summary ---
Author Organization [employer] [facility] Address [address] [place] [address] Care Team Providers Care Network Development Coordinator Name Role Phone Unavailable Primary Care Provider Unavailabl e Encounter Details Date Type Department Care Team (Latest Contact Info) Description 06/08/1997 Outpatient Historical [place] [facility] [place] Guille Goddard MD NO ADDRESS ON FILE Other specified aftercare following surgery (Primary Dx) Social History Tobacco Use Types Packs/Day Years Used Date Smoking Tobacco: Never Assessed Comments Unknown Sex and Gender Information Value Date Recorded Sex Assigned at Not on file 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
--- OUTSIDE RECORDS SUMMARY | 2025-05-12 17:56 | XMS_ITS | Patient Health Record ---
Author Organization [employer] [employer] Address [address] [place] [address] Care Team Providers Care Monkey Breeder Name Role Phone Chato Williamson Primary Care Provider ROSALEE Hernandez [facility] [phone] Allergies No Known Allergies Reason For Referral No Information Medications Medication SIG (Take, Route, Frequency, Duration) Notes Start Date End Date Status HYDROcodone-Acetaminophen 5-325 MG 1 tablet as needed Orally every 6 hrs Active Metoprolol Succinate 100 MG 1 capsule Orally Once a day Active Encounters Encounter Location Date Provider Diagnosis [email or web address], [employer] [address] [place] [address] 06/23/2024 ROSALEE YUSUF [email or web address], [facility] [address] [place] [address] 06/23/2024 ROSALEE YUSUF Assessments Encounter Date Diagnosis (ICD Code) Assessment Notes Treatment Notes Treatment Clinical Notes Section Notes 05/26/2024 49 y/o F with Karthik Plan Of Treatment Pending Test Test Name Order Date BASIC METABOLIC PANEL (81859) 04/16/2024 Insurance Providers Payer Name Payer Address Payer Phone Subscriber Number Group Number Insured Name Patient Relationship to Insured Coverage Start Date Coverage End Date [place] Medicaid [address] [place] [id number] Julia Barrera Self - patient is the insured Medical (General) History Medical History History ICD Code arthritis HTN back pain difficulty urinating kidney disease waking 2x a night to urinate Surgical History Surgery Date(Month/Year) right shoulder 4 back surgeries carpal tunnel hysterectomy gastrol by pass Hospitalization History Reason Date(Month/Year) see surgeries kidney failure /blood infection
== END 2025-05-12 15:38 | disposition home or self-care (01) ==
PROVIDERS: Emergency Provider Physician Assistant; PCP Family Medicine
DX: Z23 Encounter for immunization (principal)
CPT/HCPCS: 90471; 90675; 99283

== ENCOUNTER 2025-05-20 14:49 | Emergency (ER) | payer OTHER, SELFPAY ==
--- OUTSIDE RECORDS SUMMARY | 2024-05-26 03:10 | XMS_ITS ---
Author Organization [facility], [facility] Address [address] [place] [address] Care Team Providers Care Assembler Billiard Table Name Role Phone Chato Williamson Primary Care Provider ROSALEE Hernandez [phone] REASON FOR VISIT w/ ua Encounters Encounter Location Date Provider Diagnosis [facility] [address] [place] [address] 05/26/2024 ROSALEE YUSUF Recurrent UTI N39.0 ; Right flank discomfort R10.9 ; Elevated serum creatinine R74.8 ; Decreased GFR R94.4 ; Dark urine R82.998 and History of pyelonephritis Z87.448 Assessments Encounter Date Diagnosis (ICD Code) Assessment Notes Treatment Notes Treatment Clinical Notes Section Notes 05/26/2024 Recurrent UTI (ICD-10 - N39.0) 49 y/o F with Karthik 05/26/2024 Right flank discomfort (ICD-10 - R10.9) 49 y/o F with Karthik 05/26/2024 Elevated serum creatinine (ICD-10 - R74.8) 49 y/o F with Karthik 05/26/2024 Decreased GFR (ICD-10 - R94.4) 49 y/o F with Karthik 05/26/2024 Dark urine (ICD-10 - R82.998) 49 y/o F with Karthik 05/26/2024 History of pyelonephritis (ICD-10 - Z87.448) 49 y/o F with Karthik Plan Of Treatment No Information Progress Notes * Julia MORALES BDOB:1975 (50 yo F)Acc No.[id number]:05/26/2024 Patient: Julia REYES Provider: Carina YUSUF MD :1975 A ge:49 Y S ex:Female Date:05/26/2024 Address:[address] [place], [place] [phone] Pcp:Chato Williamson Subjective: * Chief Complaints: * 1 . W/ ua. * HPI: M igrated HPI: Ms. Morales is a 49 year old female patient referred by her PCP, Dr. Davis, for recurrent UTI and history of pyelonephritits. She was admitted to [facility] on 12/12/23-12/17/23 for right pyelonephritis, E Coli bacteremia, and acute renal failure with creatinine of 4.2 at admission. She was transferred to [facility] from 12/18/23-12/20/23. She ID consult. Was DC home [facility]/pelvic pain and was told she had arthritis since there were no other symptoms, then she had right shoulder surgery and was admitted for the pyelo right after. Since this time, she has had 2 E Coli + urine cultures at PCP office in 01/2024 and again 03/2024. No stones noted on imaging obtained during hospitalization. She is s/p partial hysterectomy and gastric sleeve. She denies family history of malignancy. With acute infection she has increased frequency and nocturia. She is starting to have right flank discomfort again and feels that a UTI is starting up. Denies gross hematuria or fever. She has constipation from her chronic pain medications, but takes stool softeners to maintain daily BM. She has occasional SHAUNNA. PCR returned +, treated with Macrobid and Flagyl. CT Abd/Pelvis on 04/29/24 normal, BMP shows creatinine of 1.7, GFR 31.9. She continues to have intermittent right flank discomfort. She is still taking her antibiotics from positive PCR. She is also scheduled for an elective shoulder surgery on 05/13/24. H ere today for further evlauation of the anatomy with Cystoscopy for r ecurrent UTI. * Medical History: Objective: * Vitals: Assessment: * Assessment: 1. R ecurrent UTI - N39.0 (Primary) 2 . R ight flank discomfort - R10.9? 3. E levated serum creatinine - R74.8 4 . D ecreased GFR - R94.4 5 . D ark urine - R82.998 6 . H istory of pyelonephritis - Z87.448 49 y/o F with Krathik Plan: * Treatment: * Billing Information: * Visit Code: * Procedure Codes: * Electronic signature of AUST IN MD MADELIN on 05/20/2025 at 03:57 PM PIT SUPERVISOR Sign off status: Pending * Provider: Carina YUSUF MD Date: 07/27/2023 Generated for Molly serrano/Renae/Aricitting on: 07/21/2024 03:57 PM PIT SUPERVISOR
--- OUTSIDE RECORDS SUMMARY | 2024-06-10 03:00 | XMS_ITS ---
Author Organization [facility] Address [address] [place] [address], [place] [address] Care Team Providers Care Hackler Doll Wigs Name Role Phone Chato Williamson Primary Care Provider Riri Canales Unavailable [phone] Shavon Webb Unavailable [phone] REASON FOR VISIT elevated creatinine/decreased GFR Encounters Encounter Location Date Provider Diagnosis [facility] [address] [place] [address] Dr [address] [place] [address] 06/10/2024 Riri Mix Plan Of Treatment No Information Progress Notes * COLETTE MORALES BDOB:1975 (50 yo F)Acc No.[id number]:06/10/2024 Progress Notes Patient: COLETTE REYES Provider: Joycelyn Mix CNP :1975 A ge:49 Y S ex:Female Date:06/10/2024 Address:[address] [place], [place] [phone] Pcp:Chato Williamson Subjective: * Chief Complaints: * e levated creatinine/decreased GFR Billing Information: * Procedure Codes: * Electronic signature of Carmenza Mix CNP on 05/20/2025 at 03:58 PM LEATHER BELT MAKER Sign off status: Pending * Provider: Joycelyn Mix CNP Date: 0 06/10/2024 Generated for Printi ng/Faxing/eTransmitting on: 1 07/21/2024 03:58 PM LEATHER BELT MAKER
--- OUTSIDE RECORDS SUMMARY | 2024-07-03 03:20 | XMS_ITS ---
Author Organization [facility] Address [address] [place] [address] Care Team Providers Care Media Coordinator Name Role Phone Chato Williamson Primary Care Provider Riri Canales Unavailable [phone] Shavon Webb Unavailable [phone] REASON FOR VISIT Elevated Creatinine/Decreased Medications Medication SIG (Take, Route, Frequency, Duration) Notes Start Date End Date Status HYDROcodone-Acetaminophen 5-325 MG Tablet 1 tablet as needed Orally every 6 hrs 06/10/2024 Active Metoprolol Succinate 100 MG Capsule ER 24 Hour Sprinkle 1 capsule Orally Once a day; Duration: 30 days 06/10/2024 Active Encounters Encounter Location Date Provider Diagnosis [facility] [address] [place] [address] Dr [address] [place] [address] 07/03/2024 Riri Mix Plan Of Treatment No Information History and Physical Notes * HPI (History of Present Illness) Category Sub-Category Detail Notes Category Not es : Laboratory data: 04/29/2024: 136, 3.7, 99, 25, 28, 1.7, glucose 128, calcium 9.5 02/25/2024: Hemoglobin 13.1 01/14/2024: Urine protein 3+, urine blood negative 12/25/2023: Urine protein 1+, urine blood 2+, urine bacteria trace 10/23/2023: 136, 4.6, 106, 22, 39, 1.3, glucose 109, calcium 10.2, PTH 55, phosphorus 3.0, magnesium 1.7, albumin 4.9 12/31/2022: 136, 4.2, 107, 24, 12, 1.0, glucose 119, calcium 9.6, albumin 4.1, hemoglobin 14.8, urine protein negative, urine blood negative Progress Notes * COLETTE MORALES BDOB:1975 (50 yo F)Acc No.[id number]:07/03/2024 Progress Notes Patient: COLETTE REYES Provider: Joycelyn Mix CNP :1975 A ge:49 Y S ex:Female Date:07/03/2024 Address:[address] [place], [place] [phone] Pcp:Chato Williamson Subjective: * Chief Complaints: * E levated Creatinine/Decreased * HPI: * :: Laboratory data: 04/29/2024: 136, 3.7, 99, 25, 28, 1.7, glucose 128, calcium 9.5 02/25/2024: Hemoglobin 13.1 01/14/2024: Urine protein 3+, urine blood negative 12/25/2023: Urine protein 1+, urine blood 2+, urine bacteria trace 10/23/2023: 136, 4.6, 106, 22, 39, 1.3, glucose 109, calcium 10.2, PTH 55, phosphorus 3.0, magnesium 1.7, albumin 4.9 12/31/2022: 136, 4.2, 107, 24, 12, 1.0, glucose 119, calcium 9.6, albumin 4.1, hemoglobin 14.8, urine protein negative, urine blood negative. * Medications: T akingHYDROcodone-Acetaminophen 5-325 MG Tablet 1 tablet as needed Orally every 6 hrs Metoprolol Succinate 100 MG Capsule ER 24 Hour Sprinkle 1 capsule Orally Once a day Taking HYDROcodone-Acetaminophen 5-325 MG Tablet 1 tablet as needed Orally every 6 hrs Taking Metoprolol Succinate 100 MG Capsule ER 24 Hour Sprinkle 1 capsule Orally Once a day Billing Information: * Procedure Codes: * Electronic signature of Carmenza Mix CNP on 05/20/2025 at 03:56 PM WEB DEVELOPMENT MANAGER Sign off status: Pending * Provider: Joycelyn Mix CNP Date: 0 07/03/2024 Generated for Molly serrano/Renae/eTransmitting on: 1 07/21/2024 03:56 PM WEB DEVELOPMENT MANAGER
[2025-05-20 14:53] VITALS: BP 126/86; PULSE 98; RESP 14; TEMP 36.6; O2SAT 93; BMI 32.1
--- NOTE | 2025-05-20 14:54 | W.ED.GENADLT ---
HPI - General Adult General: Chief complaint: General Medical Stated complaint: 4th rabies shot Time Seen by Provider: 05/20/25 14:53 History of Present Illness: 50-year-old female presents to the emergency room for her fourth and a series of rabies vaccinations. No complications to this point. She was initially bit on the lateral aspect of the right calf but is healing well no complaints no sign of infection Related Data Home Medications ?Medication ?Instructions ?Recorded ?Confirmed cetirizine 10 mg tablet 10 mg PO DAILY 10/19/23 04/02/25 hydrochlorothiazide 25 mg tablet 25 mg PO DAILY 04/14/24 04/02/25 acetaminophen 325 mg tablet 650 mg PO QID PRN Fever Or Pain 09/15/24 04/02/25 (Tylenol) estradiol 0.01% (0.1 mg/gram) See Rx Instructions .Route .COMPLEX 09/15/24 04/02/25 vaginal cream metoprolol succinate 100 mg 100 mg PO DAILY 09/15/24 04/02/25 tablet,extended release 24 hr nystatin 100,000 unit/mL oral 5 ml PO QID 01/14/25 04/02/25 suspension allopurinol 300 mg tablet 300 mg PO DAILY 03/25/25 04/02/25 amlodipine 5 mg tablet 5 mg PO DAILY 03/25/25 04/02/25 ondansetron HCl 4 mg tablet 4 mg PO Q8H 03/25/25 04/02/25 pantoprazole 40 mg tablet,delayed 40 mg PO DAILY 03/25/25 04/02/25 release Previous Rx's ?Medication ?Instructions ?Recorded trazodone 100 mg tablet 300 mg (3 x 100 mg) PO .HS PRN 04/02/25 insomnia #90 tabs venlafaxine 150 mg 150 mg PO DAILY #30 caps 04/02/25 capsule,extended release 24 hr amoxicillin 875 mg-potassium 1 tab PO BID #14 tabs 04/29/25 clavulanate 125 mg tablet Allergies Allergy/AdvReac Type Severity Reaction Status Date / Time peanut Allergy Intermediate difficult Verified 05/20/25 14:56 to swallow nut - unspecified Allergy Mild Difficult Verified 05/20/25 14:56 to swallow PFSH ED PFSH: Medical History Psychiatric care Osteoarthritis of left shoulder Weakness of left shoulder Acromioclavicular joint arthritis Rotator cuff tear arthropathy of right shoulder Impingement syndrome of right shoulder Hypertension Surgical History S/P shoulder surgery Date of procedure: May 13, 2024 Pre-op diagnosis: Left shoulder impingement and acromioclavicular and glenohumeral joint degenerative osteoarthritis with possible rotator cuff tear Procedure done: Left shoulder acromioplasty with bursectomy and distal clavicle resection. Surgeon: Whit Neely MD S/P shoulder surgery Date of Surgery: 11/29/23 Surgery: Right shoulder acromioplasty with bursectomy and distal clavicle resection. Debridement of rotator cuff hematoma. Surgeon: Dr. Florinda MD Social History Smoking and tobacco/nicotine status: current every day tobacco/nicotine user Alcohol intake: never Substance/Drug Use: never Physical Exam Const: COMMON NORMALS: no acute distress GENERAL APPEARANCE: cooperative and comfortable ORIENTATION/CONSCIOUSNESS: Yes awake, Yes oriented to person, Yes oriented to place and Yes oriented to time HENMT: COMMON NORMALS: normocephalic, atraumatic and hearing grossly normal bilaterally HEAD & SCALP: normocephalic and atraumatic Resp: COMMON NORMALS: normal respiratory effort, No retractions, No use of accessory muscles and clear to auscultation bilaterally AUSCULTATION: clear to auscultation bilaterally Cardio: COMMON NORMALS: regular rate, regular rhythm and No murmurs present (Cardio) RATE: regular rate RHYTHM: regular rhythm Extremity: COMMON NORMALS: normal to inspection, capillary refill normal, no clubbing, cyanosis or edema, no calf tenderness and no pedal edema OTHER: Bite is healing well no signs of infection Neuro: SENSORIUM/ORIENTATION: Yes oriented to person, Yes oriented to place and Yes oriented to time Skin: COMMON NORMALS: no rashes or lesions noted GENERAL SKIN EXAM: no rashes or lesions noted Course Vital Signs: Vital signs: Vital Signs Temperature 97.9 F 05/20/25 14:53 Pulse Rate 98 05/20/25 14:53 Respiratory Rate 14 05/20/25 14:53 Blood Pressure 126/86 05/20/25 14:53 Pulse Oximetry 93 05/20/25 14:53 MDM - General Adult Medical Decision Making Final vaccine given follow-up with primary care as needed. No radiology studies performed this visit Discharge Plan Discharge Patient Disposition: Home Clinical Impression: Need for post exposure prophylaxis for rabies Condition: Stable Prescriptions: No Action trazodone 100 mg tablet 300 mg PO .HS PRN (Reason: insomnia) Qty: 90 2RF venlafaxine 150 mg capsule,extended release 24hr 150 mg PO DAILY Qty: 30 2RF hydrochlorothiazide 25 mg tablet 25 mg PO DAILY ondansetron HCl 4 mg tablet 4 mg PO Q8H amlodipine 5 mg tablet 5 mg PO DAILY pantoprazole 40 mg tablet,delayed release (DR/EC) 40 mg PO DAILY allopurinol 300 mg tablet 300 mg PO DAILY cetirizine 10 mg tablet 10 mg PO DAILY amoxicillin-pot clavulanate 875-125 mg tablet 1 tab PO BID Qty: 14 0RF estradiol 0.01 % (0.1 mg/gram) cream See Rx Instructions .ROUTE .COMPLEX Rx Instructions: INSERT 1 GRAM VAGINALLY TWICE A WEEK FOR RECURRENT UTI acetaminophen [Tylenol] 325 mg Tablet 650 mg PO QID PRN (Reason: Fever Or Pain) metoprolol succinate 100 mg tablet extended release 24 hr 100 mg PO DAILY nystatin 100,000 unit/mL suspension 5 ml PO QID Discharge Orders: Discharge ED (Routine); Ordered 05/20/25 Ordered By: Dudley Loya Referrals: Chato Williamson MD [Primary Care Provider, Family Practice] Discharge Diet: Usual diet Discharge Activity: Resume usual activity Patient Instructions: Opioid Safety, Pain Management, Patient Portal & Manisha Instructions Activity Restrictions/Additional Instructions: Thank you for choosing [facility] for your healthcare needs today. It is very important that you follow up as instructed or that you return to the Emergency Department should you have concerns or if your condition changes or worsens in any way. Emergency department visits are focused on emergent conditions, in some cases you may require further evaluation on an outpatient basis. Complete your rabies vaccine as per the schedule. Return here for the problems. (Please note that included in your discharge packet is information concerning opioid safety and pain management. This information is given to all patients were discharged from the ER regardless of their discharge diagnosis or the medicines they usually take or are prescribed.) Print Language: Nicaraguan Coding Level of Care Code ED Supervisor [employer] for Cole Patel
[2025-05-20] MEDS: rabies vaccine 2.5 unit SDV IM (14:59)
--- OUTSIDE RECORDS SUMMARY | 2025-05-20 15:57 | XMS_ITS | Encounter Summary ---
Author Organization [employer] [facility] Address [address] [place] [address] Care Team Providers Care Jordan Worker Name Role Phone Unavailable Primary Care Provider Unavailabl e Encounter Details Date Type Department Care Team (Latest Contact Info) Description 06/08/1997 Outpatient Historical HIS [facility] [place] Guille Goddard MD NO ADDRESS ON FILE Other specified aftercare following surgery (Primary Dx) Social History Tobacco Use Types Packs/Day Years Used Date Smoking Tobacco: Never Assessed Comments Unknown Sex and Gender Information Value Date Recorded Sex Assigned at Not on file 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
--- OUTSIDE RECORDS SUMMARY | 2025-05-20 15:57 | XMS_ITS | Clinical Summary ---
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
--- OUTSIDE RECORDS SUMMARY | 2025-05-20 15:57 | XMS_ITS | Encounter Summary ---
Author Organization [employer] [facility] Address [address] [place] [address] Care Team Providers Care Manager Small Business Name Role Phone Unavailable Primary Care Provider Unavailabl e Encounter Details Date Type Department Care Team (Latest Contact Info) Description 10/02/1997 Outpatient Historical [place] [facility] [place] Guille Goddard MD NO ADDRESS ON FILE Other specified aftercare following surgery (Primary Dx) Social History Tobacco Use Types Packs/Day Years Used Date Smoking Tobacco: Never Assessed Comments Unknown Sex and Gender Information Value Date Recorded Sex Assigned at Not on file 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
--- OUTSIDE RECORDS SUMMARY | 2025-05-20 15:57 | XMS_ITS | Encounter Summary ---
Author Organization [facility] Address [address] [place] [address] Care Team Providers Care Mattress And Foundation Sewer Name Role Phone Unavailable Primary Care Provider Unavailabl e Encounter Details Date Type Department Care Team (Latest Contact Info) Description 2003 Outpatient Historical [facility] Oral and Maxillo Surgery- [address] [place] [address] Jim Chilel, DDS [address] [place] [phone] TOOTH POSITION ANOMALY (Primary Dx) Social History Tobacco Use Types Packs/Day Years Used Date Smoking Tobacco: Never Assessed Comments Unknown Sex and Gender Information Value Date Recorded Sex Assigned at Not on file 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
--- OUTSIDE RECORDS SUMMARY | 2025-05-20 15:57 | XMS_ITS | Encounter Summary ---
Author Organization [facility] Address 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
--- OUTSIDE RECORDS SUMMARY | 2025-05-20 15:57 | XMS_ITS | Encounter Summary ---
Author Organization [employer] [facility] Address [address] [place] [address] Care Team Providers Care Studio Hand Name Role Phone Unavailable Primary Care Provider Unavailabl e Encounter Details Date Type Department Care Team (Latest Contact Info) Description 11/30/1999 Outpatient Historical HIS [facility] Mervin Escobedo NO ADDRESS ON FILE Unspecified symptom associated with female genital organs (Primary Dx); Abdominal pain, right lower quadrant Social History Tobacco Use Types Packs/Day Years Used Date Smoking Tobacco: Never Assessed Comments Unknown Sex and Gender Information Value Date Recorded Sex Assigned at Not on file 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
--- OUTSIDE RECORDS SUMMARY | 2025-05-20 15:57 | XMS_ITS | Encounter Summary ---
Author Organization [email or web address] [facility] Address [address] [place] [address] Care Team Providers Care Perioperative Manager Name Role Phone Unavailable Primary Care Provider Unavailabl e Encounter Details Date Type Department Care Team (Late st Contact Info) Description 05/12/2002 Inpatient Historical HIS IN BED Valentin Ortez MD [address] [place] [address] [address] [place] [address] LUMBAR DISC DISPLACEMENT (Primary Dx) Social History Tobacco Use Types Packs/Day Years Used Date Smoking Tobacco: Never Assessed Comments Unknown Sex and Gender Information Value Date Recorded Sex Assigned at Not on file 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
--- OUTSIDE RECORDS SUMMARY | 2025-05-20 15:57 | XMS_ITS | Data Portability ---
Author Organization [facility] Address [address] [facility] [address] [place] [address] Care Team Providers Care Claim Approver Name Role Phone JENNIFER NICHOLS Primary Care Provider Assessment No assessment recorded. Plan of Treatment Reminders Order Date Submit Date Provider Last Modified By Organization Details Last Modified Time Details Appointments None recorded. Lab CBC 2024 025 [facility], [address] [facility], [facility], [place], [address], 17:11:35 CMP, serum or plasma 2024 025 [facility], [address] [facility] [address], [place], [address], 10:50:08 Referral None recorded. Procedures None recorded. Surgeries None recorded. Imaging NM, hepatobil iary scan 2024 025 [facility], [address] [place], [address], 09:01:41 Medication Orders Ambien 5 mg tablet 2024 025 [facility], [address], [place], [address], 16:36:21 pantopraz ole 40 mg tablet,de layed release 2024 025 [facility], [address], [place], [address], 5 16:36:21 venlafaxi ne ER 150 mg capsule,e xtended release [address] [facility] 15, [address], [place], [address], 5 16:36:22 ondansetr on HCl 4 mg tablet 2024 [facility] [address], [address], [place], [address], 5 16:36:18 nystatin 100,000 unit/mL oral suspensio n 2024 [facility] [address], [address], [place], [address], 5 05:01:08 amlodipin e 5 mg tablet 2024 025 [facility] 15, [address], [place], [address], 5 17:47:42 venlafaxi ne ER 75 mg capsule,e xtended release 24 hr 2024 025 [facility] 15, [address], [place], [address], 5 17:47:40 amoxicill in 875 mg-potass ium clavulana te 125 mg tablet [address] [facility] 15, [address] [address], [address], 17:32:02 promethaz ine-DM 6.25 mg-15 mg/5 mL oral syrup [address] [facility] 15, [address], [place], [address], 15:54:21 sertralin e 50 mg tablet [address] [facility] 15, [address], [place], [address], 15:48:08 prednison e 20 mg tablet 2024 025 [facility] 15, [address], [place], [address], 15:47:37 allopurin ol 300 mg tablet [address] [facility] 15, [address], [place], [address], 15:33:16 Patient TargetsNo targets recorded. Patient InstructionsNo instructions recorded. Reason for Referral None Reported. Results Created Date Observation Date Name Description Value Unit Range Abnormal Flag Note LastModifiedBy Organization Detail LastModifiedTime 02/14/2002/13/2025 CBC WBC 12.8 x10 4.0-10 .5 high Not Available [facility] [address], [place], [address], 02/13/2025 17:11:34 02/14/2002/13/2025 CBC RBC 4.78 x10 3.50-5 .50 Not Available [facility] [address], [place], [address], 02/13/2025 17:11:34 02/14/2002/13/2025 CBC HGB 15.9 g/dL 12.0-1 6.0 Not Available [facility] [address] [facility] 1, [place], [address], 02/13/2025 17:11:34 02/14/2002/13/2025 CBC HCT 48.7 % 37.0-4 7.0 high Not Available [facility] [address] [facility] 1, [place], [address], 02/13/2025 17:11:34 02/14/2002/13/2025 CBC MCV 101.8 fL 80.0-9 9.9 high Not Available [facility] [address] [facility] 1, [place], [address], 02/13/2025 17:11:34 02/14/2002/13/2025 CBC MCH 33.3 pg 27.0-3 2.0 high Not Available [facility] [address] [facility] 1, [place], [address], 02/13/2025 17:11:34 02/14/2002/13/2025 CBC MCHC 32.7 g/dL 32.0-3 6.0 Not Available [facility] [address] [facility] 1, [place], [address], 02/13/2025 17:11:34 02/14/2002/13/2025 CBC RDW 14.4 % 11.5-1 4.5 Not Available [facility] [address] [facility] 1, [place], [address], 02/13/2025 17:11:34 02/14/2002/13/2025 CBC plt 322.9 x10 140.0- 451.0 Not Available [facility] [address] [facility] 1, [place], [address], 02/13/2025 17:11:34 02/14/20 02/13/2025 CBC lymphocytes % 26.3 % 20.0-5 0.0 Not Available [facility] [address] [facility] 1, [place], [address], 02/13/2025 17:11:34 02/14/20 25 02/13/2025 CBC granulcytes % 64.2 % 30.0-7 0.0 Not Available [facility] [address] [facility] 1, [place], [address], 02/13/2025 17:11:34 02/14/20 25 02/13/2025 CBC monocytes % 8.7 % 2.0-16 .0 Not Available [facility] [address] [facility] [address] 1, [place], [address], 02/13/2025 17:11:34 02/14/20 25 02/13/2025 CBC granulcytes# 8.2 x10 Not Mya ilable [facility] [address] [facility] 1, [place], [address], 02/13/2025 17:11:34 02/14/20 25 02/13/2025 CBC lymphocytes # 3.4 x10 Not Available [facility] [address] [facility] 1, [place], [address], 02/13/2025 17:11:34 02/14/20 25 02/13/2025 CBC monocytes # 1.1 x10 Not Avai lable [facility] [address] [facility] 1, [place], [address], 02/13/2025 17:11:34 02/14/20 25 02/16/2025 CMP (FEMA LE) glucose 142.0 mg/dL 60.0-9 9.0 high Not Available [facility] [address] [facility] 1, [place], [address], 02/16/2025 10:50:08 02/14/20 25 02/16/2025 CMP (FEMA LE) BUN (blood urea nitrogen) 11.0 mg/dL 10.0-2 6.0 Not Available [facility] [address] [facility], [place], [address], 02/16/2025 10:50:08 02/14/20 25 02/16/2025 CMP (FEMA LE) creatinine (serum) 1.0 mg/dL 0.4-1. 5 Not Available [facility] [address] [facility] 1, [place], [address], 02/16/2025 10:50:08 02/14/2002/16/2025 CMP (FEMA LE) BUN/creatini ne ratio 11.00 ratio Not Available [facility] [address] [facility] [address], [place], [address], 02/16/2025 10:50:08 02/14/20 25 02/16/2025 CMP (FEMA LE) eGFR calculated 62.6 Not Available [facility] [address] [facility] [address], [place], [address], 02/16/2025 10:50:08 02/14/20 25 02/16/2025 CMP (FEMA LE) total protein 7.3 g/dL 6.0-8. 5 Not Available [facility] [address] [address], [place], [address], 02/16/2025 10:50:08 02/14/2002/16/2025 CMP (FEMA LE) total bilirubin 0.7 mg/dL 0.2-1. 3 Not Available [facility] [address] [address], [place], [address], 02/16/2025 10:50:08 02/14/20 25 02/16/2025 CMP (FEMA LE) albumin 4.2 g/dL 3.5-5. 5 Not Available [facility] [address] [facility] 1, [place], [address], 02/16/2025 10:50:08 02/14/20 25 02/16/2025 CMP (FEMA LE) globulin 3.1 calc Not Available [facility] [address] [facility], [place], [address], 02/16/2025 10:50:08 02/14/20 25 02/16/2025 CMP (FEMA LE) AST (SGOT) 77.0 U/L 0.0-46 .0 high Not Available [facility] [address] [facility] 1, [place], [address], 02/16/2025 10:50:08 02/14/20 25 02/16/2025 CMP (FEMA LE) altv (SGPT) 50.0 U/L 13.0-6 9.0 normal Not Available [facility] [address] [facility], [place], [address], 02/16/2025 10:50:08 02/14/20 25 02/16/2025 CMP (FEMA LE) A/G ratio 1.4 ratio Not Available [facility] [address] [facility] 1, [place], [address], 02/16/2025 10:50:08 02/14/20 25 02/16/2025 CMP (FEMA LE) ALP phos 142.0 U/L 30.0-1 40.0 abnormal Not Available [facility] [address] [facility] 1, [place], [address], 02/16/2025 10:50:08 02/14/20 25 02/16/2025 CMP (FEMA LE) calcium 9.3 mg/dL 8.4-10 .5 Not Available [facility] [address] [facility] 1, [place], [address], 02/16/2025 10:50:08 02/14/2002/16/2025 CMP (FEMA LE) sodium 139.0 mmol/ L 136.0- 145.0 Not Available [facility] [address] [facility] 1, [place], [address], 02/16/2025 10:50:08 02/14/20 25 02/16/2025 CMP (FEMA LE) potassium 3.4 mmol/ L 3.5-5. 1 low Not Available [facility] [address] [facility] 1, [place], [address], 02/16/2025 10:50:08 02/14/20 25 02/16/2025 CMP (FEMA LE) chloride 104.0 mmol/ L 98.0-1 10.0 normal Not Available [facility] [address] [facility] 1, [place], [address], 02/16/2025 10:50:08 02/14/2002/16/2025 CMP (FEMA LE) C02 24.0 mmol/ L 22.0-3 1.0 Not Available [facility] [address] [facility] 1, [place], [address], 02/16/2025 10:50:08 02/14/20 25 02/16/2025 CMP (FEMA LE) anion gap 11.0 calc Not Available [facility] [address] [facility] [address], [place], [address], 02/16/2025 10:50:08 02/14/2002/16/2025 CMP (FEMA LE) osmolality 288.8 calc Not Available [facility] [address] [facility] 1, [place], [address], 02/16/2025 10:50:08 10/15/20 25 03/18/2025 NM, hepat obili la scan No observ ation record ed. [facility] [address] [place], [address], 03/18/2025 17:30:00 Result Notes None recorded. Problems Name Problem SNOMED Code Status Onset Date Resolution Date Notes Provider Name and Address Organization Details Recorded Time Irritable bowel syndrome 44856535 Active 2021 JAE dye, [facility] 14:55:22 Obesity 722101145 Active 2021 JAE dye, [facility] 14:55:22 Depressiv e disorder 61990868 Active 2021 JAE dye [facility] 5 14:55:22 Hypothyro idism 19825304 Active 2021 JAE NOLEN null, [facility] 5 14:55:22 Insomnia 236549884 Active 2021 JAE BARAHONAMEN null, [facility] 5 14:55:22 Generaliz ed anxiety disorder 16783724 Active 2021 JAE NOLEN null, [facility] 5 14:55:22 Smoker 55628461 Active 2021 JAE BARAHONAMEN null, [facility] 5 14:55:23 Migraine 11776477 Active 2021 JAE NOLEN null, [facility] 5 14:55:22 Hypertens marquita disorder 18292708 Active 2021 JAE NOLEN null, [facility] 5 14:55:22 Gastroeso phageal reflux disease 673397325 Active 2021 JAE dye, [facility] 5 14:55:22 Supravent ricular tachycard ia 1894268 Active 2023 JAE dye, [facility] 5 14:55:23 Allergic rhinitis 53995440 Active 2023 JAE dye, [facility] 5 14:55:23 Renal impairmen t 081487094 Active 2023 Jennifer Nichols MD [address] [place] [address], [phone], [facility] 5 16:26:26 Acute pyeloneph ritis 54081807 Completed 202310/07/2024 JAE dye, [facility] 5 14:55:43 Chronic kidney disease 278581417 Active 2023 JAE dye, [facility] 5 14:55:23 Pain of multiple joints 75171326 Active 2023 JAE dye, [facility] 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 5 15:28:07 Acute bacterial sinusitis 95390457 Active 2024 Jennifer Nichols MD [address] [place] [address], [phone], [facility] 5 16:52:01 Moderate major depressio n 149995 Active 2024 Jennifer Nichols MD [address] [place] [address], [address], [facility] 16:52:11 Candidias is of mouth 84125510 Active 2024 Jennifer Nichols MD [address] [place] [address], [address], [facility] 18:04:30 Right upper quadrant pain 881839221 Active 2024 Jennifer Nichols MD [address] [place] [address], [address], [facility] 16:23:49 Primary insomnia 2087288 Active 2024 Jennifer Nichols MD [address] [place] [address], [phone], [facility] 16:24:15 Problem Notes None recorded. Procedures Surgical History Date Name Laterality Status Provider Name and Address Organization Details Recorded Time Carpal tunnel surgery completed [facility] 10/01/2023 13:35:43 Total Hysterectomy completed [facility] 10/01/2023 13:35:47 Back Surgery completed [facility] 10/01/2023 13:35:52 Imaging Results None recorded. Procedure Notes None recorded. Medical Equipment None Reported. Allergies Allergen ID Allergen Name Allergen Category Reaction Reaction Severity Criticality Documentation Date Start Date Code Code System Note Provider Name and Address Organization Details Recorded Time 17701 acetamino phen / oxycodone medicatio n rash mild low 12/30/2022 44682 3 RxNorm [facility]itza [facility] 15:51:31 08843 rofecoxib medicatio n Not available Not available Not available 12/30/2022 81414 8 RxNorm Shaista Brittny [facility] 13:34:37 Medications Name Sig Start Date [...] Not Available allopurin ol 300 mg tablet Take 1 tablet by mouth once daily 2024 active Not Available Not Available Not Avai lable hydrochlo rothiazid e 25 mg tablet Take [...] Updated DateTime 10/07/2024 152.4 cm 32.2 kg/m2 39107.74 g 100 /min 134/100 mm[Hg] JAE NOLEN [facility] 5 15:03:06 Date Recorded Body height Body mass index (BMI) Body weight Oxygen saturation Heart rate Body temperature Systolic And Diastolic Provider Name and Address Organization Details Last Updated DateTime 5 152.4 cm 32.8 kg/m2 70497.5 2 g 98 % 119 /min 99 [degF] 132/100 mm[Hg] [facility] 5 16:06:08 Date Recorded Body height Body mass index (BMI) Body weight Oxygen saturation Heart rate Systolic And Diastolic Provider Name and Address Organization Details Last Updated DateTime 5 152.4 cm 33.2 kg/m2 88643.7 g 97 % 78 /min 152/100 mm[Hg] [facility] 5 17:04:16 Date Recorded Body height Body mass index (BMI) Body weight Oxygen saturation Heart rate Body temperature Systolic And Diastolic Provider Name and Address Organization Details Last Updated DateTime 152.4 cm 34.4 kg/m2 04163.3 6 g 98 % 113 /min 98.3 [degF] 150/74 mm[Hg] Maritza De La Garza [facility] 5 15:54:57 Date Recorded Body height Body mass index (BMI) Body weight Heart rate Systolic And Diastolic Provider Name and Address Organization Details Last Updated DateTime 02/13/2025 154.94 cm 32.3 kg/m2 12837.3 g 120 /min 155/95 mm[Hg] JAE NOLEN [facility] 15:46:44 Social History Question Answer Notes LastModified by [employer] Details LastModified Time Tobacco Smoking Status Current Every Day Smoker Shaista Brittny dye [facility] 10/01/2023 13:35:30 What Was The Date Of Your Most Recent Tobacco Screening? 02/13/2025 Information not available 02/13/2025 Sex: Unknown Functional Status Question Answer Note LastModified by [employer] Details LastModified Time Do you use any illicit or recreational drugs? No [email or web address] Information not available 07/27/2023 What is your [...] preservative 4 completed CARLOS BARBA PA-C [address] [place], [address], [facility] 03/25/2023 14:12:15 COVID-19 vaccine, vector-nr, rS-Ad26, PF, 0.5 mL 1 completed CARLOS BARBA PA-C [address] [place] [address], [address], [facility] 03/25/2023 14:12:15 Tdap 8 completed CARLOS BARBA PA-C [address] [place] [address], [address], [facility] 03/25/2023 14:12:15 Influenza, split virus, trivalent, PF 6 completed CARLOS BARBA PA-C [address] [place], [address], [facility] 03/25/2023 14:12:15 tetanus toxoid, adsorbed 4 completed CARLOS BARBA PA-C [address] [place], [address], [facility] 03/25/2023 14:12:15 Influenza, split virus, quadrivalent, PF 8 completed CARLOS BARBA PA-C [address] [place] [address], [address], [facility] 03/25/2023 14:12:15 Influenza, split virus, quadrivalent, preservative 3 completed [facility] 10/01/2023 13:41:02 Past Encounters Encounter ID Performer Location Encounter Start Date Encounter Closed Date Diagnosis/Indication Diagnosis SNOMED-CT Code Diagnosis ICD10 Code Diagnosis IMO Codes Diagnosis Note [id number] CARLOS BARBA PA-C [facility] ([facility] [address] [place] [phone] 03/25/2023 14:02:40 03/25/2023 14:58:43 Abrasion of skin of left upper arm 4019758292 5549020 S40.812D reassuranc e that her abrasion was not infected.W radha bid. Pat dry. apply thin layer of mupirocin, then cover until healed. [id number] Jennifer Nichols MD [facility] ([facility]) [address] [place] [id number] 07/27/2023 15:37:21 07/27/2023 17:04:09 Hypertensive disorder 79754569 I10 Supraventr icular tachycardia 1695986 I47.10 Allergic rhinitis 312990 04 J30.9 [id number] ERON SALGADO [facility] ([facility]) [address] [place] [id number] 10/01/2023 13:30:06 10/01/2023 15:11:05 Pain of multiple joints 13072897 M25.50 No systemic s/s today. Discussed use of prednisone .F/u if PCP if symptoms worsen or do not improve [id number] Jennifer Nichols MD [facility] ([facility]) [address] [place] [phone] 10/22/2023 14:58:20 10/22/2023 17:33:38 Pain of right shoulder joint 3258812925 2169601 M25.511 Due to this severe pain and greatly decreased range of motion I believe that we need to get an MRI of the shoulder and I believe that she should take a couple of weeks off work. Pain of le ft shoulder joint 5461761928 3124600 M25.512 Pain of ri ght hip joint 8509030287 24317 M25.551 Renal impairment 1390327 03 N28.9 [id number] Jennifer Nichols MD [facility] ([facility]) [address] [place] [id number] 11/06/2023 15:37:42 11/06/2023 17:15:55 Pain of left shoulder joint 4466952542 5641849 M25.512 Pain of ri ght shoulder joint 3961289677 7586936 M25.511 MRI is scheduled for 11/19/23. Appt. with Dr. Neely the following week. Pain of bi lateral hip joints 0652013522 9570017 M25.551 M25.552 stable to worsening. [id number] Jennifer Nichols MD [facility] ([facility]) [address] [place] [id number] 12/25/2023 15:28:47 12/25/2023 16:35:01 Acute pyelonephritis 89416712 N10 slow improvemen t History of operative procedure on shoulder 821788473 Z98.890 right Chronic ki dney disease 726297400 N18.9 Pain of le ft shoulder joint 3612013659 9003460 M25.512 followed by orthopedic surgery. [id number] Bertrand Davis DO [facility] ([facility]) [address] [place] [id number] 01/14/2024 16:36:32 01/16/2024 12:02:41 Dysuria 17888478 R30.0 Acute urin la tract infection 269170335 N39.0 Acute pyelonephritis 366 71134 N10 I reviewed UA results and discussed with pt. We will start antibiotic s. Pt will increase oral fluids and can use cranberry. Return to office with no improvemen t or any problems. Go to ER with severe worsening or severe problems.W e will obtain urine culture [id number] Jennifer Nichols MD [facility] ([facility]) [address] [place] [id number] 01/22/2024 15:42:54 01/22/2024 17:21:55 Recurrent urinary tract infection 423177756 N39.0 Pain of mu ltiple joints 72312759 M25.50 Pain of le ft shoulder joint 3958078662 9937905 M25.512 followed by orthopedic surgery. [id number] Jennifer Nichols MD [facility] ([facility]) [address] [place], [place] [phone] 02/25/2024 16:04:02 02/25/2024 17:16:25 Pain of left shoulder joint 0165929296 3915201 M25.512 followed by orthopedic surgery. Pain of mu ltiple joints 23538367 M25.50 [id number] Jennifer Nichols MD [facility] ([facility]) [address] [place] [id number] 03/12/2024 15:12:24 03/12/2024 21:34:41 Hypertensive disorder 44456755 I10 Supraventr icular tachycardia 2071851 I47.10 Generalize d anxiety disorder 45950089 F41.1 Pain of le ft shoulder joint 3807666123 5438776 M25.512 followed by orthopedic surgery. [id number] Bertrand Davis DO [facility] ([facility]) [address] [place] [id number] 5 03/17/2024 15:09:03 03/17/2024 16:00:59 Dysuria 96707972 R30.0 Acute urin la tract infection 376678497 N39.0 I reviewed UA results and discussed [...] will obtain urine culture Acute pyelonephritis 366 05690 N10 recent with refractory treatment. will send to urology due to continues issues. [id number] Jennfier Nichols MD [facility] ([facility]) [address] [place] [id number] 5 05/12/2024 09:58:44 05/12/2024 14:17:27 Pre-surgery evaluation 912403377 Z01.818 cleared for surgery from a medical standpoint . Chronic ki dney disease 456156822 N18.9 stable to improved. Recurrent urinary tract infection 789980748 N39.0 stable at present. Will add estrogen cream. Pain of le ft shoulder joint 3791392659 0577757 M25.512 followed by orthopedic surgery. Plan for surgery on left rotator cuff soon. 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 Acute bact erial sinusitis 17507003 J01.90 B96.89 14720 Moderate m ajor depression 337692 F32.1 21395 [id number] Jennifer Nichols MD [facility] ([facility]) [address] [place] [id number] 12/17/2024 16:42:00 12/17/2024 17:49:04 Depressive disorder 39137363 F32.A Generalize d anxiety disorder 92605763 F41.1 Hypertensive disorder 38 864431 I10 [id number] ERON SALGADO [facility] ([facility]) [address] [place] [id number] 5 01/08/2025 15:46:13 01/13/2025 14:58:57 Candidiasis of mouth 33298688 B37.0 13674 nystatin started. She is to do this at least 2 days after symptoms resolve. Return with problems or no improvemen t. [id number] Jennifer Nichols MD [facility] ([facility]) [address] [place] [address] 02/13/2025 15:37:33 02/16/2025 11:18:46 Generalized anxiety disorder 26154292 F41.1 Depressive disorder 3548 9007 F32.A with anxiety. Gastroesop hageal reflux disease 034218367 K21.9 Right uppe r quadrant pain 243837260 R10.11 850385 Primary insomnia 6575991 F51.01 95033 Renal impairment 9212732 03 N28.9 [address]4061 she had elevated CK at ED, will recheck today. Health Concerns Section Related Observation LastModified by Organization Detai ls LastModified Time None Recorded Concern Status LastModified by Organization Details LastModified Time None Recorded Advance Directives Directive None Recorded Payers Insurance Date Sequence Insurance Name Policy Number Policy Crawford Covered Member ID Crawford Member ID Guarantor Name 03/17/2024 [place] Julia B Brege [id number] Julia B Brege 03/17/2024 [place] [facility] (INSTITUTION[facility] L) Julia B Brege [id number] Julia B Brege 03/12/2024 1 [facility]LY [facility] - [facility] (PPO) [id number] Julia B Brege [id number] Julia B Brege 03/14/2024 1 [place] Julia B Brege [id number] Julia B Brege 02/16/2025 1 [place] [id number] Julia B Brege [id number] Julia B Brege 05/09/2024 [place] [facility] ([place]IT[place] L) Julia B Brege [id number] Julia B Brege 05/09/2024 1 [place] Julia B Brege [id number] Julia B Brege 04/08/2023 1 *SELF PAY* Mi sty B Brege 11/14/2023 1 [place] [facility] Julia B Brege [id number] Julia B Brege Notes Date Note Type Note Provider Name and Address Organization Details Recorded Time 11/19/19 25 text/htm l CoughReported by PatientHPIFor associated symptoms, patient reportssputum production,nasal discharge, andhoarsenessbut reportsno fever. For quality, patient reportsproductive. For severity, patient reportsmild. For duration, patient reportsintermittent. Jennifer Nichols MD [address] [place], [address], [facility] 11/18/2024 16:57:23 12/18/19 25 text/htm l [...] reportsstarted 4 day(s) ago. Jennifer Nichols MD [address] [place], [address], [facility] 12/17/2024 17:48:48 01/09/20 25 text/htm l ROS as noted in the HPI walk inx4 days white film on tongue and notices her throat is sore. Feels well otherwise. Denies sinus/nasal symptoms, fever. Eating/drinking normally. ERON SALGADO [address] [place], [address], [facility] 01/09/2025 11:25:22 02/14/20 25 text/htm l Reflux/GERDReported by PatientHPIFor severity, patient reportsworsening.stil having some significant problems with this. Anxiety/DepressionReported by PatientHPIFor severity, patient reportsmood worse,increased anxiety, andinterference with workbut reportsdenies suicidal ideationsandable to maintain relationships. For context, patient reportsno major life stressors. For associated symptoms, patient reportsdenies homicidal ideations. Jennifer Nichols MD [address] [place] [address], [address], [facility], Adela 02/13/2025 16:36:18 OBGyn Episode No OBEpisode recorded.
--- OUTSIDE RECORDS SUMMARY | 2025-05-20 15:57 | XMS_ITS | Encounter Summary ---
Author Organization [employer] [facility] Address [address] [place] [address] Care Team Providers Care Documentation Liaison Name Role Phone Unavailable Primary Care Provider Unavailabl e Encounter Details Date Type Department Care Team (Latest Contact Info) Description 12/02/1999 Outpatient Historical [facility] Mervin Escobedo NO ADDRESS ON FILE Abdominal pain, left upper quadrant (Primary Dx) Social History Tobacco Use Types Packs/Day Years Used Date Smoking Tobacco: Never Assessed Comments Unknown Sex and Gender Information Value Date Recorded Sex Assigned at Not on file 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
--- OUTSIDE RECORDS SUMMARY | 2025-05-20 15:57 | XMS_ITS | Clinical Summary ---
Author Organization [employer] Address [address] Manningn: Epic Prelude ADT MAKENNA LUNDY [address] Care Team Providers Care Environmental Service Aide Name Role Phone Unavailable Primary Care Provider Unavailabl e Social History Tobacco Use Types Packs/Day Years Used Date Smoking Tobacco: Never Assessed Comments Unknown Sex and Gender Information Value Date Recorded Sex Assigned at Not on file Legal Sex Female 5:31 AM [employer] Gender Identity Not on file Sexual Orientation [...]
--- OUTSIDE RECORDS SUMMARY | 2025-05-20 15:57 | XMS_ITS | Patient Health Record ---
Author Organization [facility] Address [address] [place] [address] Care Team Providers Care Customer Management Specialist Name Role Phone Chato Williamson Primary Care Provider Riri Canales Unavailable [phone] Shavon Webb Unavailable [phone] Laura Andrews Unavailable [phone] Allergies No Known Allergies Reason For Referral [...] W/U Status Risk Notes Problem Essential hypertension (18007083) Essential hypertension (I10) Active confirmed Problem Arthritis (7414537) Arthritis (M19.90) Active confirmed Problem serum creatinine raised (531251479) Elevated serum creatinine (R79.89) Active confirmed Problem Difficulty passing urine (326414468) Difficulty urinating (R39.198) Active confirmed Problem Recurrent urinary tract infection (885922118) Recurrent UTI (N39.0) Active confirmed Problem Renal function tests abnormal (246457002) Decreased GFR (R94.4) Active confirmed Problem Pyelonephritis (90933956) Pyelonephritis of right kidney (N12) Active confirmed Problem History of acute renal failure (156318400004491) Hx of acute renal failure (Z87.448) Active confirmed Encounters Encounter Location Date Provider Diagnosis [facility] [address] [place] [address] 06/10/2024 Riri Mix [facility] [address] [place] [address] [address] [place] [address] 06/05/2024 Riri Mix [facility] [address] [place] [address] [address] [place] [address] 06/10/2024 Laurajm Solomonarpan Recurrent UTI N39.0 Assessments Encounter Date Diagnosis (ICD Code) Assessment Notes Treatment Notes Treatment Clinical Notes Section Notes 06/10/2024 Recurrent UTI (ICD-10 - N39.0) Plan Of Treatment Pending Test Test Name Order Date UA Reflex Micro, Reflex Cult 89801, 8101 5, 90586 06/10/2024 Insurance Providers Payer Name Payer Address Payer Phone Subscriber Number Group Number Insured Name Patient Relationship to Insured Coverage Start Date Coverage End Date [place] Medicaid [address] [place] [address] [id number] ANDREW, COLETTE Self - patient is the insured Medical (General) History Surgical History Surgery Date(Month/Year) Right shoulder Back surgery X4 carpal tunnel hysterectomy gastric bypass
--- OUTSIDE RECORDS SUMMARY | 2025-05-20 15:58 | XMS_ITS | Patient Health Record ---
Author Organization [employer], [facility] Address [address] [place] [address] Care Team Providers Care Implementation Consultant Name Role Phone Chato Williamson Primary Care Provider ROSALEE Hernandez [facility] [phone] Allergies No Known Allergies Reason For Referral No Information Medications Medication SIG (Take, Route, Frequency, Duration) Notes Start Date End Date Status HYDROcodone-Acetaminophen 5-325 MG 1 tablet as needed Orally every 6 hrs Active Metoprolol Succinate 100 MG 1 capsule Orally Once a day Active Encounters Encounter Location Date Provider Diagnosis [facility] [employer] [employer] [address] [place] [address] 06/23/2024 ROSALEE YUSUF [facility] [employer], [facility] [address] [place] [address] 06/23/2024 ROSALEE YUSUF Assessments Encounter Date Diagnosis (ICD Code) Assessment Notes Treatment Notes Treatment Clinical Notes Section Notes 05/26/2024 49 y/o F with Karthik Plan Of Treatment Pending Test Test Name Order Date BASIC METABOLIC PANEL (00440) 04/16/2024 Insurance Providers Payer Name Payer Address Payer Phone Subscriber Number Group Number Insured Name Patient Relationship to Insured Coverage Start Date Coverage End Date [place] Medicaid [address] [place], [place] [id number] [phone] [id number] Julia Barrera Self - patient is the insured Medical (General) History Medical History History ICD Code arthritis HTN back pain difficulty urinating kidney disease waking 2x a night to urinate Surgical History Surgery Date(Month/Year) right shoulder 4 back surgeries carpal tunnel hysterectomy gastrol by pass Hospitalization History Reason Date(Month/Year) see surgeries kidney failure /blood infection
== END 2025-05-20 15:06 | disposition home or self-care (01) ==
PROVIDERS: Emergency Provider Family Medicine; PCP Family Medicine
DX: Z29.14 Encounter for prophylactic rabies immune globulin (principal); Z20.3 Contact with and (suspected) exposure to rabies; I10 Essential (primary) hypertension; Z72.0 Tobacco use
CPT/HCPCS: 90471; 90675; 99283